=== PATIENT | female | born 1945 | race American Indian/Alaskan Native ===

== ENCOUNTER 2016-06-08 06:32 | Day surgery (SDC) | payer MEDICARE, BC ==
[2016-06-06 11:43] VITALS: BMI 28.8
[2016-06-08 07:21] LABS: ADD MANUAL DIFF? NO
[2016-06-08 07:26] LABS: BASO # 0.02 K/mm3 (0.0-2.0); BASO % 0.2 % (0.0-3.0); EOS # 0.1 (0.0-0.7); EOS % 1.2 % (1.5-5.0); GRAN # 3.33 (1.4-6.5); GRAN % 29.1 % (50.0-68.0); HEMATOCRIT 38.3 % (36.0-48.0); LYMPH # 7.4 (1.2-3.4); LYMPH % 64.5 % (22.0-35.0); MEAN CORPUSCULAR HEMOGLOBIN 27.2 pg (25.0-35.0); MEAN CORPUSCULAR HGB CONC 32.4 g/dl (31.0-37.0); MONO # 0.6 (0.1-0.6); PLATELET COUNT 200 10^3/uL (120.0-450.0); RED CELL DISTRIBUTION WIDTH 15.2 % (11.5-14.5); WHITE BLOOD COUNT 11.4 10^3/ul (4.5-11.0)
[2016-06-08 07:38] LABS: INR 0.94 (0.93-1.08); PARTIAL THROMBOPLASTIN TIME 26.6 Seconds (23.7-30.8)
[2016-06-08 07:43] LABS: BLOOD UREA NITROGEN 14 mg/dL (7-21); CALCIUM 9.4 mg/dL (8.4-10.5); CARBON DIOXIDE 26 mmol/L (21-33); CHLORIDE 102 mmol/L (98-107); GFR AFRICAN-AMERICAN > 60; GLUCOSE,RANDOM 237 mg/dL (70-110); POTASSIUM 3.9 mmol/L (3.6-5.0); SODIUM 139 mmol/L (132-148)
[2016-06-08] MEDS ORDERED: Lidocaine 2% Inj (20ml) ONE ×2 (08:12→09:14)
[2016-06-08] MEDS ORDERED: Nitroglycerin 50mg in D5W 250 ML IV ONE (08:13)
[2016-06-08] MEDS ORDERED: Iodixanol 320 mg/ml 150 ml Bottle IV ONE (08:13)
[2016-06-08] MEDS ORDERED: Iodixanol 320 MG/ML 200 ML BOTTLE IV ONE (08:13)
[2016-06-08] MEDS ORDERED: Midazolam 2 MG/2 ML VIAL ONE ×2 (08:56→09:34)
--- NOTE | 2016-06-08 09:04 | CP.SDSHP ---
Same Day Surgery H & P - History Proposed Procedure: Femoral angiogram Pre-Op Diagnosis: PVD - Previous Medical/Surgical History Cardiac: Hypertension, Arrhythmia (hx of Arrhythmia during colonoscopy, resulting in termination of the procedure), PVD Pulmonary: Asthma (CLL,Hyperlipidemia,Neuropathy,Vertigo), Smoking (Smoked 1PPd for 10 years,quit 40 years ago) Endocrine/Metabolic: Diabetes, Other Neuro: TIA/CVA (Had TIA), Other Misc: Anemia, Other (hyperlipidemia,CLL,Neuropathy,Osteomylitis) Pain: 0. No Pain (at rest) Comments: Has c/o pain in the L leg on walking Previous Surgical History: Bilateral cateract surgery. Hysterectomy. Amputation 2nd L toe. Resection of L 2nd metatarsal head. Picc lines. I & D L foot. Tonsillectomy - Allergies Allergies: Allergies No Known Allergies Allergy (Verified 03/30/16 16:56) - Physical Exam General Appearance: Well nourished female Mental Status: Alert & Oriented x3 Neuro: WNL Heart: WNL Lungs: WNL - {Optional Preform as Required} Abdomen: WNL Other Pertinent Findings: both pedal pulses felt by doppler bilaterally. there is a dressing on the dorsum of the L foot. S/P resection of 2nd L metatarsal head and amputation of the 2nd L toe - Impression Impression: RENY - Date & Time Date: 06/08/16 Time: 09:03 Short Stay Discharge - Short Stay Discharge Admitting Diagnosis/Reason for Visit: RENY I70.221 Disposition: HOME/ ROUTINE
[2016-06-08] MEDS ORDERED: Oxycodone/Acetaminophen 5/325 mg Tab PO PRN (10:21)
[2016-06-08] MEDS ORDERED: Sodium Chloride 0.45% 1,000 ML IV SCH (10:30)
[2016-06-08 11:11] VITALS: RESP 16
[2016-06-08 11:21] VITALS: TEMP 97.7
[2016-06-08 12:27] VITALS: PULSE 101
[2016-06-08 13:52] VITALS: BP 147/69; O2SAT 97
--- NOTE | 2016-06-08 19:36 | VASCULAR ---
PROCEDURE: 1. Abdominal aortogram and bilateral lower extremity runoff with left selective views. 2. Left SFA and popliteal silver Hawk atherectomy and drug-eluting balloon angioplasty 3. Distal left anterior tibial artery angioplasty HISTORY: Severe peripheral vascular disease. Recent her vision in 2016. Left foot ischemia with linear ulceration. Re- stenosis on noninvasive studies. PHYSICIAN(S): Froy Valles M.D. TECHNIQUE: The relative risks and indications of the procedure were explained to the patient and consent obtained. The patient was hydrated prior to the procedure and the appropriate labs drawn. The patient was placed supine on the arteriogram table and the right groin prepped and draped in the usual sterile fashion. Conscious sedation and monitoring were provided throughout the procedure by a nurse. Via a right common femoral artery approach, a 5 Estonian sheath was placed in the right groin. Through the sheath and over a guidewire, a 5 Estonian flush catheter was placed in the abdominal aorta at the level of the renal arteries and a PA DSA abdominal aortogram performed. The catheter was pulled down to the aortic bifurcation and bilateral oblique DSA pelvic arteriograms performed. Overlapping bilateral lower extremity DSA arteriograms were obtained from the inguinal ligaments to the feet. A 0.035 angled Glidewire was advanced over the bifurcation and placed in the distal left SFA. A 7 Estonian 45 cm destination sheath was placed in the proximal left SFA. Heparin 5000 units IV and nitroglycerin in 250 mcg aliquots were given. The recurrent stenoses in the proximal left SFA and left popliteal artery above the knee were easily crossed with a trail david catheter. Imaging of the tibial vessels demonstrated severe disease of the distal left anterior tibial artery and a distal occlusion. The previously treated left tibioperoneal trunk has mild restenosis. Exchange was made for a 0.014 support guidewire placed at the level of the ankle. The mid to distal left anterior tibial artery was dilated with a 2.5-3.0 by 210 mm tapered balloon. The distal left anterior tibial artery was then dilated with a 3.0 mm balloon. A good angiographic result was obtained. No stent was required. Silver Hawk atherectomy of the left popliteal artery above the knee was performed with an LS catheter. The origin of the left SFA was also treated with the LS atherectomy catheter. The terminal left SFA and left popliteal artery was treated with 5 mm drug-eluting balloon. The origin of the left SFA was treated with 6 mm drug-eluting balloon. Completion angiograms were obtained. The sheath was removed hemostasis obtained. The patient tolerated the procedure well. FINDINGS: There are single renal arteries bilaterally which are widely patent and normal in appearance. The nephrograms are symmetric in appearance. The infrarenal abdominal aorta is widely patent without a radiographically significant stenosis. The aortic bifurcation is widely patent. The common and external iliac arteries are normal in appearance without a significant stenosis. The internal iliac arteries are patent bilaterally. Right lower extremity: The right common femoral artery is patent. The right profunda femoral artery is patent. The right superficial femoral artery is patent with multiple mild to moderate stenoses in the mid to distal portion. The right popliteal artery is patent and continuous without radiographically significant stenosis. There is severe right tibial occlusive disease. Distal right posterior tibial artery is occluded. The right anterior tibial artery is a predominant supply to the foot. There are 2 moderate to severe stenoses in the proximal right anterior tibial artery. The right peroneal artery is small and patent with focal disease in the tibioperoneal trunk.. Left lower extremity: Left common femoral artery is patent. The left profunda femoral artery is patent with mild restenosis at its origin. Moderate disease and re- stenosis is noted in the proximal left SFA. A critical restenosis is seen in the left popliteal artery above the patella. The left popliteal artery is otherwise continuous. There is severe left trifurcation and tibial occlusive disease. The left posterior tibial artery is occluded. The previously treated left tibioperoneal trunk has mild restenosis. The left peroneal artery is continuous to the ankle. The left anterior tibial artery is a predominant supply to the foot. Severe disease and a 5 cm occlusion of the terminal left anterior tibial artery.. IMPRESSION: 1.Successful treatment of recurrent stenosis in the left popliteal artery above the knee and the origin of the left SFA with silver Hawk atherectomy and drug-eluting balloon angioplasty as described above. 2. Successful angioplasty of severe disease in short segment occlusion of the distal left anterior tibial artery. 3. Severe bilateral tibial occlusive disease.
== END 2016-06-08 16:14 | disposition home or self-care (01) ==
LOC: SDSVAS 06:32
PROVIDERS: ATTEND Radiology Vascular & Interventional Radiology
DX: I70.245 Atherosclerosis of native arteries of left leg with ulceration of other part of foot (principal); L97.529 Non-pressure chronic ulcer of other part of left foot with unspecified severity; E78.5 Hyperlipidemia, unspecified; J45.909 Unspecified asthma, uncomplicated; E11.42 Type 2 diabetes mellitus with diabetic polyneuropathy; Z79.4 Long term (current) use of insulin; C91.10 Chronic lymphocytic leukemia of B-cell type not having achieved remission; I10 Essential (primary) hypertension; Z86.73 Personal history of transient ischemic attack (TIA), and cerebral infarction without residual deficits; Z90.710 Acquired absence of both cervix and uterus; Z89.422 Acquired absence of other left toe(s); Z87.891 Personal history of nicotine dependence
CPT/HCPCS: 36415; 37225; 37228; 75625; 75716; 80048; 82948; 85025; 85610; 85730; 99152; 99153; C1725 ×5; C1764; C1769 ×3; C1887 ×2; C1894; J0360; J1644 ×2; J2175; J2250; J2405; J3010; J7030

== ENCOUNTER 2016-06-24 03:56 | Observation (INO) | payer MEDICARE, BC ==
[2016-06-24 04:22] VITALS: BMI 29.9
[2016-06-24] MEDS ORDERED: Morphine 2 mg/ml ISec IM STA (04:30)
--- NOTE | 2016-06-24 04:37 | ED PDOC ---
Arrival/HPI - General Chief Complaint: Lower Extremity Problem/Injury Time Seen by Provider: 06/24/16 04:15 Historian: Patient - History of Present Illness Narrative History of Present Illness (Text): 06/24/16 04:30 Ashwini Zafar is a 70 year old female, whose past medical history include diabetes, hypertension, asthma, TIA, chronic renal insufficiency, diabetic neuropathy, and PVD, who presents to the ED complaining of bilateral lower leg pain. Patient states she had vascular procedures performed on both legs recently and been experiencing bilateral lower leg pain described as a tight/ pulling sensation. Patient states she has been taking Neurotin and Aspirin for pain but denies any significant relief. Patient denies any fever, chills, chest pain, shortness of breath, nausea, vomiting, diarrhea, urinary symptoms, back pain, neck pain, headache, dizziness, or any other complaints. Time/Duration: Other (few days) Symptom Onset: Gradual Symptom Course: Unchanged Quality: Tightness, Other (Pulling) Activities at Onset: Rest, Light Modifying Factors (Text): none Context: Home Past Medical History - Provider Review Nursing Documentation Reviewed: Yes - Infectious Disease Hx of Infectious Diseases: None - Tetanus Immunization Tetanus Immunization: Unknown - Cardiac Hx Pacemaker: No - Pulmonary Hx Respiratory Disorders: Yes Hx Asthma: Yes - Neurological Hx Paralysis: No - HEENT Hx HEENT Disorder: Yes Hx Cataracts: Yes (SX) Other/Comment: TONSILLECTOMY - Renal Hx Renal Failure: Yes - Endocrine/Metabolic Hx Diabetes Mellitus Type 2: Yes - Hematological/Oncological Hx Blood Transfusions: Yes Hx Blood Transfusion Reaction: No - Integumentary Hx Dermatological Disorder: Yes Other/Comment: dry skin hard thick toes both feet, 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 16 LEFT BALL OF FOOT AND TOP OF FOOT WITH OPEN WOUND.MILD FOUL SMELL.DRAINAGE. - Musculoskeletal/Rheumatological Hx Musculoskeletal Disorders: Yes (HX OSTEO) - Gastrointestinal Hx Gastrointestinal Disorders: No - Genitourinary/Gynecological Hx Genitourinary Disorders: No (ARF) Hx Reproductive Disorders: No - Psychiatric Hx Emotional Abuse: No Hx Physical Abuse: No Hx Substance Use: No - Surgical History Hx Hysterectomy: Yes Hx Tonsillectomy: Yes Other/Comment: tonsils, bilateral cataracts removed, picc line x 2, i and d of non healing wound to ball of left foot dsg dry and intact done today - Anesthesia Hx Anesthesia Reactions: No Hx Malignant Hyperthermia: No - Suicidal Assessment Feels Threatened In Home Enviroment: No Family/Social History - Physician Review Nursing Documentation Reviewed: Yes Family/Social History: No Known Family HX Smoking Status: Former Smoker Hx Alcohol Use: No Hx Substance Use: No Hx Substance Use Treatment: No Allergies/Home Meds Allergies/Adverse Reactions: Allergies No Known Allergies Allergy (Verified 03/30/16 16:56) Home Medications: Home Meds Medication Instructions Recorded Confirmed Alprazolam [Xanax] 0.25 mg PO BID PRN 09/12/11 06/24/16 Losartan Potassium [Cozaar] 50 mg PO DAILY 12/31/15 06/24/16 Methimazole [Tapazole] 5 mg PO DAILY 12/31/15 06/24/16 Aspirin [Ecotrin] 81 mg PO DAILY 03/27/16 06/24/16 Insulin Lispro Mix 75/25 [HumaLOG 40 units SC ACBD 03/27/16 06/24/16 Mix 75/25] Multivit-Min/FA/Lycopen/Lutein 1 tab PO DAILY 03/27/16 06/24/16 [Adults 50+ Multivitamin Tablet] Review of Systems - Physician Review All systems were reviewed & negative as marked: Yes - Review of Systems Constitutional: Normal. absent: Fevers Eyes: Normal ENT: Normal Respiratory: Normal. absent: SOB, Cough Cardiovascular: Normal. absent: Chest Pain Gastrointestinal: Normal. absent: Abdominal Pain, Diarrhea, Nausea, Vomiting Genitourinary Female: Normal. absent: Dysuria, Frequency, Hematuria, Urine Output Changes Musculoskeletal: Other (+bilateral lower leg pain). absent: Back Pain, Neck Pain Skin: Normal. absent: Rash Neurological: Normal. absent: Headache, Dizziness Endocrine: Normal Hemo/Lymphatic: Normal Psychiatric: Normal Physical Exam Vital Signs Reviewed: Yes Vital Signs Temp Pulse Resp BP Pulse Ox 06/24/16 06:55 98 F 80 20 148/82 97 06/24/16 06:53 98.4 F 80 20 148/80 97 06/24/16 04:20 97.3 F L 78 18 152/84 H 96 Temperature: Afebrile Blood Pressure: Normal Pulse: Regular Respiratory Rate: Normal Appearance: Positive for: Well-Appearing, Non-Toxic, Comfortable Pain Distress: None Mental Status: Positive for: Alert and Oriented X 3 - Systems Exam Head: Present: Atraumatic, Normocephalic Pupils: Present: PERRL Extroacular Muscles: Present: EOMI Conjunctiva: Present: Normal Mouth: Present: Moist Mucous Membranes Neck: Present: Normal Range of Motion Respiratory/Chest: Present: Clear to Auscultation, Good Air Exchange. No: Respiratory Distress, Accessory Muscle Use Cardiovascular: Present: Regular Rate and Rhythm, Normal S1, S2. No: Murmurs Abdomen: Present: Normal Bowel Sounds. No: Tenderness, Distention, Peritoneal Signs Back: Present: Normal Inspection Upper Extremity: Present: Normal Inspection. No: Cyanosis, Edema Lower Extremity: Present: Normal Inspection, NORMAL PULSES, Normal ROM, Neurovascularly Intact, Capillary Refill < 2 s. No: Edema, Cyanosis, Tenderness , Swelling, Erythema, Deformity, Temperature Abnormalties Neurological: Present: GCS=15, CN II-XII Intact, Speech Normal Skin: Present: Warm, Dry, Normal Color. No: Rashes Psychiatric: Present: Alert, Oriented x 3, Normal Insight, Normal Concentration Medical Decision Making ED Course and Treatment: 06/24/16 04:30 Impression: 70 year old female complaining of bilateral lower leg pain for Differential Diagnosis include but are not limited to: Plan: -- Morphine -- Reassess and disposition Prior Visits: Notes and results from previous visits were reviewed. Progress Notes: - RAD Interpretation Radiology Orders: 06/24/16 06:20 DUPLEX LOWER EXTRM VEIN BILAT [US] Stat - Medication Orders Current Medication Orders: Discontinued Medications Alprazolam (Xanax) 0.25 mg PO BID PRN; Protocol PRN Reason: Anxiety Stop: 07/01/16 08:41 Last Admin: 06/26/16 00:52 Dose: 0.25 MG Re-Assess: Reassess Psych Meds Document 06/26/16 01:52 RICHI (Rec: 06/26/16 07:23 RICHI [id number]) Reassess Psych Med Effective Aspirin (Ecotrin) 81 mg PO DAILY [facility] Last Admin: 06/26/16 09:55 Dose: 81 MG Atorvastatin Calcium (Lipitor) 10 mg PO DIN [facility] Last Admin: 06/25/16 17:38 Dose: 10 MG Gabapentin (Neurontin) 200 mg PO TID [facility] PRN Reason: Protocol Last Admin: 06/24/16 10:31 Dose: 200 MG Behavioural Document 06/24/16 10:31 SAMIA (Rec: 06/24/16 10:31 SAMIA [id number]) Maintenance Maintenance Dose Yes Re-Assess: Reassess Psych Meds Document 06/24/16 11:31 SAMIA (Rec: 06/24/16 12:23 SAMIA [id number]) Reassess Psych Med Effective Gabapentin (Neurontin) 600 mg PO BID [place] PRN Reason: Protocol Last Admin: 06/26/16 09:55 Dose: 600 MG Behavioural Document 06/26/16 09:55 MV (Rec: 06/26/16 09:55 MV [id number]) Maintenance Maintenance Dose Yes Insulin Human Regular (Humulin R Low) 0 units SC ACHS [place] PRN Reason: Protocol Last Admin: 06/24/16 08:10 Dose: Not Given Non-Admin Reason: Patient in Radiology Insulin Human Regular (Humulin R High) 0 units SC ACHS [place] PRN Reason: Protocol Last Admin: 06/25/16 22:06 Dose: Not Given Insulin Lispro Protam/Lispro Human (Humalog Mix 75/25) 40 units SC ACBD [facility] Last Admin: 06/25/16 17:38 Dose: 40 unit MAR Blood Glucose Document 06/25/16 17:38 MLK (Rec: 06/25/16 17:38 MLK [id number]) Blood Glucose Finger Stick Blood Glucose (70-120) 286 Subcutaneous Administrations Document 06/25/16 17:38 MLK (Rec: 06/25/16 17:38 MLK [id number]) Injection Site MAR Injection Site Right Arm Charges for Administration # of Subcutaneous Administrations 1 Losartan Potassium (Cozaar) 50 mg PO DAILY [facility] Last Admin: 06/26/16 09:55 Dose: 50 MG MAR Pulse and Blood Pressure Document 06/26/16 09:55 MV (Rec: 06/26/16 09:55 MV [id number]) Pulse Pulse Rate (60-90) 88 Blood Pressure Blood Pressure (100/60-150/90) 178/85 Methimazole (Tapazole) 5 mg PO DAILY [facility] Last Admin: 06/26/16 09:57 Dose: 5 MG Morphine Sulfate (Morphine) 2 mg IM STAT STA Stop: 06/24/16 04:31 Last Admin: 06/24/16 04:44 Dose: 2 MG MAR Pain Assessment Document 06/24/16 04:44 RJR (Rec: 06/24/16 04:49 R [id number]) Pain Reassessment Is this a pain reassessment? Yes Sleep Is patient sleeping during reassessment? Yes Pain Scale Used Pain Scale Used Numeric Location Left, Right or Bilateral Bilateral Pain Location Body Site Foot Description Description Constant Intensity of Pain at present 9 Acceptable Level of Pain 2 IM Administration Charges Document 06/24/16 04:44 RJR (Rec: 06/24/16 04:49 R [id number]) Charges for Administration # of IM Administrations 1 Oxycodone/Acetaminophen (Percocet 5/325 Mg Tab) 1 tab PO Q6H PRN PRN Reason: Pain, moderate (4-7) Stop: 06/27/16 06:46 Last Admin: 06/26/16 09:55 Dose: 1 TAB MAR Pain Assessment Document 06/26/16 09:55 MV (Rec: 06/26/16 09:55 MV [id number]) Pain Reassessment Is this a pain reassessment? Yes Pneumococcal Polyvalent Vaccine (Pneumovax 23 Vaccine) 0.5 ml IM .ONCE ONE Stop: 06/24/16 13:25 - Scribe Statement The provider has reviewed the documentation as recorded by the Owen Barajas Provider Attestation: All medical record entries made by the Kishanibnatacha were at my direction and personally dictated by me. I have reviewed the chart and agree that the record accurately reflects my personal performance of the history, physical exam, medical decision making, and the department course for this patient. I have also personally directed, reviewed, and agree with the discharge instructions and disposition. Disposition/Present on Arrival - Present on Arrival Any Indicators Present on Arrival: No History of DVT/PE: No History of Uncontrolled Diabetes: No Urinary Catheter: No History of Decub. Ulcer: No History Surgical Site Infection Following: None - Disposition Have Diagnosis and Disposition been Completed?: Yes Diagnosis: Peripheral vascular disease, Diabetes mellitus, Leg pain Disposition: HOSPITALIZED Disposition Time: 07:00 Patient Problems: Current Active Problems Problem Status Diagnosed Dizziness Acute Hyperglycemia Acute Leg pain Acute Peripheral vascular disease Acute TIA (transient ischemic attack) Acute Condition: FAIR
[2016-06-24 06:55] LABS: ADD MANUAL DIFF? NO
[2016-06-24 07:16] LABS: BASO # 0.02 K/mm3 (0.0-2.0); BASO % 0.2 % (0.0-3.0); EOS # 0.2 (0.0-0.7); EOS % 1.5 % (1.5-5.0); GRAN # 3.79 (1.4-6.5); GRAN % 30.1 % (50.0-68.0); HEMATOCRIT 39.3 % (36.0-48.0); LYMPH # 8.1 (1.2-3.4); LYMPH % 64.1 % (22.0-35.0); MEAN CELL VOLUME 84.3 fL (80.0-105.0); MEAN CORPUSCULAR HEMOGLOBIN 27.7 pg (25.0-35.0); MEAN CORPUSCULAR HGB CONC 32.8 g/dl (31.0-37.0); MONO # 0.5 (0.1-0.6); MONO % 4.1 % (1.0-6.0); PLATELET COUNT 229 10^3/uL (120.0-450.0); RED CELL DISTRIBUTION WIDTH 15.5 % (11.5-14.5); WHITE BLOOD COUNT 12.6 10^3/ul (4.5-11.0)
[2016-06-24] MEDS: Oxycodone/Acetaminophen 5/325 mg Tab PO PRN ×2 (07:16→17:13)
[2016-06-24] MEDS ORDERED: Insulin Reg-LOW-Coverage SC SCH (07:30)
[2016-06-24 08:37] LABS: ALKALINE PHOSPHATASE 145 U/L (38-133); ALT/SGPT 33 U/L (7-56); AST/SGOT 24 U/L (15-39); BILIRUBIN,TOTAL 0.7 mg/dL (0.2-1.3); BLOOD UREA NITROGEN 17 mg/dL (7-21); CALCIUM 9.1 mg/dL (8.4-10.5); CARBON DIOXIDE 27 mmol/L (21-33); CHLORIDE 102 mmol/L (98-107); GFR AFRICAN-AMERICAN > 60; GLUCOSE,RANDOM 218 mg/dL (70-110); POTASSIUM 4.2 mmol/L (3.6-5.0); SODIUM 139 mmol/L (132-148); TOTAL PROTEIN 8.2 g/dL (5.8-8.3)
[2016-06-24] MEDS: methIMAzole 5 MG TAB PO SCH (10:31)
[2016-06-24] MEDS: Insulin Reg-HIGH-Coverage SC SCH ×3 (12:22→22:00)
[2016-06-24] MEDS ORDERED: Pneumococcal 23-Valent Vaccine IM ONE (13:24)
--- NOTE | 2016-06-24 14:52 | CARD ---
APPROVED REPORT EKG Measurement Heart [id number] CA [id number] <Conclusion> Sinus rhythm with 1st degree AV block Septal infarct, age undetermined T wave abnormality, consider anterior ischemia Prolonged QT Abnormal ECG
[2016-06-24] MEDS: Insulin Lispro (humaLOG) MIX 75/25(10 ml) SC SCH (17:58)
--- NOTE | 2016-06-25 02:27 | HP ---
ADMISSION DATE: 06/24/2016. HISTORY OF PRESENT ILLNESS: The patient is a 70-year-old female, who presented to the ED with bilate ral lower leg pain. She is complaining of cramping pain in lower extremity. She has peripheral vasc ular disease. She has diabetes mellitus, which is uncontrolled on current medication. She also has hypertension. She has peripheral vascular disease, has multiple prior admissions for foot ulcers. S he had vascular procedures performed on both legs before. She is currently on Percocet and Neurontin , still complaining of lower-extremity pain, chronic renal insufficiency. BUN and creatinine stable in recent past. She also has hypertension. Blood pressure controlled on current medications. White count is elevated during this hospitalization. Denies any fever. No chest pain, no shortness of br eath. PAST MEDICAL HISTORY: Diabetes mellitus type 2, chronic renal insufficiency, TIA, asthma, peripheral vascular disease, hypertension, chronic anemia, history of blood transfusion in the past, history of osteomyelitis. PAST SURGICAL HISTORY: Tonsillectomy, amputation of several toes. ALLERGIES: No known drug allergies. FAMILY HISTORY: No positive history in mother or father. PERSONAL HISTORY: Former smoker. No history of alcohol abuse. SOCIAL HISTORY: Lives at home. HOME MEDICATIONS: Xanax 0.25 mg b.i.d., Neurontin 200 mg p.o. t.i.d., Cozaar 50 mg daily, Tapazole 5 mg daily, aspirin 81 mg daily, insulin 40 units subQ twice a day, multivitamin. REVIEW OF SYSTEMS: As per HPI, rest of 12-point review of systems reviewed and negative. PHYSICAL EXAMINATION: GENERAL: Mild distress due to lower-extremity pain. VITAL SIGNS: Temperature 97.3, heart rate is 78 per minute, respiratory rate 18 per minute, blood pr essure 150/80, pulse ox is 96% room air. HEENT: Normal. NECK: No lymphadenopathy. CHEST: Air entry present, equal bilateral. CARDIOVASCULAR: S1, S2 normal. No murmur, no gallop. ABDOMEN: Soft, nontender, no hepatosplenomegaly. EXTREMITIES: No calf tenderness. SKIN: Intact. No discharge. SPINE: Normal. PSYCHIATRIC: Affect normal. LABORATORY DATA: White count 12.6, hemoglobin 12.9, hematocrit 39.3, platelet count 229. Sodium 139 , potassium 4.2, chloride 102, creatinine 0.8, glucose 241. AST 24, ALT 33, total protein 8.2. EKG : No ST-T changes. ASSESSMENT: She will be admitted to the hospital. Bilateral lower-extremity ultrasound ordered. We will continue Neurontin 600 mg p.o. b.i.d. She is also on Percocet 5/325 one tablet q. 6 hours p.r. n. for pain. We will continue Lipitor 10 mg daily. Continue insulin. Humalog mix 75/25, 40 units s ubQ t.i.d. before meals. We will continue Cozaar for hypertension 50 mg daily, methimazole 5 mg dayron y, aspirin 81 mg daily, Xanax p.r.n. 0.25 mg b.i.d. We will continue to monitor closely. She also h as leukocytosis. Urine culture, blood cultures sent. No fever, no obvious signs of infection. She also has chronic anemia, hemoglobin 12.9. We will continue to monitor blood counts. Sophie Bazan MD cc: [id number] TT: 06/25/2016 02:26:38 vn
[2016-06-25] MEDS: Oxycodone/Acetaminophen 5/325 mg Tab PO PRN ×2 (07:30→15:43)
[2016-06-25] MEDS: Insulin Reg-HIGH-Coverage SC SCH ×4 (08:03→22:06)
[2016-06-25] MEDS: Insulin Lispro (humaLOG) MIX 75/25(10 ml) SC SCH ×2 (08:03→17:38)
[2016-06-25] MEDS: methIMAzole 5 MG TAB PO SCH (09:28)
--- NOTE | 2016-06-25 13:35 | CON ---
DATE: 06/25/2016 CHIEF COMPLAINT: Neuropathy. HISTORY OF PRESENT ILLNESS: A 70-year-old woman with history of type 2 diabetes mellitus, chronic re nal insufficiency, peripheral vascular disease, status post left SFA, hypertension, chronic anemia, h istory of blood transfusions in the past, history of osteomyelitis in the past, who had been having c ramping pain in the lower extremity. She has peripheral vascular disease. She says she can barely wa lk about half a block. She has had vascular procedures performed on both legs before. She is on Per cocet and Neurontin and still complaining of lower extremity pain, and chronic renal insufficiency. She is only on aspirin. She was only gabapentin 200 mg p.o. t.i.d. initially. Peripheral pulses 2+ felt bilaterally. Otherwise, no weakness in the extremities. PAST MEDICAL HISTORY: History of diabetes type 2, , TIA, asthma, peripheral vascular disease, h ypertension, chronic anemia, blood transfusions in the past. PAST SURGICAL HISTORY: Tonsillectomy, amputation of toes. ALLERGIES: No known drug allergies. FAMILY HISTORY: Noncontributory. SOCIAL HISTORY: Former smoker. No history of ETOH abuse. HOME MEDICATIONS: Xanax, Neurontin, Cozaar, Tapazole, aspirin, insulin. REVIEW OF SYSTEMS: A 14-point review of systems is negative except in the HPI. PHYSICAL EXAMINATION: VITAL SIGNS: Temperature 97.8, pulse rate of 78, respiratory rate of 18, blood pressure 150/80. HEENT: Atraumatic, normocephalic. PERRLA. Extraocular muscles intact. NECK: Supple, no JVD, no adenopathy noted. LUNGS: Clear to auscultation. No adventitious sounds. HEART: S1, S2, normal rate and rhythm. No murmurs, rubs, or gallops. ABDOMEN: Soft, nontender, nondistended. Bowel sounds are present. EXTREMITIES: No clubbing, no cyanosis. Peripheral pulses 2+ felt bilaterally. NEUROLOGIC: The patient is alert, oriented to person, place, month and year. Speech is fluent, with out errors. Cranial nerves II-XII are intact. MOTOR: Moves all extremities equally. Toes are downgoing bilaterally. SENSORY: Decreased light touch and pinprick up to calves bilaterally. Diffuse vibration of the toes . Proprioception is intact. DTRs are 2+ throughout and 1 at the ankles. COORDINATION: [id number] intact. GAIT: Deferred for now. LABORATORIES: Sodium 139, potassium 4.2, chloride 102, carbon dioxide 27, BUN of 17, creatinine 0.8. Random glucose 218. ASSESSMENT AND PLAN: This is a 70-year-old woman with history of type 2 diabetes mellitus, chronic r enal insufficiency, peripheral vascular disease, status post SFA, hypertension, chronic anemia, who p resented with bilateral lower extremity pain. Ultrasound of lower extremities has been ordered. She was initially on Neurontin 200 mg p.o. t.i.d., on Percocet at this time. I feel like she has a comb ination of sensory or motor peripheral neuropathy superimposed underlying peripheral vascular disease . At this point, I recommend: 1. An outpatient EMG nerve conduction study of lower extremities to assess the degree of neuropathy. 2. Aspirin 81 mg and Plavix 75 mg p.o. daily for more antiplatelet effect in addition to her Lipitor 10 mg daily for her underlying peripheral vascular disease. 3. We will increase the gabapentin to 600 mg p.o. b.i.d. She can follow up as an outpatient. Thank you for this consult. We will sign off. Brian Vogel MD cc: [phone] TT: 06/25/2016 13:34:02 Confirmation # [id number] Dictation # [id number] mn
--- NOTE | 2016-06-25 14:23 | US ---
HISTORY: Leg pain and swelling. Evaluate for DVT PHYSICIAN(S): Froy Valles MD. TECHNIQUE: Duplex sonography and color-flow Doppler with graded compression were used to evaluate the deep venous systems of both lower extremities. FINDINGS: The visualized deep venous systems of both lower extremities are sonographically normal and compressible. Normal wave forms and augmentation are seen. There is no sonographic evidence for deep venous thrombosis in the visualized segments of both lower extremities. IMPRESSION: No sonographic evidence for deep venous thrombosis in the visualized segments of both lower extremities.
[2016-06-26] MEDS: Oxycodone/Acetaminophen 5/325 mg Tab PO PRN ×2 (00:53→09:55)
--- NOTE | 2016-06-26 08:20 | CON ---
DATE: 06/24/2016 CHIEF COMPLAINT: Lower extremity pain. HISTORY OF PRESENT ILLNESS: This is a 70-year-old woman with a history of chronic renal insufficienc y, TIA, diabetes, diabetic peripheral neuropathy, PVD with status post left SFA , history of hyp ertension who complains of bilateral lower extremity leg pain, especially at the lower part of the le g as when she walks it is more of a tight and pulling sensation and feels like she is walking on rock s. She is on Neurontin low dose of 200 mg p.o. t.i.d. and takes aspirin, but denies any significant relief. Peripheral pulses are felt in her lower extremities. She is moving all extremities without any problems. PAST MEDICAL HISTORY: Diabetes, diabetic peripheral neuropathy, CRF, PVD, status post left SFA, hist ory of vertigo. REVIEW OF SYSTEMS: A 14-point review of systems is negative except for the HPI. SOCIAL HISTORY: No illicit drug use, smoking, or ETOH abuse. MEDICATIONS: Reviewed via nurses' reconciliation sheet. ALLERGIES: No known drug allergies. FAMILY HISTORY: Noncontributory. PHYSICAL EXAMINATION: VITAL SIGNS: Temperature 98, pulse rate of 80, blood pressure 140/82, respiratory rate of 20, oxygen saturation 97% on room air. GENERAL: The patient is sitting up in bed in no acute distress. HEENT: Atraumatic, normocephalic. PERRLA. Extraocular muscles intact. NECK: Supple, no JVD, no adenopathy noted. LUNGS: Clear to auscultation. No adventitious sounds. HEART: S1, S2, normal rate and rhythm. No murmurs, rubs, or gallops. ABDOMEN: Soft, nontender, nondistended. Bowel sounds are present. EXTREMITIES: No clubbing, no cyanosis. Peripheral pulses 2+ felt bilaterally. NEUROLOGIC: The patient is alert, oriented to person, place, month and year. Speech is fluent, with out any errors. Cranial nerves II through XII are intact. MOTOR: Moves all extremities. Toes are downgoing bilaterally. SENSORY: Decreased light touch and pinprick up to the calves bilaterally. Decreased vibration of th e toes. DTRs 2+ and 1 at the ankles. COORDINATION: Lilfal-zu-qihc intact. GAIT: Deferred for now. LABORATORIES: Sodium is 139, potassium 4.2, chloride of 102, carbon dioxide 27, BUN of 17, creatinin e 0.8. Random glucose of 218. ASSESSMENT AND PLAN: This is a 70-year-old woman with a history of peripheral vascular disease, stat us post left superficial femoral artery , diabetes, diabetic peripheral neuropathy, chronic joellen al insufficiency, vertigo, who presented with bilateral leg pain. Her bilateral leg pain is likely s econdary to peripheral vascular disease with superimposed underlying diabetic sensory motor periphera l neuropathy. At this time, would recommend: 1. In addition to aspirin 81 mg, could consider Plavix 75 as well, which will give her better flow a nd better antiplatelet effect. 2. Increase her gabapentin from 200 t.i.d. to at least 600 b.i.d., which would give her more neuropa thic pain relief and alpha lipoic acid 600 mg p.o. t.i.d. 3. Get Froy Valles to evaluate her peripheral vascular vessels in the upper and lower extremities an d extremity ultrasound. At this time, continue with current present medical management. Will follow up as an outpatient for an EMG to assess the extent of her diabetic peripheral neuropathy. Thank you for this consult. Brian Vogel MD cc: [id number] TT: 06/24/2016 16:27:04 Confirmation # [id number] Dictation # [id number] bg
[2016-06-26] MEDS: Insulin Reg-HIGH-Coverage SC SCH (08:26)
[2016-06-26 08:30] VITALS: BP 178/85; PULSE 88; RESP 20; TEMP 97; O2SAT 97
--- NOTE | 2016-06-26 09:26 | DS ---
This is a 70-year-old female who has come in to the hospital because of lower extremity pain. The pa tashi has a history of diabetic neuropathy. She has Neurontin that she was taking, and this was incr eased by Dr. Vogel from neurology. She also had a lower extremity Doppler done that showed no evide nce of DVT. The patient has peripheral arterial disease, is on aspirin. She has no complaint of any headaches or dizziness. She is going to be discharged home, although she is not happy about going b ecause she continues to have discomfort, and I tried to advise her that this is outpatient management , and that she will need continued titration of her medications by neurology. PHYSICAL EXAMINATION: VITAL SIGNS: Temperature is 98, pulse of 87. Blood pressure is 145/81. Respirations are 19, O2 sat uration 98%. GENERAL: The patient is comfortable, in no acute distress. HEENT: Anicteric sclerae. Moist mucosa. NECK: No JVD or adenopathy. CARDIAC: S1/S2. No murmurs. No rubs. Regular. RESPIRATORY: Clear to auscultation bilaterally. No wheezes, rales, or rhonchi. Good air entry. ABDOMEN: Bowel sounds are positive, soft, nontender, and nondistended. EXTREMITIES: No edema. Has 1+ pulses. ASSESSMENT: 1. Diabetic neuropathy. 2. Diabetes type 2. 3. Peripheral arterial disease. 4. Hypertension. 5. Dyslipidemia. 6. Hypothyroidism. PLAN: The patient is currently on Lipitor for dyslipidemia. She is on aspirin for her peripheral ar terial disease. She is on losartan for her hypertension. She is going to continue with Xanax as nee ded. She is on Neurontin that has been increased to 660 mg daily. She received pneumococcal vaccin ation. She is on a diabetic diet. She is on insulin. CONDITION: Stable. ACTIVITIES: Increase as tolerated. FOLLOWUP: With primary care doctor in 1-2 weeks. Rosendo Marrufo MD cc: [id number] TT: 06/26/2016 09:25:47 madan
[2016-06-26] MEDS: methIMAzole 5 MG TAB PO SCH (09:57)
== END 2016-06-26 12:03 | disposition home or self-care (01) ==
LOC: ED 03:56 → ERH 06:36 → 3RSO 10:13
PROVIDERS: ADMIT Internal Medicine Nephrology; ATTEND Internal Medicine Nephrology
DX: E11.42 Type 2 diabetes mellitus with diabetic polyneuropathy (principal); E11.51 Type 2 diabetes mellitus with diabetic peripheral angiopathy without gangrene; E11.65 Type 2 diabetes mellitus with hyperglycemia; I12.9 Hypertensive chronic kidney disease with stage 1 through stage 4 chronic kidney disease, or unspecified chronic kidney disease; E11.22 Type 2 diabetes mellitus with diabetic chronic kidney disease; N18.9 Chronic kidney disease, unspecified; E78.5 Hyperlipidemia, unspecified; E03.9 Hypothyroidism, unspecified; J45.909 Unspecified asthma, uncomplicated; D64.9 Anemia, unspecified; R42 Dizziness and giddiness; Z87.891 Personal history of nicotine dependence; Z79.4 Long term (current) use of insulin; Z79.82 Long term (current) use of aspirin; Z86.73 Personal history of transient ischemic attack (TIA), and cerebral infarction without residual deficits
CPT/HCPCS: 80053; 82948; 85025; 93005; 93970; 96372; 99285; G0378; J2270

== ENCOUNTER 2016-08-12 19:39 | Inpatient (IN) | payer MEDICARE, BC ==
--- NOTE | 2016-08-12 19:49 | ED PDOC ---
Arrival/HPI - General Time Seen by Provider: 08/12/16 19:46 Historian: Patient - History of Present Illness Narrative History of Present Illness (Text): 08/12/16 19:46 70yo female with PMHx of Diabetes, hyper cholesterol, hypothyroid present with complaint of left pelvic and back pain, dysuria and urinary frequency since last night. She notes previous history of UTI. States she only took a dose of her insulin this morning and not her other medications. She denies fever, chills , nausea, vomiting, hematuria, any other complaint. Past Medical History - Provider Review Nursing Documentation Reviewed: Yes - Infectious Disease Hx of Infectious Diseases: None - Tetanus Immunization Tetanus Immunization: Unknown - Cardiac Hx Pacemaker: No - Pulmonary Hx Respiratory Disorders: Yes Hx Asthma: Yes - Neurological Hx Paralysis: No - HEENT Hx HEENT Disorder: Yes Hx Cataracts: Yes (SX) Other/Comment: TONSILLECTOMY - Renal Hx Renal Failure: Yes - Endocrine/Metabolic Hx Diabetes Mellitus Type 2: Yes - Hematological/Oncological Hx Blood Transfusions: Yes Hx Blood Transfusion Reaction: No - Integumentary Hx Dermatological Disorder: Yes Other/Comment: dry skin hard thick toes both feet, 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 16 LEFT BALL OF FOOT AND TOP OF FOOT WITH OPEN WOUND.MILD FOUL SMELL.DRAINAGE. - Musculoskeletal/Rheumatological Hx Musculoskeletal Disorders: Yes (HX OSTEO) - Gastrointestinal Hx Gastrointestinal Disorders: No - Genitourinary/Gynecological Hx Genitourinary Disorders: No (ARF) Hx Reproductive Disorders: No - Psychiatric Hx Emotional Abuse: No Hx Physical Abuse: No Hx Substance Use: No - Surgical History Hx Hysterectomy: Yes Hx Tonsillectomy: Yes Other/Comment: tonsils, bilateral cataracts removed, picc line x 2, i and d of non healing wound to ball of left foot dsg dry and intact done today - Anesthesia Hx Anesthesia Reactions: No Hx Malignant Hyperthermia: No - Suicidal Assessment Feels Threatened In Home Enviroment: No Family/Social History - Physician Review Nursing Documentation Reviewed: Yes Family/Social History: Unknown Family HX Smoking Status: Former Smoker Hx Alcohol Use: No Hx Substance Use: No Hx Substance Use Treatment: No Allergies/Home Meds Allergies/Adverse Reactions: Allergies No Known Allergies Allergy (Verified 08/12/16 19:43) Home Medications: Home Meds Medication Instructions Recorded Confirmed Alprazolam [Xanax] 0.25 mg PO BID PRN 09/12/11 08/12/16 Losartan Potassium [Cozaar] 50 mg PO DAILY 12/31/15 08/12/16 Methimazole [Tapazole] 5 mg PO DAILY 12/31/15 08/12/16 Aspirin [Ecotrin] 81 mg PO DAILY 03/27/16 08/12/16 Insulin Lispro Mix 75/25 [HumaLOG 40 units SC ACBD 03/27/16 08/12/16 Mix 75/25] Multivit-Min/FA/Lycopen/Lutein 1 tab PO DAILY 03/27/16 08/12/16 [Adults 50+ Multivitamin Tablet] Pill For Yeat Infection 1 PO Q3D 08/12/16 Review of Systems - Physician Review All systems were reviewed & negative as marked: Yes - Review of Systems Constitutional: Normal Eyes: Normal ENT: Normal Respiratory: Normal Cardiovascular: Normal Gastrointestinal: Abdominal Pain. absent: Constipation, Diarrhea, Nausea, Vomiting, Hematochezia, Hematemesis Genitourinary Female: Dysuria, Frequency Musculoskeletal: Back Pain Skin: Normal Neurological: Normal Endocrine: Normal Hemo/Lymphatic: Normal Psychiatric: Normal Physical Exam Vital Signs Reviewed: Yes Vital Signs Temp Pulse Resp BP Pulse Ox 08/12/16 21:38 97.9 F 97 H 16 151/87 H 100 08/12/16 19:45 98.5 F 90 17 146/77 95 Temperature: Afebrile Blood Pressure: Normal Pulse: Regular Respiratory Rate: Normal Appearance: Positive for: Well-Appearing, Non-Toxic, Comfortable Pain Distress: None Mental Status: Positive for: Alert and Oriented X 3 - Systems Exam Head: Present: Atraumatic, Normocephalic Pupils: Present: PERRL Extroacular Muscles: Present: EOMI Conjunctiva: Present: Normal Mouth: Present: Moist Mucous Membranes Neck: Present: Normal Range of Motion Respiratory/Chest: Present: Clear to Auscultation, Good Air Exchange. No: Respiratory Distress, Accessory Muscle Use Cardiovascular: Present: Regular Rate and Rhythm, Normal S1, S2. No: Murmurs Abdomen: Present: Tenderness (Left pevic tenderness), Normal Bowel Sounds. No: Distention, Peritoneal Signs, Rebound, Guarding, McBurney's Point Tender, Rovsing's Sign Present Back: Present: CVA Tenderness (LEft sided). No: Midline Tenderness, Paraspinal Tenderness, Pain with Leg Raise Upper Extremity: Present: Normal Inspection. No: Cyanosis, Edema Lower Extremity: Present: Normal Inspection. No: Edema Neurological: Present: GCS=15, CN II-XII Intact, Speech Normal Skin: Present: Warm, Dry, Normal Color. No: Rashes Psychiatric: Present: Alert, Oriented x 3, Normal Insight, Normal Concentration Medical Decision Making ED Course and Treatment: 08/12/16 23:53 Pt with multiple co morbidities, have leukocytosis and UTI. On PE she had CVAT. she will be admitted for IV abx Levaquin was ordered. Result was RIAC Bazan who was covering for Dr. Marrufo and she accepted pt into her service. She requested Dr. Raya consult. Result and plan was DW the pt and she agreed - Lab Interpretations Lab Results: 08/12/16 20:05 08/12/16 20:05 Lab Results 08/12/16 20:05: Sodium 136, Potassium 4.3, Chloride 98, Carbon Dioxide 28, Anion Gap 14, BUN 22 H, Creatinine 0.8, Est GFR ( Amer) > 60, Est GFR ( Non-Af Amer) > 60, Random Glucose 222 H, Calcium 9.5, Total Bilirubin 1.0, AST 37, ALT 26, Alkaline Phosphatase 121, Total Protein 8.3, Albumin 4.5, Globulin 3.8, Albumin/Globulin Ratio 1.2 08/12/16 20:05: PT 10.6, INR 0.98, APTT 27.0 08/12/16 20:05: WBC 13.0 H, RBC 4.63, Hgb 12.6, Hct 38.4, MCV 82.9, MCH 27.2, MCHC 32.8, RDW 14.7 H, Plt Count 243, MPV 10.1, Gran % 37.5 L, Lymph % (Auto) 55.0 H, Alexander % (Auto) 5.6, Eos % (Auto) 1.7, Baso % (Auto) 0.2, Gran # 4.89, Lymph # 7.2 H, Alexander # 0.7 H, Eos # 0.2, Baso # 0.03 08/12/16 20:00: Urine Color Yellow, Urine Appearance Slight-cloudy, Urine pH 6.0 , Ur Specific Nimitz 1.020, Urine Protein Negative, Urine Glucose (UA) 100 H, Urine Ketones Negative, Urine Blood Small H, Urine Nitrate Negative, Urine Bilirubin Negative, Urine Urobilinogen 0.2, Ur Leukocyte Esterase Large H, Urine RBC 10 - 15, Urine WBC 25 - 30, Ur Epithelial Cells 6 - 8, Urine Bacteria Many, Urine Other Uyeast - RAD Interpretation Radiology Orders: 08/12/16 21:04 ABD & PELVIS W/O PO OR IV CONT [CT] Stat - Medication Orders Current Medication Orders: Alprazolam (Xanax) 0.25 mg PO BID PRN; Protocol PRN Reason: Anxiety Stop: 08/19/16 23:37 Aspirin (Ecotrin) 81 mg PO DAILY [place] Atorvastatin Calcium (Lipitor) 10 mg PO DIN [place] Gabapentin (Neurontin) 600 mg PO BID [place] PRN Reason: Protocol Sodium Chloride (Sodium Chloride 0.45%) 1,000 mls @ 80 mls/hr IV .[id number] [place] Ceftriaxone Sodium (Rocephin 1 Gram Ivpb) 1 gm in 100 mls @ 100 mls/hr IVPB DAILY [place] PRN Reason: Protocol Losartan Potassium (Cozaar) 50 mg PO DAILY [place] Methimazole (Tapazole) 5 mg PO DAILY [place] Oxycodone/Acetaminophen (Percocet 5/325 Mg Tab) 1 tab PO Q4H PRN PRN Reason: Pain, moderate (4-7) Stop: 08/15/16 23:41 Discontinued Medications Sodium Chloride (Sodium Chloride 0.9%) 1,000 mls @ 250 mls/hr IV .Q4H ONE Stop: 08/13/16 00:34 Last Admin: 08/12/16 20:42 Dose: 250 mls/hr Levofloxacin/Dextrose (Levaquin 750mg) 750 mg IVPB ONCE STA Stop: 08/12/16 21:01 Last Admin: 08/12/16 21:20 Dose: 750 mg Oxycodone/Acetaminophen (Percocet 5/325 Mg Tab) 1 tab PO STAT STA Stop: 08/12/16 21:01 Last Admin: 08/12/16 21:20 Dose: 1 tab Disposition/Present on Arrival - Present on Arrival Any Indicators Present on Arrival: No History of DVT/PE: No History of Uncontrolled Diabetes: No Urinary Catheter: No History Surgical Site Infection Following: None - Disposition Have Diagnosis and Disposition been Completed?: Yes Diagnosis: Pyelonephritis Disposition: HOSPITALIZED Disposition Time: 20:50 Patient Problems: Current Active Problems Problem Status Onset Pyelonephritis Acute Condition: FAIR
[2016-08-12 20:18] LABS: ADD MANUAL DIFF? NO
[2016-08-12 20:32] LABS: ALB/GLOB RATIO 1.2 (1.1-1.8); ALKALINE PHOSPHATASE 121 U/L (38-133); ALT/SGPT 26 U/L (7-56); AST/SGOT 37 U/L (15-39); BLOOD UREA NITROGEN 22 mg/dL (7-21); CALCIUM 9.5 mg/dL (8.4-10.5); CARBON DIOXIDE 28 mmol/L (21-33); CHLORIDE 98 mmol/L (98-107); GFR AFRICAN-AMERICAN > 60; GLUCOSE,RANDOM 222 mg/dL (70-110); POTASSIUM 4.3 mmol/L (3.6-5.0); SODIUM 136 mmol/L (132-148); TOTAL PROTEIN 8.3 g/dL (5.8-8.3)
[2016-08-12] MEDS ORDERED: Sodium Chloride 0.9% 1,000 ML IV ONE (20:35)
[2016-08-12 20:48] LABS: URINE BILIRUBIN NEGATIVE (NEGATIVE); URINE BLOOD SMALL (NEGATIVE); URINE GLUCOSE (UA) 100 mg/dL (NEGATIVE); URINE KETONE NEGATIVE (NEGATIVE); URINE LEUKOCYTE ESTERASE LARGE Leu/uL (NEGATIVE); URINE PROTEIN NEGATIVE mg/dL (<30 mg/dL); URINE UROBILINOGEN 0.2 E.U./dL (<1 E.U./dL)
[2016-08-12 20:49] LABS: INR 0.98 (0.93-1.08)
[2016-08-12 20:51] LABS: URINE APPEARANCE SLIGHT-CLOUDY (CLEAR); URINE COLOR YELLOW (YELLOW)
[2016-08-12] MEDS ORDERED: cefTRIAXone 1 gm 1 GM/100 ML BAG IVPB STA (20:51)
[2016-08-12 20:52] LABS: BASO # 0.03 K/mm3 (0.0-2.0); BASO % 0.2 % (0.0-3.0); EOS # 0.2 (0.0-0.7); EOS % 1.7 % (1.5-5.0); GRAN # 4.89 (1.4-6.5); GRAN % 37.5 % (50.0-68.0); HEMATOCRIT 38.4 % (36.0-48.0); LYMPH # 7.2 (1.2-3.4); MEAN CELL VOLUME 82.9 fL (80.0-105.0); MEAN CORPUSCULAR HEMOGLOBIN 27.2 pg (25.0-35.0); MEAN CORPUSCULAR HGB CONC 32.8 g/dl (31.0-37.0); MEAN PLATELET VOLUME 10.1 fl (7.0-11.0); MONO # 0.7 (0.1-0.6); MONO % 5.6 % (1.0-6.0); PLATELET COUNT 243 10^3/uL (120.0-450.0); RED CELL DISTRIBUTION WIDTH 14.7 % (11.5-14.5)
[2016-08-12 20:56] LABS: URINE WBC 25 - 30 /hpf (0-6)
[2016-08-12 20:57] LABS: URINE BACTERIA MANY (NEG)
[2016-08-12] MEDS ORDERED: levoFLOXacin 750 mg in D5W 150 ML BAG IVPB STA (21:00)
[2016-08-12] MEDS ORDERED: Oxycodone/Acetaminophen 5/325 mg Tab PO STA (21:00)
[2016-08-13 00:04] VITALS: BMI 29.9
[2016-08-13] MEDS: Sodium Chloride 0.45% 1,000 ML IV SCH ×4 (00:49→21:23)
[2016-08-13] MEDS: methIMAzole 5 MG TAB PO SCH (09:15)
[2016-08-13 09:46] VITALS: RESP 17
[2016-08-13] MEDS ORDERED: cefTRIAXone 1 gm 1 GM/100 ML BAG IVPB SCH (10:00)
--- NOTE | 2016-08-13 10:44 | CT ---
PROCEDURE: CT Abdomen and Pelvis without intravenous contrast HISTORY: abdominal pain COMPARISON: None. TECHNIQUE: Without contrast. Contrast Dose: Radiation dose: Total exam DLP = 632 mGy-cm. This CT exam was performed using one or more of the following dose reduction techniques: Automated exposure control, adjustment of the mA and/or kV according to patient size, and/or use of iterative reconstruction technique. FINDINGS: LOWER THORAX: Unremarkable. LIVER: Unremarkable. No gross lesion or ductal dilatation. GALLBLADDER AND BILE DUCTS: Unremarkable. PANCREAS: Unremarkable. No gross lesion or ductal dilatation. SPLEEN: Unremarkable. ADRENALS: Unremarkable. No mass. KIDNEYS AND URETERS: Unremarkable. No hydronephrosis. No solid mass. VASCULATURE: Unremarkable. No aortic aneurysm. BOWEL: Unremarkable. No obstruction. No gross mural thickening. APPENDIX: Unremarkable. Normal appendix. PERITONEUM: Unremarkable. No free fluid. No free air. LYMPH NODES: Unremarkable. No enlarged lymph nodes. BLADDER: Unremarkable. REPRODUCTIVE: Unremarkable. BONES: No acute fracture. OTHER FINDINGS: The report concurs with the preliminary [facility] report IMPRESSION: No acute findings
[2016-08-13] MEDS: Insulin Reg-LOW-Coverage SC SCH ×3 (12:06→21:53)
[2016-08-13] MEDS: Meropenem 1g/NS 100mL IVPB 1 GM/100 ML PIGGYBACK IVPB SCH ×2 (13:18→21:31)
[2016-08-13] MEDS: Oxycodone/Acetaminophen 5/325 mg Tab PO PRN ×2 (13:31→21:29)
[2016-08-13] MEDS: Insulin Lispro (humaLOG) MIX 75/25(10 ml) SC SCH (17:13)
--- NOTE | 2016-08-13 17:51 | CON ---
DATE: 08/13/2016 The patient was seen earlier today in 368, bed 1. CHIEF COMPLAINT: Left-sided abdominal pain times several days. HISTORY OF PRESENT ILLNESS: This is a 70-year-old female with past medical history of diabetes melli tus and diabetic neuropathy, CLL, osteomyelitis, TIA, kidney disease. The patient has a history of h ysterectomy. The patient also with a right second toe amputation. She was is in the hospital approx imately 2 months ago, now admitted with abdominal pain, left-sided, times several days and she states she is weak. REVIEW OF SYSTEMS: Did not have any fevers, no chills, no shortness of breath or chest pain. No cou gh. She denies any diarrhea or constipation. She did have dysuria and she also had left flank pain. She states that she had frequency. PAST MEDICAL HISTORY: Is significant for diabetes mellitus, diabetic neuropathy, CLL, hypertension, peripheral vascular disease, TIA, kidney disease, osteomyelitis. PAST SURGICAL HISTORY: Is significant for cataract surgery, hysterectomy, tonsillectomy, and right s econd toe amputation. ALLERGIES: The patient has no known allergies. She is not a smoker, not a drinker and no travel his tory. MEDICATIONS: At home are noted to be aspirin, Xanax, Tapazole, Cozaar, insulin, Neurontin, Lipitor. PHYSICAL EXAMINATION: GENERAL: The patient is in bed. VITAL SIGNS: Temperature of 98, pulse of 97, respiratory rate of 20, blood pressure is 160/80. HEENT: Unremarkable. NECK: Supple. LUNGS: Have decreased breath sounds. HEART: Normal S1, S2. No S3, S4. ABDOMEN: Has left-sided tenderness. There is left CVA tenderness. No rebound or guarding, no chad s. NEUROLOGIC: The patient is awake, alert and oriented x 3. LABORATORY EXAMINATION: The patient has a white count of 13,000, hemoglobin of 12, platelets of 243 with 55% lymphocytosis. Coagulation is noted. INR 0.9. Chemistries reveal the BUN of 22, creatinin e of 0.8. Urinalysis is noted; 25-30 WBCs. Microbiology is pending. The patient had a CAT scan of the abdomen and pelvis, results are pending. Review of the orders reveals the patient's urine cultures have been sent . The patient is on ce ftriaxone. Review of the microbiology in the past reveals the patient has had strep and Staph and co rynebacterium from the foot. Urine in the past, the patient has had Klebsiella in 04/2015, which was pansensitive Klebsiella. ASSESSMENT AND PLAN: This is a 70-year-old female with diabetes mellitus, diabetic neuropathy, hyper tension, chronic lymphocytic leukemia, history of osteomyelitis, history of transient ischemic attack , kidney disease, peripheral vascular disease, now presenting with leukocytosis and tachycardia and p ositive left flank pain and abdominal pain. 1. Sepsis with left pyelonephritis versus diverticulitis. Will treat the patient with meropenem pen ding blood cultures, urine cultures and CAT scan of the abdomen and pelvis and will make further tulio mmendations upon availability of initial results. Sampson Raya MD cc: [id number] TT: 08/13/2016 17:50:32 Confirmation # [id number] Dictation # [id number] dn
--- NOTE | 2016-08-14 00:27 | HP ---
HISTORY OF PRESENT ILLNESS: The patient is an 80-year-old female with past medical history of diabet es mellitus, peripheral vascular disease, hypothyroidism, complaining of left flank pain and back wendy n. CAT scan of the abdomen was unremarkable. UA was positive. She has increased urinary frequency and lower abdominal pain. She has diabetes mellitus, uncontrolled. She has history of peripheral va scular disease, stable; a history of osteomyelitis in the recent past treated with IV antibiotics. N o issues right now. PAST MEDICAL HISTORY: Asthma, history of osteomyelitis, history of chronic anemia, diabetes mellitus type 2, history of chronic renal failure. PAST SURGICAL HISTORY: Tonsillectomy and hysterectomy. FAMILY HISTORY: Noncontributory. No positive history in mother and father. PERSONAL HISTORY: Former smoker. No history of alcohol abuse. ALLERGIES: No known drug allergies. HOME MEDICATIONS: Xanax 0.25 mg p.o. b.i.d., methimazole 5 mg daily, aspirin 81 mg daily, insulin, l ispro as per blood sugar results, multivitamin p.r.n. REVIEW OF SYSTEMS: As per HPI. Rest of 12-point review of systems reviewed and negative. PHYSICAL EXAMINATION: VITAL SIGNS: Temperature 98.5, heart rate 90 per minute, respiratory rate 17 per minute, blood press ure 140/70. Pulse ox is 95 per minute. HEENT: Normal. Oral mucosa moist. Pallor positive. NECK: No lymphadenopathy. CHEST: Air entry present, equal bilateral. No added sound. CARDIOVASCULAR: S1, S2 normal. No murmur, no gallop. ABDOMEN: Soft, nontender. No hepatosplenomegaly, no guarding, no rigidity. EXTREMITIES: No edema. SKIN: Intact. CENTRAL NERVOUS SYSTEM: Alert, oriented x 3, no focal sensorimotor deficit. SPINE: Normal. LABORATORY DATA: White count 13,000, hemoglobin 12.6, hematocrit 38.4, platelet count 243. Sodium 1 36, potassium 4.3, BUN 22, creatinine 0.8, glucose 222. UA positive. Urine culture and blood cultur e pending, CAT scan of the abdomen and pelvis, no lesions. ASSESSMENT: 1. Urinary tract infection, pyelonephritis. 2. Anemia. 3. Leukocytosis. 4. Diabetes mellitus type 2. 5. Peripheral vascular disease. 6. History of osteomyelitis. PLAN: She will be admitted to the hospital. IV antibiotic, meropenem started. She received a dose of ceftriaxone in the ER. ID consultation with Dr. Raya requested. We will continue Lipitor 2 0 mg daily. Continue Neurontin 600 mg p.o. t.i.d. for peripheral neuropathy, insulin 15 units subQ b .i.d., sliding scale regular dose coverage, losartan 50 mg daily, meropenem q. 6 hours, methimazole 5 mg daily, Percocet p.r.n. for pain, IV fluid at 80 mL an hour. Urine culture and blood culture are pending. We will continue to follow. Sophie Bazan MD cc: [id number] TT: 08/14/2016 00:27:40 ct
[2016-08-14] MEDS: Sodium Chloride 0.45% 1,000 ML IV SCH (05:20)
[2016-08-14] MEDS: Meropenem 1g/NS 100mL IVPB 1 GM/100 ML PIGGYBACK IVPB SCH ×2 (05:21→13:22)
[2016-08-14] MEDS: Insulin Reg-LOW-Coverage SC SCH ×2 (07:44→12:41)
[2016-08-14] MEDS: Insulin Lispro (humaLOG) MIX 75/25(10 ml) SC SCH (07:45)
[2016-08-14] MEDS: Oxycodone/Acetaminophen 5/325 mg Tab PO PRN (09:22)
[2016-08-14] MEDS: methIMAzole 5 MG TAB PO SCH (09:25)
[2016-08-14 09:27] VITALS: BP 154/69; PULSE 80
[2016-08-14 11:10] VITALS: TEMP 97.6; O2SAT 97
--- NOTE | 2016-08-14 13:06 | PN ---
DATE: 08/14/2016 SUBJECTIVE: The patient seen earlier today in room 368. She feels that her pain is much improved. She is doing well. She wants to be discharged. PHYSICAL EXAMINATION: VITAL SIGNS: Temperature is 97, blood pressure is 150/60, respiratory rate of 16. HEENT: Unremarkable. NECK: Supple. LUNGS: Have decreased breath sounds. HEART: Normal S1, S2. ABDOMEN: Soft, nontender. LABORATORY DATA: Reveals a white count of 13,000, hemoglobin of 12, platelets of 243. Chemistries r eveal the BUN of 22, creatinine of 0.8. Urinalysis is noted. Microbiology reveals the urine culture is no growth. Dr. Bazan's note from yesterday is noted. CAT scan of the abdomen and pelvis is revi ewed. Culture results are noted and urine culture is negative. ASSESSMENT AND PLAN: This is a 70-year-old female with diabetes mellitus, diabetic neuropathy, hyper tension, chronic lymphocytic leukemia, history of osteomyelitis, history of transient ischemic attack , kidney disease, peripheral vascular disease, presenting with leukocytosis, tachycardia, left flank pain, left-sided abdominal pain with sepsis with a left pyelonephritis and negative CAT scan. May us e p.o. Augmentin. Unfortunately, the urine culture is collected after the antibiotics were given an d, therefore, urine culture is negative. Will follow with you. Sampson Raya MD cc: [id number] TT: 08/14/2016 13:06:20 Confirmation # [id number] Dictation # [id number] mn
--- NOTE | 2016-08-22 02:30 | DS ---
DISCHARGE DIAGNOSES: 1. Urinary tract infection. 2. Anemia. 3. Leukocytosis. 4. Diabetes mellitus type 2. 5. Peripheral vascular disease. 6. History of osteomyelitis. HOSPITAL COURSE: The patient was admitted with left lower quadrant pain. She had a UTI with positiv e urine culture. She was thought to be having pyelonephritis. CAT scan of the abdomen did not show any evidence of pyelonephritis. She did not have fever during hospitalization. UA was positive. Ur ine culture was negative. She is being discharged in stable condition. She was evaluated by Dr. Fatimah bates, ID technology sales consultant, and received IV antibiotic during hospitalization. PHYSICAL EXAMINATION: GENERAL: On discharge, comfortable in bed, in no acute distress. VITAL SIGNS: Temperature is 98.7, heart rate 80 per minute, blood pressure 120/90. HEENT: Normal. NECK: Supple. CHEST: Air entry present, equal bilateral. No added sound. CARDIOVASCULAR: Within normal limits. ABDOMEN: Soft, nontender. No hepatosplenomegaly. EXTREMITIES: No edema. CENTRAL NERVOUS SYSTEM: Alert, oriented x 3. No sensory or motor deficit. CONDITION ON DISCHARGE: Stable. DISPOSITION: Discharged home. DISCHARGE MEDICATIONS: Augmentin 875 p.o. b.i.d., aspirin 81 mg daily, Tapazole 5 mg daily, Percocet p.r.n. for pain. DISCHARGE INSTRUCTIONS: Follow up with Dr. Marrufo in 1 week. Time spent in preparing discharge and coordinating care, 50 minutes. Sophie Bazan MD cc: [id number] TT: 08/22/2016 02:29:40 bg
== END 2016-08-14 14:51 | disposition home or self-care (01) | DRG 872 ==
LOC: ED 19:39 → ERH 21:05 → 3RNO 21:48
PROVIDERS: ADMIT Internal Medicine Medical Oncology; ATTEND Internal Medicine Medical Oncology
DX: A41.9 Sepsis, unspecified organism (principal); N12 Tubulo-interstitial nephritis, not specified as acute or chronic; C91.10 Chronic lymphocytic leukemia of B-cell type not having achieved remission; E11.40 Type 2 diabetes mellitus with diabetic neuropathy, unspecified; E11.51 Type 2 diabetes mellitus with diabetic peripheral angiopathy without gangrene; E11.65 Type 2 diabetes mellitus with hyperglycemia; E03.9 Hypothyroidism, unspecified; M54.9 Dorsalgia, unspecified; J45.909 Unspecified asthma, uncomplicated; I10 Essential (primary) hypertension; D64.9 Anemia, unspecified; Z87.891 Personal history of nicotine dependence; Z90.710 Acquired absence of both cervix and uterus; Z86.73 Personal history of transient ischemic attack (TIA), and cerebral infarction without residual deficits

== ENCOUNTER 2016-10-05 07:32 | Inpatient (IN) | payer MEDICARE, BC ==
[2016-10-05] MEDS ORDERED: Oxycodone/Acetaminophen 5/325 mg Tab PO STA (07:56)
--- NOTE | 2016-10-05 08:00 | ED PDOC ---
Arrival/HPI - General Time Seen by Provider: 10/05/16 07:33 Historian: Patient - History of Present Illness Narrative History of Present Illness (Text): 10/05/16 07:55 Ashwini Zafar is a 70 year old female, with a history of diabetic neuropathy, PAD, hypertension, dyslipidemia, presents to the emergency department complaining of worsening right leg pain for past few days. States that symptoms feels like previous neuropathy pain. Denies any history of trauma. Denies any fever, chills, chest pain, shortness of breath, weakness/numbness to lower extremity, or any other complaints at this time. Time/Duration: Other (few days ) Symptom Onset: Gradual Severity Level: Mild Activities at Onset: Light Past Medical History - Provider Review Nursing Documentation Reviewed: Yes - Infectious Disease Hx of Infectious Diseases: None - Tetanus Immunization Tetanus Immunization: Unknown - Cardiac Hx Pacemaker: No - Pulmonary Hx Respiratory Disorders: Yes Hx Asthma: Yes - Neurological Hx Paralysis: No - HEENT Hx HEENT Disorder: Yes Hx Cataracts: Yes (SX) Other/Comment: TONSILLECTOMY - Renal Hx Renal Failure: Yes - Endocrine/Metabolic Hx Diabetes Mellitus Type 2: Yes - Hematological/Oncological Hx Blood Transfusions: Yes Hx Blood Transfusion Reaction: No - Integumentary Hx Dermatological Disorder: Yes Other/Comment: dry skin hard thick toes both feet, 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 1-9-16 LEFT BALL OF FOOT AND TOP OF FOOT WITH OPEN WOUND.MILD FOUL SMELL.DRAINAGE. - Musculoskeletal/Rheumatological Hx Musculoskeletal Disorders: Yes (HX OSTEO) - Gastrointestinal Hx Gastrointestinal Disorders: No - Genitourinary/Gynecological Hx Genitourinary Disorders: No (ARF) Hx Reproductive Disorders: No - Psychiatric Hx Emotional Abuse: No Hx Physical Abuse: No Hx Substance Use: No - Surgical History Hx Hysterectomy: Yes Hx Tonsillectomy: Yes Other/Comment: tonsils, bilateral cataracts removed, picc line x 2, i and d of non healing wound to ball of left foot dsg dry and intact done today - Anesthesia Hx Anesthesia Reactions: No Hx Malignant Hyperthermia: No - Suicidal Assessment Feels Threatened In Home Enviroment: No Family/Social History - Physician Review Nursing Documentation Reviewed: Yes Family/Social History: No Known Family HX Smoking Status: Former Smoker Hx Alcohol Use: No Hx Substance Use: No Hx Substance Use Treatment: No Allergies/Home Meds Allergies/Adverse Reactions: Allergies No Known Allergies Allergy (Verified 10/05/16 07:56) Home Medications: Home Meds Medication Instructions Recorded Confirmed Alprazolam [Xanax] 0.25 mg PO BID PRN 09/12/11 10/05/16 Losartan Potassium [Cozaar] 50 mg PO DAILY 12/31/15 10/05/16 Methimazole [Tapazole] 5 mg PO DAILY 12/31/15 10/05/16 Aspirin [Ecotrin] 81 mg PO DAILY 03/27/16 08/12/16 Insulin Lispro Mix 75/25 [HumaLOG 40 units SC ACBD 03/27/16 08/12/16 Mix 75/25] Multivit-Min/FA/Lycopen/Lutein 1 tab PO DAILY 03/27/16 08/12/16 [Adults 50+ Multivitamin Tablet] Pill For Yeat Infection 1 PO Q3D 08/12/16 Atorvastatin [Lipitor] 10 mg PO DAILY 10/05/16 10/05/16 Gabapentin [Neurontin] 600 mg PO TID 10/05/16 10/05/16 Insulin Glargine, Recombina 20 units PO HS 10/05/16 10/05/16 [Lantus] Nitrofurantoin Monohyd/M-Cryst 100 mg PO 10/05/16 [Nitrofurantoin Monohydrate/Macrocrystals] Phenazopyridine [Pyridium] 200 mg PO 10/05/16 Physical Exam - Physical Exam Narrative Physical Exam (Text): - Review of Systems Constitutional: Normal. absent: Fatigue, Weight Change, Fevers Eyes: Normal ENT: Normal Respiratory: Normal absent: SOB, Cough, Sputum Cardiovascular: Normal absent: Chest pain, Palpitations, Syncope Gastrointestinal: Normal absent: Abdominal pain, Diarrhea, Nausea, Vomiting Genitourinary: Normal. absent: Dysuria, Frequency, Hematuria Musculoskeletal: Right leg pain absent: Arthralgias, Back Pain, Neck Pain Skin: Normal Neurological: Normal absent: Focal Weakness Endocrine: Normal Hemo/Lymphatic: Normal Psychiatric: Normal - Physical exam Patient appears age appropriate, speaking full sentences without difficulty - Systems Exam Head: Present: Atraumatic, Normocephalic Pupils: Present: PERRL Extraocular Muscles: Present: EOMI Conjunctiva: Present: Normal Mouth: Present: Moist Mucous Membranes Neck: Present: Normal Range of Motion. No: MIDLINE TENDERNESS, Paraspinal Tenderness Respiratory/Chest: Present: Clear to Auscultation, Good Air Exchange. No: Respiratory Distress, Accessory Muscle Use, Tachypnic Cardiovascular: Present: Regular Rate and Rhythm, Normal S1, S2, Peripheral Pulses Present. No: Murmurs Abdomen: Present: Normal Bowel Sounds, No: Tenderness, Peritoneal Signs, Rebound, Guarding, Distention Back: Present: Normal Inspection. No: Midline Tenderness, Paraspinal Tenderness Upper Extremity: Present: Normal Inspection. No: Cyanosis, Edema Lower Extremity: Present: + right Pedal Pulse, warm, no discoloration No: Edema Neurological: Present: GCS=15, Speech Normal, cranial nerves II through XII fully intact with no cerebellar abnormality, neuro-sensory fully intact. No focal neurological deficits. Skin: Present: Warm, Dry, Normal Color. No: Rashes Lymphatic: Present: OX3, NI, NC Psychiatric: Present: Alert, Oriented x 3, Normal Insight, Normal Concentration Vital Signs Reviewed: Yes Vital Signs Temp Pulse Resp BP Pulse Ox 10/05/16 09:12 95 H 190/89 H 10/05/16 07:35 98.1 F 89 18 181/88 H 100 Temperature: Afebrile Blood Pressure: Hypertensive Pulse: Regular Respiratory Rate: Normal Appearance: Positive for: Well-Appearing, Non-Toxic, Comfortable Pain Distress: None Mental Status: Positive for: Alert and Oriented X 3 Medical Decision Making ED Course and Treatment: 10/05/16 08:02 Impression: A 70 year old female who presents to the emergency department complaining of right leg pain for past few days. On PE, there are +ve right pedal pulse, no discoloration, no temperature abnormality, neurovascular intact. Differential Diagnosis included but are not limited to: DVT vs. neuropathy vs. Musculoskeletal Plan: -- Percocet -- US right lower extremity -- Reassess and disposition Prior Visits: Notes and results from previous visits were reviewed. Patient had a lower extremity arterial study on 09/22/2016 which showed mildly abnormal ABIs, right distal SFA, popliteal, and tibial disease Progress Notes: 10/05/16 08:31 US tech informs of negative DVT study. On reevaluation, patient continues to have pain post treatment in the emergency department and states that she is not comfortably to be discharged home. Case discussed with who is aware and agrees with the plan to observe patient at Med/Surg for leg pain. - RAD Interpretation Radiology Orders: 10/05/16 07:56 DUPLEX LOWER EXTRM VEIN RIGHT [US] Stat - Medication Orders Current Medication Orders: Discontinued Medications Gabapentin (Neurontin) 600 mg PO STAT STA PRN Reason: Protocol Stop: 10/05/16 08:31 Last Admin: 10/05/16 09:11 Dose: 600 mg Losartan Potassium (Cozaar) 25 mg PO STAT STA Stop: 10/05/16 08:30 Last Admin: 10/05/16 09:12 Dose: 25 mg Oxycodone/Acetaminophen (Percocet 5/325 Mg Tab) 1 tab PO STAT STA Stop: 10/05/16 07:57 Last Admin: 10/05/16 08:03 Dose: 1 tab - Scribe Statement The provider has reviewed the documentation as recorded by the Owen Marcelo Provider Attestation: Provider Scribe Attestation: All medical record entries made by the Scribe were at my direction and personally dictated by me. I have reviewed the chart and agree that the record accurately reflects my personal performance of the history, physical exam, medical decision making, and the department course for this patient. I have also personally directed, reviewed, and agree with the discharge instructions and disposition. Disposition/Present on Arrival - Present on Arrival Any Indicators Present on Arrival: No History of DVT/PE: No History of Uncontrolled Diabetes: No Urinary Catheter: No History Surgical Site Infection Following: None - Disposition Have Diagnosis and Disposition been Completed?: Yes Diagnosis: Leg pain Disposition: HOSPITALIZED Disposition Time: 08:31 Patient Plan: Observation Condition: FAIR
[2016-10-05 09:41] LABS: HEMOGLOBIN 13.2 gm/dL (12.0-16.0); MEAN CELL VOLUME 82.7 fL (80.0-105.0); MEAN CORPUSCULAR HEMOGLOBIN 26.9 pg (25.0-35.0); MEAN CORPUSCULAR HGB CONC 32.5 g/dl (31.0-37.0); MEAN PLATELET VOLUME 10.5 fl (7.0-11.0); PLATELET COUNT 202 10^3/uL (120.0-450.0); RBC 4.91 10^6/uL (3.5-6.1); RED CELL DISTRIBUTION WIDTH 14.9 % (11.5-14.5); WHITE BLOOD COUNT 12.4 10^3/ul (4.5-11.0)
[2016-10-05 09:51] LABS: INR 0.99 (0.93-1.08); PARTIAL THROMBOPLASTIN TIME 27.5 Seconds (23.7-30.8); PROTHROMBIN TIME 10.7 Seconds (9.9-11.8)
[2016-10-05 10:12] LABS: ALB/GLOB RATIO 1.2 (1.1-1.8); ALBUMIN 4.3 g/dL (3.0-4.8); ALT/SGPT 25 U/L (7-56); AST/SGOT 25 U/L (15-39); BLOOD UREA NITROGEN 19 mg/dL (7-21); CALCIUM 9.7 mg/dL (8.4-10.5); GFR AFRICAN-AMERICAN > 60; GFR NON-AFRICAN AMERICAN > 60
[2016-10-05] MEDS ORDERED: Morphine 4 mg/ml ISec IVP STA (10:20)
[2016-10-05 10:24] LABS: ATYPICAL LYMPHOCYTE 1 % (0.0-0.0); BASOPHIL 1 % (0.0-1.0); EOSINOPHIL 1 % (0.0-3.0); LYMPHOCYTE 56 % (22.0-35.0); MONOCYTE 1 % (1.0-6.0); NEUTROPHIL 39 % (50.0-70.0); PLATELET ESTIMATE NORMAL (NORMAL)
--- NOTE | 2016-10-05 12:20 | CP.PCM.CON ---
Addendum entered and electronically signed by Kathy Hightower DO 10/06/16 07:35 : Patient's leg pain is on the right leg, however patient is numb on both legs. Original Note: <Kathy Hightower - Last Filed: 10/05/16 16:50> History of Present Illness - History of Present Illness History of Present Illness: PGY-2 Neurology consult note for Dr Vogel. Reason for consult: LE pain Patient is a 70 y/o with pmh of DM, HTN. 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 Patient states she has the b/l lower extremities numbness and pain for sometimes now. Patient states the left leg pain got worst 3 days ago. The pain is localized on the anterior aspect of the leg, below the knee. Patient states the pain started when she tries to stand up. Patient states she also felt the pain while seating down. Decided to come in today because she felt a shooting sharp pain across the leg earlier today. Patient states she recently saw Dr Vogel in office, had EMG but she's not sure of the result. Patient takes gabapentin 600 tid, however gabapentin didn't help with the pain today. Patient denies cp, sob, n.v.d, denies headache or dizziness, denies falling. PMH: As stated above psh: as stated above social: former tobacco, walks with a cane, denies alcohol or drugs. Review of Systems - Review of Systems All systems: reviewed and no additional remarkable complaints except Review of Systems: 12 point ROS reviewed, all negative except as stated in the HPI. Past Patient History - Infectious Disease Hx of Infectious Diseases: None - Tetanus Immunizations Tetanus Immunization: Unknown - Past Medical History & Family History Past Medical History?: Yes - Past Social History Smoking Status: Former Smoker Alcohol: None Drugs: Denies Home Situation {Lives}: With Family - CARDIAC Hx Pacemaker: No - PULMONARY Hx Respiratory Disorders: Yes Hx Asthma: Yes - NEUROLOGICAL Hx Paralysis: No - HEENT Hx HEENT Problems: Yes Hx Cataracts: Yes (SX) Other/Comment: TONSILLECTOMY - RENAL Hx Renal Failure: Yes - ENDOCRINE/METABOLIC Hx Diabetes Mellitus Type 2: Yes - HEMATOLOGICAL/ONCOLOGICAL Hx Blood Transfusions: Yes Hx Blood Transfusion Reaction: No - INTEGUMENTARY Hx Dermatological Problems: Yes Other/Comment: dry skin hard thick toes both feet, 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 03-27-15 LEFT BALL OF FOOT AND TOP OF FOOT WITH OPEN WOUND.MILD FOUL SMELL.DRAINAGE. - MUSCULOSKELETAL/RHEUMATOLOGICAL Hx Musculoskeletal Disorders: Yes (HX OSTEO) - GASTROINTESTINAL Hx Gastrointestinal Disorders: No - GENITOURINARY/GYNECOLOGICAL Hx Genitourinary Disorders: No (ARF) Hx Reproductive Disorders: No - PSYCHIATRIC Hx Emotional Abuse: No Hx Physical Abuse: No Hx Substance Use: No - SURGICAL HISTORY Hx Hysterectomy: Yes Hx Tonsillectomy: Yes Other/Comment: tonsils, bilateral cataracts removed, picc line x 2, i and d of non healing wound to ball of left foot dsg dry and intact done today - ANESTHESIA Hx Anesthesia Reactions: No Hx Malignant Hyperthermia: No Meds Allergies/Adverse Reactions: Allergies Allergy/AdvReac Type Severity Reaction Status Date / Time No Known Allergies Allergy Verified 10/05/16 07:56 - Medications Medications: Current Medications Alprazolam (Xanax) 0.25 mg PO BID PRN; Protocol PRN Reason: Anxiety Stop: 10/12/16 11:14 Aspirin (Ecotrin) 81 mg PO DAILY [facility] Atorvastatin Calcium (Lipitor) 10 mg PO DAILY [facility] Gabapentin (Neurontin) 600 mg PO TID [facility] PRN Reason: Protocol Insulin Detemir (Levemir) 10 unit SC ACBHS [facility] Insulin Lispro Protam/Lispro Human (Humalog Mix 75/25) 40 units SC ACBD [facility] Losartan Potassium (Cozaar) 50 mg PO DAILY [facility] Methimazole (Tapazole) 5 mg PO DAILY [facility] Physical Exam - Constitutional Appears: No Acute Distress - Head Exam Head Exam: ATRAUMATIC, NORMAL INSPECTION, NORMOCEPHALIC - Eye Exam Eye Exam: EOMI, Normal appearance, PERRL. absent: Scleral icterus Pupil Exam: NORMAL ACCOMODATION, PERRL - ENT Exam ENT Exam: Mucous Membranes Moist - Neck Exam Neck exam: Positive for: Normal Inspection - Respiratory Exam Respiratory Exam: Clear to Auscultation Bilateral, NORMAL BREATHING PATTERN. absent: Rales, Rhonchi, Wheezes, Respiratory Distress, Stridor - Cardiovascular Exam Cardiovascular Exam: REGULAR RHYTHM, +S1, +S2 - GI/Abdominal Exam GI & Abdominal Exam: Normal Bowel Sounds, Soft. absent: Distended, Guarding, Tenderness - Extremities Exam Extremities exam: Negative for: pedal edema - Back Exam Back exam: NORMAL INSPECTION - Neurological Exam Neurological exam: Alert, CN II-XII Intact, Oriented x3, Reflexes Normal Additional comments: Patient speaking in full sentences, no in distress. pupils reactive to light, equal right, no facial asymmetry, tongue midline, no muscle atrophy. 5/5 motor strength with flexion and extension of the b/l upper and lower extremities. no muscle rigidity, no tremors. impaired sensation to dull and sharp objects in the b/l lower extremities right worst than left. upper extremities normal Unable to palpate dorsalis pedis and posterior tibial pulses b/l, the lower extremities are warm. Gait deferred at this time. negative babinski. - Psychiatric Exam Psychiatric exam: Normal Affect, Normal Mood - Skin Skin Exam: Dry, Warm Results - Vital Signs Recent Vital Signs: Last Vital Signs Temp 98.1 F 10/05/16 07:35 Pulse 94 H 10/05/16 10:49 Resp 18 10/05/16 10:49 BP 168/93 H 10/05/16 10:49 Pulse Ox 99 10/05/16 10:49 - Labs Result Diagrams: 10/05/16 09:25 10/05/16 09:25 Labs: Laboratory Results - last 24 hr 10/05/16 10/05/16 10/05/16 09:25 09:25 09:25 WBC 12.4 H RBC 4.91 Hgb 13.2 Hct 40.6 MCV 82.7 MCH 26.9 MCHC 32.5 RDW 14.9 H Plt Count 202 MPV 10.5 Neutrophils % (Manual) 39 L Lymphocytes % (Manual) 56 H Atypical Lymphs % 1 H Monocytes % (Manual) 1 Eosinophils % (Manual) 1 Basophils % (Manual) 1 Platelet Evaluation Normal PT 10.7 INR 0.99 APTT 27.5 Sodium 140 Potassium 4.2 Chloride 102 Carbon Dioxide 29 Anion Gap 13 BUN 19 Creatinine 0.7 Est GFR ( Amer) > 60 Est GFR (Non-Af Amer) > 60 Random Glucose 207 H Calcium 9.7 Total Bilirubin 0.9 AST 25 ALT 25 Alkaline Phosphatase 129 Total Protein 8.0 Albumin 4.3 Globulin 3.7 Albumin/Globulin Ratio 1.2 Assessment & Plan - Assessment and Plan (Free Text) Assessment: jose is a 70 y/o with pmh of DM, HTN. 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 Recent vascular studies 09/22/16 with mildly abnormal ABIs at rest. Right distal SFA, popliteal, and/ or tibial disease. Impression: Worsening left lower extremities pain 2nd to worsening PAD and neuropathy. Plan: - Increase gabapentin to 800 mg tid - Will start baclofen 10 qhs. - vascular evaluation - control BP, keep SP between 130-140s. - PT/ OT - Thank you for consulting Dr Vogel. Patient seen, examined and case discussed with Dr Vogel. - Date & Time Date: 10/05/16 Time: 11:50 <Brian Vogel - Last Filed: 10/06/16 10:42> Meds - Medications Medications: Current Medications Alprazolam (Xanax) 0.25 mg PO BID PRN; Protocol PRN Reason: Anxiety Stop: 10/12/16 11:14 Last Admin: 10/06/16 09:38 Dose: 0.25 mg Aspirin (Ecotrin) 81 mg PO DAILY [facility] Last Admin: 10/06/16 09:37 Dose: 81 mg Atorvastatin Calcium (Lipitor) 10 mg PO DAILY [facility] Last Admin: 10/06/16 09:37 Dose: 10 mg Baclofen (Lioresal) 10 mg PO HS [facility] Last Admin: 10/05/16 21:03 Dose: 10 mg Gabapentin (Neurontin) 800 mg PO TID [facility] PRN Reason: Protocol Last Admin: 10/06/16 09:39 Dose: Not Given Insulin Detemir (Levemir) 10 unit SC ACBHS [facility] Last Admin: 10/06/16 08:27 Dose: 10 unit Insulin Lispro Protam/Lispro Human (Humalog Mix 75/25) 40 units SC ACBD [facility] Last Admin: 10/06/16 08:26 Dose: 40 units Losartan Potassium (Cozaar) 50 mg PO DAILY [facility] Last Admin: 10/06/16 09:37 Dose: Not Given Methimazole (Tapazole) 5 mg PO DAILY [facility] Last Admin: 10/06/16 09:38 Dose: 5 mg Morphine Sulfate (Morphine) 4 mg IVP Q6H PRN PRN Reason: Pain, moderate (4-7) Last Admin: 10/06/16 06:45 Dose: 4 mg Results - Vital Signs Recent Vital Signs: Last Vital Signs Temp 98 F 10/06/16 08:04 Pulse 86 10/06/16 08:04 Resp 20 10/06/16 08:04 BP 176/86 H 10/06/16 06:07 Pulse Ox 97 10/06/16 08:04 - Labs Result Diagrams: 10/05/16 09:25 10/05/16 09:25 Attending/Attestation - Attestation I have personally seen and examined this patient.: Yes I have fully participated in the care of the patient.: Yes I have reviewed all pertinent clinical information: Yes
[2016-10-05] MEDS ORDERED: Pneumococcal 23-Valent Vaccine IM ONE (13:30)
[2016-10-05 13:37] VITALS: BMI 29.2
--- NOTE | 2016-10-05 13:57 | US ---
PROCEDURE: Right lower extremity venous US HISTORY: Leg pain and swelling. Evaluate for DVT. PHYSICIAN(S): Froy Valles M.D. TECHNIQUE: Duplex sonography and color-flow Doppler with graded compression were used to evaluate the deep venous system of the right lower extremity. FINDINGS: The visualized deep venous system of the right lower extremity is sonographically normal and compressible. Normal waveforms and augmentation are seen. There is no sonographic evidence for deep venous thrombosis in the visualized segments of the right lower extremity. IMPRESSION: 1. No sonographic evidence for deep venous thrombosis in the visualized segments of the right lower extremity.
[2016-10-05] MEDS: methIMAzole 5 MG TAB PO SCH (15:12)
[2016-10-05] MEDS: Insulin Lispro (humaLOG) MIX 75/25(10 ml) SC SCH (19:26)
[2016-10-05] MEDS: Insulin Detemir 100 units/ml Vial (Levemir) SC SCH (21:44)
[2016-10-06] MEDS: Morphine 4 mg/ml ISec IVP PRN ×2 (06:45→14:10)
[2016-10-06] MEDS: Insulin Lispro (humaLOG) MIX 75/25(10 ml) SC SCH ×2 (08:26→17:23)
[2016-10-06] MEDS: Insulin Detemir 100 units/ml Vial (Levemir) SC SCH ×2 (08:27→21:44)
--- NOTE | 2016-10-06 09:14 | CP.PCM.PN ---
<Kathy Hightower - Last Filed: 10/06/16 12:52> Subjective - Date & Time of Evaluation Date of Evaluation: 10/06/16 Time of Evaluation: 08:10 - Subjective Subjective: PGY-2 Neurology progress note for Dr Vogel. Patient still c/o of right leg pain. Patient received morphine over the night, and states that the morphine helped with the pain. Patient is otherwise able to ambulate with a cane. Objective - Vital Signs/Intake and Output Vital Signs (last 24 hours): Temp Pulse Resp BP Pulse Ox 98 F 86 20 176/86 H 97 10/06/16 08:04 10/06/16 08:04 10/06/16 08:04 10/06/16 06:07 10/06/16 08:04 Intake and Output: 10/06/16 10/06/16 06:59 18:59 Intake Total 780 Balance 780 - Medications Medications: Current Medications Alprazolam (Xanax) 0.25 mg PO BID PRN; Protocol PRN Reason: Anxiety Stop: 10/12/16 11:14 Aspirin (Ecotrin) 81 mg PO DAILY [facility] Last Admin: 10/05/16 15:12 Dose: Not Given Atorvastatin Calcium (Lipitor) 10 mg PO DAILY [facility] Last Admin: 10/05/16 15:12 Dose: 10 mg Baclofen (Lioresal) 10 mg PO HS [facility] Last Admin: 10/05/16 21:03 Dose: 10 mg Gabapentin (Neurontin) 800 mg PO TID [facility] PRN Reason: Protocol Last Admin: 10/06/16 06:07 Dose: 800 mg Insulin Detemir (Levemir) 10 unit SC ACBHS [facility] Last Admin: 10/06/16 08:27 Dose: 10 unit Insulin Lispro Protam/Lispro Human (Humalog Mix 75/25) 40 units SC ACBD [facility] Last Admin: 10/06/16 08:26 Dose: 40 units Losartan Potassium (Cozaar) 50 mg PO DAILY [facility] Last Admin: 10/06/16 06:07 Dose: 50 mg Methimazole (Tapazole) 5 mg PO DAILY [facility] Last Admin: 10/05/16 15:12 Dose: 5 mg Morphine Sulfate (Morphine) 4 mg IVP Q6H PRN PRN Reason: Pain, moderate (4-7) Last Admin: 10/06/16 06:45 Dose: 4 mg - Labs Labs: 10/05/16 09:25 10/05/16 09:25 PT 10.7 Seconds (9.9-11.8) 10/05/16 09:25 INR 0.99 (0.93-1.08) 10/05/16 09:25 APTT 27.5 Seconds (23.7-30.8) 10/05/16 09:25 - Constitutional Appears: No Acute Distress - Head Exam Head Exam: ATRAUMATIC, NORMAL INSPECTION, NORMOCEPHALIC - Eye Exam Eye Exam: EOMI, Normal appearance, PERRL. absent: Scleral icterus Pupil Exam: NORMAL ACCOMODATION, PERRL - ENT Exam ENT Exam: Mucous Membranes Moist - Neck Exam Neck Exam: Normal Inspection - Respiratory Exam Respiratory Exam: Clear to Ausculation Bilateral, NORMAL BREATHING PATTERN. absent: Rales, Rhonchi, Wheezes, Respiratory Distress, Stridor - Cardiovascular Exam Cardiovascular Exam: REGULAR RHYTHM, +S1, +S2 - GI/Abdominal Exam GI & Abdominal Exam: Soft, Normal Bowel Sounds. absent: Distended, Tenderness - Extremities Exam Extremities Exam: Normal Inspection. absent: Pedal Edema - Back Exam Back Exam: NORMAL INSPECTION - Neurological Exam Neurological Exam: Alert, Awake, CN II-XII Intact, Oriented x3 Neuro motor strength exam: Left Upper Extremity: 5, Right Upper Extremity: 5, Left Lower Extremity: 5, Right Lower Extremity: 5 Additional comments: Patient speaking in full sentences, no in distress. pupils reactive to light, equal right, no facial asymmetry, tongue midline, no muscle atrophy. 5/5 motor strength with flexion and extension of the b/l upper and lower extremities. no muscle rigidity, no tremors. impaired sensation to dull and sharp objects in the b/l lower extremities right worst than left. upper extremities normal Unable to palpate dorsalis pedis and posterior tibial pulses b/l, the lower extremities are warm. Gait deferred at this time. negative babinski. - Psychiatric Exam Psychiatric exam: Normal Affect, Normal Mood - Skin Skin Exam: Dry, Warm Assessment and Plan - Assessment and Plan (Free Text) Assessment: Patient is a 70 y/o with pmh of DM, HTN. 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 Right distal SFA, popliteal, and/ or tibial disease. Impression: Worsening right lower extremities pain 2nd to worsening PAD with underlying neuropathy. Plan: - C/W gabapentin to 800 mg tid and baclofen 10 qhs. - Pending vascular eval. - control BP, keep SP between 130-140s. - PT/ OT - Thank you for consulting Dr Vogel. Patient seen, examined and case discussed with Dr Vogel. <Brian Vogel - Last Filed: 10/06/16 13:07> Objective - Vital Signs/Intake and Output Vital Signs (last 24 hours): Temp Pulse Resp BP Pulse Ox 98 F 86 20 176/86 H 97 10/06/16 08:04 10/06/16 08:04 10/06/16 08:04 10/06/16 06:07 10/06/16 08:04 Intake and Output: 10/06/16 10/06/16 06:59 18:59 Intake Total 780 Balance 780 - Medications Medications: Current Medications Alprazolam (Xanax) 0.25 mg PO BID PRN; Protocol PRN Reason: Anxiety Stop: 10/12/16 11:14 Last Admin: 10/06/16 09:38 Dose: 0.25 mg Aspirin (Ecotrin) 81 mg PO DAILY [facility] Last Admin: 10/06/16 09:37 Dose: 81 mg Atorvastatin Calcium (Lipitor) 10 mg PO DAILY [facility] Last Admin: 10/06/16 09:37 Dose: 10 mg Baclofen (Lioresal) 10 mg PO HS [facility] Last Admin: 10/05/16 21:03 Dose: 10 mg Gabapentin (Neurontin) 800 mg PO TID [facility] PRN Reason: Protocol Last Admin: 10/06/16 09:39 Dose: Not Given Insulin Detemir (Levemir) 10 unit SC ACBHS [facility] Last Admin: 10/06/16 08:27 Dose: 10 unit Insulin Lispro Protam/Lispro Human (Humalog Mix 75/25) 40 units SC ACBD [facility] Last Admin: 10/06/16 08:26 Dose: 40 units Losartan Potassium (Cozaar) 50 mg PO DAILY [facility] Last Admin: 10/06/16 09:37 Dose: Not Given Methimazole (Tapazole) 5 mg PO DAILY [facility] Last Admin: 10/06/16 09:38 Dose: 5 mg Morphine Sulfate (Morphine) 4 mg IVP Q6H PRN PRN Reason: Pain, moderate (4-7) Last Admin: 10/06/16 06:45 Dose: 4 mg - Labs Labs: 10/05/16 09:25 10/05/16 09:25 PT 10.7 Seconds (9.9-11.8) 10/05/16 09:25 INR 0.99 (0.93-1.08) 10/05/16 09:25 APTT 27.5 Seconds (23.7-30.8) 10/05/16 09:25 Attending/Attestation - Attestation I have personally seen and examined this patient.: Yes I have fully participated in the care of the patient.: Yes I have reviewed all pertinent clinical information, including history, physical exam and plan: Yes
[2016-10-06] MEDS: methIMAzole 5 MG TAB PO SCH (09:38)
--- NOTE | 2016-10-06 13:01 | CP.PCM.CON ---
<Denise Porter - Last Filed: 10/06/16 12:55> History of Present Illness - History of Present Illness History of Present Illness: This is a 70 yo female pt w/ pmh DM, diabetic neuropathy, PAD, HTN, dyslipidemia who was seen at bedside this morning following request for podiatry consult. Pt is well known to podiatry service and is being treated by Dr. Kevin for a left chronic foot ulceration. Pt seen resting in bed at time of visit. She states that she decided to come into the ED yesterday due to increased pain to her right leg that has progressively been getting worse over the past few days. Pt reports that she does have a history of neuropathy to b/l lower extremities. Denies any recent trauma/injuries, denies f/n/v/c/sob/cp at this time. Review of Systems - Review of Systems Review of Systems: as per HPI Past Patient History - Infectious Disease Hx of Infectious Diseases: None - Tetanus Immunizations Tetanus Immunization: Unknown - Past Medical History & Family History Past Medical History?: Yes - Past Social History Smoking Status: Former Smoker Alcohol: None Drugs: Denies Home Situation {Lives}: With Family - CARDIAC Hx Pacemaker: No - PULMONARY Hx Respiratory Disorders: Yes Hx Asthma: Yes - NEUROLOGICAL Hx Paralysis: No - HEENT Hx HEENT Problems: Yes Hx Cataracts: Yes (SX) Other/Comment: TONSILLECTOMY - RENAL Hx Renal Failure: Yes - ENDOCRINE/METABOLIC Hx Diabetes Mellitus Type 2: Yes - HEMATOLOGICAL/ONCOLOGICAL Hx Blood Transfusions: Yes Hx Blood Transfusion Reaction: No - INTEGUMENTARY Hx Dermatological Problems: Yes Other/Comment: dry skin hard thick toes both feet, 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 1-16 LEFT BALL OF FOOT AND TOP OF FOOT WITH OPEN WOUND.MILD FOUL SMELL.DRAINAGE. - MUSCULOSKELETAL/RHEUMATOLOGICAL Hx Musculoskeletal Disorders: Yes (HX OSTEO) - GASTROINTESTINAL Hx Gastrointestinal Disorders: No - GENITOURINARY/GYNECOLOGICAL Hx Genitourinary Disorders: No (ARF) Hx Reproductive Disorders: No - PSYCHIATRIC Hx Emotional Abuse: No Hx Physical Abuse: No Hx Substance Use: No - SURGICAL HISTORY Hx Hysterectomy: Yes Hx Tonsillectomy: Yes Other/Comment: tonsils, bilateral cataracts removed, picc line x 2, i and d of non healing wound to ball of left foot dsg dry and intact done today - ANESTHESIA Hx Anesthesia Reactions: No Hx Malignant Hyperthermia: No Meds Allergies/Adverse Reactions: Allergies Allergy/AdvReac Type Severity Reaction Status Date / Time No Known Allergies Allergy Verified 10/05/16 07:56 - Medications Medications: Current Medications Alprazolam (Xanax) 0.25 mg PO BID PRN; Protocol PRN Reason: Anxiety Stop: 10/12/16 11:14 Last Admin: 10/06/16 09:38 Dose: 0.25 mg Aspirin (Ecotrin) 81 mg PO DAILY [facility] Last Admin: 10/06/16 09:37 Dose: 81 mg Atorvastatin Calcium (Lipitor) 10 mg PO DAILY [facility] Last Admin: 10/06/16 09:37 Dose: 10 mg Baclofen (Lioresal) 10 mg PO HS [facility] Last Admin: 10/05/16 21:03 Dose: 10 mg Gabapentin (Neurontin) 800 mg PO TID [facility] PRN Reason: Protocol Last Admin: 10/06/16 09:39 Dose: Not Given Insulin Detemir (Levemir) 10 unit SC ACBHS [facility] Last Admin: 10/06/16 08:27 Dose: 10 unit Insulin Lispro Protam/Lispro Human (Humalog Mix 75/25) 40 units SC ACBD [facility] Last Admin: 10/06/16 08:26 Dose: 40 units Losartan Potassium (Cozaar) 50 mg PO DAILY [facility] Last Admin: 10/06/16 09:37 Dose: Not Given Methimazole (Tapazole) 5 mg PO DAILY [facility] Last Admin: 10/06/16 09:38 Dose: 5 mg Morphine Sulfate (Morphine) 4 mg IVP Q6H PRN PRN Reason: Pain, moderate (4-7) Last Admin: 10/06/16 06:45 Dose: 4 mg Physical Exam - Constitutional Appears: Non-toxic, No Acute Distress - Extremities Exam Additional comments: Bilateral lower extremity exam: VASC- pedal pulses are palpable left (faintly palpable left), skin temp runs warm to cool B/L, cft<4 sec to digits x 9, no pedal edema NEURO- protective pedal sensation is diminished BL DERM- there is a bianchi grade I ulceration noted sub-met 3 left foot with 100% granular base, slight serous drainage, neg probe to bone, neg purulence, neg malodor, neg fluctuance, neg angel-wound erythema, no fluctuance, on right foot there is hyperkeratotic lesion present submet 1 (recently debrided with no signs infections) ORTHO- s/p left foot 2nd digit and 2nd metatarsal head resection (hx OM), neg tenderness on palpation of left plantar foot wound, + tenderness to palpation diffusely of anterior right leg, posterior right calf, and dorsum of right foot , (-) Chris's sign bl - Neurological Exam Neurological exam: Alert, CN II-XII Intact, Oriented x3 - Psychiatric Exam Psychiatric exam: Normal Affect, Normal Mood Results - Vital Signs Recent Vital Signs: Last Vital Signs Temp 98 F 10/06/16 08:04 Pulse 86 10/06/16 08:04 Resp 20 10/06/16 08:04 BP 176/86 H 10/06/16 06:07 Pulse Ox 97 10/06/16 08:04 - Labs Result Diagrams: 10/05/16 09:25 10/05/16 09:25 Assessment & Plan - Assessment and Plan (Free Text) Assessment: 70 yo female pt w/ pmh DM, diabetic neuropathy, PAD, HTN, dyslipidemia w/ superficial ulceration left foot admitted for worsening right leg pain. Plan: Pt S&E at bedside Plan discussed with attending Dr. Tamayo in detail Chart labs and vitals reviewed: afebrile, WBC 12.4 Left foot wound cleansed with sterile water, xeroform, DSD, kerlix applied Advised pt to wear diabetic shoes for ambulation and not to put pressure to left forefoot barefoot Low ext venous duplex (10/05/16): negative for DVT Low ext arterial duplex (10/06/16): taken, pending results Dr. Kilo Valles on consult for vascular, will f/u recommendations Left foot x-ray ordered: will f/u results Podiatry will follow <Royal Tamayo - Last Filed: 10/07/16 08:17> Meds - Medications Medications: Current Medications Alprazolam (Xanax) 0.25 mg PO BID PRN; Protocol PRN Reason: Anxiety Stop: 10/12/16 11:14 Last Admin: 10/06/16 09:38 Dose: 0.25 mg Aspirin (Ecotrin) 81 mg PO DAILY [facility] Last Admin: 10/06/16 09:37 Dose: 81 mg Atorvastatin Calcium (Lipitor) 10 mg PO DAILY [facility] Last Admin: 10/06/16 09:37 Dose: 10 mg Baclofen (Lioresal) 10 mg PO HS [facility] Last Admin: 10/06/16 21:42 Dose: 10 mg Gabapentin (Neurontin) 800 mg PO TID [facility] PRN Reason: Protocol Last Admin: 10/06/16 17:21 Dose: 800 mg Sodium Chloride (Sodium Chloride 0.45%) 1,000 mls @ 80 mls/hr IV .[id number] [facility] Stop: 10/08/16 12:00 Last Admin: 10/06/16 17:28 Dose: 80 mls/hr Insulin Detemir (Levemir) 10 unit SC ACBHS [facility] Last Admin: 10/06/16 21:44 Dose: 10 unit Insulin Lispro Protam/Lispro Human (Humalog Mix 75/25) 40 units SC ACBD [facility] Last Admin: 10/06/16 17:23 Dose: 40 units Losartan Potassium (Cozaar) 50 mg PO DAILY [facility] Last Admin: 10/06/16 09:37 Dose: Not Given Methimazole (Tapazole) 5 mg PO DAILY [facility] Last Admin: 10/06/16 09:38 Dose: 5 mg Morphine Sulfate (Morphine) 4 mg IVP Q6H PRN PRN Reason: Pain, moderate (4-7) Last Admin: 10/07/16 06:55 Dose: 4 mg Results - Vital Signs Recent Vital Signs: Last Vital Signs Temp 98.3 F 10/06/16 15:46 Pulse 75 10/06/16 15:46 Resp 18 10/06/16 15:46 BP 130/68 10/06/16 15:46 Pulse Ox 97 10/06/16 15:46 - Labs Result Diagrams: 10/05/16 09:25 10/05/16 09:25 Labs: Laboratory Results - last 24 hr 10/05/16 10/05/16 10/06/16 16:26 21:13 07:52 POC Glucose (mg/dL) 287 H 268 H 149 H 10/06/16 10/06/16 10/06/16 09:30 12:33 16:09 POC Glucose (mg/dL) 268 H 147 H 204 H 10/06/16 10/07/16 21:11 07:54 POC Glucose (mg/dL) 161 H 194 H Attending/Attestation - Attestation I have personally seen and examined this patient.: Yes I have fully participated in the care of the patient.: Yes I have reviewed all pertinent clinical information: Yes
--- NOTE | 2016-10-06 17:21 | HP ---
HISTORY OF PRESENT ILLNESS: The patient was seen early this morning as a late entry. This is a 70-year-old female who is coming to the hospital with complaints of leg pain. She had a history of diabetic neuropathy, diabetic type 2, peripheral arterial disease, hypertension, and dyslipidemia. She states that her pain is getting worse. She has been taking Neurontin. She has been seen by her neurologist Dr. Vogel. She also was seeing Dr. Froy Valles. The patient said that nothing make the pain better. She continues to progressively get worse. She said the pain is 7 to 8/10. She has difficulty walking at times because of pain. She has no fevers or chills. She has no headaches or dizziness. No nausea. No vomiting. No abdominal pain. No back pain, dysuria, frequency, or nocturia. ALLERGIES: NO KNOWN DRUG ALLERGIES. HOME MEDICATIONS: She is on Xanax, Cozaar, Tapazole, aspirin, insulin 75/25, Lipitor, Neurontin, and Lantus. PAST MEDICAL HISTORY: As above. Dyslipidemia, hypertension, hypothyroidism, CLL, and diabetes type 2. PAST SURGICAL HISTORY: 1. Hysterectomy. 2. Tonsillectomy. 3. Bilateral cataract surgery. FAMILY HISTORY: Mother at age 71. SOCIAL HISTORY: She did smoke for about 20 years. She quit about 4-1/2 years ago. She worked as a bicycle messenger. She has 4 children. REVIEW OF SYSTEMS: All other review of systems are within normal limits except I mentioned. PHYSICAL EXAMINATION GENERAL: The patient is lying bed comfortably. She is in no acute distress. VITAL SIGNS: Temperature 98.3, pulse is 81, blood pressure is 131/67, respirations 20, O2 saturation 96%, height 5 feet 7 inches, weight 187 pounds, and BMI 29.3. HEENT: Atraumatic. Normocephalic. Anicteric sclerae. Throat is clear and moist. Mouth with moist mucosa. Oropharynx is benign. Eyes: EOMI and PERRLA. NECK: Supple. No JVD, adenopathy, or thyromegaly. No bruits. HEART: S1 and S2 and regular. No murmurs, rubs, or gallops. LUNGS: Clear to auscultation bilaterally. No wheezes, rales, or rhonchi. ABDOMEN: Bowel sounds are positive. Soft, nontender, nondistended. No hepatosplenomegaly. EXTREMITIES: No cyanosis, clubbing, or edema. There is 1+ pulses bilaterally. NEUROLOGIC: No facial asymmetry. Tongue is midline. No uvula deviation. PSYCHIATRIC: He is alert, awake, and oriented x3. No anxiety. No depression. She has good insight. Normal affect. VASCULAR: 1+ peripheral pulses, 2+ in the carotids. SKIN: No erythema or abnormal nodules. SPINE: Normal curvature. ADENOPATHY: No anterior or posterior cervical adenopathy. LABORATORY DATA: White count 12.4, hemoglobin 13.2, platelet count is 202. The patient's INR is 0.99. Chemistry showed a sodium 140, potassium 4.2, creatinine 0.7. Duplex Doppler is done that shows no evidence of DVT. ASSESSMENT: 1. Right leg pain secondary to peripheral arterial disease versus diabetic neuropathy. 2. Diabetes type 2. 3. Dyslipidemia. 4. Hypertension. 5. History of angioplasty and stent of left superior venous artery and left anterior tibial artery angioplasty. 6. Chronic lymphocytic leukemia. 7. Anxiety. PLAN: The patient is going to be admitted to the hospital for an observation. She complains of leg pain, it could be either from peripheral arterial disease or peripheral arterial combination. She is going to be on losartan for hypertension. She is on aspirin for peripheral arterial disease. She is on diabetic medication include insulin detemir. She is also going to continue her insulin Lispro mix 75/25. She was started on baclofen by Dr. Vogel. The patient is going to be on Neurontin on maximum doses. She is on Tapazole. She is on Xanax as needed. Her white count is mildly elevated most likely due to the CLL that the patient has. She does have 50% lymphocytes. Rosendo Marrufo MD
[2016-10-06] MEDS: Sodium Chloride 0.45% 1,000 ML IV SCH (17:28)
--- NOTE | 2016-10-06 20:49 | US ---
PROCEDURE: Lower extremity CHARLIE exam HISTORY: Severe peripheral vascular disease. Recent left lower extremity endovascular intervention. Severe right rest pain. PHYSICIAN(S): Froy Valles MD. FINDINGS: The resting ABIs are inaccurate due to calcified vessels. Right, 0.92 and left, 0.96 The high thigh PVR waveforms are noncompressible. High thigh PVR waveforms are relatively normal and symmetric. The left calf PVR waveform augments normally and is normal in appearance. The right calf PVR waveform is decreased in amplitude compared to the left. This likely represents right SFA occlusive disease. The left ankle PVR waveform is normal. The right ankle PVR waveform is moderately blunted. This could represent right tibial occlusive disease. IMPRESSION: 1. Inaccurate ABIs due to calcification. 2. Right SFA occlusive disease. 3. Right tibial occlusive disease.
[2016-10-07] MEDS: Morphine 4 mg/ml ISec IVP PRN ×2 (00:19→06:55)
--- NOTE | 2016-10-07 09:26 | CP.PCM.PN ---
<Chito Pineda - Last Filed: 10/07/16 09:22> Subjective - Date & Time of Evaluation Date of Evaluation: 10/07/16 Time of Evaluation: 09:22 - Subjective Subjective: 70 y.o female seen at bedside with attending Dr. Tamayo for left chronic foot ulceration at [facility] 3. She is seen resting comfortably in bed, AAO x3. She reports no pain to the left foot but reports pain to the right leg. She states that morphine has helped her with the right leg pain. She denies f/cp/chills/n/ v or sob at this time. Objective - Vital Signs/Intake and Output Vital Signs (last 24 hours): Temp Pulse Resp BP Pulse Ox 98.3 F 80 20 157/69 H 97 10/07/16 07:30 10/07/16 07:30 10/07/16 07:30 10/07/16 07:30 10/07/16 07:30 Intake and Output: 10/07/16 10/07/16 06:59 18:59 Intake Total 1810 Balance 1810 - Medications Medications: Current Medications Alprazolam (Xanax) 0.25 mg PO BID PRN; Protocol PRN Reason: Anxiety Stop: 10/12/16 11:14 Last Admin: 10/06/16 09:38 Dose: 0.25 mg Aspirin (Ecotrin) 81 mg PO DAILY [facility] Last Admin: 10/06/16 09:37 Dose: 81 mg Atorvastatin Calcium (Lipitor) 10 mg PO DAILY [facility] Last Admin: 10/06/16 09:37 Dose: 10 mg Baclofen (Lioresal) 10 mg PO HS [facility] Last Admin: 10/06/16 21:42 Dose: 10 mg Gabapentin (Neurontin) 800 mg PO TID [facility] PRN Reason: Protocol Last Admin: 10/06/16 17:21 Dose: 800 mg Sodium Chloride (Sodium Chloride 0.45%) 1,000 mls @ 80 mls/hr IV .[id number] [facility] Stop: 10/08/16 12:00 Last Admin: 10/06/16 17:28 Dose: 80 mls/hr Insulin Detemir (Levemir) 10 unit SC ACBHS [facility] Last Admin: 10/06/16 21:44 Dose: 10 unit Insulin Lispro Protam/Lispro Human (Humalog Mix 75/25) 40 units SC ACBD [facility] Last Admin: 10/06/16 17:23 Dose: 40 units Losartan Potassium (Cozaar) 50 mg PO DAILY [facility] Last Admin: 10/06/16 09:37 Dose: Not Given Methimazole (Tapazole) 5 mg PO DAILY [facility] Last Admin: 10/06/16 09:38 Dose: 5 mg Morphine Sulfate (Morphine) 4 mg IVP Q6H PRN PRN Reason: Pain, moderate (4-7) Last Admin: 10/07/16 06:55 Dose: 4 mg - Labs Labs: 10/05/16 09:25 10/05/16 09:25 PT 10.7 Seconds (9.9-11.8) 10/05/16 09:25 INR 0.99 (0.93-1.08) 10/05/16 09:25 APTT 27.5 Seconds (23.7-30.8) 10/05/16 09:25 - Constitutional Appears: Well, Non-toxic, No Acute Distress - Extremities Exam Additional comments: VASC- pedal pulses are faintly palpable left, skin temp runs warm to cool B/l cft<4 sec to digits x 9, no pedal edema NEURO- protective pedal sensation is diminished DERM- there is a bianchi grade I ulceration noted sub-met 3 left foot with 100% granular base, mild serous drainage, no probe to bone, no purulence, no malodor , no fluctuance, no angel-wound erythema, no fluctuance noted ORTHO- s/p left foot 2nd digit and 2nd metatarsal head resection (hx OM), no pain on palpation of left plantar foot wound, positive tenderness to palpation diffusely of anterior right leg, posterior right calf, and dorsum of right foot , (-) Chris's sign bl - Neurological Exam Neurological Exam: Alert, Awake, Oriented x3 - Psychiatric Exam Psychiatric exam: Normal Affect, Normal Mood Assessment and Plan - Assessment and Plan (Free Text) Assessment: 70 yo female pt w/ pmh DM, diabetic neuropathy, PAD, HTN, dyslipidemia w/ superficial ulceration left foot admitted for worsening right leg pain Plan: Patient seen and evaluated at bedside with attending Dr. Tamayo Chart labs and vitals reviewed: afebrile, WBC 12.4 on 10/05/16 Left foot wound cleansed with sterile water, xeroform, DSD, kerlix applied Low ext venous duplex (10/05/16): negative for DVT Low ext arterial duplex (10/06/16): right SFA occlusive disease and calcified vessels Dr. Kilo Valles on consult for vascular, will f/u recommendations Left foot x-ray reviewed: no osteomyelitis noted to the 3rd metatarsal head Podiatry will continue to follow while inhouse <Royal Tamayo - Last Filed: 10/10/16 11:47> Objective - Vital Signs/Intake and Output Vital Signs (last 24 hours): Temp Pulse Resp BP Pulse Ox 98.7 F 92 H 18 146/68 97 10/09/16 16:00 10/09/16 16:00 10/09/16 16:00 10/09/16 16:00 10/09/16 16:00 - Labs Labs: 10/08/16 08:07 10/08/16 08:07 PT 10.7 Seconds (9.9-11.8) 10/05/16 09:25 INR 0.99 (0.93-1.08) 10/05/16 09:25 APTT 27.5 Seconds (23.7-30.8) 10/05/16 09:25 Attending/Attestation - Attestation I have personally seen and examined this patient.: Yes I have fully participated in the care of the patient.: Yes I have reviewed all pertinent clinical information, including history, physical exam and plan: Yes
--- NOTE | 2016-10-07 10:05 | RAD ---
PROCEDURE: Left Foot Radiographs. HISTORY: diabetic ulcer, r/o OM COMPARISON: 03/29/2016 FINDINGS: BONES: No acute fracture. Status post amputation mid 2nd metatarsal. There is calcification seen both about the distal end of the amputation and within the distal soft tissues, progressive since 03/29/2016. JOINTS: Flexion deformity 3rd through 5th digits. Hallux valgus deformity. Bunion. SOFT TISSUES: Normal. OTHER FINDINGS: None. IMPRESSION: No plain radiographic evidence of acute osteomyelitis. Status post amputation mid 2nd metatarsal.
[2016-10-07] MEDS: Insulin Lispro (humaLOG) MIX 75/25(10 ml) SC SCH ×2 (10:25→17:39)
[2016-10-07] MEDS: Insulin Detemir 100 units/ml Vial (Levemir) SC SCH ×2 (10:26→21:53)
[2016-10-07] MEDS: methIMAzole 5 MG TAB PO SCH (10:29)
[2016-10-07] MEDS ORDERED: Lidocaine 2% Inj (20ml) ONE (12:38)
[2016-10-07] MEDS ORDERED: Nitroglycerin 50mg in D5W 50 MG/250 ML BOTTLE IV ONE (12:39)
[2016-10-07] MEDS ORDERED: Iodixanol 320 MG/ML 200 ML BOTTLE IV ONE (12:39)
[2016-10-07] MEDS ORDERED: Iodixanol 320 MG/ML 100 ML BOTTLE IV ONE ×2 (12:39→13:59)
[2016-10-07] MEDS ORDERED: Midazolam 2 MG/2 ML VIAL ONE ×3 (12:57→13:56)
[2016-10-07] MEDS: Sodium Chloride 0.45% 1,000 ML IV SCH ×2 (15:36→17:40)
[2016-10-07] MEDS: Morphine 2 mg/ml ISec IM PRN (17:40)
--- NOTE | 2016-10-07 22:49 | CP.PCM.PN ---
Subjective - Date & Time of Evaluation Date of Evaluation: 10/07/16 Time of Evaluation: 11:00 - Subjective Subjective: Ms. Rankin admitted with right leg pain. She has PVD, DM II. CHARLIE showed right SFA, right tibial occlusion. She will undergo angiopalsty today. Currently on morphine for pain. Unable to ambulate. Objective - Vital Signs/Intake and Output Vital Signs (last 24 hours): Temp Pulse Resp BP Pulse Ox 98.7 F 85 20 160/66 H 97 10/07/16 17:09 10/07/16 22:00 10/07/16 17:09 10/07/16 17:09 10/07/16 07:30 Intake and Output: 10/07/16 10/08/16 18:59 06:59 Intake Total 600 Output Total 250 Balance 350 - Medications Medications: Current Medications Alprazolam (Xanax) 0.25 mg PO BID PRN; Protocol PRN Reason: Anxiety Stop: 10/12/16 11:14 Last Admin: 10/07/16 21:53 Dose: 0.25 mg Aspirin (Ecotrin) 81 mg PO DAILY [facility] Last Admin: 10/07/16 10:31 Dose: 81 mg Atorvastatin Calcium (Lipitor) 10 mg PO DAILY [facility] Last Admin: 10/07/16 10:31 Dose: 10 mg Baclofen (Lioresal) 10 mg PO HS [facility] Last Admin: 10/07/16 21:53 Dose: 10 mg Gabapentin (Neurontin) 800 mg PO TID [facility] PRN Reason: Protocol Last Admin: 10/07/16 17:40 Dose: 800 mg Sodium Chloride (Sodium Chloride 0.45%) 1,000 mls @ 80 mls/hr IV .[id number] [facility] Stop: 10/08/16 12:00 Last Admin: 10/07/16 17:40 Dose: 80 mls/hr Insulin Detemir (Levemir) 10 unit SC [facility]HS [facility] Last Admin: 10/07/16 21:53 Dose: 10 unit Insulin Lispro Protam/Lispro Human (Humalog Mix 75/25) 40 units SC ACBD [facility] Last Admin: 10/07/16 17:39 Dose: 40 units Losartan Potassium (Cozaar) 50 mg PO DAILY [facility] Last Admin: 10/07/16 10:31 Dose: 50 mg Methimazole (Tapazole) 5 mg PO DAILY [facility] Last Admin: 10/07/16 10:29 Dose: 5 mg Morphine Sulfate (Morphine) 2 mg IM Q3H PRN PRN Reason: Pain, moderate (4-7) Last Admin: 10/07/16 17:40 Dose: 2 mg - Labs Labs: 10/05/16 09:25 10/05/16 09:25 PT 10.7 Seconds (9.9-11.8) 10/05/16 09:25 INR 0.99 (0.93-1.08) 10/05/16 09:25 APTT 27.5 Seconds (23.7-30.8) 10/05/16 09:25 - Constitutional Appears: Well, Non-toxic - Head Exam Head Exam: ATRAUMATIC, NORMAL INSPECTION, NORMOCEPHALIC - Eye Exam Eye Exam: Normal appearance Pupil Exam: NORMAL ACCOMODATION - ENT Exam ENT Exam: Mucous Membranes Moist, Normal Exam - Neck Exam Neck Exam: Normal Inspection - Respiratory Exam Respiratory Exam: Clear to Ausculation Bilateral, NORMAL BREATHING PATTERN - Cardiovascular Exam Cardiovascular Exam: REGULAR RHYTHM, +S1, +S2 - GI/Abdominal Exam GI & Abdominal Exam: Soft, Normal Bowel Sounds - Extremities Exam Extremities Exam: Normal Inspection - Neurological Exam Neurological Exam: Alert, Awake, CN II-XII Intact, Normal Gait, Oriented x3 - Psychiatric Exam Psychiatric exam: Normal Affect - Skin Skin Exam: Normal Color, Warm Assessment and Plan - Assessment and Plan (Free Text) Assessment: 1. PVD : Rt. leg pain, right SFA rt. tibial occlusion: She will undergo angioplasty today by DR. Valles. 2. CLL : leukocytosis. 3. DM II : will continue current meds. 4. Right leg pain : continue morphine prn.
--- NOTE | 2016-10-07 22:57 | CP.PCM.PN ---
Subjective - Date & Time of Evaluation Date of Evaluation: 10/06/16 Time of Evaluation: 10:00 - Subjective Subjective: Complaining of right leg pain. Unable to ambulate because of pain. She has PVD. recurrent cellulitis of lower extremity. She has history of CLL. She also has DM related peripheral neuropathy. CHARLIE to be done today. Objective - Vital Signs/Intake and Output Vital Signs (last 24 hours): Temp Pulse Resp BP Pulse Ox 98.7 F 85 20 160/66 H 97 10/07/16 17:09 10/07/16 22:00 10/07/16 17:09 10/07/16 17:09 10/07/16 07:30 Intake and Output: 10/07/16 10/08/16 18:59 06:59 Intake Total 600 Output Total 250 Balance 350 - Medications Medications: Current Medications Alprazolam (Xanax) 0.25 mg PO BID PRN; Protocol PRN Reason: Anxiety Stop: 10/12/16 11:14 Last Admin: 10/07/16 21:53 Dose: 0.25 mg Aspirin (Ecotrin) 81 mg PO DAILY [facility] Last Admin: 10/07/16 10:31 Dose: 81 mg Atorvastatin Calcium (Lipitor) 10 mg PO DAILY [facility] Last Admin: 10/07/16 10:31 Dose: 10 mg Baclofen (Lioresal) 10 mg PO HS [facility] Last Admin: 10/07/16 21:53 Dose: 10 mg Gabapentin (Neurontin) 800 mg PO TID [facility] PRN Reason: Protocol Last Admin: 10/07/16 17:40 Dose: 800 mg Sodium Chloride (Sodium Chloride 0.45%) 1,000 mls @ 80 mls/hr IV .[id number] [facility] Stop: 10/08/16 12:00 Last Admin: 10/07/16 17:40 Dose: 80 mls/hr Insulin Detemir (Levemir) 10 unit SC ACBHS [facility] Last Admin: 10/07/16 21:53 Dose: 10 unit Insulin Lispro Protam/Lispro Human (Humalog Mix 75/25) 40 units SC ACBD [facility] Last Admin: 10/07/16 17:39 Dose: 40 units Losartan Potassium (Cozaar) 50 mg PO DAILY [facility] Last Admin: 10/07/16 10:31 Dose: 50 mg Methimazole (Tapazole) 5 mg PO DAILY [facility] Last Admin: 10/07/16 10:29 Dose: 5 mg Morphine Sulfate (Morphine) 2 mg IM Q3H PRN PRN Reason: Pain, moderate (4-7) Last Admin: 10/07/16 17:40 Dose: 2 mg - Labs Labs: 10/05/16 09:25 10/05/16 09:25 PT 10.7 Seconds (9.9-11.8) 10/05/16 09:25 INR 0.99 (0.93-1.08) 10/05/16 09:25 APTT 27.5 Seconds (23.7-30.8) 10/05/16 09:25 - Head Exam Head Exam: ATRAUMATIC, NORMAL INSPECTION, NORMOCEPHALIC - Eye Exam Eye Exam: Normal appearance Pupil Exam: NORMAL ACCOMODATION - Respiratory Exam Respiratory Exam: Clear to Ausculation Bilateral, NORMAL BREATHING PATTERN - Cardiovascular Exam Cardiovascular Exam: REGULAR RHYTHM, +S1, +S2 - GI/Abdominal Exam GI & Abdominal Exam: Soft, Normal Bowel Sounds - Extremities Exam Extremities Exam: Normal Inspection - Back Exam Back Exam: NORMAL INSPECTION - Neurological Exam Neurological Exam: Alert, Awake, Normal Gait, Oriented x3 - Psychiatric Exam Psychiatric exam: Normal Affect, Normal Mood - Skin Skin Exam: Normal Color, Warm Assessment and Plan - Assessment and Plan (Free Text) Assessment: PVD : right leg pain. Doppler negative for DVT . CHARLIE to be done today. DR. Valles consulted. 2. DM II : continue current meds. 3. Leukocytosis : CLL. 4. Pain : morphine 2 mg Q 3 hr prn for pain. 5. Continue gabapentin for peripheral neuropathy.
[2016-10-08] MEDS: Morphine 2 mg/ml ISec IM PRN ×3 (05:50→23:47)
[2016-10-08] MEDS: Sodium Chloride 0.45% 1,000 ML IV SCH (06:45)
[2016-10-08] MEDS: Insulin Detemir 100 units/ml Vial (Levemir) SC SCH ×2 (08:15→22:06)
[2016-10-08] MEDS: Insulin Lispro (humaLOG) MIX 75/25(10 ml) SC SCH ×2 (08:15→16:50)
[2016-10-08 08:17] LABS: HEMOGLOBIN 11.8 gm/dL (12.0-16.0); MEAN CELL VOLUME 82.8 fL (80.0-105.0); MEAN CORPUSCULAR HEMOGLOBIN 26.4 pg (25.0-35.0); MEAN CORPUSCULAR HGB CONC 31.9 g/dl (31.0-37.0); MEAN PLATELET VOLUME 9.8 fl (7.0-11.0); RBC 4.47 10^6/uL (3.5-6.1); RED CELL DISTRIBUTION WIDTH 14.9 % (11.5-14.5); WHITE BLOOD COUNT 11.1 10^3/ul (4.5-11.0)
[2016-10-08 08:30] LABS: BLOOD UREA NITROGEN 14 mg/dL (7-21); CALCIUM 9.2 mg/dL (8.4-10.5); GFR AFRICAN-AMERICAN > 60; GFR NON-AFRICAN AMERICAN > 60
[2016-10-08] MEDS: methIMAzole 5 MG TAB PO SCH (09:32)
--- NOTE | 2016-10-08 11:02 | CP.PCM.PN ---
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 She is seen resting comfortably in bed and AA0x3. Dressing was changed by nurse this morning and dressing is c/d/i. Patient states right leg pain is bothering her while there is no pain of the left foot. She denies n/v/sob/cp/chills or f. Objective - Vital Signs/Intake and Output Vital Signs (last 24 hours): Temp Pulse Resp BP Pulse Ox 98.5 F 87 22 161/74 H 97 10/08/16 06:00 10/08/16 06:00 10/08/16 06:00 10/08/16 06:00 10/08/16 06:00 Intake and Output: 10/08/16 10/08/16 06:59 18:59 Intake Total 1040 Balance 1040 - Medications Medications: Current Medications Alprazolam (Xanax) 0.25 mg PO BID PRN; Protocol PRN Reason: Anxiety Stop: 10/12/16 11:14 Last Admin: 10/07/16 21:53 Dose: 0.25 mg Aspirin (Ecotrin) 81 mg PO DAILY [facility] Last Admin: 10/08/16 09:31 Dose: 81 mg Atorvastatin Calcium (Lipitor) 10 mg PO DAILY [facility] Last Admin: 10/08/16 09:31 Dose: 10 mg Baclofen (Lioresal) 10 mg PO HS [facility] Last Admin: 10/07/16 21:53 Dose: 10 mg Gabapentin (Neurontin) 800 mg PO TID [facility] PRN Reason: Protocol Last Admin: 10/08/16 09:31 Dose: 800 mg Sodium Chloride (Sodium Chloride 0.45%) 1,000 mls @ 80 mls/hr IV .[id number] [facility] Stop: 10/08/16 12:00 Last Admin: 10/08/16 06:45 Dose: 80 mls/hr Insulin Detemir (Levemir) 10 unit SC ACBHS [facility] Last Admin: 10/08/16 08:15 Dose: 10 unit Insulin Lispro Protam/Lispro Human (Humalog Mix 75/25) 40 units SC ACBD [facility] Last Admin: 10/08/16 08:15 Dose: 40 units Losartan Potassium (Cozaar) 50 mg PO DAILY [facility] Last Admin: 10/08/16 09:31 Dose: 50 mg Methimazole (Tapazole) 5 mg PO DAILY [facility] Last Admin: 10/08/16 09:32 Dose: 5 mg Morphine Sulfate (Morphine) 2 mg IM Q3H PRN PRN Reason: Pain, moderate (4-7) Last Admin: 10/08/16 08:44 Dose: 2 mg - Labs Labs: 10/08/16 08:07 10/08/16 08:07 PT 10.7 Seconds (9.9-11.8) 10/05/16 09:25 INR 0.99 (0.93-1.08) 10/05/16 09:25 APTT 27.5 Seconds (23.7-30.8) 10/05/16 09:25 - Constitutional Appears: Well, Non-toxic, No Acute Distress - Extremities Exam Additional comments: VASC- DP and PT pulses are faintly palpable, temperature gradient wnl, FILM INSPECTOR <3 sec to digits x 9, no edema noted bilaterally NEURO- protective pedal sensation is diminished DERM- there is a bianchi grade I ulceration noted sub-met 3 left foot with 100% granular base, mild serous drainage, no probe to bone, no purulence, no malodor , no fluctuance, no angel-wound erythema, no fluctuance noted. sub met 3 measures approximately .5 x .4 x .1 ORTHO- s/p left foot 2nd digit and 2nd metatarsal head resection (hx OM), no pain on palpation of left plantar foot wound, positive tenderness to palpation diffusely of anterior right leg, posterior right calf, and dorsum of right foot , (-) Chris's sign bl - Neurological Exam Neurological Exam: Alert, Awake, Oriented x3 - Psychiatric Exam Psychiatric exam: Normal Affect, Normal Mood Assessment and Plan - Assessment and Plan (Free Text) Assessment: 70 yo female with superficial ulceration left foot and right leg pain Plan: Patient seen and evaluated at bedside Discussed plan in detail with attending Dr. Tamayo Chart labs and vitals reviewed: afebrile, WBC is 11.1 (WBC 12.4 on 10/05/16) Left foot wound cleansed with sterile water and xeroform, DSD, kerlix applied Low ext venous duplex (10/05/16): negative for DVT Low ext arterial duplex (10/06/16): right SFA occlusive disease, right tibial occlusion and calcified vessels Dr. Kilo Valles on consult for vascular, will f/u recommendations Left foot x-ray: no evidence of acute osteomyelitis Podiatry will continue to follow while inhouse <Royal Tamayo - Last Filed: 10/10/16 11:50> Objective - Vital Signs/Intake and Output Vital Signs (last 24 hours): Temp Pulse Resp BP Pulse Ox 98.7 F 92 H 18 146/68 97 10/09/16 16:00 10/09/16 16:00 10/09/16 16:00 10/09/16 16:00 10/09/16 16:00 - Labs Labs: 10/08/16 08:07 10/08/16 08:07 PT 10.7 Seconds (9.9-11.8) 10/05/16 09:25 INR 0.99 (0.93-1.08) 10/05/16 09:25 APTT 27.5 Seconds (23.7-30.8) 10/05/16 09:25 Attending/Attestation - Attestation I have personally seen and examined this patient.: Yes I have fully participated in the care of the patient.: Yes I have reviewed all pertinent clinical information, including history, physical exam and plan: Yes
--- NOTE | 2016-10-09 00:36 | CP.PCM.PN ---
Subjective - Date & Time of Evaluation Date of Evaluation: 10/08/16 Time of Evaluation: 15:00 - Subjective Subjective: Ms. Rankin admitted with right leg pain. She has PVD, DM II. CHARLIE showed right SFA, right tibial occlusion. S/P angiopalsty yesterday. Complaining of right leg pain, pain improved after procedure. Unable to ambulate due to pain. Objective - Vital Signs/Intake and Output Vital Signs (last 24 hours): Temp Pulse Resp BP Pulse Ox 98.5 F 64 18 155/60 H 97 10/08/16 12:00 10/08/16 12:00 10/08/16 18:00 10/08/16 12:00 10/08/16 06:00 Intake and Output: 10/08/16 10/09/16 18:59 06:59 Intake Total 540 420 Output Total 400 Balance 140 420 - Medications Medications: Current Medications Alprazolam (Xanax) 0.25 mg PO BID PRN; Protocol PRN Reason: Anxiety Stop: 10/12/16 11:14 Last Admin: 10/07/16 21:53 Dose: 0.25 mg Aspirin (Ecotrin) 81 mg PO DAILY [facility] Last Admin: 10/08/16 09:31 Dose: 81 mg Atorvastatin Calcium (Lipitor) 10 mg PO DAILY [facility] Last Admin: 10/08/16 09:31 Dose: 10 mg Baclofen (Lioresal) 10 mg PO HS [facility] Last Admin: 10/08/16 22:05 Dose: 10 mg Gabapentin (Neurontin) 800 mg PO TID [facility] PRN Reason: Protocol Last Admin: 10/08/16 17:17 Dose: 800 mg Insulin Detemir (Levemir) 10 unit SC ACBHS [facility] Last Admin: 10/08/16 22:06 Dose: 10 unit Insulin Lispro Protam/Lispro Human (Humalog Mix 75/25) 40 units SC ACBD [facility] Last Admin: 10/08/16 16:50 Dose: 40 units Losartan Potassium (Cozaar) 50 mg PO DAILY [facility] Last Admin: 10/08/16 09:31 Dose: 50 mg Methimazole (Tapazole) 5 mg PO DAILY [facility] Last Admin: 10/08/16 09:32 Dose: 5 mg Morphine Sulfate (Morphine) 2 mg IM Q3H PRN PRN Reason: Pain, moderate (4-7) Last Admin: 10/08/16 23:47 Dose: 2 mg - Labs Labs: 10/08/16 08:07 10/08/16 08:07 PT 10.7 Seconds (9.9-11.8) 10/05/16 09:25 INR 0.99 (0.93-1.08) 10/05/16 09:25 APTT 27.5 Seconds (23.7-30.8) 10/05/16 09:25 - Constitutional Appears: Well - Head Exam Head Exam: ATRAUMATIC, NORMAL INSPECTION, NORMOCEPHALIC - Eye Exam Eye Exam: Normal appearance Pupil Exam: NORMAL ACCOMODATION - Neck Exam Neck Exam: Normal Inspection - Respiratory Exam Respiratory Exam: Clear to Ausculation Bilateral, NORMAL BREATHING PATTERN - Cardiovascular Exam Cardiovascular Exam: REGULAR RHYTHM, +S1, +S2 - GI/Abdominal Exam GI & Abdominal Exam: Soft, Normal Bowel Sounds - Extremities Exam Extremities Exam: Normal Inspection - Back Exam Back Exam: NORMAL INSPECTION - Neurological Exam Neurological Exam: Alert, Awake, Oriented x3 - Psychiatric Exam Psychiatric exam: Normal Affect, Normal Mood - Skin Skin Exam: Normal Color, Warm Assessment and Plan - Assessment and Plan (Free Text) Assessment: 1. PVD : Rt. leg pain, right SFA rt. tibial occlusion: S/P angioplasty yesterday. 2. CLL : leukocytosis. 3. DM II : will continue current meds. 4. Right leg pain : improved, continue morphine prn. She is still unable to ambulate due to pain. Discharge planning. Consider TCU eval for gait improvement.
[2016-10-09] MEDS ORDERED: Morphine 2 mg/ml ISec IVP PRN (00:38)
[2016-10-09] MEDS: Insulin Detemir 100 units/ml Vial (Levemir) SC SCH (08:34)
[2016-10-09] MEDS: Insulin Lispro (humaLOG) MIX 75/25(10 ml) SC SCH ×2 (08:35→16:54)
[2016-10-09] MEDS: methIMAzole 5 MG TAB PO SCH (10:14)
--- NOTE | 2016-10-09 11:47 | CP.PCM.PN ---
Subjective - Date & Time of Evaluation Date of Evaluation: 10/09/16 Time of Evaluation: 10:15 - Subjective Subjective: Diabetic female known to me seen at bedside for left foot wound; pt was admitted with RLE pain -had angioplasty; pt has had previous angioplasty on left LE - had amputation of the second ray and the plantar wound resolved; however she just opened a new left plantar foot wound approxiimately 3 weeks ago ; she has been coming to wound care center for care; Objective - Vital Signs/Intake and Output Vital Signs (last 24 hours): Temp Pulse Resp BP Pulse Ox 98.3 F 87 20 169/68 H 96 10/09/16 07:34 10/09/16 10:13 10/09/16 07:34 10/09/16 10:13 10/09/16 07:34 Intake and Output: 10/09/16 10/09/16 06:59 18:59 Intake Total 420 Balance 420 - Medications Medications: Current Medications Alprazolam (Xanax) 0.25 mg PO BID PRN; Protocol PRN Reason: Anxiety Stop: 10/12/16 11:14 Last Admin: 10/09/16 10:14 Dose: 0.25 mg Aspirin (Ecotrin) 81 mg PO DAILY [facility] Last Admin: 10/09/16 10:14 Dose: 81 mg Atorvastatin Calcium (Lipitor) 10 mg PO DAILY [facility] Last Admin: 10/09/16 10:14 Dose: 10 mg Baclofen (Lioresal) 10 mg PO HS [facility] Last Admin: 10/08/16 22:05 Dose: 10 mg Gabapentin (Neurontin) 800 mg PO TID [facility] PRN Reason: Protocol Last Admin: 10/09/16 10:14 Dose: 800 mg Insulin Detemir (Levemir) 10 unit SC ACBHS [facility] Last Admin: 10/09/16 08:34 Dose: 10 unit Insulin Lispro Protam/Lispro Human (Humalog Mix 75/25) 40 units SC ACBD [facility] Last Admin: 10/09/16 08:35 Dose: 40 units Losartan Potassium (Cozaar) 50 mg PO DAILY [facility] Last Admin: 10/09/16 10:13 Dose: 50 mg Methimazole (Tapazole) 5 mg PO DAILY [facility] Last Admin: 10/09/16 10:14 Dose: 5 mg Morphine Sulfate (Morphine) 2 mg IVP Q4H PRN PRN Reason: Pain, moderate (4-7) Last Admin: 10/09/16 10:15 Dose: 2 mg - Labs Labs: 10/08/16 08:07 10/08/16 08:07 PT 10.7 Seconds (9.9-11.8) 10/05/16 09:25 INR 0.99 (0.93-1.08) 10/05/16 09:25 APTT 27.5 Seconds (23.7-30.8) 10/05/16 09:25 - Constitutional Appears: Well, No Acute Distress - Extremities Exam Additional comments: RLE with bounding DP pulse - TG Warm CFT 2 sec x 10 - LLE with non-palpable pulse CHARLIE .9 with waveforms mildly blunted; wound plantar aspect of submet 3 left foot is Fenton Grade 1 - no sinus no fluctuance no undermining minimal callous tissue granular - no signs of infection noted; pt with fungal nails x 9 right foot with callous submet 1 but the skin is intact to the foot and leg; pt has LOPS with semmes-shara monofilament bilateral LE Assessment and Plan - Assessment and Plan (Free Text) Assessment: DM/Neuropathy b/l LE; PVD bilateral LE Fenton 1 ulcer left foot Plan: wound care to foot with maxsorb/allevyn foam dressing done; pt can ambulate to tolerance full weightbearing with her diabetic shoes on Podiatry will follow
[2016-10-09 16:13] VITALS: BP 146/68; PULSE 92; RESP 18; TEMP 98.7; O2SAT 97
--- NOTE | 2016-10-10 14:07 | VASCULAR ---
PROCEDURE: 1. Abdominal aortogram and bilateral lower extremity runoff with right selective views 2. Distal right SFA silver Hawk atherectomy and drug-eluting balloon angioplasty 3. Proximal left anterior tibial artery angioplasty 4. Left tibioperoneal trunk angioplasty HISTORY: Severe peripheral vascular disease. Severe right ischemic pain. ? PVD versus neuropathy. Previous left lower extremity endovascular intervention PHYSICIAN(S): Froy Valles M.D. TECHNIQUE: The relative risks and indications of the procedure were explained to the patient and consent obtained. The patient was hydrated prior to the procedure and the appropriate labs drawn. The patient was placed supine on the arteriogram table and the left groin prepped and draped in the usual sterile fashion. Conscious sedation and monitoring were provided throughout the procedure by a nurse. Via a left common femoral artery approach, a 5 [place] sheath was placed in the left groin. Through the sheath and over a guidewire, a 5 [place] flush catheter was placed in the abdominal aorta at the level of the renal arteries and a PA DSA abdominal aortogram performed. The catheter was pulled down to the aortic bifurcation and bilateral oblique DSA pelvic arteriograms performed. Overlapping bilateral lower extremity DSA arteriograms were obtained from the inguinal ligaments to the ankles. A 0.035 angled Glidewire was advanced over the bifurcation and placed in the proximal right SFA. A 7 [place] 65 cm destination sheath was placed in the mid right SFA. Heparin 5000 units IV and nitroglycerin in 250 mcg aliquots were given. The segmental disease in the distal right SFA proximal right anterior tibial artery were crossed with a 5 [place] catheter and angled Glidewire. Exchange was made for a 0.014 support guidewire. The proximal right anterior tibial artery was dilated with 3.0 x 8 cm balloon. The right tibioperoneal trunk was dilated with a 3.5 by 8 cm balloon. An excellent angiographic result was obtained and no stent was required. [place] Hawk atherectomy of the distal right SFA was performed with and LS catheter. Approximately 6 passes were performed. An improved but suboptimal result was obtained. The distal right SFA was dilated with 6 mm by 12 cm drug-eluting balloon. An excellent angiographic result was obtained. No stent was required. Completion angiograms were performed. The sheath was removed and hemostasis obtained with a Perclose device. The patient tolerated the procedure well. FINDINGS: There are single renal arteries bilaterally which are widely patent and normal in appearance. The nephrograms are symmetric in appearance. The infrarenal abdominal aorta is widely patent without a radiographically significant stenosis. The aortic bifurcation is widely patent. The common and external iliac arteries are normal in appearance without a significant stenosis. The internal iliac arteries are patent bilaterally. Right lower extremity: The right common femoral artery is patent. The right profunda femoral artery is patent. The right superficial femoral artery is patent with multi focal moderate stenoses in the adductor canal.. The right popliteal artery is patent and continuous. There are severe stenoses in the proximal right anterior tibial artery. There are severe stenoses in the right tibioperoneal trunk. The right anterior tibial and peroneal arteries of the predominant supply to the foot. The right posterior tibial artery is occluded proximally. Left lower extremity: Left common femoral artery is patent. The left profunda femoral artery is patent. The left superficial femoral artery is patent and continuous with 3-4 mild stenoses. The left popliteal artery is patent and continuous. There is 2 vessel runoff via the left anterior tibial and peroneal arteries which is continuous. The left posterior tibial artery is occluded. IMPRESSION: 1.Successful distal right SFA silver Hawk atherectomy and drug- eluting balloon angioplasty 2. Successful proximal right anterior tibial artery angioplasty 3. Successful right tibioperoneal trunk angioplasty.
--- NOTE | 2016-10-10 14:45 | DS ---
HISTORY OF PRESENT ILLNESS: This is a 70-year-old female who had come into the hospital complaining of right leg pain. The patient had a few ultrasound done. She was taken to interventional radiology by Dr. Froy Valles and had angioplasty done. She had right SFA and right tubal occlusion. The patient states that she had some improvement in her symptoms. She also has a history of significant diabetic neuropathy and has been on gabapentin. She was able to ambulate with physical therapist and she is going to be discharged home to follow up as an outpatient. No chest paint. No shortness of breath. No Headaches or dizziness. PHYSICAL EXAMINATION: VITAL SIGNS: Temperature is 98.7, pulse is 92, blood pressure is 146/68, respirations are 18, and O2 saturation is 97%. HEENT: Anicteric sclerae. Moist mucosa. NECK: No JVD, adenopathy, or thyromegaly. CARDIOVASCULAR: S1 and S2, regular. No murmurs, rubs, or gallops . LUNGS: Clear to auscultation bilaterally. No wheezes, rales, or rhonchi. ABDOMEN: Bowel sounds are positive. Soft, nontender, and nondistended. No hepatosplenomegaly. EXTREMITIES: Lower extremities; 1+ pulses, have no edema, and full range of motion. ASSESSMENT: 1. Peripheral arterial disease, status post right superficial femoral artery and right tibial artery angioplasty. 3. Diabetic neuropathy. 4. Diabetes type 2. 5. Chronic lymphocytic leukemia. 6. Hypothyroidism. 7. Dyslipidemia. PLAN: The patient is currently comfortable. She is going to continue with her gabapentin. I gave her morphine sulphate 50 mg for her pain. She is going to follow up with a primary care doctor, Dr. Macias. She is also going to see Dr. Vogel, her neurologist. Condition is stable. Activities tolerated. Rosendo Marrufo MD
== END 2016-10-09 17:40 | disposition home or self-care (01) | DRG 271 ==
LOC: ED 07:32 → ERH 08:33 → 5RSO 11:44 → OBSVTOIN 10-06 10:00 → 2RSO 10-07 14:26 → 5RSO 10-08 18:44
PROVIDERS: ADMIT Internal Medicine Nephrology; ATTEND Internal Medicine Nephrology
PROC: 047K3ZZ Dilation of Right Femoral Artery, Percutaneous Approach (ICD-10-PCS; principal; 2016-10-07)
PROC: 04CK3ZZ Extirpation of Matter from Right Femoral Artery, Percutaneous Approach (ICD-10-PCS; 2016-10-07)
PROC: 047K3Z1 Dilation of Right Femoral Artery using Drug-Coated Balloon, Percutaneous Approach (ICD-10-PCS; 2016-10-07)
PROC: 047P3ZZ Dilation of Right Anterior Tibial Artery, Percutaneous Approach (ICD-10-PCS; 2016-10-07)
PROC: 047T3ZZ Dilation of Right Peroneal Artery, Percutaneous Approach (ICD-10-PCS; 2016-10-07)
DX: E11.51 Type 2 diabetes mellitus with diabetic peripheral angiopathy without gangrene (principal); C91.10 Chronic lymphocytic leukemia of B-cell type not having achieved remission; E11.42 Type 2 diabetes mellitus with diabetic polyneuropathy; E11.621 Type 2 diabetes mellitus with foot ulcer; L03.119 Cellulitis of unspecified part of limb; E03.9 Hypothyroidism, unspecified; E78.5 Hyperlipidemia, unspecified; F41.9 Anxiety disorder, unspecified; I10 Essential (primary) hypertension; J45.909 Unspecified asthma, uncomplicated; L97.519 Non-pressure chronic ulcer of other part of right foot with unspecified severity; L97.529 Non-pressure chronic ulcer of other part of left foot with unspecified severity; Z79.82 Long term (current) use of aspirin; Z79.899 Other long term (current) drug therapy; Z87.891 Personal history of nicotine dependence; Z89.421 Acquired absence of other right toe(s); Z90.710 Acquired absence of both cervix and uterus; Z98.42 Cataract extraction status, left eye; Z98.41 Cataract extraction status, right eye; R40.2412 Glasgow coma scale score 13-15, at arrival to emergency department; R26.2 Difficulty in walking, not elsewhere classified; Z95.820 Peripheral vascular angioplasty status with implants and grafts; L57.0 Actinic keratosis

== ENCOUNTER 2016-11-04 08:47 | Emergency (ER) | payer MEDICARE, BC ==
[2016-11-04 08:48] VITALS: BMI 29.2
--- NOTE | 2016-11-04 09:11 | ED PDOC ---
Arrival/HPI - General Chief Complaint: Weakness/Neurological Deficit Time Seen by Provider: 11/04/16 08:52 Historian: Patient - History of Present Illness Narrative History of Present Illness (Text): 11/04/16 09:05 A 70 year old female, whose past medical history includes diabetes, hypertension , asthma, hypothyroidism, neuropathy and chronic lymphocytic leukemia, presents to the emergency department complaining of generalized weakness for the past few days. Patient reports a loss of appetite and fluid intake. Patient notes non -bloody diarrhea 2 days ago and dysuria but denies any fever, chills, nausea, vomiting, abdominal pain, frequency, hematuria, chest pain, shortness of breath , cough, runny nose, congestion, headache, dizziness or any other complaints. Patient was placed on Augmentin for 5 days, she has 1 day left to finish her course of antibiotics. PMD: Dr. Marrufo Time/Duration: Other (few days) Symptom Course: Unchanged Quality: Other Context: Home Past Medical History - Provider Review Nursing Documentation Reviewed: Yes - Infectious Disease Hx of Infectious Diseases: None - Tetanus Immunization Tetanus Immunization: Unknown - Reproductive Menopause: No - Cardiac Hx Pacemaker: No - Pulmonary Hx Respiratory Disorders: Yes Hx Asthma: Yes - Neurological Hx Paralysis: No - HEENT Hx HEENT Disorder: Yes Hx Cataracts: Yes (SX) Other/Comment: TONSILLECTOMY - Renal Hx Renal Failure: Yes - Endocrine/Metabolic Hx Diabetes Mellitus Type 2: Yes - Hematological/Oncological Hx Blood Transfusions: Yes Hx Blood Transfusion Reaction: No - Integumentary Hx Dermatological Disorder: Yes Other/Comment: dry skin hard thick toes both feet, 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 16 LEFT BALL OF FOOT AND TOP OF FOOT WITH OPEN WOUND.MILD FOUL SMELL.DRAINAGE. - Musculoskeletal/Rheumatological Hx Musculoskeletal Disorders: Yes (HX OSTEO) - Gastrointestinal Hx Gastrointestinal Disorders: No - Genitourinary/Gynecological Hx Genitourinary Disorders: No (ARF) Hx Reproductive Disorders: No - Psychiatric Hx Emotional Abuse: No Hx Physical Abuse: No Hx Substance Use: No - Surgical History Hx Hysterectomy: Yes Hx Tonsillectomy: Yes Other/Comment: tonsils, bilateral cataracts removed, picc line x 2, i and d of non healing wound to ball of left foot dsg dry and intact done today - Anesthesia Hx Anesthesia Reactions: No Hx Malignant Hyperthermia: No - Suicidal Assessment Feels Threatened In Home Enviroment: No Family/Social History - Physician Review Nursing Documentation Reviewed: Yes Family/Social History: No Known Family HX Smoking Status: Former Smoker Hx Alcohol Use: No Hx Substance Use: No Hx Substance Use Treatment: No Allergies/Home Meds Allergies/Adverse Reactions: Allergies No Known Allergies Allergy (Verified 10/05/16 07:56) Home Medications: Home Meds Medication Instructions Recorded Confirmed Alprazolam [Xanax] 0.25 mg PO BID PRN 09/12/11 11/04/16 Losartan Potassium [Cozaar] 50 mg PO DAILY 12/31/15 11/04/16 Methimazole [Tapazole] 5 mg PO DAILY 12/31/15 11/04/16 Aspirin [Ecotrin] 81 mg PO DAILY 03/27/16 11/04/16 Insulin Lispro Mix 75/25 [HumaLOG 40 units SC ACBD 03/27/16 11/04/16 Mix 75/25] Multivit-Min/FA/Lycopen/Lutein 1 tab PO DAILY 03/27/16 11/04/16 [Adults 50 Plus Multivitamin Tb] Atorvastatin [Lipitor] 10 mg PO DAILY 10/05/16 11/04/16 Insulin Glargine, Recombina 20 units PO HS 10/05/16 11/04/16 [Lantus] Gabapentin [Neurontin] 600 mg PO TID 11/04/16 11/04/16 Review of Systems - Physician Review All systems were reviewed & negative as marked: Yes - Review of Systems Constitutional: Other (Generalized weakness). absent: Fevers, Night Sweats ENT: absent: Rhinorrhea, Sinus Congestion Respiratory: absent: SOB, Cough Cardiovascular: absent: Chest Pain Gastrointestinal: Diarrhea, Appetite Changes (Decrease food/fluid intake). absent: Abdominal Pain, Nausea, Vomiting Genitourinary Female: Dysuria. absent: Frequency, Hematuria Neurological: absent: Headache, Dizziness Physical Exam Vital Signs Temp Pulse Resp BP Pulse Ox 11/04/16 13:00 97.6 F 88 16 168/78 H 100 11/04/16 11:00 97.8 F 90 13 178/76 H 100 11/04/16 09:04 98.6 F 89 15 161/72 H 100 Blood Pressure: Hypertensive Respiratory Rate: Normal Appearance: Positive for: Well-Appearing, Non-Toxic, Comfortable Pain Distress: None Mental Status: Positive for: Alert and Oriented X 3 - Systems Exam Head: Present: Atraumatic, Normocephalic Pupils: Present: PERRL Extroacular Muscles: Present: EOMI Conjunctiva: Present: Normal Mouth: Present: Moist Mucous Membranes Pharnyx: No: ERYTHEMA, EXUDATE, TONSILS ENLARGED Neck: Present: Normal Range of Motion Respiratory/Chest: Present: Clear to Auscultation, Good Air Exchange. No: Respiratory Distress, Accessory Muscle Use Cardiovascular: Present: Regular Rate and Rhythm, Normal S1, S2. No: Murmurs Abdomen: Present: Normal Bowel Sounds. No: Tenderness, Distention, Peritoneal Signs Back: Present: Normal Inspection Upper Extremity: Present: Normal Inspection. No: Cyanosis, Edema Lower Extremity: Present: Normal Inspection. No: Edema Neurological: Present: GCS=15, CN II-XII Intact, Speech Normal Skin: Present: Warm, Dry, Normal Color, Other (1 cm ulcer on right foot and >1 cm ulcer on left foot, no surrounding erythema or warmth). No: Rashes Psychiatric: Present: Alert, Oriented x 3, Normal Insight, Normal Concentration Medical Decision Making ED Course and Treatment: 11/04/16 09:05 Impression: A 70 year old female with generalized weakness. Patient notes a loss of appetite and fluid intake. Differential Diagnosis included but are not limited to: DKA vs. Infection ideology Plan: -- Chest xray -- EKG -- Labs -- Blood and Urine culture -- Urinalysis -- Reassess and disposition Progress Notes: EKG shows NSR at 89 BPM with 1st degree AV block, no change from prior on . Interpreted by me. Report Date : 11/04/2016 11:18:17 Procedure: Chest xray Dictator : Froy Fuller MD IMPRESSION: No active disease. 11/04/16 13:08 Patient not in DKA. She appears well hydrated. HTN elevated but patient hasn't taken her meds today yet. She took them in the ED today. She is able to tolerated PO fluids in the ED. UA showed UTI and treated with macrobid. Last UCx that was positive showed sensitivity to macrobid. Patient will f/u with Dr. Ivan and Dr. Bernard as an outpatient. - Lab Interpretations Lab Results: 11/04/16 09:28 11/04/16 09:28 Lab Results 11/04/16 11:50: Urine Color Yellow, Urine Appearance Sl cloudy, Urine pH 6.5, Ur Specific [place] 1.015, Urine Protein Trace H, Urine Glucose (UA) >=1000, Urine Ketones 40 H, Urine Blood Trace-lysed H, Urine Nitrate Negative, Urine Bilirubin Negative, Urine Urobilinogen 1.0 H, Ur Leukocyte Esterase Negative, Urine RBC 0 - 2, Urine WBC Tntc, Ur Epithelial Cells 10 - 12, Urine Bacteria Few , Urine Other Uyeast 11/04/16 09:28: Sodium 137, Chloride 98, Potassium 4.0, Carbon Dioxide 25, Anion Gap 18, BUN 16, Creatinine 0.7, Est GFR ( Amer) > 60, Est GFR (Non- Af Amer) > 60, Random Glucose 294 H, Calcium 9.4, Phosphorus 3.2, Magnesium 1.7 , Total Bilirubin 1.2, AST 27, ALT 36, Alkaline Phosphatase 112, Troponin I < 0.01, Total Protein 8.0, Albumin 4.3, Globulin 3.7, Albumin/Globulin Ratio 1.2 11/04/16 09:28: PT 11.4, INR 1.06, APTT 28.2 11/04/16 09:28: WBC 9.5, RBC 4.54, Hgb 12.3, Hct 37.5, MCV 82.6, MCH 27.1, MCHC 32.8, RDW 14.4, Plt Count 213, MPV 9.6, Gran % 31.5 L, Lymph % (Auto) 62.2 H, [place] % (Auto) 5.3, Eos % (Auto) 0.9 L, Baso % (Auto) 0.1, Gran # 3.00, Lymph # 5.9 H, [place] # 0.5, Eos # 0.1, Baso # 0.01 11/04/16 09:26: pO2 47, VBG pH 7.33, VBG pCO2 56.0, VBG HCO3 29.5 H, VBG Total CO2 31.2 H, VBG O2 Sat (Calc) 84.5 H, VBG Base Excess 2.4 H, VBG Potassium 4.5, Sodium 136.0, Chloride 99.0, Glucose 310 H, Lactate 2.0, FiO2 21.0, Venous Blood Potassium 4.5 11/04/16 08:59: POC Glucose (mg/dL) 300 H I have reviewed the lab results: Yes - RAD Interpretation Radiology Orders: 11/04/16 09:06 CHEST PORTABLE [RAD] Stat - Medication Orders Current Medication Orders: Discontinued Medications Nitrofurantoin Macrocrystals (Macrobid) 100 mg PO STAT STA Stop: 11/04/16 12:18 Last Admin: 11/04/16 12:24 Dose: 100 mg - Scribe Statement The provider has reviewed the documentation as recorded by the Kishanibnatacha Quesada Provider Scribe Attestation: All medical record entries made by the Scribe were at my direction and personally dictated by me. I have reviewed the chart and agree that the record accurately reflects my personal performance of the history, physical exam, medical decision making, and the department course for this patient. I have also personally directed, reviewed, and agree with the discharge instructions and disposition. Disposition/Present on Arrival - Present on Arrival Any Indicators Present on Arrival: Yes History of DVT/PE: No History of Uncontrolled Diabetes: Yes Urinary Catheter: No History of Decub. Ulcer: No History Surgical Site Infection Following: None - Disposition Have Diagnosis and Disposition been Completed?: Yes Diagnosis: UTI (urinary tract infection), Weakness Disposition: HOME/ ROUTINE Disposition Time: 13:00 Patient Plan: Discharge Condition: IMPROVED Discharge Instructions (ExitCare): Weakness (ED) Additional Instructions: Ms Zafar, thank you for letting us take care of you today. Your provider was Dr. Castellanos. You were treated for UTI, Weakness. The emergency medical care you received today was directed at your acute symptoms. If you were prescribed any medication, please fill it and take as directed. It may take several days for your symptoms to resolve. Return to the Emergency Department if your symptoms worsen, do not improve, or if you have any other problems. Please contact your doctor or call one of the physicians/clinics you have been referred to that are listed on the Patient Visit Information form that is included in your discharge packet. Bring any paperwork you were given at discharge with you along with any medications you are taking to your follow up visit. Our treatment cannot replace ongoing medical care by a primary care provider (PCP) outside of the emergency department. Thank you for allowing the [facility] team to be part of your care today. If you had an X-Ray or CT scan: A Radiologist will review the ED reading if any change in treatment is needed we will contact you. If you had a blood, urine, or wound culture: It will take several days for the results, if any change in treatment is needed we will contact you. If you had an STI test: It will take 48 hours for the results. Please call after 1 week if you have not heard back. Prescriptions: Nitrofurantoin Macrocrystals [Macrobid] 100 mg PO BID #10 cap Referrals: Rosendo Marrufo MD [Staff Provider] - Follow up with primary Danielle Bernard MD [Staff Provider] - Follow up with primary Forms: [employer] (Malay)
[2016-11-04 09:15] VITALS: O2SAT 100
[2016-11-04 09:33] LABS: VENOUS BLOOD GAS BASE EXCESS 2.4 mmol/L (0.0-2.0); VENOUS BLOOD PH 7.33 (7.32-7.43)
[2016-11-04 09:38] LABS: BASO # 0.01 K/mm3 (0.0-2.0); BASO % 0.1 % (0.0-3.0); EOS # 0.1 (0.0-0.7); EOS % 0.9 % (1.5-5.0); GRAN % 31.5 % (50.0-68.0); HEMATOCRIT 37.5 % (36.0-48.0); LYMPH # 5.9 (1.2-3.4); LYMPH % 62.2 % (22.0-35.0); MEAN CELL VOLUME 82.6 fl (80.0-105.0); MEAN CORPUSCULAR HEMOGLOBIN 27.1 pg (25.0-35.0); MEAN CORPUSCULAR HGB CONC 32.8 g/dl (31.0-37.0); MEAN PLATELET VOLUME 9.6 fl (7.0-11.0); MONO # 0.5 (0.1-0.6); MONO % 5.3 % (1.0-6.0); RED CELL DISTRIBUTION WIDTH 14.4 % (11.5-14.5); WHITE BLOOD COUNT 9.5 10^3/ul (4.5-11.0)
[2016-11-04 09:42] LABS: BLOOD UREA NITROGEN 16 mg/dL (7-21); CARBON DIOXIDE 25 mmol/L (21-33); CHLORIDE 98 mmol/L (98-107); GFR AFRICAN-AMERICAN > 60; GLUCOSE,RANDOM 294 mg/dL (70-110); SODIUM 137 mmol/L (132-148)
[2016-11-04 09:43] LABS: ALB/GLOB RATIO 1.2 (1.1-1.8); ALKALINE PHOSPHATASE 112 U/L (38-133); ALT/SGPT 36 U/L (7-56); AST/SGOT 27 U/L (15-39); BILIRUBIN,TOTAL 1.2 mg/dL (0.2-1.3); CALCIUM 9.4 mg/dL (8.4-10.5); MAGNESIUM 1.7 mg/dL (1.7-2.2); PHOSPHOROUS 3.2 mg/dL (2.5-4.5)
[2016-11-04 09:46] LABS: INR 1.06 (0.93-1.08); PARTIAL THROMBOPLASTIN TIME 28.2 Seconds (23.7-30.8)
[2016-11-04 09:53] LABS: TROPONIN I < 0.01 ng/mL
--- NOTE | 2016-11-04 11:20 | RAD ---
HISTORY: Sepsis Patient COMPARISON: 12/31/2015 FINDINGS: LUNGS: No active pulmonary disease. PLEURA: No significant pleural effusion identified, no pneumothorax apparent. CARDIOVASCULAR: Normal. OSSEOUS STRUCTURES: No significant abnormalities. VISUALIZED UPPER ABDOMEN: Normal. OTHER FINDINGS: None. IMPRESSION: No active disease.
[2016-11-04 11:56] LABS: PH,URINE 6.5 (4.7-8.0); URINE BILIRUBIN NEGATIVE (NEGATIVE); URINE BLOOD TRACE-LYSED (NEGATIVE); URINE GLUCOSE (UA) >=1000 mg/dL (NEGATIVE); URINE KETONE 40 mg/dL (NEGATIVE); URINE LEUKOCYTE ESTERASE NEGATIVE Leu/uL (NEGATIVE); URINE PROTEIN TRACE mg/dL (<30 mg/dL)
[2016-11-04 12:04] LABS: URINE COLOR YELLOW (YELLOW)
[2016-11-04 12:06] LABS: URINE APPEARANCE SL CLOUDY (CLEAR)
[2016-11-04 12:07] LABS: URINE BACTERIA FEW (NEG); URINE RBC 0 - 2 /hpf (0-2); URINE WBC TNTC /hpf (0-6)
[2016-11-04 13:07] VITALS: BP 168/78; PULSE 88; RESP 16; TEMP 97.6
--- NOTE | 2016-11-04 13:21 | CARD ---
APPROVED REPORT EKG Measurement Heart [id number] <Conclusion> Poor data quality, interpretation may be adversely affected Sinus rhythm with 1st degree AV block Minimal voltage criteria for LVH, may be normal variant Septal infarct, age undetermined Abnormal ECG
== END 2016-11-04 13:09 | disposition home or self-care (01) ==
LOC: ED 08:47
DX: N39.0 Urinary tract infection, site not specified (principal); R53.1 Weakness; E03.9 Hypothyroidism, unspecified; I10 Essential (primary) hypertension; E11.9 Type 2 diabetes mellitus without complications

== ENCOUNTER 2016-11-07 08:25 | Inpatient (IN) | payer MEDICARE, BC ==
--- NOTE | 2016-11-07 08:40 | ED PDOC ---
Arrival/HPI - General Chief Complaint: Weakness/Neurological Deficit Time Seen by Provider: 11/07/16 08:37 - History of Present Illness Narrative History of Present Illness (Text): 11/07/16 08:38 70-year-old female with a past medical history of diabetes, hypertension, asthma , hypothyroidism, neuropathy, and CLL presents to the emergency department who presents to the emergency department complaining of worsening generalized weakness for the past week. Patient has no other complaints at this time. Time/Duration: 1 week Symptom Onset: Gradual Symptom Course: Unchanged Severity Level: Mild Activities at Onset: Rest Context: Home Past Medical History - Provider Review Nursing Documentation Reviewed: Yes - Infectious Disease Hx of Infectious Diseases: None - Tetanus Immunization Tetanus Immunization: Unknown - Cardiac Hx Cardiac Disorders: Yes Hx Hypertension: Yes Hx Pacemaker: No - Pulmonary Hx Respiratory Disorders: Yes Hx Asthma: Yes - Neurological Hx Neurological Disorder: No Hx Paralysis: No - HEENT Hx HEENT Disorder: Yes Hx Cataracts: Yes (SX) Other/Comment: TONSILLECTOMY - Renal Hx Renal Disorder: Yes Hx Renal Failure: Yes - Endocrine/Metabolic Hx Endocrine Disorders: Yes Hx Diabetes Mellitus Type 2: Yes - Hematological/Oncological Hx Blood Disorders: Yes Hx Blood Transfusions: Yes Hx Blood Transfusion Reaction: No - Integumentary Hx Dermatological Disorder: No - Musculoskeletal/Rheumatological Hx Musculoskeletal Disorders: Yes (HX OSTEO) - Gastrointestinal Hx Gastrointestinal Disorders: No - Genitourinary/Gynecological Hx Genitourinary Disorders: No (ARF) Hx Reproductive Disorders: No - Psychiatric Hx Psychophysiologic Disorder: No Hx Emotional Abuse: No Hx Physical Abuse: No Hx Substance Use: No - Surgical History Hx Hysterectomy: Yes Hx Tonsillectomy: Yes Other/Comment: tonsils, bilateral cataracts removed, picc line x 2, i and d of non healing wound to ball of left foot dsg dry and intact done today, peripheral vascular surgery - Anesthesia Hx Anesthesia Reactions: No Hx Malignant Hyperthermia: No - Suicidal Assessment Feels Threatened In Home Enviroment: No Family/Social History - Physician Review Nursing Documentation Reviewed: Yes Family/Social History: No Known Family HX Smoking Status: Former Smoker Hx Alcohol Use: No Hx Substance Use: No Hx Substance Use Treatment: No Allergies/Home Meds Allergies/Adverse Reactions: Allergies No Known Allergies Allergy (Verified 11/07/16 08:32) Home Medications: Home Meds Medication Instructions Recorded Confirmed Alprazolam [Xanax] 0.25 mg PO BID PRN 09/12/11 11/07/16 Losartan Potassium [Cozaar] 50 mg PO DAILY 12/31/15 11/07/16 Methimazole [Tapazole] 5 mg PO DAILY 12/31/15 11/07/16 Aspirin [Ecotrin] 81 mg PO DAILY 03/27/16 11/07/16 Insulin Lispro Mix 75/25 [HumaLOG 30 units SC BID 03/27/16 11/07/16 Mix 75/25] Atorvastatin [Lipitor] 10 mg PO DAILY 10/05/16 11/07/16 Insulin Glargine, Recombina 20 units PO HS 10/05/16 11/07/16 [Lantus] Gabapentin [Neurontin] 600 mg PO TID 11/04/16 11/07/16 Alpha Lipoic Acid [Alpha Lipoic 1 tab PO DAILY 11/07/16 11/07/16 Acid] Cyanocobalamin (Vitamin B-12) 0 mcg PO DAILY 11/07/16 11/07/16 [Vitamin B12] Duloxetine HCl [Duloxetine HCl] 30 mg PO DAILY 11/07/16 11/07/16 Physical Exam - Physical Exam Narrative Physical Exam (Text): - Review of Systems Constitutional: Normal. absent: Fatigue, Weight Change, Fevers Eyes: Normal ENT: Normal Respiratory: Normal absent: SOB, Cough, Sputum Cardiovascular: Normal absent: Chest pain, Palpitations, Syncope Gastrointestinal: Normal absent: Abdominal pain, Diarrhea, Nausea, Vomiting Genitourinary: Normal. absent: Dysuria, Frequency, Hematuria Musculoskeletal: Normal. absent: Arthralgias, Back Pain, Neck Pain Skin: Normal Neurological: Normal absent: Focal Weakness Endocrine: Normal Hemo/Lymphatic: Normal Psychiatric: Normal - Physical exam Patient appears age appropriate, speaking full sentences without difficulty. - Systems Exam Head: Present: Atraumatic, Normocephalic Pupils: Present: PERRL Extraocular Muscles: Present: EOMI Conjunctiva: Present: Normal Mouth: Present: Moist Mucous Membranes Neck: Present: Normal Range of Motion. No: MIDLINE TENDERNESS, Paraspinal Tenderness Respiratory/Chest: Present: Clear to Auscultation, Good Air Exchange. No: Respiratory Distress, Accessory Muscle Use, Tachypnic Cardiovascular: Present: Regular Rate and Rhythm, Normal S1, S2, Peripheral Pulses Present. No: Murmurs Abdomen: Present: Normal Bowel Sounds, No: Tenderness, Peritoneal Signs, Rebound, Guarding, Distention Back: Present: Normal Inspection. No: Midline Tenderness, Paraspinal Tenderness Upper Extremity: Present: Normal Inspection. No: Cyanosis, Edema Lower Extremity: Present: Normal Inspection. No: Edema Neurological: Present: GCS=15, Speech Normal, cranial nerves II through XII fully intact with no cerebellar abnormality, neuro-sensory fully intact. No focal neurological deficits. Skin: Present: Warm, Dry, Normal Color. No: Rashes Lymphatic: Present: OX3, NI, NC Psychiatric: Present: Alert, Oriented x 3, Normal Insight, Normal Concentration Vital Signs Reviewed: Yes Vital Signs Temp Pulse Resp BP Pulse Ox 11/07/16 13:44 97.9 F 92 H 18 148/63 11/07/16 13:17 86 150/86 11/07/16 13:12 86 18 150/86 96 11/07/16 11:00 94 H 18 163/76 H 99 11/07/16 09:21 92 H 18 148/63 99 11/07/16 08:37 97.9 F 94 H 16 150/74 97 Temperature: Afebrile Blood Pressure: Normal Pulse: Tachycardic Respiratory Rate: Normal Appearance: Positive for: Well-Appearing, Non-Toxic, Comfortable Pain Distress: None Mental Status: Positive for: Alert and Oriented X 3 Medical Decision Making ED Course and Treatment: 11/07/16 08:38 Impression: 70 year old female complaining of worsening generalized weakness for the past week. No focal neurological deficits on examination. Pt denies cp/sob/f/c. Differential Diagnosis included but are not limited to: Hypothyroidism vs. dehydration Plan: -- EKG -- Chest X-ray -- Blood Culture -- Urine Culture and Urinalysis -- Labs -- IV Fluids -- Reassess and disposition Prior Visits: Previous records reviewed, patient was in the emergency department on 11/04/16 with diarrhea, decreased appetite, and generalized weakness. Patient was discharged home same day. Progress Notes: EKG shows NSR at [address]-segment depressions in V4, V5, and V6 which are new versus 11/04/16. Interpreted by me. 11/07/16 09:31 Chest X-ray: Dictator : DrAiram Castillo V. FINDINGS: LUNGS:No active pulmonary disease. PLEURA:No significant pleural effusion identified, no pneumothorax apparent. CARDIOVASCULAR:Normal. OSSEOUS STRUCTURES:Diffuse thoraco lumbar spondylosis VISUALIZED UPPER ABDOMEN:Normal. OTHER FINDINGS:None. IMPRESSION: No active disease. Specifically no infiltrate appreciated to explain patient's cough. 11/07/16 10:[address] Marrufo, who accepts patient admission to his service, no further workup, and asks to consult Dr. Horan in cardiology. Patient is aware of plan. - Lab Interpretations Lab Results: 11/07/16 09:00 11/07/16 09:00 Lab Results 11/07/16 10:10: Urine Color Yellow, Urine Appearance Clear, Urine pH 6.0, Ur Specific [place] 1.015, Urine Protein Trace H, Urine Glucose (UA) >=1000, Urine Ketones 15 H, Urine Blood Trace-intact H, Urine Nitrate Negative, Urine Bilirubin Negative, Urine Urobilinogen 0.2, Ur Leukocyte Esterase Small H, Urine RBC 0 - 2, Urine WBC 25 - 30, Ur Epithelial Cells Many, Urine Bacteria Few , Urine Other Uyeast 11/07/16 09:00: Free T4 1.76 11/07/16 09:00: TSH 3rd Generation 0.05 L 11/07/16 09:00: Sodium 138, Potassium 4.2, Chloride 100, Carbon Dioxide 25, Anion Gap 17, BUN 26 H, Creatinine 0.8, Est GFR ( Amer) > 60, Est GFR ( Non-Af Amer) > 60, Random Glucose 411 H* D, Calcium 10.1, Total Bilirubin 1.1, AST 38, ALT 32, Alkaline Phosphatase 120, Lactate Dehydrogenase 366, Total Creatine Kinase 44, Troponin I 0.01, Total Protein 8.2, Albumin 4.5, Globulin 3.7, Albumin/Globulin Ratio 1.2 11/07/16 09:00: PT 10.9, INR 1.01, APTT 26.4 11/07/16 09:00: WBC 11.5 H D, RBC 4.77, Hgb 12.8, Hct 39.1, MCV 82.0, MCH 26.8, MCHC 32.7, RDW 14.5, Plt Count 214, MPV 9.4, Gran % 37.5 L, Lymph % (Auto) 57.2 H, [place] % (Auto) 4.4, Eos % (Auto) 0.7 L, Baso % (Auto) 0.2, Gran # 4.30, Lymph # 6.6 H, [place] # 0.5, Eos # 0.1, Baso # 0.02 11/07/16 08:44: POC Glucose (mg/dL) 374 H I have reviewed the lab results: Yes - RAD Interpretation Radiology Orders: 11/07/16 08:54 CHEST PORTABLE [RAD] Stat - Medication Orders Current Medication Orders: Albuterol/Ipratropium (Duoneb 3 Mg/0.5 Mg (3 Ml) Ud) 3 ml IH [id number] PRN PRN Reason: Wheezing Alprazolam (Xanax) 0.25 mg PO BID PRN; Protocol PRN Reason: Anxiety Stop: 11/14/16 12:13 Aspirin (Ecotrin) 81 mg PO DAILY [facility] Atorvastatin Calcium (Lipitor) 10 mg PO DIN [facility] Last Admin: 11/07/16 17:20 Dose: 10 mg Duloxetine HCl (Cymbalta) 30 mg PO DAILY [facility] Enoxaparin Sodium (Lovenox) 40 mg SC DAILY [facility] PRN Reason: Protocol Gabapentin (Neurontin) 300 mg PO TID [facility] PRN Reason: Protocol Last Admin: 11/07/16 17:20 Dose: 300 mg Sodium Chloride (Sodium Chloride 0.9%) 1,000 mls @ 75 mls/hr IV .[id number] [facility] Stop: 11/08/16 04:49 Last Admin: 11/07/16 17:20 Dose: 75 mls/hr Insulin Detemir (Levemir) 20 unit SC HS [facility] Insulin Human Lispro (Humalog Low) 0 units SC ACHS [facility] PRN Reason: Protocol Last Admin: 11/07/16 17:19 Dose: 3 units Insulin Lispro Protam/Lispro Human (Humalog Mix 75/25) 30 units SC BID [facility] Last Admin: 11/07/16 17:44 Dose: 30 u Losartan Potassium (Cozaar) 50 mg PO DAILY [facility] Last Admin: 11/07/16 13:17 Dose: 50 mg Methimazole (Tapazole) 10 mg PO DAILY [facility] Discontinued Medications Aspirin (Aspirin Chewable) 324 mg PO STAT [facility] Stop: 11/07/16 10:32 Last Admin: 11/07/16 11:02 Dose: 324 mg Gabapentin (Neurontin) 600 mg PO TID [facility] PRN Reason: Protocol Last Admin: 11/07/16 13:16 Dose: 600 mg Sodium Chloride (Sodium Chloride 0.9%) 500 mls @ 1,000 mls/hr IV .Q30M [facility] Stop: 11/07/16 09:23 Last Admin: 11/07/16 09:17 Dose: 1,000 mls/hr Methimazole (Tapazole) 5 mg PO DAILY [facility] Last Admin: 11/07/16 13:16 Dose: 5 mg Pneumococcal Polyvalent Vaccine (Pneumovax 23 Vaccine) 0.5 ml IM .ONCE ONE Stop: 11/07/16 14:01 - Scribe Statement The provider has reviewed the documentation as recorded by the Owen Guallpa Provider Scribe Attestation: All medical record entries made by the Scribe were at my direction and personally dictated by me. I have reviewed the chart and agree that the record accurately reflects my personal performance of the history, physical exam, medical decision making, and the department course for this patient. I have also personally directed, reviewed, and agree with the discharge instructions and disposition. Disposition/Present on Arrival - Present on Arrival Any Indicators Present on Arrival: No History of DVT/PE: No History of Uncontrolled Diabetes: Yes Urinary Catheter: No History of Decub. Ulcer: No History Surgical Site Infection Following: None - Disposition Have Diagnosis and Disposition been Completed?: Yes Diagnosis: Dehydration Disposition: HOSPITALIZED Disposition Time: 10:53 Patient Plan: Observation Condition: FAIR
[2016-11-07] MEDS ORDERED: Sodium Chloride 0.9% 500 ML IV STA (08:54)
[2016-11-07 09:14] LABS: BASO # 0.02 K/mm3 (0.0-2.0); BASO % 0.2 % (0.0-3.0); EOS # 0.1 (0.0-0.7); EOS % 0.7 % (1.5-5.0); GRAN # 4.3 (1.4-6.5); GRAN % 37.5 % (50.0-68.0); HEMATOCRIT 39.1 % (36.0-48.0); LYMPH # 6.6 (1.2-3.4); LYMPH % 57.2 % (22.0-35.0); MEAN CORPUSCULAR HEMOGLOBIN 26.8 pg (25.0-35.0); MEAN CORPUSCULAR HGB CONC 32.7 g/dl (31.0-37.0); MEAN PLATELET VOLUME 9.4 fl (7.0-11.0); MONO # 0.5 (0.1-0.6); MONO % 4.4 % (1.0-6.0); RED CELL DISTRIBUTION WIDTH 14.5 % (11.5-14.5); WHITE BLOOD COUNT 11.5 10^3/ul (4.5-11.0)
--- NOTE | 2016-11-07 09:22 | RAD ---
HISTORY: cough COMPARISON: 11/04/2016 927 hours FINDINGS: LUNGS: No active pulmonary disease. PLEURA: No significant pleural effusion identified, no pneumothorax apparent. CARDIOVASCULAR: Normal. OSSEOUS STRUCTURES: Diffuse thoraco lumbar spondylosis VISUALIZED UPPER ABDOMEN: Normal. OTHER FINDINGS: None. IMPRESSION: No active disease. Specifically no infiltrate appreciated to explain patient's cough.
[2016-11-07 09:24] LABS: ALB/GLOB RATIO 1.2 (1.1-1.8); ALKALINE PHOSPHATASE 120 U/L (38-133); ALT/SGPT 32 U/L (7-56); AST/SGOT 38 U/L (15-39); BILIRUBIN,TOTAL 1.1 mg/dL (0.2-1.3); BLOOD UREA NITROGEN 26 mg/dL (7-21); CALCIUM 10.1 mg/dL (8.4-10.5); CARBON DIOXIDE 25 mmol/L (21-33); CHLORIDE 100 mmol/L (98-107); GFR AFRICAN-AMERICAN > 60; POTASSIUM 4.2 mmol/L (3.6-5.0); SODIUM 138 mmol/L (132-148); TOTAL PROTEIN 8.2 g/dL (5.8-8.3)
[2016-11-07 09:28] LABS: GLUCOSE,RANDOM 411 mg/dL (70-110)
[2016-11-07 09:30] LABS: INR 1.01 (0.93-1.08); PARTIAL THROMBOPLASTIN TIME 26.4 Seconds (23.7-30.8)
[2016-11-07 10:24] LABS: URINE BILIRUBIN NEGATIVE (NEGATIVE); URINE BLOOD TRACE-INTACT (NEGATIVE); URINE GLUCOSE (UA) >=1000 mg/dL (NEGATIVE); URINE KETONE 15 mg/dL (NEGATIVE); URINE LEUKOCYTE ESTERASE SMALL Leu/uL (NEGATIVE); URINE PROTEIN TRACE mg/dL (<30 mg/dL); URINE UROBILINOGEN 0.2 E.U./dL (<1 E.U./dL)
[2016-11-07 10:28] LABS: URINE APPEARANCE CLEAR (CLEAR); URINE COLOR YELLOW (YELLOW)
[2016-11-07 10:42] LABS: URINE BACTERIA FEW (NEG); URINE EPITHELIAL CELLS MANY /hpf (0-5); URINE RBC 0 - 2 /hpf (0-2); URINE WBC 25 - 30 /hpf (0-6)
[2016-11-07 10:49] LABS: TROPONIN I 0.01 ng/mL
[2016-11-07] MEDS ORDERED: methIMAzole 5 MG TAB PO SCH ×2 (12:15→14:55)
--- NOTE | 2016-11-07 12:27 | CP.PCM.HP ---
<Kathy Hightower - Last Filed: 11/07/16 14:56> History of Present Illness - History of Present Illness History of Present Illness: CC: generalized weakness. Patient is a 70 y/o with PMH of hyperthyroidism, IDDM2, diabetic neuropathy, PAD s/p angioplasty, Diabetic foot ulcer, with history bilateral 2nd toe amputations, htn, asthma and CLL presenting with generalized weakness for 2 weeks. Patient was discharged on October 09, and states since then she has been experiencing generalized weakness, and unable to get out of bed. Patient also states she's been having watery diarrhea intermittently for 2 weeks. Patient states last time she had the diarrhea was last night, denies blood in the stool. Patient denies fever or chills, denies nausea or vomiting. Patient admits to decreased appetite and weight loss, denies night sweats. Denies abdominal pain, denies dysurea. Patient also denied chest pain or sob. Patient was in the ED on 11/04 with similar complaints and was sent home. Recently discharged in September with PAD s/p angioplasty. EKG revealed chronic sinus rhythm with 1st degree AV block. Minimal voltage criteria for LVH. Septal infarct, age undetermined. New ST & T wave abnormality, consider anterolateral ischemia compared to old ekg. PMH: hyperthyroidism, IDDM2, diabetic neuropathy, PAD s/p angioplasty, Diabetic foot ulcer, with history bilateral 2nd toe amputations, htn, asthma and CLL. PSH: amputated 2nd toes b/l, right superficial femoral artery, and right tibial artery angioplasty. FMH: mom and dad . Social: Former tobacco, denies alcohol, and illicit drug use. Present on Admission - Present on Admission Any Indicators Present on Admission: No History of DVT/PE: No History of Uncontrolled Diabetes: Yes Urinary Catheter: No Decubitus Ulcer Present: No Review of Systems - Review of Systems All systems: reviewed and no additional remarkable complaints except Review of Systems: As per HPI. Past Patient History - Infectious Disease Hx of Infectious Diseases: None - Tetanus Immunizations Tetanus Immunization: Unknown - Past Medical History & Family History Past Medical History?: Yes - Past Social History Smoking Status: Former Smoker Alcohol: None Drugs: Denies Home Situation {Lives}: With Family - CARDIAC Hx Cardiac Disorders: Yes Hx Hypertension: Yes Hx Pacemaker: No - PULMONARY Hx Respiratory Disorders: Yes Hx Asthma: Yes - NEUROLOGICAL Hx Neurological Disorder: No Hx Paralysis: No - HEENT Hx HEENT Problems: Yes Hx Cataracts: Yes (SX) Other/Comment: TONSILLECTOMY - RENAL Hx Chronic Kidney Disease: Yes Hx Renal Failure: Yes - ENDOCRINE/METABOLIC Hx Endocrine Disorders: Yes Hx Diabetes Mellitus Type 2: Yes - HEMATOLOGICAL/ONCOLOGICAL Hx Blood Disorders: Yes Hx Blood Transfusions: Yes Hx Blood Transfusion Reaction: No - INTEGUMENTARY Hx Dermatological Problems: No - MUSCULOSKELETAL/RHEUMATOLOGICAL Hx Musculoskeletal Disorders: Yes (HX OSTEO) - GASTROINTESTINAL Hx Gastrointestinal Disorders: No - GENITOURINARY/GYNECOLOGICAL Hx Genitourinary Disorders: No (ARF) Hx Reproductive Disorders: No - PSYCHIATRIC Hx Psychophysiologic Disorder: No Hx Emotional Abuse: No Hx Physical Abuse: No Hx Substance Use: No - SURGICAL HISTORY Hx Hysterectomy: Yes Hx Tonsillectomy: Yes Other/Comment: tonsils, bilateral cataracts removed, picc line x 2, i and d of non healing wound to ball of left foot dsg dry and intact done today, peripheral vascular surgery - ANESTHESIA Hx Anesthesia Reactions: No Hx Malignant Hyperthermia: No Meds Allergies/Adverse Reactions: Allergies Allergy/AdvReac Type Severity Reaction Status Date / Time No Known Allergies Allergy Verified 11/07/16 08:32 Physical Exam - Constitutional Appears: No Acute Distress, Chronically Ill - Head Exam Head Exam: ATRAUMATIC, NORMAL INSPECTION, NORMOCEPHALIC - Eye Exam Eye Exam: EOMI, Normal appearance, PERRL. absent: Scleral icterus Pupil Exam: NORMAL ACCOMODATION, PERRL - ENT Exam ENT Exam: Mucous Membranes Moist - Neck Exam Neck exam: Positive for: Full Rom, Normal Inspection - Respiratory Exam Respiratory Exam: Clear to Auscultation Bilateral, NORMAL BREATHING PATTERN. absent: Rales, Rhonchi, Wheezes, Respiratory Distress, Stridor - Cardiovascular Exam Cardiovascular Exam: REGULAR RHYTHM, RRR, +S1, +S2. absent: Systolic Murmur - GI/Abdominal Exam GI & Abdominal Exam: Normal Bowel Sounds, Soft. absent: Distended, Firm, Guarding, Rigid, Tenderness - Extremities Exam Extremities exam: Positive for: normal capillary refill. Negative for: pedal edema, tenderness - Back Exam Back exam: NORMAL INSPECTION. absent: rash noted - Neurological Exam Neurological exam: Alert, CN II-XII Intact, Oriented x3, Reflexes Normal Additional comments: No focal neurologic deficit, speaking in full sentences. - Psychiatric Exam Psychiatric exam: Normal Affect, Normal Mood - Skin Skin Exam: Dry, Normal Color, Warm Additional comments: partially amputated left 2nd toe, compete amputation of right 2nd toe. bilateral wound on the plantar of bilateral foot, with dressing. Results - Vital Signs Recent Vital Signs: Last Vital Signs Temp 97.9 F 11/07/16 08:37 Pulse 92 H 11/07/16 09:21 Resp 18 11/07/16 09:21 BP 148/63 11/07/16 09:21 Pulse Ox 99 11/07/16 09:21 - Labs Result Diagrams: 11/07/16 09:00 11/07/16 09:00 Assessment & Plan - Assessment and Plan (Free Text) Assessment: 1) Generalized weakness 2nd to dehydration caused by diarrhea, versus ACS versus CLL versus uncontrolled DM versus hyperthyroidism. 2) Diarrhea r/o cdiff 3) Ischemic changes on ekg, r/o ACS 4) Uncontrolled DM 5) Hyperthyroidism 6) CLL 7) PAD s/p angioplasty 8) Diabetic neuropathy 9) htn 10) Asthma 11) Anxiety 12) HLD. Plan: Will obtain stool studies for diarrhea, including c diff and stool culture. NS@ 75 cc/hr. Will increase methimazole to 10 mg daily. Will decrease gabapentin to 300 mg tid. ISS, mixed lispro and levemir for DM, ISS and diabetic diet. Diabetic education. Will continue cozaar for htn/DM. Lipitor for hld. On ASA for cva prevention. Duoneb prn for asthma, xanax and cymbalta for anxiety. Troponin negative x1, will continue to trend. Cardiology on consult. Podiatry consulted for wound care. Lovenox and protonix for DVT/GI prophylaxis. Patient seen, examined and case discussed with Dr Marrufo. - Date & Time Date: 11/07/16 Time: 12:20 <Rosendo Marrufo S - Last Filed: 11/12/16 16:17> Results - Vital Signs Recent Vital Signs: Last Vital Signs Temp 97.9 F 11/08/16 11:39 Pulse 82 11/08/16 11:39 Resp 18 11/08/16 11:39 BP 163/73 H 11/08/16 11:39 Pulse Ox 99 11/08/16 05:52 - Labs Result Diagrams: 11/08/16 06:15 11/08/16 06:15 Assessment & Plan - Assessment and Plan (Free Text) Plan: Pt was seen and examined by me. I reviewed the note of the resident and I do agree with it. She is on IVF. Podiary evaluation. Gabapentin for neuropathy.
[2016-11-07 14:00] VITALS: BMI 28.1
[2016-11-07] MEDS ORDERED: Pneumococcal 23-Valent Vaccine IM ONE (14:00)
[2016-11-07] MEDS ORDERED: Albuterol-Ipratrop 3 mg / 0.5 (3 ml) UD IH PRN (15:00)
[2016-11-07] MEDS ORDERED: Sodium Chloride 0.9% 1,000 ML IV SCH (15:30)
[2016-11-07] MEDS: Insulin Lispro (humaLOG) LOW Coverage SC SCH ×2 (17:19→21:45)
[2016-11-07] MEDS: Insulin Lispro (humaLOG) MIX 75/25(10 ml) SC SCH (17:44)
--- NOTE | 2016-11-07 19:15 | CARD ---
APPROVED REPORT EKG Measurement Heart [id number] <Conclusion> Sinus rhythm with 1st degree AV block Minimal voltage criteria for LVH, may be normal variant Septal infarct, age undetermined ST & T wave abnormality, consider anterolateral ischemia Abnormal ECG
[2016-11-07] MEDS ORDERED: Insulin Detemir 100 units/ml Vial (Levemir) SC SCH (22:00)
--- NOTE | 2016-11-08 03:17 | CON ---
DATE: 11/07/2016 CARDIOLOGY CONSULTATION REASON FOR CONSULTATION: Cardiac evaluation, admitted with generalized weakness, history of hypertension, hyperlipidemia. BRIEF CLINICAL HISTORY: This is a 70-year-old female with a past medical history significant for hypertension, hyperlipidemia, CLL, type 2 diabetes, who stated that completely she is feeling generalized weakness for the past couple of months after having lower angioplasty and some venous procedure done. She is unable to stand up and she feels that she is going to fall, so came to the emergency room with the same complaint patient visited in the emergency room last week, but was discharged home and then came back. Denies any chest pain, denies shortness of breath, denies any palpitation. Patient stated she used to walk and loves to walk, but after 1 month of the procedure done, she feels very generalized weakness and unable to stand, so came to the emergency room. Denies any chest pain, shortness of breath, or any palpitation. PAST MEDICAL HISTORY: Significant for hypertension, hyperlipidemia, CLL, and hyperthyroidism. PAST SURGICAL HISTORY: Significant for hysterectomy many years ago, history of tonsillectomy, history of bilateral cataract surgery many years ago. FAMILY HISTORY: Mother at the age 71. No history of significant coronary artery disease. SOCIAL HISTORY: Quit smoking 20 years ago, used to smoke half a pack a day. ALLERGIES: NO KNOWN DRUG ALLERGIES. CURRENT MEDICATIONS: Patient is taking at home nitrofurantoin, Tapazole, losartan, gabapentin, cyanocobalamin, atorvastatin, aspirin, Xanax and folic acid. REVIEW OF SYSTEMS: As per HPI. Negative for chest pain, shortness of breath, or any palpitation. PHYSICAL EXAMINATION: As follows. GENERAL: Height of the patient 5 feet 7 inches, weight of the patient 180 pounds, body mass index 28.2 kg/m2. VITAL SIGNS: Temperature afebrile, heart rate 94, blood pressure 148/63. HEENT: PERRLA. Extraocular muscles intact. NECK: Supple. No carotid bruit. No thyromegaly. CHEST: Clear to auscultation. HEART: S1 and S2, regular. ABDOMEN: Soft. EXTREMITIES: Clubbing and cyanosis negative. DIAGNOSTIC DATA: EKG shows normal sinus, first-degree AV block, Q wave in lead II, low voltage, QRS complex, and poor R progression. LABORATORY DATA: Shows WBC 11.5, hemoglobin 12.8, hematocrit 39.1, platelet count 214. Chemistry showed sodium 130, potassium 4.2, chloride 100, carbon dioxide 25, anion gap 17, BUN 26, creatinine 0.8, blood sugar 411. ASSESSMENT: A 70-year-old female with no significant cardiac history, history of hypertension, hyperlipidemia, diabetes, and hyperthyroidism on Tapazole, admitted with generalized weakness for 1 month after, according to her, having the venous procedure done. Denies any chest pain, shortness of breath, or any palpitations. RECOMMENDATIONS: No evidence of acute DE. No evidence of acute coronary syndrome. Echo to assess LV function. Aggressively control of blood sugar, possibly symptoms are secondary to uncontrolled diabetes. Monitor electrolytes, monitor high blood pressure. We will follow with you. Thank you Dr. Marrufo for providing me the opportunity in taking care of Andrade Maradiaga. We will get lipid profile, TSH, hemoglobin A1c, and echo to assess LV function. Anthony Horan MD
[2016-11-08 05:53] VITALS: O2SAT 99
[2016-11-08 06:43] LABS: BASO # 0.01 K/mm3 (0.0-2.0); BASO % 0.1 % (0.0-3.0); EOS # 0.2 (0.0-0.7); EOS % 1.5 % (1.5-5.0); GRAN # 2.96 (1.4-6.5); GRAN % 28.8 % (50.0-68.0); HEMATOCRIT 35.5 % (36.0-48.0); LYMPH # 6.5 (1.2-3.4); LYMPH % 63.9 % (22.0-35.0); MEAN PLATELET VOLUME 9.8 fl (7.0-11.0); MONO # 0.6 (0.1-0.6); MONO % 5.7 % (1.0-6.0); RED CELL DISTRIBUTION WIDTH 14.8 % (11.5-14.5); WHITE BLOOD COUNT 10.2 10^3/ul (4.5-11.0)
[2016-11-08 07:08] LABS: ALB/GLOB RATIO 1.1 (1.1-1.8); ALKALINE PHOSPHATASE 90 U/L (38-133); ALT/SGPT 36 U/L (7-56); AST/SGOT 34 U/L (15-39); BILIRUBIN,TOTAL 1.2 mg/dL (0.2-1.3); BLOOD UREA NITROGEN 20 mg/dL (7-21); CALCIUM 8.9 mg/dL (8.4-10.5); CARBON DIOXIDE 28 mmol/L (21-33); CHLORIDE 106 mmol/L (98-107); CHOLESTEROL 130 mg/dL (130-200); GFR AFRICAN-AMERICAN > 60; GLUCOSE,RANDOM 134 mg/dL (70-110); MAGNESIUM 1.9 mg/dL (1.7-2.2); PHOSPHOROUS 3.8 mg/dL (2.5-4.5); POTASSIUM 3.9 mmol/L (3.6-5.0); SODIUM 142 mmol/L (132-148); TOTAL PROTEIN 7.3 g/dL (5.8-8.3)
--- NOTE | 2016-11-08 08:35 | CP.PCM.PN ---
Subjective - Date & Time of Evaluation Date of Evaluation: 11/08/16 Time of Evaluation: 07:20 - Subjective Subjective: Progress note for Dr Marrufo service. Patient reported feeling better. Reports the diarrhea has resolved. Patient with labile emotions, thinks there's something wrong with her body, something that happened since after undergoing the angioplasty in September. Explained to patient about her current condition, the fact that she has severe neuropathy and uncontrolled DM which might be contributing to her generalized weakness. Patient still worried gabapentin may be causing her to feel weak, offered to discontinue gabapentin. States the diarrhea has resolved, denies cp, sob, nausea or vomiting. Denies headache. Objective - Vital Signs/Intake and Output Vital Signs (last 24 hours): Temp Pulse Resp BP Pulse Ox 98 F 77 20 136/60 99 11/08/16 05:52 11/08/16 05:52 11/08/16 05:52 11/08/16 05:52 11/08/16 05:52 Intake and Output: 11/08/16 11/08/16 06:59 18:59 Intake Total 870 Balance 870 - Medications Medications: Current Medications Albuterol/Ipratropium (Duoneb 3 Mg/0.5 Mg (3 Ml) Ud) 3 ml IH [id number] PRN PRN Reason: Wheezing Alprazolam (Xanax) 0.25 mg PO BID PRN; Protocol PRN Reason: Anxiety Stop: 11/14/16 12:13 Last Admin: 11/08/16 08:24 Dose: 0.25 mg Aspirin (Ecotrin) 81 mg PO DAILY [facility] Atorvastatin Calcium (Lipitor) 10 mg PO DIN [facility] Last Admin: 11/07/16 17:20 Dose: 10 mg Duloxetine HCl (Cymbalta) 30 mg PO DAILY [facility] Enoxaparin Sodium (Lovenox) 40 mg SC DAILY [facility] PRN Reason: Protocol Gabapentin (Neurontin) 300 mg PO TID [facility] PRN Reason: Protocol Last Admin: 11/07/16 17:20 Dose: 300 mg Insulin Detemir (Levemir) 20 unit SC HS [facility] Last Admin: 11/07/16 21:49 Dose: 20 unit Insulin Human Lispro (Humalog Low) 0 units SC ACHS [facility] PRN Reason: Protocol Last Admin: 11/07/16 21:45 Dose: Not Given Insulin Lispro Protam/Lispro Human (Humalog Mix 75/25) 30 units SC BID [facility] Last Admin: 11/07/16 17:44 Dose: 30 u Losartan Potassium (Cozaar) 50 mg PO DAILY [facility] Last Admin: 11/07/16 13:17 Dose: 50 mg Methimazole (Tapazole) 10 mg PO DAILY [facility] - Labs Labs: 11/08/16 06:15 11/08/16 06:15 PT 10.9 Seconds (9.9-11.8) 11/07/16 09:00 INR 1.01 (0.93-1.08) 11/07/16 09:00 APTT 26.4 Seconds (23.7-30.8) 11/07/16 09:00 - Constitutional Appears: No Acute Distress, Chronically Ill - Head Exam Head Exam: ATRAUMATIC, NORMAL INSPECTION, NORMOCEPHALIC - Eye Exam Eye Exam: EOMI, Normal appearance, PERRL. absent: Scleral icterus Pupil Exam: NORMAL ACCOMODATION, PERRL - ENT Exam ENT Exam: Mucous Membranes Moist, Normal Exam - Neck Exam Neck Exam: Full ROM, Normal Inspection - Respiratory Exam Respiratory Exam: Clear to Ausculation Bilateral, NORMAL BREATHING PATTERN. absent: Rales, Rhonchi, Wheezes, Respiratory Distress, Stridor - Cardiovascular Exam Cardiovascular Exam: REGULAR RHYTHM, RRR, +S1, +S2. absent: Murmur - GI/Abdominal Exam GI & Abdominal Exam: Soft, Normal Bowel Sounds. absent: Distended, Firm, Guarding, Tenderness, Rebound - Extremities Exam Extremities Exam: absent: Pedal Edema - Back Exam Back Exam: NORMAL INSPECTION - Neurological Exam Neurological Exam: Alert, Awake, Motor Sensory Deficit (in bilateral lower extremities), Oriented x3 Neuro motor strength exam: Left Upper Extremity: 5, Right Upper Extremity: 5, Left Lower Extremity: 4, Right Lower Extremity: 4 - Psychiatric Exam Psychiatric exam: Depressed - Skin Skin Exam: Dry, Warm Additional comments: Ulcers on b/l plantar aspect of the foot, with dressing. Assessment and Plan - Assessment and Plan (Free Text) Assessment: 1) Generalized weakness 2) Uncontrolled DM 3) Diarrhea- resolved 4) Hyperthyroidism 5) PAD s/p angioplasty 6) Diabetic neuropathy 7) DIbaetic foot ulcers. 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 Will continue glucose control. Will dc gabapentin at patient's request.
[2016-11-08] MEDS ORDERED: Enoxaparin 40 mg Syringe SC SCH (10:00)
[2016-11-08] MEDS: Insulin Lispro (humaLOG) MIX 75/25(10 ml) SC SCH (10:03)
[2016-11-08] MEDS: Insulin Lispro (humaLOG) LOW Coverage SC SCH ×2 (10:05→12:16)
--- NOTE | 2016-11-08 10:17 | CP.PCM.DIS ---
<KhadijahemiKathy vasquez - Last Filed: 11/08/16 13:42> Provider - Provider Date of Admission: 11/07/16 11:05 Attending physician: Rosendo Marrufo MD Primary care physician: NO PRIMARY CARE PROVIDER Consults: Cardiology- Dr Horan Podiatry- Dr Kevin. Time Spent in preparation of Discharge (in minutes): 45 Diagnosis - Discharge Diagnosis (1) Uncontrolled diabetes mellitus Status: Acute (2) Chronic diarrhea Status: Resolved (3) Dehydration Status: Acute (4) Foot ulcer Status: Chronic (5) Hyperglycemia Status: Chronic (6) Peripheral vascular disease Status: Acute (7) Hypertension Status: Chronic (8) Hyperthyroidism Status: Chronic Hospital Course - Lab Results Lab Results: Most Recent Lab Values WBC 10.2 10^3/ul (4.5-11.0) 11/08/16 06:15 RBC 4.33 10^6/uL (3.5-6.1) 11/08/16 06:15 Hgb 11.7 g/dL (12.0-16.0) L 11/08/16 06:15 Hct 35.5 % (36.0-48.0) L 11/08/16 06:15 MCV 82.0 fl (80.0-105.0) 11/08/16 06:15 MCH 27.0 pg (25.0-35.0) 11/08/16 06:15 MCHC 33.0 g/dl (31.0-37.0) 11/08/16 06:15 RDW 14.8 % (11.5-14.5) H 11/08/16 06:15 Plt Count 196 10^3/uL (120.0-450.0) 11/08/16 06:15 MPV 9.8 fl (7.0-11.0) 11/08/16 06:15 Gran % 28.8 % (50.0-68.0) L 11/08/16 06:15 Lymph % (Auto) 63.9 % (22.0-35.0) H 11/08/16 06:15 [place] % (Auto) 5.7 % (1.0-6.0) 11/08/16 06:15 Eos % (Auto) 1.5 % (1.5-5.0) 11/08/16 06:15 Baso % (Auto) 0.1 % (0.0-3.0) 11/08/16 06:15 Gran # 2.96 (1.4-6.5) 11/08/16 06:15 Lymph # 6.5 (1.2-3.4) H 11/08/16 06:15 [place] # 0.6 (0.1-0.6) 11/08/16 06:15 Eos # 0.2 (0.0-0.7) 11/08/16 06:15 Baso # 0.01 K/mm3 (0.0-2.0) 11/08/16 06:15 PT 10.9 Seconds (9.9-11.8) 11/07/16 09:00 INR 1.01 (0.93-1.08) 11/07/16 09:00 APTT 26.4 Seconds (23.7-30.8) 11/07/16 09:00 Sodium 142 mmol/L (132-148) 11/08/16 06:15 Potassium 3.9 mmol/L (3.6-5.0) 11/08/16 06:15 Chloride 106 mmol/L (98-107) 11/08/16 06:15 Carbon Dioxide 28 mmol/L (21-33) 11/08/16 06:15 Anion Gap 12 (10-20) 11/08/16 06:15 BUN 20 mg/dL (7-21) 11/08/16 06:15 Creatinine 0.7 mg/dL (0.5-1.4) 11/08/16 06:15 Est GFR ( Amer) > 60 11/08/16 06:15 Est GFR (Non-Af Amer) > 60 11/08/16 06:15 POC Glucose (mg/dL) 161 mg/dL (65-110) H 11/08/16 07:35 Random Glucose 134 mg/dL (70-110) H 11/08/16 06:15 Calcium 8.9 mg/dL (8.4-10.5) 11/08/16 06:15 Phosphorus 3.8 mg/dL (2.5-4.5) 11/08/16 06:15 Magnesium 1.9 mg/dL (1.7-2.2) 11/08/16 06:15 Total Bilirubin 1.2 mg/dL (0.2-1.3) 11/08/16 06:15 AST 34 U/L (15-39) 11/08/16 06:15 ALT 36 U/L (7-56) 11/08/16 06:15 Alkaline Phosphatase 90 U/L (38-133) 11/08/16 06:15 Lactate Dehydrogenase 366 U/L (333-699) 11/07/16 09:00 Total Creatine Kinase 44 U/L (35-230) 11/07/16 09:00 Troponin I < 0.01 ng/mL 11/07/16 17:45 Total Protein 7.3 g/dL (5.8-8.3) 11/08/16 06:15 Albumin 3.9 g/dL (3.0-4.8) 11/08/16 06:15 Globulin 3.4 gm/dL 11/08/16 06:15 Albumin/Globulin Ratio 1.1 (1.1-1.8) 11/08/16 06:15 Triglycerides 135 mg/dL (35-160) 11/08/16 06:15 Cholesterol 130 mg/dL (130-200) 11/08/16 06:15 LDL Cholesterol Direct 70 mg/dL (0-129) 11/08/16 06:15 HDL Cholesterol 26 mg/dL (29-60) L 11/08/16 06:15 Free T4 1.76 ng/dL (0.78-2.19) 11/07/16 09:00 TSH 3rd Generation 0.05 mIU/mL (0.46-4.68) L 11/07/16 09:00 Urine Color Yellow (YELLOW) 11/07/16 10:10 Urine Appearance Clear (CLEAR) 11/07/16 10:10 Urine pH 6.0 (4.7-8.0) 11/07/16 10:10 Ur Specific [place] 1.015 (1.005-1.035) 11/07/16 10:10 Urine Protein Trace mg/dL (<30 mg/dL) H 11/07/16 10:10 Urine Glucose (UA) >=1000 mg/dL (NEGATIVE) 11/07/16 10:10 Urine Ketones 15 mg/dL (NEGATIVE) H 11/07/16 10:10 Urine Blood Trace-intact (NEGATIVE) H 11/07/16 10:10 Urine Nitrate Negative (NEGATIVE) 11/07/16 10:10 Urine Bilirubin Negative (NEGATIVE) 11/07/16 10:10 Urine Urobilinogen 0.2 E.U./dL (<1 E.U./dL) 11/07/16 10:10 Ur Leukocyte Esterase Small Melanie/uL (NEGATIVE) H 11/07/16 10:10 Urine RBC 0 - 2 /hpf (0-2) 11/07/16 10:10 Urine WBC 25 - 30 /hpf (0-6) 11/07/16 10:10 Ur Epithelial Cells Many /hpf (0-5) 11/07/16 10:10 Urine Bacteria Few (NEG) 11/07/16 10:10 Urine Other Uyeast 11/07/16 10:10 - Hospital Course Hospital Course: Patient is a 70 y/o with PMH of hyperthyroidism, IDDM2, diabetic neuropathy, PAD s/p angioplasty, Diabetic foot ulcer, with history bilateral 2nd toe amputations, htn, asthma and CLL presenting with generalized weakness for 2 weeks. Patient was discharged on October 09, and states since then she has been experiencing generalized weakness, and unable to get out of bed. Patient was admitted for possible ischemic changes on EKG. [employer] saw patient, however doesn't think patient had ACS, troponin was negative x2, and no chest pain. Patient reported intermittent diarrhea, however it has resolved. Patient's TSH was low, methimazole was increased to 10 mg. Patient's gabpentin was also reduced to 300 mg TID, however patient strongly believed the gabapentin is making her weak, thus recommended patient take it as needed only. Patient's diabetes was poorly controlled, and up on further interviewing patient states she has been skipping her insulin due to generalized weakness. Pt advised on the importance of taking her insulin as prescribed and diet control of her DM. Patient to be discharged, and to follow up with PMD in 1 week. Patient will also get home PT. Diet: heart healthy, 2 gm sodium and carb controlled diet. - Date & Time of H&P Date of H&P: 11/07/16 Time of H&P: 12:27 Discharge Exam - Head Exam Head Exam: ATRAUMATIC, NORMAL INSPECTION, NORMOCEPHALIC - Eye Exam Eye Exam: EOMI, Normal appearance, PERRL. absent: Scleral icterus Pupil Exam: NORMAL ACCOMODATION, PERRL - ENT Exam ENT Exam: Normal Exam - Neck Exam Neck exam: Normal Inspection - Respiratory Exam Respiratory Exam: Clear to PA & Lateral, NORMAL BREATHING PATTERN, UNREMARKABLE. absent: Rales, Rhonchi, Wheezes, Respiratory Distress, Stridor - Cardiovascular Exam Cardiovascular Exam: REGULAR RHYTHM, RRR, +S1, +S2. absent: Gallop, JVD, Rubs, Systolic Murmur - GI/Abdominal Exam GI & Abdominal Exam: Normal Bowel Sounds, Unremarkable. absent: Distended, Firm , Guarding, Rebound, Rigid, Soft, Tenderness - Extremities Exam Additional comments: amputated 2nd toes b/l. ulcers on the plantar aspect of the foot. No sensation to touch in b/l LE. - Back Exam Back exam: NORMAL INSPECTION - Neurological Exam Neurological exam: Alert, CN II-XII Intact, Oriented x3 - Psychiatric Exam Psychiatric exam: Normal Affect, Normal Mood - Skin Skin Exam: Dry, Normal Color, Warm Discharge Plan - Discharge Medications Prescriptions: methIMAzole [Tapazole] 10 mg PO DAILY #30 tab - Follow Up Plan Condition: FAIR Disposition: HOME/ ROUTINE Patient education suggested?: Yes Additional Instructions: Home with home PT Continue with all medications, except your methimazole dose is increased to 10 mg daily, For your gabapentin you can take half the dose ( 300 mg instead of 600 mg ) 3 times day, Follow up with Dr Macias in 1 week Referrals: PCP,NO [Primary Care Provider] - <Rosendo Marrufo - Last Filed: 11/08/16 21:52> Provider - Provider Date of Admission: 11/07/16 11:05 Attending physician: Rosendo Marrufo MD Primary care physician: NO PRIMARY CARE PROVIDER Hospital Course - Lab Results Lab Results: Most Recent Lab Values WBC 10.2 10^3/ul (4.5-11.0) 11/08/16 06:15 RBC 4.33 10^6/uL (3.5-6.1) 11/08/16 06:15 Hgb 11.7 g/dL (12.0-16.0) L 11/08/16 06:15 Hct 35.5 % (36.0-48.0) L 11/08/16 06:15 MCV 82.0 fl (80.0-105.0) 11/08/16 06:15 MCH 27.0 pg (25.0-35.0) 11/08/16 06:15 MCHC 33.0 g/dl (31.0-37.0) 11/08/16 06:15 RDW 14.8 % (11.5-14.5) H 11/08/16 06:15 Plt Count 196 10^3/uL (120.0-450.0) 11/08/16 06:15 MPV 9.8 fl (7.0-11.0) 11/08/16 06:15 Gran % 28.8 % (50.0-68.0) L 11/08/16 06:15 Lymph % (Auto) 63.9 % (22.0-35.0) H 11/08/16 06:15 [place] % (Auto) 5.7 % (1.0-6.0) 11/08/16 06:15 Eos % (Auto) 1.5 % (1.5-5.0) 11/08/16 06:15 Baso % (Auto) 0.1 % (0.0-3.0) 11/08/16 06:15 Gran # 2.96 (1.4-6.5) 11/08/16 06:15 Lymph # 6.5 (1.2-3.4) H 11/08/16 06:15 [place] # 0.6 (0.1-0.6) 11/08/16 06:15 Eos # 0.2 (0.0-0.7) 11/08/16 06:15 Baso # 0.01 K/mm3 (0.0-2.0) 11/08/16 06:15 PT 10.9 Seconds (9.9-11.8) 11/07/16 09:00 INR 1.01 (0.93-1.08) 11/07/16 09:00 APTT 26.4 Seconds (23.7-30.8) 11/07/16 09:00 Sodium 142 mmol/L (132-148) 11/08/16 06:15 Potassium 3.9 mmol/L (3.6-5.0) 11/08/16 06:15 Chloride 106 mmol/L (98-107) 11/08/16 06:15 Carbon Dioxide 28 mmol/L (21-33) 11/08/16 06:15 Anion Gap 12 (10-20) 11/08/16 06:15 BUN 20 mg/dL (7-21) 11/08/16 06:15 Creatinine 0.7 mg/dL (0.5-1.4) 11/08/16 06:15 Est GFR ( Amer) > 60 11/08/16 06:15 Est GFR (Non-Af Amer) > 60 11/08/16 06:15 POC Glucose (mg/dL) 237 mg/dL (65-110) H 11/08/16 11:28 Random Glucose 134 mg/dL (70-110) H 11/08/16 06:15 Hemoglobin A1c 9.6 % (4.2-6.5) H 11/08/16 06:15 Calcium 8.9 mg/dL (8.4-10.5) 11/08/16 06:15 Phosphorus 3.8 mg/dL (2.5-4.5) 11/08/16 06:15 Magnesium 1.9 mg/dL (1.7-2.2) 11/08/16 06:15 Total Bilirubin 1.2 mg/dL (0.2-1.3) 11/08/16 06:15 AST 34 U/L (15-39) 11/08/16 06:15 ALT 36 U/L (7-56) 11/08/16 06:15 Alkaline Phosphatase 90 U/L (38-133) 11/08/16 06:15 Lactate Dehydrogenase 366 U/L (333-699) 11/07/16 09:00 Total Creatine Kinase 44 U/L (35-230) 11/07/16 09:00 Troponin I < 0.01 ng/mL 11/07/16 17:45 Total Protein 7.3 g/dL (5.8-8.3) 11/08/16 06:15 Albumin 3.9 g/dL (3.0-4.8) 11/08/16 06:15 Globulin 3.4 gm/dL 11/08/16 06:15 Albumin/Globulin Ratio 1.1 (1.1-1.8) 11/08/16 06:15 Triglycerides 135 mg/dL (35-160) 11/08/16 06:15 Cholesterol 130 mg/dL (130-200) 11/08/16 06:15 LDL Cholesterol Direct 70 mg/dL (0-129) 11/08/16 06:15 HDL Cholesterol 26 mg/dL (29-60) L 11/08/16 06:15 Free T4 1.76 ng/dL (0.78-2.19) 11/07/16 09:00 TSH 3rd Generation 0.05 mIU/mL (0.46-4.68) L 11/07/16 09:00 Urine Color Yellow (YELLOW) 11/07/16 10:10 Urine Appearance Clear (CLEAR) 11/07/16 10:10 Urine pH 6.0 (4.7-8.0) 11/07/16 10:10 Ur Specific [place] 1.015 (1.005-1.035) 11/07/16 10:10 Urine Protein Trace mg/dL (<30 mg/dL) H 11/07/16 10:10 Urine Glucose (UA) >=1000 mg/dL (NEGATIVE) 11/07/16 10:10 Urine Ketones 15 mg/dL (NEGATIVE) H 11/07/16 10:10 Urine Blood Trace-intact (NEGATIVE) H 11/07/16 10:10 Urine Nitrate Negative (NEGATIVE) 11/07/16 10:10 Urine Bilirubin Negative (NEGATIVE) 11/07/16 10:10 Urine Urobilinogen 0.2 E.U./dL (<1 E.U./dL) 11/07/16 10:10 Ur Leukocyte Esterase Small Melanie/uL (NEGATIVE) H 11/07/16 10:10 Urine RBC 0 - 2 /hpf (0-2) 11/07/16 10:10 Urine WBC 25 - 30 /hpf (0-6) 11/07/16 10:10 Ur Epithelial Cells Many /hpf (0-5) 11/07/16 10:10 Urine Bacteria Few (NEG) 11/07/16 10:10 Urine Other Uyeast 11/07/16 10:10 - Hospital Course Hospital Course: Pt seen and examined. Resident note reviewed and I agree with it. Pt does not qualify for home PT as she walks a significant amount. Eats ok. Will follow with Dr Vogel.
--- NOTE | 2016-11-08 11:15 | CP.PCM.CON ---
<Juan Carlos Crespo - Last Filed: 11/08/16 11:09> History of Present Illness - History of Present Illness History of Present Illness: A 70 yo female patient with PMHx DM, diabetic neuropathy, PAD, HTN, dyslipidemia who was seen at bedside this morning following request for podiatry consult. Patient is well known to podiatry service and is being treated by Dr. Kevin for bilateral chronic foot ulceration. Patient reports that she does have a history of neuropathy to b/l lower extremities. Denies any recent trauma/injuries, denies f/n/v/c/sob/cp at this time. Review of Systems - Constitutional Constitutional: As Per HPI Past Patient History - Infectious Disease Hx of Infectious Diseases: None - Tetanus Immunizations Tetanus Immunization: Unknown - Past Medical History & Family History Past Medical History?: Yes - Past Social History Smoking Status: Former Smoker - CARDIAC Hx Cardiac Disorders: Yes Hx Hypertension: Yes Hx Pacemaker: No - PULMONARY Hx Respiratory Disorders: Yes Hx Asthma: Yes - NEUROLOGICAL Hx Neurological Disorder: No Hx Paralysis: No - HEENT Hx HEENT Problems: Yes Hx Cataracts: Yes (SX) Other/Comment: TONSILLECTOMY - RENAL Hx Chronic Kidney Disease: Yes Hx Renal Failure: Yes - ENDOCRINE/METABOLIC Hx Endocrine Disorders: Yes Hx Diabetes Mellitus Type 2: Yes - HEMATOLOGICAL/ONCOLOGICAL Hx Blood Disorders: Yes Hx Blood Transfusions: Yes Hx Blood Transfusion Reaction: No - INTEGUMENTARY Hx Dermatological Problems: No - MUSCULOSKELETAL/RHEUMATOLOGICAL Hx Musculoskeletal Disorders: Yes (HX OSTEO) - GASTROINTESTINAL Hx Gastrointestinal Disorders: No - GENITOURINARY/GYNECOLOGICAL Hx Genitourinary Disorders: No (ARF) Hx Reproductive Disorders: No - PSYCHIATRIC Hx Psychophysiologic Disorder: No Hx Emotional Abuse: No Hx Physical Abuse: No Hx Substance Use: No - SURGICAL HISTORY Hx Hysterectomy: Yes Hx Tonsillectomy: Yes Other/Comment: tonsils, bilateral cataracts removed, picc line x 2, i and d of non healing wound to ball of left foot dsg dry and intact done today, peripheral vascular surgery - ANESTHESIA Hx Anesthesia Reactions: No Hx Malignant Hyperthermia: No Meds Home Medications: Home Medication List Medication Instructions Recorded Confirmed Type methIMAzole [Tapazole] 10 mg PO DAILY #30 tab 11/08/16 Rx Allergies/Adverse Reactions: Allergies Allergy/AdvReac Type Severity Reaction Status Date / Time No Known Allergies Allergy Verified 11/07/16 08:32 - Medications Medications: Current Medications Albuterol/Ipratropium (Duoneb 3 Mg/0.5 Mg (3 Ml) Ud) 3 ml IH [id number] PRN PRN Reason: Wheezing Alprazolam (Xanax) 0.25 mg PO BID PRN; Protocol PRN Reason: Anxiety Stop: 11/14/16 12:13 Last Admin: 11/08/16 08:24 Dose: 0.25 mg Aspirin (Ecotrin) 81 mg PO DAILY [facility] Last Admin: 11/08/16 10:02 Dose: 81 mg Atorvastatin Calcium (Lipitor) 10 mg PO DIN [facility] Last Admin: 11/07/16 17:20 Dose: 10 mg Duloxetine HCl (Cymbalta) 30 mg PO DAILY [facility] Last Admin: 11/08/16 10:02 Dose: 30 mg Enoxaparin Sodium (Lovenox) 40 mg SC DAILY [facility] PRN Reason: Protocol Last Admin: 11/08/16 10:02 Dose: 40 mg Insulin Detemir (Levemir) 20 unit SC HS [facility] Last Admin: 11/07/16 21:49 Dose: 20 unit Insulin Human Lispro (Humalog Low) 0 units SC ACHS [facility] PRN Reason: Protocol Last Admin: 11/08/16 10:05 Dose: Not Given Insulin Lispro Protam/Lispro Human (Humalog Mix 75/25) 30 units SC BID [facility] Last Admin: 11/08/16 10:03 Dose: 30 u Losartan Potassium (Cozaar) 50 mg PO DAILY [facility] Last Admin: 11/08/16 09:56 Dose: 50 mg Methimazole (Tapazole) 10 mg PO DAILY [facility] Physical Exam - Constitutional Appears: Well, Non-toxic, No Acute Distress - Head Exam Head Exam: ATRAUMATIC, NORMAL INSPECTION - Extremities Exam Additional comments: Bilateral lower extremity exam: DERM- LEFT: Open ulceration to sub-met 3 measuring approximately 1cmx 1cm x 0.3cm with 100% granular base, slight serous drainage, neg probe to bone, neg purulence, neg malodor, neg fluctuance, neg angel-wound erythema, no fluctuance, RIGHT: Open ulceration to sub-met 1 measuring approximately 1cmx 0.3m x 0.2cm with 100% granular base, slight serous drainage, neg probe to bone, neg purulence, neg malodor, neg fluctuance, neg angel-wound erythema, no fluctuance, VASC- pedal pulses are palpable left (faintly palpable left), skin temp runs warm to cool B/L, cft<4 sec to digits x 9, no pedal edema NEURO- protective pedal sensation is diminished BL ORTHO- s/p left foot 2nd digit and 2nd metatarsal head resection (hx OM), neg tenderness on palpation of left plantar foot wound, + tenderness to palpation diffusely of anterior right leg, posterior right calf, and dorsum of right foot , (-) Chris's sign bl - Neurological Exam Neurological exam: Oriented x3 - Psychiatric Exam Psychiatric exam: Normal Affect, Normal Mood - Skin Skin Exam: Normal Color, Warm Results - Vital Signs Recent Vital Signs: Last Vital Signs Temp 98 F 11/08/16 05:52 Pulse 83 11/08/16 09:56 Resp 20 11/08/16 05:52 BP 142/71 11/08/16 09:56 Pulse Ox 99 11/08/16 05:52 - Labs Result Diagrams: 11/08/16 06:15 11/08/16 06:15 Labs: Laboratory Results - last 24 hr 11/07/16 11/07/16 11/07/16 17:06 17:45 21:44 WBC RBC Hgb Hct MCV MCH MCHC RDW Plt Count MPV Gran % Lymph % (Auto) [place] % (Auto) Eos % (Auto) Baso % (Auto) Gran # Lymph # [place] # Eos # Baso # Sodium Potassium Chloride Carbon Dioxide Anion Gap BUN Creatinine Est GFR ( Amer) Est GFR (Non-Af Amer) POC Glucose (mg/dL) 262 H 241 H Random Glucose Calcium Phosphorus Magnesium Total Bilirubin AST ALT Alkaline Phosphatase Troponin I < 0.01 Total Protein Albumin Globulin Albumin/Globulin Ratio Triglycerides Cholesterol LDL Cholesterol Direct HDL Cholesterol 11/08/16 11/08/16 11/08/16 03:10 06:15 06:15 WBC 10.2 RBC 4.33 Hgb 11.7 L Hct 35.5 L MCV 82.0 MCH 27.0 MCHC 33.0 RDW 14.8 H Plt Count 196 MPV 9.8 Gran % 28.8 L Lymph % (Auto) 63.9 H [place] % (Auto) 5.7 Eos % (Auto) 1.5 Baso % (Auto) 0.1 Gran # 2.96 Lymph # 6.5 H [place] # 0.6 Eos # 0.2 Baso # 0.01 Sodium 142 Potassium 3.9 Chloride 106 Carbon Dioxide 28 Anion Gap 12 BUN 20 Creatinine 0.7 Est GFR ( Amer) > 60 Est GFR (Non-Af Amer) > 60 POC Glucose (mg/dL) 132 H Random Glucose 134 H Calcium 8.9 Phosphorus 3.8 Magnesium 1.9 Total Bilirubin 1.2 AST 34 ALT 36 Alkaline Phosphatase 90 Troponin I Total Protein 7.3 Albumin 3.9 Globulin 3.4 Albumin/Globulin Ratio 1.1 Triglycerides 135 Cholesterol 130 LDL Cholesterol Direct 70 HDL Cholesterol 26 L 11/08/16 07:35 WBC RBC Hgb Hct MCV MCH MCHC RDW Plt Count MPV Gran % Lymph % (Auto) [place] % (Auto) Eos % (Auto) Baso % (Auto) Gran # Lymph # [place] # Eos # Baso # Sodium Potassium Chloride Carbon Dioxide Anion Gap BUN Creatinine Est GFR ( Amer) Est GFR (Non-Af Amer) POC Glucose (mg/dL) 161 H Random Glucose Calcium Phosphorus Magnesium Total Bilirubin AST ALT Alkaline Phosphatase Troponin I Total Protein Albumin Globulin Albumin/Globulin Ratio Triglycerides Cholesterol LDL Cholesterol Direct HDL Cholesterol Assessment & Plan - Assessment and Plan (Free Text) Assessment: 70 yo female patient with diabetic ulceration to plantar aspect of bilateral feet WagnerII Plan: Patient was seen, evaluated at bedside Discussed in detail with attending Dr. Kevin in detail Chart labs and vitals reviewed Bilateral feet dressed with Acticoat and DSD Podiatry will follow in-house <Beverly Kevin - Last Filed: 11/19/16 19:30> Results - Vital Signs Recent Vital Signs: Last Vital Signs Temp 97.9 F 11/08/16 11:39 Pulse 82 11/08/16 11:39 Resp 18 11/08/16 11:39 BP 163/73 H 11/08/16 11:39 Pulse Ox 99 11/08/16 05:52 - Labs Result Diagrams: 11/08/16 06:15 11/08/16 06:15 Attending/Attestation - Attestation I have personally seen and examined this patient.: Yes I have fully participated in the care of the patient.: Yes I have reviewed all pertinent clinical information: Yes
--- NOTE | 2016-11-08 11:27 | CARD ---
APPROVED REPORT EXAM: Two-dimensional and M-mode echocardiogram with Doppler and color Doppler. INDICATION Hypertension/HCVD WEAKNESS 2D DIMENSIONS Left Atrium (2D)4.2 (1.6-4.0cm)IVSd1.4 (0.7-1.1cm) LVDd4.3 (3.9-5.9cm)PWd1.4 (0.7-1.1cm) LVDs3.0 (2.5-4.0cm)FS (%) 30.6 % LVEF (%)58.4 (>50%) M-Mode DIMENSIONS Aortic Root3.30 (2.2-3.7cm)Aortic Cusp Exc.2.00 (1.5-2.0cm) Aortic Valve AoV Peak Skvwxwjc264.0cm/Marybel Peak GR.7mmHg Mitral Valve MV E Nkmqlrib75.0cm/sMV A Fgftkcyy292.0cm/sE/A ratio0.7 TDI Lateral E' Peak V8.38cm/sMedial E' Peak V3.90cm/sE/Lateral E'8.5 E/Medial E'18.2 Pulmonary Valve PV Peak Ezszoyti27.6cm/sPV Peak Grad.3mmHg Tricuspid Valve TR Peak [id number]/sRAP [id number] Peak Gr.18mmHg [id number] LEFT VENTRICLE The left ventricle is normal size. There is mild concentric left ventricular hypertrophy. The left ventricular function is normal.EF-55% There is normal LV segmental wall motion. Transmitral Doppler flow pattern is Grade III-reversible restrictive diastolic dysfunction. No left ventricle thrombus noted on this study. There is no ventricular septal defect visualized. There is no left ventricular aneurysm. There is no mass noted in the left ventricle. RIGHT VENTRICLE The right ventricle is normal size. There is normal right ventricular wall thickness. The right ventricular systolic function is normal. ATRIA The left atrium is mildly dilated. The right atrium size is normal. The interatrial septum is intact with no evidence for an atrial septal defect. AORTIC VALVE The aortic valve is thickened but opens well. No aortic regurgitation is present. There is no aortic valvular stenosis. There is no aortic valvular vegetation. MITRAL VALVE The mitral valve is thickened but opens well. Mitral regurgitation is trace. There is no mitral valve stenosis. There is no evidence of mitral valve prolapse. TRICUSPID VALVE The tricuspid valve leaflets are thickened , but open well. There is trace tricuspid regurgitation.RVSP-28 mmof Hg There is no tricuspid valve stenosis. There is no tricuspid valve prolapse or vegetation. PULMONIC VALVE The pulmonary valve is normal in structure. There is no pulmonic valvular regurgitation. There is no pulmonic valvular stenosis. GREAT VESSELS The aortic root is normal in size. The ascending aorta is normal in size. The pulmonary artery is normal. The IVC is normal in size and collapses >50% with inspiration. PERICARDIAL EFFUSION There is no pleural effusion. There is no pericardial effusion. <Conclusion> The left ventricle is normal size. There is mild concentric left ventricular hypertrophy. The left ventricular function is normal.EF-55% No aortic regurgitation is present. Mitral regurgitation is trace. There is trace tricuspid regurgitation.RVSP-28 mmof Hg There is no pericardial effusion. The IVC is normal in size and collapses >50% with inspiration. no vegetation or thrombus noted.
[2016-11-08 11:44] VITALS: BP 163/73; PULSE 82; RESP 18; TEMP 97.9
--- NOTE | 2016-11-08 20:32 | PN ---
DATE: 11/08/2016 SUBJECTIVE: The patient denies any chest pain, shortness of breath, or palpitations at present. PHYSICAL EXAMINATION: VITAL SIGNS: Blood pressure 136/60, respiration 20, pulse 77, temperature 98. HEENT: Head is normocephalic. Eyes, pupils normal. Conjunctivae normal. Nose and throat normal. NECK: JVP low. Carotids equal. Thorax, AP diameter normal. LUNGS: Clear. CARDIOVASCULAR: S1 and S2. ABDOMEN: Soft. nontender. No organomegaly. Bowel sounds are normal. EXTREMITIES: No clubbing. No cyanosis. LABORATORY DATA: WBC 10.2, hemoglobin 11.7, hematocrit 35,5, platelet 196. Sodium 142, potassium 3.9, BUN 20, creatinine 0.7, random glucose 237. Phosphorus, calcium, magnesium, bilirubin, AST, ALT, total protein were all normal. Lymphocytes 63.9, granulocyte 28.8. The patient had echocardiogram today, which showed ventricular size is normal, mild concentric left ventricular hypertrophy, ejection fraction 55%, trace mitral regurgitation, trace tricuspid regurgitation. DIAGNOSIS: Hypertension, hyperlipidemia, diabetes type 2, hyperthyroidism, chronic lymphocytic leukemia, generalized weakness. PLAN: The patient's TSH is 0.05, free T4 1.76. The patient already on Tapazole. We will continue Tapazole and other therapy and we will follow with you clinically. Cardiac status point, stable. We will follow with you. Anthony Dukes MD
== END 2016-11-08 15:35 | disposition home or self-care (01) | DRG 641 ==
LOC: ED 08:25 → ERH 11:05 → 2RNO 14:15
PROVIDERS: ADMIT Internal Medicine Nephrology; ATTEND Internal Medicine Nephrology
DX: E86.0 Dehydration (principal); K52.9 Noninfective gastroenteritis and colitis, unspecified; C91.10 Chronic lymphocytic leukemia of B-cell type not having achieved remission; E11.22 Type 2 diabetes mellitus with diabetic chronic kidney disease; E11.40 Type 2 diabetes mellitus with diabetic neuropathy, unspecified; E03.9 Hypothyroidism, unspecified; E11.621 Type 2 diabetes mellitus with foot ulcer; I12.9 Hypertensive chronic kidney disease with stage 1 through stage 4 chronic kidney disease, or unspecified chronic kidney disease; N18.9 Chronic kidney disease, unspecified; E05.90 Thyrotoxicosis, unspecified without thyrotoxic crisis or storm; E11.65 Type 2 diabetes mellitus with hyperglycemia; E78.5 Hyperlipidemia, unspecified; F41.9 Anxiety disorder, unspecified; J45.909 Unspecified asthma, uncomplicated; I44.0 Atrioventricular block, first degree; I73.9 Peripheral vascular disease, unspecified; Z89.422 Acquired absence of other left toe(s); Z89.421 Acquired absence of other right toe(s); L97.509 Non-pressure chronic ulcer of other part of unspecified foot with unspecified severity; Z79.4 Long term (current) use of insulin; Z79.82 Long term (current) use of aspirin; Z79.899 Other long term (current) drug therapy; Z87.891 Personal history of nicotine dependence; Z90.710 Acquired absence of both cervix and uterus; Z98.49 Cataract extraction status, unspecified eye

== ENCOUNTER 2016-11-21 13:11 | Inpatient (IN) | payer MEDICARE, BC ==
[2016-11-21 13:23] VITALS: BMI 27.2
[2016-11-21] MEDS ORDERED: Piperacillin/Tazobact 3.375 gm 100 ML IVPB STA (14:09)
[2016-11-21] MEDS ORDERED: Vancomycin 1gm in NS 250ml 1 GM/250 ML BAG IVPB STA (14:09)
--- NOTE | 2016-11-21 14:09 | ED PDOC ---
Arrival/HPI - General Chief Complaint: Abnormal Skin Integrity Time Seen by Provider: 11/21/16 14:07 Historian: Patient - History of Present Illness Narrative History of Present Illness (Text): 11/21/16 14:08 70 y/o female, pmh including htn/hyperlipidemia/dm/osteomylitis/pylonephritis/ peripheral vascular disease, nkda, bib c/o rt. foot cellulitis with pain x 2 days. As per patient, her rt. foot started to have pain for the past 2 days. Pt. has been following with Dr. 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 foot puncture wound by the glass which was removed by Dr. Kevin and received the tetanus in her office. Dr. Kevin stated that the patient still has a insulin needle tip under the sole of the foot which she is currently managing. Pt. went to see Dr. Kevin today which Dr. Diaz noted that the patient has new wound on the rt. foot 1st great toe region which referred her to the ER department. Pt. has no fever but has chills at home, no night sweat, no numbness or tingling, no other medical or psychological complaints. Past Medical History - Provider Review Nursing Documentation Reviewed: Yes - Infectious Disease Hx of Infectious Diseases: None - Tetanus Immunization Tetanus Immunization: Unknown - Cardiac Hx Cardiac Disorders: Yes Hx Hypertension: Yes - Pulmonary Hx Respiratory Disorders: Yes Hx Asthma: Yes - Neurological Hx Neurological Disorder: No Hx Paralysis: No - HEENT Hx HEENT Disorder: Yes Hx Cataracts: Yes (SX) Other/Comment: TONSILLECTOMY - Renal Hx Renal Failure: Yes - Endocrine/Metabolic Hx Endocrine Disorders: Yes Hx Diabetes Mellitus Type 2: Yes - Hematological/Oncological Hx Blood Disorders: Yes Hx Blood Transfusions: Yes Hx Blood Transfusion Reaction: No - Integumentary Hx Dermatological Disorder: No - Musculoskeletal/Rheumatological Hx Musculoskeletal Disorders: Yes (HX OSTEO) - Gastrointestinal Hx Gastrointestinal Disorders: No - Genitourinary/Gynecological Hx Genitourinary Disorders: No (ARF) Hx Reproductive Disorders: No - Psychiatric Hx Psychophysiologic Disorder: No Hx Emotional Abuse: No Hx Physical Abuse: No Hx Substance Use: No - Surgical History Hx Hysterectomy: Yes Hx Tonsillectomy: Yes Other/Comment: bilateral cataracts removed, picc line x 2,. i and d of non healing wound to ball of left foot - Anesthesia Hx Anesthesia: Yes Hx Anesthesia Reactions: No Hx Malignant Hyperthermia: No - Suicidal Assessment Feels Threatened In Home Enviroment: No Family/Social History - Physician Review Nursing Documentation Reviewed: Yes Family/Social History: Unknown Family HX Smoking Status: Former Smoker Hx Alcohol Use: No Hx Substance Use: No Hx Substance Use Treatment: No Allergies/Home Meds Allergies/Adverse Reactions: Allergies No Known Allergies Allergy (Verified 11/21/16 13:23) Home Medications: Home Meds Medication Instructions Recorded Confirmed Alprazolam [Xanax] 0.25 mg PO BID PRN 09/12/11 11/21/16 Losartan Potassium [Cozaar] 50 mg PO DAILY 12/31/15 11/21/16 Aspirin [Ecotrin] 81 mg PO DAILY 03/27/16 11/21/16 Insulin Lispro Mix 75/25 [HumaLOG 30 units SC BID 03/27/16 11/21/16 Mix 75/25] Atorvastatin [Lipitor] 10 mg PO DAILY 10/05/16 11/21/16 Insulin Glargine, Recombina 20 units PO HS 10/05/16 11/21/16 [Lantus] Alpha Lipoic Acid 1 tab PO DAILY 11/07/16 11/21/16 Cyanocobalamin (Vitamin B-12) 0 mcg PO DAILY 11/07/16 11/21/16 [Vitamin B12] Duloxetine HCl 30 mg PO DAILY 11/07/16 11/21/16 Review of Systems - Review of Systems Constitutional: Other (+chill). absent: Fatigue, Fevers Eyes: absent: Vision Changes ENT: absent: Hearing Changes Respiratory: absent: SOB, Cough Cardiovascular: absent: Chest Pain Gastrointestinal: absent: Abdominal Pain, Diarrhea, Nausea, Vomiting Skin: Rash, Ulcer, Cellulitis. absent: Pruritis, Skin Lesions, Laceration, Abscess Neurological: absent: Headache, Dizziness Psychiatric: absent: Anxiety, Depression, Suicidal Ideation Physical Exam Vital Signs Reviewed: Yes Vital Signs Temp Pulse Resp BP Pulse Ox 11/21/16 21:12 100 H 16 150/81 95 11/21/16 13:27 98.0 F 99 H 18 123/74 99 Temperature: Afebrile Blood Pressure: Normal Pulse: Regular Respiratory Rate: Normal Appearance: Positive for: Well-Appearing, Non-Toxic Pain Distress: Severe Mental Status: Positive for: Alert and Oriented X 3 - Systems Exam Head: Present: Atraumatic, Normocephalic Pupils: Present: PERRL Extroacular Muscles: Present: EOMI Conjunctiva: Present: Normal Mouth: Present: Moist Mucous Membranes Neck: Present: Normal Range of Motion Respiratory/Chest: Present: Clear to Auscultation, Good Air Exchange. No: Respiratory Distress, Accessory Muscle Use Cardiovascular: Present: Regular Rate and Rhythm, Normal S1, S2. No: Murmurs Abdomen: Present: Normal Bowel Sounds. No: Tenderness, Distention, Peritoneal Signs Back: Present: Normal Inspection Upper Extremity: Present: Normal Inspection. No: Cyanosis, Edema Lower Extremity: Present: Normal Inspection, Other (Rt. foot: visible superficial blister ruptred appear to superficial ulcer noted on the ball of the 1st metartarsal join region with mild streaking, FROM without limitation, motor 5/5, +DPPT Pulses, capillary refill< 2 seconds, neurovascular intact. ). No: Edema Neurological: Present: GCS=15, Speech Normal, Motor Func Grossly Intact Skin: Present: Warm, Dry, Normal Color. No: Rashes Psychiatric: Present: Alert, Oriented x 3, Normal Insight, Normal Concentration Medical Decision Making ED Course and Treatment: 11/21/16 14:08 -labs/ua/blood and wound culture -ekg/cxr/foot xray -IV vancomycin/zosyn -I spoke to Dr. Kevin already. -will admit for IV antibiotic. 11/21/16 20:08 -Foot xray: No plain radiographic evidence of osteomyelitis. Probable needle fragment in the lateral plantar soft tissues of right foot. Hallux valgus. Amputation 2nd digit. The foreign body is chronic and Dr. Kevin is awared as she is following it up. Chest x-ray: no active disease -Labs show: wbc 19.4 -Wound culture obtained/blood and the urine culture obtained 11/21/16 20:09 -Dr. Raya routine consult, agreed by Dr. Bazan (covering for dr. gamez ) -Dr. Kevin routine consult, agreed by Dr. Bazan (covering for dr. gamez) -Discussed with the patient that she will need admission, pt. agreed -I discussed with Dr. Carmona earlier, and agreed to admit the patient with the admission order placed. -I discussed with Hortensia, discussed about the labs/radiology studies and agreed to admit the patient but to her service as she is covering for Dr. Gamez. - Lab Interpretations Microbiology Results: Microbiology Results 11/21/16 14:50 Skin - Abscess Gram Stain - Final Lab Results: 11/21/16 14:20 11/21/16 17:25 Lab Results 11/21/16 17:25: pO2 36, VBG pH 7.38, VBG pCO2 51.0, VBG HCO3 30.2 H, VBG Total CO2 31.8 H, VBG O2 Sat (Calc) 71.2 H, VBG Base Excess 3.9 H, VBG Potassium 4.1, Sodium 137.0, Chloride 100.0, Glucose 189 H, Lactate 1.8, FiO2 21.0, Venous Blood Potassium 4.1 11/21/16 17:25: Sodium 137, Chloride 97 L, Potassium 4.3, Carbon Dioxide 29, Anion Gap 15, BUN 15, Creatinine 0.8, Est GFR ( Amer) > 60, Est GFR (Non- Af Amer) > 60, Random Glucose 184 H, Calcium 9.6, Total Bilirubin 1.6 H, AST 42 H, ALT 40, Alkaline Phosphatase 151 H, NT-Pro-B Natriuret Pep 17.5, Total Protein 8.7 H, Albumin 4.3, Globulin 4.5, Albumin/Globulin Ratio 1.0 L 11/21/16 14:20: ESR 98 H 11/21/16 14:20: WBC 19.5 H D, RBC 4.29, Hgb 11.5 L, Hct 35.2 L, MCV 82.1, MCH 26.8, MCHC 32.7, RDW 15.0 H, Plt Count 236, MPV 9.2, Gran % 56.7, Lymph % (Auto ) 36.1 H, Divide % (Auto) 6.1 H, Eos % (Auto) 0.9 L, Baso % (Auto) 0.2, Gran # 11.07 H, Lymph # 7.0 H, Divide # 1.2 H, Eos # 0.2, Baso # 0.03 - RAD Interpretation Radiology Orders: 11/21/16 14:09 CHEST PORTABLE [RAD] Stat 11/21/16 14:33 FOOT RIGHT 3 VIEWS ROUTINE [RAD] Stat Rt. Foot: No plain radiographic evidence of osteomyelitis. Probable needle fragment in the lateral plantar soft tissues of right foot. Hallux valgus. Amputation 2nd digit. 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 - Medication Orders Current Medication Orders: Sodium Chloride (Sodium Chloride 0.9%) 1,000 mls @ 100 mls/hr IV .Q10H [facility] Last Admin: 11/21/16 20:57 Dose: 100 mls/hr Vancomycin HCl (Vancomycin 1gm) 1 gm in 250 mls @ 167 mls/hr IVPB Q12H [facility] PRN Reason: Protocol Stop: 11/28/16 21:16 Last Admin: 11/21/16 22:23 Dose: 167 mls/hr Piperacillin Sod/Tazobactam Sod (Zosyn 3.375 In Ns 100ml) 100 mls @ 200 mls/hr IVPB Q6 [facility] PRN Reason: Protocol Stop: 11/29/16 00:01 Last Admin: 11/22/16 00:21 Dose: 200 mls/hr Discontinued Medications Vancomycin HCl (Vancomycin 1gm) 1 gm in 250 mls @ 167 mls/hr IVPB STAT STA PRN Reason: Protocol Stop: 11/21/16 15:38 Last Admin: 11/21/16 19:35 Dose: 167 mls/hr Piperacillin Sod/Tazobactam Sod (Zosyn 3.375 In Ns 100ml) 100 mls @ 200 mls/hr IVPB STAT STA PRN Reason: Protocol Stop: 11/21/16 14:38 Last Admin: 11/21/16 14:28 Dose: 200 mls/hr Morphine Sulfate (Morphine) 4 mg IVP STAT STA Stop: 11/21/16 19:27 Last Admin: 11/21/16 19:34 Dose: 4 mg Re-Assess: [facility] Pain Assessment Document 11/21/16 20:34 HI (Rec: 11/21/16 21:01 HI [facility] [id number]) Pain Reassessment Is this a pain reassessment? Yes Sleep Is patient sleeping during reassessment? No Presence of Pain Presence of Pain No - PA / HEAD DOFFER / Resident Statement MD/DO has reviewed & agrees with the documentation as recorded. Disposition/Present on Arrival - Present on Arrival Any Indicators Present on Arrival: No History of DVT/PE: No History of Uncontrolled Diabetes: Yes Urinary Catheter: No History of Decub. Ulcer: No History Surgical Site Infection Following: None - Disposition Have Diagnosis and Disposition been Completed?: Yes Diagnosis: Ulcer, Diabetes mellitus, Foot ulcer, Cellulitis, Foreign body in foot Disposition: HOSPITALIZED Disposition Time: 14:39 Patient Plan: Admission Patient Problems: Current Active Problems Problem Status Onset Ulcer Acute Cellulitis Acute Diabetes mellitus Acute Foot ulcer Chronic Foreign body in foot Acute Condition: STABLE
[2016-11-21] MEDS ORDERED: Morphine 4 mg/ml ISec IVP STA ×2 (14:27→19:26)
[2016-11-21 14:33] LABS: BASO # 0.03 K/mm3 (0.0-2.0); BASO % 0.2 % (0.0-3.0); EOS # 0.2 (0.0-0.7); EOS % 0.9 % (1.5-5.0); GRAN # 11.07 (1.4-6.5); GRAN % 56.7 % (50.0-68.0); HEMATOCRIT 35.2 % (36.0-48.0); LYMPH % 36.1 % (22.0-35.0); MEAN CELL VOLUME 82.1 fl (80.0-105.0); MEAN CORPUSCULAR HEMOGLOBIN 26.8 pg (25.0-35.0); MEAN CORPUSCULAR HGB CONC 32.7 g/dl (31.0-37.0); MEAN PLATELET VOLUME 9.2 fl (7.0-11.0); MONO # 1.2 (0.1-0.6); MONO % 6.1 % (1.0-6.0); WHITE BLOOD COUNT 19.5 10^3/ul (4.5-11.0)
--- NOTE | 2016-11-21 14:42 | RAD ---
HISTORY: medical clearance COMPARISON: 11/07/2016 FINDINGS: LUNGS: No active pulmonary disease. PLEURA: No significant pleural effusion identified, no pneumothorax apparent. CARDIOVASCULAR: Normal. OSSEOUS STRUCTURES: No significant abnormalities. VISUALIZED UPPER ABDOMEN: Normal. OTHER FINDINGS: None. IMPRESSION: No active disease.
--- NOTE | 2016-11-21 15:49 | RAD ---
PROCEDURE: Right Foot Radiographs. HISTORY: rt. foot 1st metataral cellulitis COMPARISON: 10/23/2016 FINDINGS: BONES: No acute fracture. Status post amputation 2nd digit at the proximal aspect 2nd proximal phalanx. Hammertoe deformity of 3rd through 5th digits. Hallux valgus deformity. Bandage material seen over medial aspect 1st metatarsal phalangeal articulation. No osseous erosion or periosteal reaction appreciated. JOINTS: As above SOFT TISSUES: Probable needle fragment in soft tissues of lateral plantar aspect right foot unchanged from prior examination. OTHER FINDINGS: None. IMPRESSION: No plain radiographic evidence of osteomyelitis. Probable needle fragment in the lateral plantar soft tissues of right foot. Hallux valgus. Amputation 2nd digit.
[2016-11-21 17:39] LABS: VENOUS BLOOD GAS BASE EXCESS 3.9 mmol/L (0.0-2.0); VENOUS BLOOD PH 7.38 (7.32-7.43)
[2016-11-21 17:54] LABS: ALKALINE PHOSPHATASE 151 U/L (38-126); ALT/SGPT 40 U/L (7-56); AST/SGOT 42 U/L (14-36); BILIRUBIN,TOTAL 1.6 mg/dL (0.2-1.3); BLOOD UREA NITROGEN 15 mg/dL (7-21); CALCIUM 9.6 mg/dL (8.4-10.5); CARBON DIOXIDE 29 mmol/L (21-33); CHLORIDE 97 mmol/L (98-107); GFR AFRICAN-AMERICAN > 60; GLUCOSE,RANDOM 184 mg/dL (70-110); POTASSIUM 4.3 mmol/L (3.6-5.0); SODIUM 137 mmol/L (132-148); TOTAL PROTEIN 8.7 g/dL (5.8-8.3)
[2016-11-21] MEDS: Sodium Chloride 0.9% 1,000 ML IV SCH (20:57)
[2016-11-21] MEDS: Vancomycin 1gm in NS 250ml 1 GM/250 ML BAG IVPB SCH (22:23)
[2016-11-22] MEDS: Piperacillin/Tazobact 3.375 gm 100 ML IVPB SCH ×4 (00:21→17:40)
--- NOTE | 2016-11-22 00:37 | CP.PCM.PN ---
Subjective - Date & Time of Evaluation Date of Evaluation: 11/22/16 Time of Evaluation: 00:36 - Subjective Subjective: draft cellulitis pain. Toradol 30 mg IV Objective - Vital Signs/Intake and Output Vital Signs (last 24 hours): Temp Pulse Resp BP Pulse Ox 99.6 F 98 H 20 195/72 H 97 11/21/16 23:44 11/21/16 23:44 11/21/16 23:44 11/21/16 23:44 11/21/16 23:44 - Medications Medications: Current Medications Sodium Chloride (Sodium Chloride 0.9%) 1,000 mls @ 100 mls/hr IV .Q10H [facility] Last Admin: 11/21/16 20:57 Dose: 100 mls/hr Vancomycin HCl (Vancomycin 1gm) 1 gm in 250 mls @ 167 mls/hr IVPB Q12H [facility] PRN Reason: Protocol Stop: 11/28/16 21:16 Last Admin: 11/21/16 22:23 Dose: 167 mls/hr Piperacillin Sod/Tazobactam Sod (Zosyn 3.375 In Ns 100ml) 100 mls @ 200 mls/hr IVPB Q6 [facility] PRN Reason: Protocol Stop: 11/29/16 00:01 Last Admin: 11/22/16 00:21 Dose: 200 mls/hr Ketorolac Tromethamine (Toradol) 30 mg IVP STAT STA Stop: 11/22/16 00:36
[2016-11-22] MEDS: Sodium Chloride 0.9% 1,000 ML IV SCH ×2 (04:59→20:30)
--- NOTE | 2016-11-22 09:46 | CP.PCM.CON ---
History of Present Illness - History of Present Illness History of Present Illness: 70 y/o female, pmh including htn/hyperlipidemia/dm/osteomylitis/pylonephritis/ peripheral vascular disease seen at bedside with attending Dr. Kevin for right foot abscess with cellulitis. Patient was sent from Dr. Kevin's office to the ED yesterday after she noticed redness, swelling and drainage coming from patient's right foot. Patient complains of mild pain to the area. Dressing remains c/d/i. Patient states that she has not been feeling well and has not been able to eat much of her breakfast because she feels nauseous. Patient denies any other complaints at this time. She denies f/d/c/sob. Review of Systems - Constitutional Constitutional: As Per HPI Past Patient History - Infectious Disease Hx of Infectious Diseases: None - Tetanus Immunizations Tetanus Immunization: Unknown - Past Medical History & Family History Past Medical History?: Yes - Past Social History Smoking Status: Former Smoker - CARDIAC Hx Cardiac Disorders: Yes Hx Hypertension: Yes - PULMONARY Hx Respiratory Disorders: Yes Hx Asthma: Yes - NEUROLOGICAL Hx Neurological Disorder: No Hx Paralysis: No - HEENT Hx HEENT Problems: Yes Hx Cataracts: Yes (SX) Other/Comment: TONSILLECTOMY - RENAL Hx Renal Failure: Yes - ENDOCRINE/METABOLIC Hx Endocrine Disorders: Yes Hx Diabetes Mellitus Type 2: Yes - HEMATOLOGICAL/ONCOLOGICAL Hx Blood Disorders: Yes Hx Blood Transfusions: Yes Hx Blood Transfusion Reaction: No - INTEGUMENTARY Hx Dermatological Problems: No - MUSCULOSKELETAL/RHEUMATOLOGICAL Hx Musculoskeletal Disorders: Yes (HX OSTEO) - GASTROINTESTINAL Hx Gastrointestinal Disorders: No - GENITOURINARY/GYNECOLOGICAL Hx Genitourinary Disorders: No (ARF) Hx Reproductive Disorders: No - PSYCHIATRIC Hx Psychophysiologic Disorder: No Hx Emotional Abuse: No Hx Physical Abuse: No Hx Substance Use: No - SURGICAL HISTORY Hx Hysterectomy: Yes Hx Tonsillectomy: Yes Other/Comment: bilateral cataracts removed, picc line x 2,. i and d of non healing wound to ball of left foot - ANESTHESIA Hx Anesthesia: Yes Hx Anesthesia Reactions: No Hx Malignant Hyperthermia: No Meds Allergies/Adverse Reactions: Allergies Allergy/AdvReac Type Severity Reaction Status Date / Time No Known Allergies Allergy Verified 11/21/16 13:23 - Medications Medications: Current Medications Alprazolam (Xanax) 0.25 mg PO BID PRN; Protocol PRN Reason: Anxiety Stop: 11/29/16 08:38 Aspirin (Ecotrin) 81 mg PO DAILY [facility] Atorvastatin Calcium (Lipitor) 10 mg PO DAILY [facility] Sodium Chloride (Sodium Chloride 0.9%) 1,000 mls @ 100 mls/hr IV .Q10H [facility] Last Admin: 11/22/16 04:59 Dose: 100 mls/hr Vancomycin HCl (Vancomycin 1gm) 1 gm in 250 mls @ 167 mls/hr IVPB Q12H [facility] PRN Reason: Protocol Stop: 11/28/16 21:16 Last Admin: 11/21/16 22:23 Dose: 167 mls/hr Piperacillin Sod/Tazobactam Sod (Zosyn 3.375 In Ns 100ml) 100 mls @ 200 mls/hr IVPB Q6 [facility] PRN Reason: Protocol Stop: 11/29/16 00:01 Last Admin: 11/22/16 05:09 Dose: 200 mls/hr Insulin Detemir (Levemir) 10 unit SC [facility] Insulin Lispro Protam/Lispro Human (Humalog Mix 75/25) 30 units SC BID [facility] Losartan Potassium (Cozaar) 50 mg PO DAILY [facility] Methimazole (Tapazole) 10 mg PO DAILY [facility] Oxycodone/Acetaminophen (Percocet 10/325 Mg Tab) 1 tab PO Q4H PRN PRN Reason: Pain, moderate (4-7) Physical Exam - Constitutional Appears: Well, Non-toxic, No Acute Distress - Extremities Exam Additional comments: Vasc: lightly palpable pulses, TG warm to warm, CFT < 4 sec to all digits, nonpitting edema to RLE neuro: grossly diminished derm: edema and erythema noted to right foot, sub met 1, open lesion measuring 0.5cm x 1cm x 0.7cm plantar sub met 1, tracking distal laterally, 3 cc of purulent drainage noted, no probe to bone, mild fluctuance, mild malodor, no ascending cellulitis, deroofed blister noted to dorsomedial foot ortho: mild pain on palpation plantar sub met 1 of right foot - Neurological Exam Neurological exam: Alert, Oriented x3 - Psychiatric Exam Psychiatric exam: Normal Affect, Normal Mood Results - Vital Signs Recent Vital Signs: Last Vital Signs Temp 98.7 F 11/22/16 07:50 Pulse 84 11/22/16 07:50 Resp 20 11/22/16 07:50 BP 147/59 L 11/22/16 07:50 Pulse Ox 96 11/22/16 07:50 - Labs Result Diagrams: 11/21/16 14:20 11/21/16 17:25 Assessment & Plan - Assessment and Plan (Free Text) Assessment: 70 y/o female seen at bedside for right foot abscess and cellulitis Plan: patient evaluated and chart reviewed seen at bedside with attending Dr. Kevin labs and vitals reviewed; WBC 11/21/16: 19.5 continue IV abx as per ID- Vanc, Ann performed bedside I and D using suture removal kit, expressed 3 CC of purulent drainage applied iodoform packing, DSD to right foot patient may need to go to OR for further debridement with incision and drainage Rx: wedge shoe podiatry will continue to follow while patient remains in house
[2016-11-22] MEDS: Insulin Detemir 100 units/ml Vial (Levemir) SC SCH ×2 (10:31→22:43)
[2016-11-22] MEDS: Vancomycin 1gm in NS 250ml 1 GM/250 ML BAG IVPB SCH ×2 (10:32→21:37)
[2016-11-22] MEDS: Oxycodone/Acetaminophen 10/325 mg Tab PO PRN ×2 (10:36→19:29)
[2016-11-22] MEDS: Insulin Lispro (humaLOG) MIX 75/25(10 ml) SC SCH ×2 (10:36→17:40)
--- NOTE | 2016-11-22 15:53 | CP.PCM.CON ---
History of Present Illness - History of Present Illness History of Present Illness: 70 year old female with PMH of DM with neuropathy, history of osteomyelitis, CLL , TIA, history of Klebsiella UTI, Left 2nd toe skin and skin structure infection with osteomyelitis S/P I and D and amputation of the 2nd digit has been seeing Dr. Kevin regularly at the wound care center weekly for her right foot this time. During her visit yesterday, there was note of drainage from the ulcers on the plantar and dorsal surface of the right foot and she was sent in for admission and further treatment and work up. Infectious Diseases consult is requested for further evaluation and management. Currently she denies fever or chills, no nausea or vomiting, no chest pain, no SOB, no headache or dizziness, no abdominal pain, no diarrhea, no dysuria. She denies animal contact, no contact with soil, no soaking of feet in water. Review of Systems - Review of Systems All systems: reviewed and no additional remarkable complaints except (as per HPI ) Past Patient History - Infectious Disease Hx of Infectious Diseases: None - Tetanus Immunizations Tetanus Immunization: Unknown - Past Medical History & Family History Past Medical History?: Yes - Past Social History Smoking Status: Former Smoker - CARDIAC Hx Cardiac Disorders: Yes Hx Hypertension: Yes - PULMONARY Hx Respiratory Disorders: Yes Hx Asthma: Yes - NEUROLOGICAL Hx Neurological Disorder: No Hx Paralysis: No - HEENT Hx HEENT Problems: Yes Hx Cataracts: Yes (SX) Other/Comment: TONSILLECTOMY - RENAL Hx Renal Failure: Yes - ENDOCRINE/METABOLIC Hx Endocrine Disorders: Yes Hx Diabetes Mellitus Type 2: Yes - HEMATOLOGICAL/ONCOLOGICAL Hx Blood Disorders: Yes Hx Blood Transfusions: Yes Hx Blood Transfusion Reaction: No - INTEGUMENTARY Hx Dermatological Problems: No - MUSCULOSKELETAL/RHEUMATOLOGICAL Hx Musculoskeletal Disorders: Yes (HX OSTEO) - GASTROINTESTINAL Hx Gastrointestinal Disorders: No - GENITOURINARY/GYNECOLOGICAL Hx Genitourinary Disorders: No (ARF) Hx Reproductive Disorders: No - PSYCHIATRIC Hx Psychophysiologic Disorder: No Hx Emotional Abuse: No Hx Physical Abuse: No Hx Substance Use: No - SURGICAL HISTORY Hx Hysterectomy: Yes Hx Tonsillectomy: Yes Other/Comment: bilateral cataracts removed, picc line x 2,. i and d of non healing wound to ball of left foot - ANESTHESIA Hx Anesthesia: Yes Hx Anesthesia Reactions: No Hx Malignant Hyperthermia: No Meds Allergies/Adverse Reactions: Allergies Allergy/AdvReac Type Severity Reaction Status Date / Time No Known Allergies Allergy Verified 11/21/16 13:23 - Medications Medications: Current Medications Sodium Chloride (Sodium Chloride 0.9%) 1,000 mls @ 100 mls/hr IV .Q10H [facility] Last Admin: 11/21/16 20:57 Dose: 100 mls/hr Physical Exam - Constitutional Appears: Non-toxic, No Acute Distress - Head Exam Head Exam: NORMAL INSPECTION - ENT Exam ENT Exam: Mucous Membranes Moist - Neck Exam Neck exam: Negative for: Lymphadenopathy, Meningismus - Respiratory Exam Respiratory Exam: Decreased Breath Sounds - Cardiovascular Exam Cardiovascular Exam: +S1, +S2 - GI/Abdominal Exam GI & Abdominal Exam: Soft. 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
--- NOTE | 2016-11-22 17:09 | MRI ---
PROCEDURE: MRI of the right foot without contrast HISTORY: r/o OM COMPARISON: Comparison is made to the previous study dated previous x-ray of the right foot dated 11/21/2016 TECHNIQUE: Axial coronal and sagittal MRI images of the right foot were obtained without IV contrast administration. FINDINGS: There is large artifact due to small metallic structure described in the previous x-ray at the lateral aspect of the midfoot adjacent to the 5th metatarsal bone. The assessment of the midfoot especially the lateral tarsal bone and proximal 3rd 4th and 5th metatarsal bones is markedly limited in this exam due to this artifact. Hallux valgus deformity is again noted. No evidence of bone marrow edema or cortical destruction at the 1st metatarsal bone and 1st toe. No evidence of bone marrow edema in the 2nd metatarsal bone. The patient is status post amputation of the 2nd toe. The assessment of 3rd 4th and 5th toe is suboptimal due to subluxation at the interphalangeal joints. No definite evidence of bone marrow edema or cortical destruction at the 3rd 4th and 5th toe to suggest acute osteomyelitis. IMPRESSION: Limited study due to large artifact from the metallic structure/ foreign body described in the previous x-ray adjacent to the 5th metatarsal bone. Otherwise no definite evidence of acute osteomyelitis. Moderate hallux valgus deformity and subluxation at the interphalangeal joints of the 3rd 4th and 5th toes. .
--- NOTE | 2016-11-22 17:56 | CARD ---
APPROVED REPORT EKG Measurement Heart [id number] <Conclusion> Sinus tachycardia Possible Left atrial enlargement Borderline ECG
[2016-11-22] MEDS ORDERED: INSULIN GLARGINE RECOMBINA 20 UNIT PO SCH (22:00)
[2016-11-23] MEDS: Piperacillin/Tazobact 3.375 gm 100 ML IVPB SCH ×4 (00:01→23:04)
--- NOTE | 2016-11-23 01:49 | PN ---
DATE: 11/22/2016 SUBJECTIVE: She is comfortable in bed, no acute distress complaining of right foot pain. Pain is controlled with Percocet. She is on IV antibiotic as per ID. Bedside debridement was done of the right foot by Dr. Kevin's team. REVIEW OF SYSTEMS: As per HPI. Rest of 12-point review of system reviewed negative. PHYSICAL EXAMINATION: GENERAL: Comfortable in bed, no acute distress. VITAL SIGNS: Afebrile, temperature 98.7, heart rate is 80 per minute, blood pressure 130/70, oxygen saturation 98% on room air and respiratory rate 16 per minute. HEENT: Normal. NECK: Supple. CHEST: Air entry present and equal bilaterally, no added sound. CARDIOVASCULAR: S1 and S2 normal. No murmur, no gallop. ABDOMEN: Soft and nontender. No hepatosplenomegaly. EXTREMITIES: No edema. Right leg in dressing. CENTRAL NERVOUS SYSTEM: Alert and oriented x3. No focal sensory or motor deficit. MEDICATIONS: Xanax 0.25 mg p.o. b.i.d., aspirin 81 mg daily, Lipitor 10 mg daily, insulin Levemir 10 a.m., IV antibiotics with Zosyn and vancomycin, IV fluids. Continue IV fluids, Percocet p.r.n. Tapazole 10 mg daily. ASSESSMENT: 1. Right foot cellulitis. 2. Leukocytosis. 3. Anemia. 4. Peripheral vascular disease. 5. History of osteomyelitis. PLAN: We will continue IV antibiotics as per ID, Zosyn and vancomycin, bedside debridement done. MRI of the right foot ordered today did not show osteomyelitis of the right foot. No collection noted on MRI. We will follow recommendations from ID and podiatry. She has recurrent osteomyelitis and recurrent lower extremity cellulitis related to peripheral vascular disease.DATE: 11/22/2016 SUBJECTIVE: She is comfortable in bed, no acute distress complaining of right foot pain. Pain is controlled with Percocet. She is on IV antibiotic as per ID. Bedside debridement was done of the right foot by Dr. Kevin's team. REVIEW OF SYSTEMS: As per HPI. Rest of 12-point review of system reviewed negative. PHYSICAL EXAMINATION: GENERAL: Comfortable in bed, no acute distress. VITAL SIGNS: Afebrile, temperature 98.7, heart rate is 80 per minute, blood pressure 130/70, oxygen saturation 98% on room air and respiratory rate 16 per minute. HEENT: Normal. NECK: Supple. CHEST: Air entry present and equal bilaterally, no added sound. CARDIOVASCULAR: S1 and S2 normal. No murmur, no gallop. ABDOMEN: Soft and nontender. No hepatosplenomegaly. EXTREMITIES: No edema. Right leg in dressing. CENTRAL NERVOUS SYSTEM: Alert and oriented x3. No focal sensory or motor deficit. MEDICATIONS: Xanax 0.25 mg p.o. b.i.d., aspirin 81 mg daily, Lipitor 10 mg daily, insulin Levemir 10 a.m., IV antibiotics with Zosyn and vancomycin, IV fluids. Continue IV fluids, Percocet p.r.n. Tapazole 10 mg daily. ASSESSMENT: 1. Right foot cellulitis. 2. Leukocytosis. 3. Anemia. 4. Peripheral vascular disease. 5. History of osteomyelitis. I will do the immunoglobulin level IgG, IgM, IgA. She might benefit from IgG infusions, She has multiple amputations of the toes because of osteomyelitis. Sophie Bazan MD ALL
--- NOTE | 2016-11-23 02:03 | HP ---
DATE: 11/21/2016 HISTORY OF PRESENT ILLNESS: Ms. Zafar is a 70-year-old female presented to ED with right foot cellulitis and painful foot for 2 days. She has a history of recurrent osteomyelitis, peripheral vascular disease, and multiple toe amputations. She has pus discharge from the right foot. She had foot puncture where the glass was seen by Dr. Kevin in the office. She was referred by Dr. Kevin through the ED for admission and further evaluation. She has multiple hospitalizations with recurrent infection of toes and feet. She has peripheral vascular disease, hypertension, and blood pressure control on current medications. She also has history of diabetes mellitus type 2 and peripheral neuropathy. History of chronic renal insufficiency. PAST SURGICAL HISTORY: Tonsillectomy and hysterectomy. PERSONAL HISTORY: Former smoker. No history of alcohol abuse. SOCIAL HISTORY: Lives at home. FAMILY HISTORY: Noncontributory. No positive family history in mother and father. ALLERGIES: NO KNOWN DRUG ALLERGIES. HOME MEDICATIONS: Xanax 0.25 mg p.o. b.i.d., aspirin 81 mg daily, losartan 50 mg daily, insulin Mixtard 75/25, 30 units b.i.d., Lantus 20 units p.o. at bedtime, and B12 1 mg daily. REVIEW OF SYSTEMS: As per HPI. Rest of 12-point review of systems reviewed and negative. PHYSICAL EXAMINATION: GENERAL: Comfortable in bed, in no acute distress. VITAL SIGNS: Temperature is 98, heart rate is 100 per minute, respiratory rate is 18 per minute, blood pressure is 123/70, and . HEENT: Normal. NECK: Supple. CHEST: Air entry present and equal bilaterally. No added sounds. CARDIOVASCULAR: Within normal limits. ABDOMEN: Soft and nontender. No hepatosplenomegaly. EXTREMITIES: Right extremity in dressing. Left, no erythema and no swelling. NEUROLOGIC: Alert and oriented x3. No focal sensory or motor deficits. LABORATORY DATA: White count 19.5, hemoglobin 11.5, hematocrit 35.2, and platelet count 236. Sodium 137, potassium 4.3, BUN 15, creatinine 0.8, and glucose 184. ASSESSMENT: 1. Right foot cellulitis. 2. Leukocytosis. 3. Anemia. 4. Peripheral vascular disease. 5. Hypertension. 6. Diabetes mellitus type 2. PLAN: We will admit to the hospital. ID consultation with Dr. Raya requested. IV antibiotics vancomycin and Zosyn started. Continue aspirin 81 mg daily, Xanax 0.25 mg p.o. b.i.d., Levemir 10 units subcutaneously in the morning, Mixtard 30 units subcutaneously b.i.d., Tapazole 10 mg daily, Percocet p.r.n. for pain, and IV fluids 100 mL an hour. Podiatry consultation Dr. Kevin has been requested. Sophie Bazan MD MTDPrakash
[2016-11-23] MEDS: Oxycodone/Acetaminophen 10/325 mg Tab PO PRN ×4 (04:54→22:19)
[2016-11-23 06:54] LABS: HEMATOCRIT 30.1 % (36.0-48.0); MEAN CELL VOLUME 82.5 fl (80.0-105.0); MEAN CORPUSCULAR HEMOGLOBIN 25.8 pg (25.0-35.0); MEAN CORPUSCULAR HGB CONC 31.2 g/dl (31.0-37.0); MEAN PLATELET VOLUME 9.2 fl (7.0-11.0); RED CELL DISTRIBUTION WIDTH 15.2 % (11.5-14.5)
[2016-11-23 07:03] LABS: ALB/GLOB RATIO 0.9 (1.1-1.8); BILIRUBIN,TOTAL 1.1 mg/dL (0.2-1.3); POTASSIUM 3.8 mmol/L (3.6-5.0); TOTAL PROTEIN 6.7 g/dL (5.8-8.3)
[2016-11-23] MEDS: Insulin Lispro (humaLOG) MIX 75/25(10 ml) SC SCH ×2 (09:16→17:16)
[2016-11-23] MEDS: Insulin Detemir 100 units/ml Vial (Levemir) SC SCH ×2 (09:16→22:15)
[2016-11-23] MEDS: Vancomycin 1gm in NS 250ml 1 GM/250 ML BAG IVPB SCH (09:21)
--- NOTE | 2016-11-23 10:15 | PQF SEPSIS ---
This form is a permanent part of the medical record Dr. Bazan, Patient was evaluated by ID who noted "sepsis due to infected right foot ulcers ". Based on admitting presentation and ID diagnosis, please document specifically if you concur with sepsis present on admission, was it ruled out, undetermined. Clarification of your documentation is requested to better reflect the severity of illness and intensity of treatment of your patient. Indicators present [] Temp < 96.8 or > 100.4 [] WBC count > 12,000/mm3 or <000/mm3 or 10% immature neutrophils [] Heart Rate > 90 [] Respiratory Rate > 20 [] Fever or hypothermia [] Chills [] Positive blood cultures [] Hypotension [] Metabolic acidosis (Elevated lactate level, anion gap or reduced blood pH) [] Acute confusion /Altered Mental Status [] Shock [] Other: [] Location in the medical record that reflects the above clinical findings: [] Treatment Provided: [] PHYSICIAN'S RESPONSE Based on your medical judgment of the clinical indicators outlined above, are you treating this patient for a known or suspected: [] Sepsis / Septicemia Please specify organism if known [] [] SIRS (Systemic Inflammatory Response Syndrome) [] Severe Sepsis (Sepsis with Associated Organ Dysfunction) [] Fever of Unknown Origin [] Other, please indicate: [] [] If Unable to Determine, please check the box, sign and date. Present On Admission (POA) Indicator: [] Present at the time of admission []XX Not present at the time of admission [] Clinically Undetermined In responding to this query, please exercise your independent professional judgment. The fact that a question is asked does not imply that any particular answer is desired or expected. Thank you for your clarification on this documentation. If you have any questions please call:[ ] * Thank you, [ ]Deejay Thomas [facility] #[id number] [employer] instructor ALL
[2016-11-23 12:44] LABS: IMMUNOGLOBULIN M 79.9 mg/dL (40.0-230.0)
[2016-11-23] MEDS ORDERED: Lidocaine 2% Inj (20ml) ONE (17:04)
[2016-11-23] MEDS ORDERED: Gentamicin 80 mg/2mL Inj. ONE (18:22)
[2016-11-23] MEDS ORDERED: Etomidate 20 mg/10ml Inj IV ONE (18:28)
--- NOTE | 2016-11-23 19:07 | PCM.SURG1 ---
Surgeon's Initial Post Op Note - Surgeon's Notes Surgeon: Dr. Kevin Gas Appliance Mechanic: Dr. Anup Mir PGY1 Type of Anesthesia: IV Sedation, Local Anesthesia Administered By: Dr. Granger Pre-Operative Diagnosis: Right foot abscess and cellulitis Operative Findings: See operative report. Materials: 03/22" iodoform packing Post-Operative Diagnosis: Same as above Operation Performed: Right foot incision and drainage Specimen/Specimens Removed: Right foot plantar wound Estimated Blood Loss: EBL {In ML}: 10 Blood Products Given: N/A Drains Used: No Drains Post-Op Condition: Good Date of Surgery/Procedure: 11/23/16 Time of Surgery/Procedure: 06:30
[2016-11-23] MEDS ORDERED: HYDROmorphone 0.5 mg/0.5 ml ISec IVP PRN (19:09)
[2016-11-23] MEDS: Sodium Chloride 0.9% 1,000 ML IV SCH (23:03)
--- NOTE | 2016-11-24 00:04 | CP.PCM.PN ---
Subjective - Date & Time of Evaluation Date of Evaluation: 11/23/16 Time of Evaluation: 18:00 - Subjective Subjective: DATE: 11/23/2016 SUBJECTIVE: She is comfortable in bed, no acute distress complaining of right foot pain. Pain is controlled with Percocet. She is on IV antibiotic as per ID. Wound debridement was done of the right foot by Dr. Kevin's team today in OR. REVIEW OF SYSTEMS: As per HPI. Rest of 12-point review of system reviewed negative. PHYSICAL EXAMINATION: GENERAL: Comfortable in bed, no acute distress. VITAL SIGNS: reviewed. HEENT: Normal. NECK: Supple. CHEST: Air entry present and equal bilaterally, no added sound. CARDIOVASCULAR: S1 and S2 normal. No murmur, no gallop. ABDOMEN: Soft and nontender. No hepatosplenomegaly. EXTREMITIES: No edema. Right leg in dressing. CENTRAL NERVOUS SYSTEM: Alert and oriented x3. No focal sensory or motor deficit. MEDICATIONS: Xanax 0.25 mg p.o. b.i.d., aspirin 81 mg daily, Lipitor 10 mg daily, insulin Levemir 10 a.m., IV antibiotics with Zosyn and vancomycin, IV fluids. Continue IV fluids, Percocet p.r.n. Tapazole 10 mg daily. ASSESSMENT: 1. Right foot cellulitis. 2. Leukocytosis. 3. Anemia. 4. Peripheral vascular disease. 5. History of osteomyelitis. PLAN: We will continue IV antibiotics as per ID, Zosyn and vancomycin, wound debridement in OR today. MRI of the right foot ordered today did not show osteomyelitis of the right foot. . PVD leukocytosis likely related to infection. Hb/Hct stable. Sophie Bazan Objective - Vital Signs/Intake and Output Vital Signs (last 24 hours): Temp Pulse Resp BP Pulse Ox 99.2 F 88 18 162/51 H 98 11/23/16 19:50 11/23/16 19:50 11/23/16 19:50 11/23/16 19:50 11/23/16 19:50 Intake and Output: 11/23/16 11/24/16 18:59 06:59 Intake Total 1480 300 Balance 1480 300 - Medications Medications: Current Medications Alprazolam (Xanax) 0.25 mg PO BID PRN; Protocol PRN Reason: Anxiety Stop: 11/29/16 08:38 Last Admin: 11/23/16 08:00 Dose: 0.25 mg Aspirin (Ecotrin) 81 mg PO DAILY [facility] Last Admin: 11/22/16 10:31 Dose: 81 mg Atorvastatin Calcium (Lipitor) 10 mg PO DAILY [facility] Last Admin: 11/23/16 09:17 Dose: 10 mg Hydromorphone HCl (Dilaudid) 0.5 mg IVP Q15M PRN PRN Reason: Pain, moderate (4-7) Sodium Chloride (Sodium Chloride 0.9%) 1,000 mls @ 100 mls/hr IV .Q10H [facility] Last Admin: 11/23/16 23:03 Dose: 100 mls/hr Piperacillin Sod/Tazobactam Sod (Zosyn 3.375 In Ns 100ml) 100 mls @ 200 mls/hr IVPB Q6 [facility] PRN Reason: Protocol Stop: 11/29/16 00:01 Last Admin: 11/23/16 23:04 Dose: 200 mls/hr Insulin Detemir (Levemir) 10 unit SC AMHS [facility] Last Admin: 11/23/16 22:15 Dose: Not Given Insulin Lispro Protam/Lispro Human (Humalog Mix 75/25) 30 units SC BID [facility] Last Admin: 11/23/16 17:16 Dose: Not Given Losartan Potassium (Cozaar) 50 mg PO DAILY [facility] Last Admin: 11/23/16 09:13 Dose: 50 mg Methimazole (Tapazole) 10 mg PO DAILY [facility] Last Admin: 11/23/16 09:17 Dose: 10 mg Oxycodone/Acetaminophen (Percocet 10/325 Mg Tab) 1 tab PO Q4H PRN PRN Reason: Pain, moderate (4-7) Last Admin: 11/23/16 22:19 Dose: 1 tab - Labs Labs: 11/23/16 06:30 11/23/16 06:30
--- NOTE | 2016-11-24 00:52 | PN ---
DATE: 11/23/2016 SUBJECTIVE: The patient is seen early this morning in room 316. No fevers. No chills. No nausea or vomiting. PHYSICAL EXAMINATION: VITAL SIGNS: Temperature is 99, blood pressure is 180/70 and respiratory rate of 18. HEENT: Unremarkable. NECK: Supple. LUNGS: Has decreased breath sounds. HEART: Normal S1 and S2. ABDOMEN: Soft. LABORATORY DATA: Reveals a white count of 14,000 and hemoglobin of 9. Sed rate is noted to be at 98. Microbiology reveals the patient has blood cultures are negative. Skin abscess cultures of Staph aureus, which is ramos sensitive, review of orders. MEDICATIONS: Reveals the patient to be on vancomycin and Zosyn. ASSESSMENT AND PLAN: A 70-year-old female with sepsis, sensitive Staphylococcus aureus foot ulcers, underlying osteomyelitis and the patient with a history of left second and tarsal osteomyelitis, amputations and history of Staphylococcus which grew Staphylococcus lugdunensis and currently on vancomycin and Zosyn. Workup in progress. This patient's creatinine is 2.1. We will discontinue the vancomycin. Acute kidney injury, last creatinine prior to that was 0.8. We will also order a urine for eosinophils. We will follow with you. Sampson Raya MD
--- NOTE | 2016-11-24 01:07 | PCM.OP ---
Operative Report - Operative Report Date of Surgery/Procedure: 11/23/16 Time of Surgery/Procedure: 18:30 Surgeon: Dr. Kevin Varitypist: Dr. Anup Mir, PGY1 Anesthesia/Sedation: IV sedation with local 10cc 2% lidocaine plain Pre-Operative Diagnosis: Right foot abscess and cellulitis Post-Operative Diagnosis: Same as above Indication for Surgery: The patient is a 70 year-old female with the above diagnoses. The patient has exhausted all conservative treatment at this time and now requires surgical intervention The patient signed the consent after careful explanation of risks, benefits, complication and alternatives for surgical procedure. No guarantees were given nor implied. Operative Findings: See operative report Procedure/Operation Description: Preparation: The patient was brought into the operating room and remained on inpatient bed lying in a supine position. Timeout was performed for identification of the correct patient and procedure. After induction of IV sedation, the patient received a total of 10 mL of 2% lidocaine plain in a Arreaga block type fashion to the right foot. Once local anesthesia was achieved, the right foot was then prepped and draped in normal sterile manner. No tourniquet was used during the procedure. Procedure: Attention was then directed to the plantar aspect of the right first interspace where an approximately 0.5cm x 1cm plantar ulceration was noted. Utilizing a # 15 blade, an approximately 5 cm linear incision was made plantarly distal to proximal from hyperkeratotic lesion sub 2nd metatarsal head through the ulceration site. The hyperkeratotic lesion was the site of previous foreign body. The incisions were deepened to subcutaneous tissue using a #15 blade and hemostat. The ulceration was noted to track distolaterally towards hyperkeratotic lesion, proximolaterally and proximocentrally. At this time, approximately 20 CC of purulence was expressed. A wound culture was obtained and sent for pathology. Necrotic and devitalized tissue was excisionally debrided until granular,bleeding tissue was noted. Next, utilizing a pulse lavage of 3 liters of normal saline and gentamicin, the area was irrigated. The surgical site was then packed with 1/4 inch iodosorb packing, adaptic, sterile gauze, DSD, and a light CYNDEE wrap. Estimated Blood Loss: 10 Blood Replaced: None Complications: None Discharge & Condition: Postoperative Condition: The patient tolerated the anesthesia and procedure well and was escorted to the recovery room with vital signs stable and neurovascular status intact to the left foot. This patient will be seen and followed by Dr. Kevin while the patient remains in the hospital.
[2016-11-24] MEDS ORDERED: Morphine 2 mg/ml ISec IVP STA (01:43)
[2016-11-24] MEDS: Piperacillin/Tazobact 3.375 gm 100 ML IVPB SCH ×2 (05:44→17:24)
[2016-11-24] MEDS: Insulin Lispro (humaLOG) MIX 75/25(10 ml) SC SCH ×2 (09:13→17:31)
[2016-11-24] MEDS: Sodium Chloride 0.9% 1,000 ML IV SCH (09:14)
[2016-11-24] MEDS: Oxychlorosene Topical 2 gm Packet TOP SCH (10:43)
[2016-11-24 12:05] LABS: MEAN CELL VOLUME 82.9 fl (80.0-105.0); MEAN CORPUSCULAR HGB CONC 31.3 g/dl (31.0-37.0); MEAN PLATELET VOLUME 8.8 fl (7.0-11.0); RED CELL DISTRIBUTION WIDTH 15.3 % (11.5-14.5); WHITE BLOOD COUNT 12.8 10^3/ul (4.5-11.0)
[2016-11-24 12:08] LABS: ALB/GLOB RATIO 0.9 (1.1-1.8); BILIRUBIN,TOTAL 0.8 mg/dL (0.2-1.3); CALCIUM 8.1 mg/dL (8.4-10.5); POTASSIUM 4.1 mmol/L (3.6-5.0); TOTAL PROTEIN 7.1 g/dL (5.8-8.3)
[2016-11-24] MEDS: Oxycodone/Acetaminophen 10/325 mg Tab PO PRN ×2 (15:09→20:18)
--- NOTE | 2016-11-24 15:49 | PN ---
DATE: SUBJECTIVE: A 70-year-old female seen at bedside with her son present for continued evaluation and management of an incision and drainage performed yesterday by Dr. Kevin on a severe right diabetic foot abscess. The patient's son had numerous questions, which were all answered. She will be trained to use the forefoot offloading shoe today or tomorrow at which time she will use the shoe to ambulate at all times going forward. The patient states that her pain has been decreased by approximately 95%. The patient's white blood cell count is 14 down from 19.5, hemoglobin is 9.4, hematocrit is 30.1, and platelet count is 239. ESR is 98. Most recent microbiology report reveals Staphylococcus aureus growth and we are awaiting pathology and microbiology report taken in the OR yesterday OBJECTIVE: EXTREMITIES: Weakly palpable pedal pulses noted bilaterally. The patient is unable to detect 5.07 g monofilament wire testing bilaterally. There is noted to be +1 nonpitting lower extremity edema bilaterally. Right foot was examined and there was an incision where the surgery was performed yesterday. There is noted to be serous drainage only. There is no purulence emanating from the wound. The deeper area of the incision site presents with granular tissue. There is no necrosis. There is no gangrenous or fibrotic tissue present. There is noted to be active bleeding. There is overall decreased edema and erythema of the entire forefoot. There are no signs of ascending cellulitis. ASSESSMENT: Status post day #1 severe diabetic right foot abscess, status post day #1 incision and drainage of a severe right diabetic foot abscess. PLAN: The patient's wound was examined and flushed with Clorpactin solution, 0.5 inch sterile iodoform packing was gently packed into the wound and the wound was dressed with the dry sterile dressing. Forefoot offloading wedge shoe was ordered and at bedside, the patient will be educated and trained how to use the forefoot offloading shoe either today or tomorrow. The patient's son was at bedside and all his questions were answered. I spoke with Ashwini at length and the need to wear a good supportive shoe while she is in her house at all times after her wound heals. In fact, I told her that she can only go barefoot when bathing and when sleeping and all other times she must wear a shoe even when watching television on the couch. We will continue with IV antibiotics and the patient will be seen in followup daily. Royal Tamayo DPM ALL
--- NOTE | 2016-11-24 20:22 | CP.PCM.PN ---
Subjective - Date & Time of Evaluation Date of Evaluation: 11/24/16 Time of Evaluation: 10:00 - Subjective Subjective: Comfortable, still with pain in the foot but better. Objective - Vital Signs/Intake and Output Vital Signs (last 24 hours): Temp Pulse Resp BP Pulse Ox 99.2 F 98 H 18 168/80 H 98 11/23/16 19:50 11/24/16 09:12 11/23/16 19:50 11/24/16 09:12 11/23/16 19:50 Intake and Output: 11/24/16 11/24/16 06:59 18:59 Intake Total 1500 Balance 1500 - Medications Medications: Current Medications Alprazolam (Xanax) 0.25 mg PO BID PRN; Protocol PRN Reason: Anxiety Stop: 11/29/16 08:38 Last Admin: 11/23/16 08:00 Dose: 0.25 mg Aspirin (Ecotrin) 81 mg PO DAILY [facility] Last Admin: 11/24/16 09:13 Dose: 81 mg Atorvastatin Calcium (Lipitor) 10 mg PO DAILY [facility] Last Admin: 11/24/16 09:14 Dose: 10 mg Hydromorphone HCl (Dilaudid) 0.5 mg IVP Q15M PRN PRN Reason: Pain, moderate (4-7) Sodium Chloride (Sodium Chloride 0.9%) 1,000 mls @ 100 mls/hr IV .Q10H [facility] Last Admin: 11/24/16 09:14 Dose: 100 mls/hr Piperacillin Sod/Tazobactam Sod (Zosyn 3.375 In Ns 100ml) 100 mls @ 200 mls/hr IVPB Q6 [facility] PRN Reason: Protocol Stop: 11/29/16 00:01 Last Admin: 11/24/16 05:44 Dose: 200 mls/hr Insulin Detemir (Levemir) 10 unit SC AMHS [facility] Last Admin: 11/23/16 22:15 Dose: Not Given Insulin Lispro Protam/Lispro Human (Humalog Mix 75/25) 30 units SC BID [facility] Last Admin: 11/24/16 09:13 Dose: Not Given Losartan Potassium (Cozaar) 50 mg PO DAILY [facility] Last Admin: 11/24/16 09:12 Dose: 50 mg Methimazole (Tapazole) 10 mg PO DAILY [facility] Last Admin: 11/24/16 09:14 Dose: 10 mg Mupirocin (Bactroban Ointment) 0 gm TOP DAILY [facility] Last Admin: 11/24/16 06:26 Dose: Not Given Oxychlorosene Sodium (Clorpactin Wcs-90) 2 gm TOP DAILY [facility] Oxycodone/Acetaminophen (Percocet 10/325 Mg Tab) 1 tab PO Q4H PRN PRN Reason: Pain, moderate (4-7) Last Admin: 11/23/16 22:19 Dose: 1 tab - Labs Labs: 11/23/16 06:30 11/23/16 06:30 - Constitutional Appears: Non-toxic, No Acute Distress - Head Exam Head Exam: NORMAL INSPECTION - ENT Exam ENT Exam: Mucous Membranes Moist - Neck Exam Neck Exam: absent: Lymphadenopathy, Meningismus - Respiratory Exam Respiratory Exam: Decreased Breath Sounds - Cardiovascular Exam Cardiovascular Exam: +S1, +S2 - GI/Abdominal Exam GI & Abdominal Exam: Soft. absent: Tenderness - Extremities Exam Additional comments: right foot with dressings in place Assessment and Plan - Assessment and Plan (Free Text) Plan: Assessment Sepsis due to infected right foot ulcers and abscess, with no evidence of osteomyelitis on MRI; S/P I and D and debridement in the OR; initial cx grew Staph aureus but we are awaiting cx from the OR history of Left 2nd metatarsal osteomyelitis in a patient with an infected adjacent ulcer S/P amputation - grew Staph lugdunensis S/P amputation of 2nd left toe previously severe peripheral arterial disease DM with neuropathy history of osteomyelitis Chronic lymphocytic leukemia TIA history of Klebsiella UTI Plan continue Vancomycin and Zosyn pending OR cultures will monitor clinically
[2016-11-24] MEDS: Insulin Detemir 100 units/ml Vial (Levemir) SC SCH (21:04)
[2016-11-25] MEDS: Oxycodone/Acetaminophen 10/325 mg Tab PO PRN ×6 (00:09→23:52)
[2016-11-25] MEDS: Piperacillin/Tazobact 3.375 gm 100 ML IVPB SCH ×6 (00:12→23:14)
[2016-11-25] MEDS: Oxychlorosene Topical 2 gm Packet TOP SCH (09:08)
[2016-11-25] MEDS: Insulin Lispro (humaLOG) MIX 75/25(10 ml) SC SCH ×2 (09:10→17:55)
[2016-11-25] MEDS: Insulin Detemir 100 units/ml Vial (Levemir) SC SCH ×2 (09:10→22:21)
--- NOTE | 2016-11-25 09:22 | CP.PCM.PN ---
<RomuloBriaarnaudsantana - Last Filed: 11/25/16 09:16> Subjective - Date & Time of Evaluation Date of Evaluation: 11/25/16 Time of Evaluation: 09:16 - Subjective Subjective: 70 y/o female seen at bedside 2 days s/p incision and drainage procedure to the right foot. Patient is AAOx3 and is in NAD. Patient denies of any acute overnight events. Patient states that she has little pain to the right foot but she is managing it well. Patient denies of any other pedal complains at this time. Patient denies of any F/N/V/C/SOB/CP today. Objective - Vital Signs/Intake and Output Vital Signs (last 24 hours): Temp Pulse Resp BP Pulse Ox 98.6 F 78 18 169/79 H 98 11/25/16 08:02 11/25/16 09:09 11/25/16 08:02 11/25/16 09:09 11/25/16 08:02 Intake and Output: 11/25/16 11/25/16 06:59 18:59 Intake Total 420 Balance 420 - Medications Medications: Current Medications Alprazolam (Xanax) 0.25 mg PO BID PRN; Protocol PRN Reason: Anxiety Stop: 11/29/16 08:38 Last Admin: 11/23/16 08:00 Dose: 0.25 mg Aspirin (Ecotrin) 81 mg PO DAILY [facility] Last Admin: 11/25/16 09:09 Dose: 81 mg Atorvastatin Calcium (Lipitor) 10 mg PO DAILY [facility] Last Admin: 11/25/16 09:11 Dose: 10 mg Hydromorphone HCl (Dilaudid) 0.5 mg IVP Q15M PRN PRN Reason: Pain, moderate (4-7) Last Admin: 11/24/16 10:42 Dose: 0.5 mg Piperacillin Sod/Tazobactam Sod (Zosyn 3.375 In Ns 100ml) 100 mls @ 200 mls/hr IVPB Q6 [facility] PRN Reason: Protocol Stop: 11/29/16 00:01 Last Admin: 11/25/16 05:41 Dose: 200 mls/hr Insulin Detemir (Levemir) 10 unit SC AMHS [facility] Last Admin: 11/25/16 09:10 Dose: Not Given Insulin Lispro Protam/Lispro Human (Humalog Mix 75/25) 30 units SC BID [facility] Last Admin: 11/25/16 09:10 Dose: Not Given Losartan Potassium (Cozaar) 50 mg PO DAILY [facility] Last Admin: 11/25/16 09:09 Dose: 50 mg Methimazole (Tapazole) 10 mg PO DAILY [facility] Last Admin: 11/25/16 09:13 Dose: 10 mg Mupirocin (Bactroban Ointment) 0 gm TOP DAILY [facility] Last Admin: 11/24/16 06:26 Dose: Not Given Oxychlorosene Sodium (Clorpactin Wcs-90) 2 gm TOP DAILY [facility] Last Admin: 11/25/16 09:08 Dose: 2 gm Oxycodone/Acetaminophen (Percocet 10/325 Mg Tab) 1 tab PO Q4H PRN PRN Reason: Pain, moderate (4-7) Last Admin: 11/25/16 05:40 Dose: 1 tab - Labs Labs: 11/24/16 11:53 11/24/16 11:53 - Constitutional Appears: Well, Non-toxic, No Acute Distress - Extremities Exam Additional comments: Vasc: lightly palpable pulses, TG warm to warm, CFT < 4 sec to all digits, minimal nonpitting edema to RLE Derm: open fissure plantar sub met 1, tracking distal laterally, no purulent drainage, mild active bleeding noted, no fluctuance, no malodor, no ascending cellulitis, deroofed blister noted to dorsomedial foot, no signs of active infection noted Neuro: grossly diminished Ortho: mild pain on palpation plantar sub met 1 of right foot - Neurological Exam Neurological Exam: Alert, Awake, Oriented x3 - Psychiatric Exam Psychiatric exam: Normal Affect, Normal Mood Assessment and Plan - Assessment and Plan (Free Text) Assessment: 70 y/o female seen at bedside 2 days s/p incision and drainage procedure to the right foot secondary to cellulitis and abscess. Plan: Patient evaluated and chart reviewed Patient seen at bedside with attending Dr. Tamayo labs and vitals reviewed; afebrile, WBC 11/24/16: 12.8. WBC trending down continue IV abx as per ID Flushed the wound with Chlorpactin and dressed with telfa, DSD and an CYNDEE to right foot Physical therapy is following up with the patient in order to teach how to walk in the wedge shoe podiatry will continue to follow while patient remains in house <Miguelito Tamayolaurie - Last Filed: 11/28/16 11:19> Objective - Vital Signs/Intake and Output Vital Signs (last 24 hours): Temp Pulse Resp BP Pulse Ox 99 F 79 20 165/70 H 98 11/27/16 08:11 11/27/16 09:09 11/27/16 08:11 11/27/16 09:09 11/27/16 08:11 - Labs Labs: 11/26/16 12:40 11/26/16 12:40 Attending/Attestation - Attestation I have personally seen and examined this patient.: Yes I have fully participated in the care of the patient.: Yes I have reviewed all pertinent clinical information, including history, physical exam and plan: Yes
--- NOTE | 2016-11-25 15:38 | PN ---
DATE: 11/25/2016 SUBJECTIVE: Comfortable in bed, in no acute distress. Complaining of shooting pain in the right leg once. She got IV morphine which relieved the pain. She underwent wound debridement on the right foot last week. No fever. No cough with expectoration. No chest pain. REVIEW OF SYSTEMS: As per HPI. Rest of the 12-point review of systems reviewed and negative. PHYSICAL EXAMINATION: GENERAL: Comfortable in bed, no acute distress. VITAL SIGNS: Temperature 98.8, heart rate is 87 per minute, blood pressure 137/60, pulse ox is 98% on room air. HEENT: Normal. CHEST: Air entry present and equal bilaterally, no added sound. CARDIOVASCULAR: S1 and S2 normal. No murmur, no gallop. ABDOMEN: Soft and nontender. No hepatosplenomegaly. EXTREMITIES: No edema. Right foot in dressing. CENTRAL NERVOUS SYSTEM: Alert and oriented x3. No sensory or motor deficit. SKIN: Normal. MEDICATIONS: Xanax 0.25 mg p.o. b.i.d. p.r.n., aspirin 81 mg daily, Lipitor 10 mg daily, Levemir 10 subcu q.a.m., Mixtard 30 b.i.d., Cozaar 50 mg daily, Tapazole 10 mg daily, daptomycin ointment, oxycodone q.4h. p.r.n., Percocet, Zosyn q. 6 hours. LABORATORY DATA: White count 12.8, hemoglobin 9.4, hematocrit 30, and platelet count 228. Sodium 143, potassium 4.1, glucose 112, calcium 8.1, bilirubin 0.8. ASSESSMENT AND PLAN: 1. Right foot cellulitis. 2. Leukocytosis. 3. Anemia. 4. Peripheral vascular disease. 5. History of osteomyelitis. 6. Diabetes mellitus type II. PLAN: Continue IV antibiotic with Zosyn. Encourage ambulation. Pain control with current medication Percocet p.r.n., continue Tapazole 10 mg daily; continue Cozaar. Continue insulin. We started Levemir. Sugar control on current medication. Continue aspirin and Xanax. Sophie Hortensia, MD [facility] # [id number]
--- NOTE | 2016-11-25 18:15 | CP.PCM.PN ---
Subjective - Date & Time of Evaluation Date of Evaluation: 11/25/16 Time of Evaluation: 10:35 - Subjective Subjective: Comfortable, not in distress, afebrile. Objective - Vital Signs/Intake and Output Vital Signs (last 24 hours): Temp Pulse Resp BP Pulse Ox 98.6 F 80 20 175/77 H 99 11/24/16 16:53 11/24/16 16:53 11/24/16 16:53 11/24/16 16:53 11/24/16 16:53 - Medications Medications: Current Medications Alprazolam (Xanax) 0.25 mg PO BID PRN; Protocol PRN Reason: Anxiety Stop: 11/29/16 08:38 Last Admin: 11/23/16 08:00 Dose: 0.25 mg Aspirin (Ecotrin) 81 mg PO DAILY [facility] Last Admin: 11/24/16 09:13 Dose: 81 mg Atorvastatin Calcium (Lipitor) 10 mg PO DAILY [facility] Last Admin: 11/24/16 09:14 Dose: 10 mg Hydromorphone HCl (Dilaudid) 0.5 mg IVP Q15M PRN PRN Reason: Pain, moderate (4-7) Last Admin: 11/24/16 10:42 Dose: 0.5 mg Sodium Chloride (Sodium Chloride 0.9%) 1,000 mls @ 100 mls/hr IV .Q10H [facility] Last Admin: 11/24/16 09:14 Dose: 100 mls/hr Piperacillin Sod/Tazobactam Sod (Zosyn 3.375 In Ns 100ml) 100 mls @ 200 mls/hr IVPB Q6 [facility] PRN Reason: Protocol Stop: 11/29/16 00:01 Last Admin: 11/24/16 17:24 Dose: 200 mls/hr Insulin Detemir (Levemir) 10 unit SC AMHS [facility] Last Admin: 11/23/16 22:15 Dose: Not Given Insulin Lispro Protam/Lispro Human (Humalog Mix 75/25) 30 units SC BID [facility] Last Admin: 11/24/16 17:31 Dose: 30 u Losartan Potassium (Cozaar) 50 mg PO DAILY [facility] Last Admin: 11/24/16 09:12 Dose: 50 mg Methimazole (Tapazole) 10 mg PO DAILY [facility] Last Admin: 11/24/16 09:14 Dose: 10 mg Mupirocin (Bactroban Ointment) 0 gm TOP DAILY [facility] Last Admin: 11/24/16 06:26 Dose: Not Given Oxychlorosene Sodium (Clorpactin Wcs-90) 2 gm TOP DAILY [facility] Last Admin: 11/24/16 10:43 Dose: 2 gm Oxycodone/Acetaminophen (Percocet 10/325 Mg Tab) 1 tab PO Q4H PRN PRN Reason: Pain, moderate (4-7) Last Admin: 11/24/16 20:18 Dose: 1 tab - Labs Labs: 11/24/16 11:53 11/24/16 11:53 - Constitutional Appears: Non-toxic, No Acute Distress - Head Exam Head Exam: NORMAL INSPECTION - ENT Exam ENT Exam: Mucous Membranes Moist - Neck Exam Neck Exam: absent: Lymphadenopathy, Meningismus - Respiratory Exam Respiratory Exam: Decreased Breath Sounds - Cardiovascular Exam Cardiovascular Exam: +S1, +S2 - GI/Abdominal Exam GI & Abdominal Exam: Soft. absent: Tenderness - Extremities Exam Additional comments: right foot with dry dressings in place Assessment and Plan - Assessment and Plan (Free Text) Plan: Assessment Sepsis due to infected right foot ulcers and abscess, with no evidence of osteomyelitis on MRI; S/P I and D and debridement in the OR; initial cx grew Staph aureus but we are awaiting cx from the OR history of Left 2nd metatarsal osteomyelitis in a patient with an infected adjacent ulcer S/P amputation - grew Staph lugdunensis S/P amputation of 2nd left toe previously severe peripheral arterial disease DM with neuropathy history of osteomyelitis Chronic lymphocytic leukemia TIA history of Klebsiella UTI Plan continue Vancomycin and Zosyn pending OR cultures will continue to monitor clinically
[2016-11-26] MEDS: Piperacillin/Tazobact 3.375 gm 100 ML IVPB SCH ×3 (05:15→17:25)
[2016-11-26] MEDS: Insulin Lispro (humaLOG) MIX 75/25(10 ml) SC SCH (09:23)
[2016-11-26] MEDS: Oxychlorosene Topical 2 gm Packet TOP SCH (09:30)
[2016-11-26] MEDS: Insulin Detemir 100 units/ml Vial (Levemir) SC SCH (09:33)
--- NOTE | 2016-11-26 11:39 | PN ---
DATE: 11/26/2016 SUBJECTIVE: She is comfortable in bed in no acute distress. Complaining of feeling fatigue and tired. Blood pressure elevated to 200. She underwent debridement of the right foot. Not ambulating. Confined to the bed. No fever. No cough with expectoration. No chest pain. REVIEW OF SYSTEMS: As per HPI. Rest of the 12-point review of systems reviewed and negative. PHYSICAL EXAMINATION: GENERAL: Comfortable in bed, in no acute distress. VITAL SIGNS: Temperature 98.7, heart rate is 85 per minute, blood pressure 216/94, pulse ox is 98% on room air. HEENT: Normal. CHEST: Air entry present and equal bilaterally, no added sound. CARDIOVASCULAR: S1 and S2 normal. No murmur. No gallop. ABDOMEN: Soft and nontender. No hepatosplenomegaly. EXTREMITIES: No edema. Right foot in dressing. CENTRAL NERVOUS SYSTEM: Alert and oriented x3. No focal, sensory or motor deficit. SKIN: Normal. No petechiae. No rash. MEDICATIONS: Xanax 0.25 mg p.o. b.i.d., aspirin 81 mg daily, Lipitor 10 mg daily, Dilaudid p.r.n., Levemir 10 mg at bedtime, Mixtard insulin 30 mg subcutaneous b.i.d., Cozaar 50 mg daily, Tapazole 10 mg daily, Bactroban for local application, and Zosyn q. 6 hours. LABORATORY DATA: Foot growing staph aureus. Blood cultures negative. Glucose 144. CBC done 11/24/2016, white count 12.8, hemoglobin 9.4, hematocrit 30, platelet count 228. ASSESSMENT AND PLAN: 1. Right foot cellulitis. 2. Leukocytosis. 3. Anemia. 4. Peripheral vascular disease. 5. History of osteomyelitis. 6. Diabetes mellitus type II. PLAN: We will continue IV antibiotic with Zosyn. Pain control with current medication she gets Dilaudid p.r.n. for severe pain. Elevated blood pressure is likely due to pain. She did not get her Cozaar which was given after the elevated blood pressure. We will repeat the blood pressure. If still elevated hydralazine p.r.n. Continue insulin coverage. Blood sugar control with the current regimen of insulin. Encourage ambulation. Continue Xanax for anxiety. Sophie Bazan MD [facility] # [id number]
[2016-11-26] MEDS: Morphine 2 mg/ml ISec IM PRN ×2 (12:25→16:02)
[2016-11-26] MEDS: Sodium Chloride 0.9% 1,000 ML IV SCH (12:26)
[2016-11-26 12:49] LABS: BASO # 0.03 K/mm3 (0.0-2.0); BASO % 0.2 % (0.0-3.0); EOS # 0.2 (0.0-0.7); EOS % 1.3 % (1.5-5.0); GRAN # 7.59 (1.4-6.5); GRAN % 53.4 % (50.0-68.0); HEMATOCRIT 30.6 % (36.0-48.0); LYMPH # 5.9 (1.2-3.4); LYMPH % 41.5 % (22.0-35.0); MEAN CELL VOLUME 81.8 fl (80.0-105.0); MEAN CORPUSCULAR HEMOGLOBIN 26.2 pg (25.0-35.0); MEAN PLATELET VOLUME 8.2 fl (7.0-11.0); MONO # 0.5 (0.1-0.6); MONO % 3.6 % (1.0-6.0); WHITE BLOOD COUNT 14.3 10^3/ul (4.5-11.0)
--- NOTE | 2016-11-26 12:56 | CP.PCM.PN ---
Subjective - Date & Time of Evaluation Date of Evaluation: 11/26/16 Time of Evaluation: 12:53 - Subjective Subjective: Podiatry progress note for Dr. Kevin 71 y/o female seen at bedside 3 days s/p incision and drainage procedure to the right foot. Patient is AAOx3 and is in NAD. Patient denies of any acute overnight events. Patient states that she has pain to the right foot but it is better than yesterday. Patient denies of any other pedal complains at this time. Patient denies of any F/N/V/C/SOB/CP today. Objective - Vital Signs/Intake and Output Vital Signs (last 24 hours): Temp Pulse Resp BP Pulse Ox 98.9 F 78 20 190/87 H 95 11/26/16 07:42 11/26/16 12:24 11/26/16 07:42 11/26/16 12:24 11/26/16 07:42 Intake and Output: 11/26/16 11/26/16 06:59 18:59 Intake Total 680 Balance 680 - Medications Medications: Current Medications Alprazolam (Xanax) 0.25 mg PO BID PRN; Protocol PRN Reason: Anxiety Stop: 11/29/16 08:38 Last Admin: 11/23/16 08:00 Dose: 0.25 mg Aspirin (Ecotrin) 81 mg PO DAILY [facility] Last Admin: 11/26/16 09:33 Dose: 81 mg Atorvastatin Calcium (Lipitor) 10 mg PO DAILY [facility] Last Admin: 11/26/16 09:24 Dose: 10 mg Hydralazine HCl (Apresoline) 10 mg PO Q6 PRN PRN Reason: SYSTOLIC BLOOD PRESSURE Hydromorphone HCl (Dilaudid) 0.5 mg IVP Q15M PRN PRN Reason: Pain, moderate (4-7) Last Admin: 11/24/16 10:42 Dose: 0.5 mg Piperacillin Sod/Tazobactam Sod (Zosyn 3.375 In Ns 100ml) 100 mls @ 200 mls/hr IVPB Q6 [facility] PRN Reason: Protocol Stop: 11/29/16 00:01 Last Admin: 11/26/16 12:26 Dose: 200 mls/hr Sodium Chloride (Sodium Chloride 0.9%) 1,000 mls @ 70 mls/hr IV .[id number] [facility] Last Admin: 11/26/16 12:26 Dose: 70 mls/hr Insulin Detemir (Levemir) 10 unit SC AMHS [facility] Last Admin: 11/26/16 09:33 Dose: 10 unit Insulin Lispro Protam/Lispro Human (Humalog Mix 75/25) 30 units SC BID [facility] Last Admin: 11/26/16 09:23 Dose: 30 u Losartan Potassium (Cozaar) 50 mg PO DAILY [facility] Last Admin: 11/26/16 09:24 Dose: 50 mg Methimazole (Tapazole) 10 mg PO DAILY [facility] Last Admin: 11/26/16 09:24 Dose: 10 mg Morphine Sulfate (Morphine) 2 mg IM Q4H PRN PRN Reason: Pain, moderate (4-7) Last Admin: 11/26/16 12:25 Dose: 2 mg Mupirocin (Bactroban Ointment) 0 gm TOP DAILY [facility] Last Admin: 11/24/16 06:26 Dose: Not Given Ondansetron HCl (Zofran Inj) 4 mg IVP Q6H PRN PRN Reason: Nausea/Vomiting Oxychlorosene Sodium (Clorpactin Wcs-90) 2 gm TOP DAILY [facility] Last Admin: 11/26/16 09:30 Dose: 2 gm - Labs Labs: 11/24/16 11:53 11/24/16 11:53 - Constitutional Appears: Well, Non-toxic, No Acute Distress - Extremities Exam Additional comments: Vasc: lightly palpable pulses, TG warm to warm, CFT < 4 sec to all digits, minimal nonpitting edema to RLE Derm: open fissure plantar sub met 1, tracking distal laterally, surrounding skin appears mildly macerated, no purulent drainage, no active bleeding noted, no fluctuance, no malodor, no ascending cellulitis, deroofed blister noted to dorsomedial foot, wound bed appears granular with no active drainage, no signs of active infection noted Neuro: grossly diminished Ortho: mild pain on palpation plantar sub met 1 of right foot - Neurological Exam Neurological Exam: Alert, Awake, Oriented x3 - Psychiatric Exam Psychiatric exam: Normal Affect, Normal Mood Assessment and Plan - Assessment and Plan (Free Text) Assessment: 71 y/o female seen at bedside 3 days s/p incision and drainage procedure to the right foot secondary to cellulitis and abscess. Plan: Patient evaluated and chart reviewed labs and vitals reviewed; afebrile, WBC 11/26/16: 14.3 High from yesterday continue IV abx as per ID Flushed the wound with Chlorpactin and dressed with telfa, DSD and an CYNDEE to right foot Physical therapy is following up with the patient in order to teach how to walk in the wedge shoe podiatry will continue to follow while patient remains in house
[2016-11-26 13:11] LABS: BLOOD UREA NITROGEN 9 mg/dL (7-21); CARBON DIOXIDE 28 mmol/L (21-33); CHLORIDE 108 mmol/L (98-107); GFR AFRICAN-AMERICAN 49; GLUCOSE,RANDOM 83 mg/dL (70-110); POTASSIUM 3.6 mmol/L (3.6-5.0); SODIUM 145 mmol/L (132-148)
[2016-11-26 13:23] LABS: TROPONIN I < 0.01 ng/mL
[2016-11-26] MEDS: Insulin Reg-MEDIUM-Coverage SC SCH ×2 (16:47→22:27)
--- NOTE | 2016-11-26 17:59 | CARD ---
APPROVED REPORT EKG Measurement Heart [id number] HI [id number] <Conclusion> Sinus rhythm with 1st degree AV block Minimal voltage criteria for LVH, may be normal variant Septal infarct, age undetermined Abnormal ECG
--- NOTE | 2016-11-26 18:31 | CP.PCM.PN ---
Subjective - Date & Time of Evaluation Date of Evaluation: 11/26/16 Time of Evaluation: 10:10 - Subjective Subjective: Less pain in the foot but feels weak. No fevers overnight. Objective - Vital Signs/Intake and Output Vital Signs (last 24 hours): Temp Pulse Resp BP Pulse Ox 99.0 F 78 19 147/79 100 11/25/16 17:28 11/25/16 18:09 11/25/16 17:28 11/25/16 18:09 11/25/16 17:28 Intake and Output: 11/25/16 11/25/16 06:59 18:59 Intake Total 420 600 Balance 420 600 - Medications Medications: Current Medications Alprazolam (Xanax) 0.25 mg PO BID PRN; Protocol PRN Reason: Anxiety Stop: 11/29/16 08:38 Last Admin: 11/23/16 08:00 Dose: 0.25 mg Aspirin (Ecotrin) 81 mg PO DAILY [facility] Last Admin: 11/25/16 09:09 Dose: 81 mg Atorvastatin Calcium (Lipitor) 10 mg PO DAILY [facility] Last Admin: 11/25/16 09:11 Dose: 10 mg Hydromorphone HCl (Dilaudid) 0.5 mg IVP Q15M PRN PRN Reason: Pain, moderate (4-7) Last Admin: 11/24/16 10:42 Dose: 0.5 mg Piperacillin Sod/Tazobactam Sod (Zosyn 3.375 In Ns 100ml) 100 mls @ 200 mls/hr IVPB Q6 [facility] PRN Reason: Protocol Stop: 11/29/16 00:01 Last Admin: 11/25/16 12:21 Dose: 200 mls/hr Insulin Detemir (Levemir) 10 unit SC AMHS [facility] Last Admin: 11/25/16 09:10 Dose: Not Given Insulin Lispro Protam/Lispro Human (Humalog Mix 75/25) 30 units SC BID [facility] Last Admin: 11/25/16 17:55 Dose: Not Given Losartan Potassium (Cozaar) 50 mg PO DAILY [facility] Last Admin: 11/25/16 09:09 Dose: 50 mg Methimazole (Tapazole) 10 mg PO DAILY [facility] Last Admin: 11/25/16 09:13 Dose: 10 mg Mupirocin (Bactroban Ointment) 0 gm TOP DAILY [facility] Last Admin: 11/24/16 06:26 Dose: Not Given Oxychlorosene Sodium (Clorpactin Wcs-90) 2 gm TOP DAILY [facility] Last Admin: 11/25/16 09:08 Dose: 2 gm Oxycodone/Acetaminophen (Percocet 10/325 Mg Tab) 1 tab PO Q4H PRN PRN Reason: Pain, moderate (4-7) Last Admin: 11/25/16 16:17 Dose: 1 tab - Labs Labs: 11/24/16 11:53 11/24/16 11:53 - Constitutional Appears: Non-toxic, No Acute Distress - Head Exam Head Exam: NORMAL INSPECTION - ENT Exam ENT Exam: Mucous Membranes Moist - Neck Exam Neck Exam: absent: Meningismus - Respiratory Exam Respiratory Exam: Decreased Breath Sounds - Cardiovascular Exam Cardiovascular Exam: +S1, +S2 - GI/Abdominal Exam GI & Abdominal Exam: Soft. absent: Tenderness - Extremities Exam Additional comments: right foot with dressings in place Assessment and Plan - Assessment and Plan (Free Text) Plan: Assessment Sepsis due to infected right foot ulcers and abscess, with no evidence of osteomyelitis on MRI; S/P I and D and debridement in the OR; initial cx grew Staph aureus but we are awaiting cx from the OR history of Left 2nd metatarsal osteomyelitis in a patient with an infected adjacent ulcer S/P amputation - grew Staph lugdunensis S/P amputation of 2nd left toe previously severe peripheral arterial disease DM with neuropathy history of osteomyelitis Chronic lymphocytic leukemia TIA history of Klebsiella UTI Plan continue Zosyn pending final OR culture results will continue to monitor clinically
[2016-11-26] MEDS: Morphine 2 mg/ml ISec IVP PRN (20:06)
[2016-11-27] MEDS: Piperacillin/Tazobact 3.375 gm 100 ML IVPB SCH ×3 (01:08→12:12)
[2016-11-27] MEDS: Morphine 2 mg/ml ISec IVP PRN ×2 (04:54→14:18)
[2016-11-27] MEDS: Sodium Chloride 0.9% 1,000 ML IV SCH (04:55)
[2016-11-27 08:12] VITALS: BP 165/70; PULSE 79; RESP 20; TEMP 99; O2SAT 98
[2016-11-27] MEDS: Insulin Reg-MEDIUM-Coverage SC SCH ×2 (09:06→12:12)
--- NOTE | 2016-11-27 13:20 | CP.PCM.PN ---
Subjective - Date & Time of Evaluation Date of Evaluation: 11/27/16 Time of Evaluation: 10:30 - Subjective Subjective: Comfortable, less pain in the right foot, still has some weakness but a little better, no fevers overnight. Objective - Vital Signs/Intake and Output Vital Signs (last 24 hours): Temp Pulse Resp BP Pulse Ox 98.8 F 76 19 175/76 H 95 11/26/16 16:42 11/26/16 16:42 11/26/16 16:42 11/26/16 16:42 11/26/16 16:42 Intake and Output: 11/26/16 11/26/16 06:59 18:59 Intake Total 680 360 Output Total 800 Balance 680 -440 - Medications Medications: Current Medications Alprazolam (Xanax) 0.25 mg PO BID PRN; Protocol PRN Reason: Anxiety Stop: 11/29/16 08:38 Last Admin: 11/23/16 08:00 Dose: 0.25 mg Aspirin (Ecotrin) 81 mg PO DAILY [facility] Last Admin: 11/26/16 09:33 Dose: 81 mg Atorvastatin Calcium (Lipitor) 10 mg PO DAILY [facility] Last Admin: 11/26/16 09:24 Dose: 10 mg Hydralazine HCl (Apresoline) 10 mg PO Q6 PRN PRN Reason: SYSTOLIC BLOOD PRESSURE Last Admin: 11/26/16 16:11 Dose: 10 mg Hydromorphone HCl (Dilaudid) 0.5 mg IVP Q15M PRN PRN Reason: Pain, moderate (4-7) Last Admin: 11/24/16 10:42 Dose: 0.5 mg Piperacillin Sod/Tazobactam Sod (Zosyn 3.375 In Ns 100ml) 100 mls @ 200 mls/hr IVPB Q6 [facility] PRN Reason: Protocol Stop: 11/29/16 00:01 Last Admin: 11/26/16 17:25 Dose: 200 mls/hr Sodium Chloride (Sodium Chloride 0.9%) 1,000 mls @ 70 mls/hr IV .[id number] [facility] Last Admin: 11/26/16 12:26 Dose: 70 mls/hr Insulin Human Regular (Humulin R Med) 0 units SC ACHS [facility] PRN Reason: Protocol Last Admin: 11/26/16 16:47 Dose: Not Given Losartan Potassium (Cozaar) 50 mg PO DAILY [facility] Last Admin: 11/26/16 09:24 Dose: 50 mg Methimazole (Tapazole) 10 mg PO DAILY [facility] Last Admin: 11/26/16 09:24 Dose: 10 mg Morphine Sulfate (Morphine) 2 mg IVP Q4H PRN PRN Reason: Pain, moderate (4-7) Mupirocin (Bactroban Ointment) 0 gm TOP DAILY [facility] Last Admin: 11/26/16 14:00 Dose: 1 applic Ondansetron HCl (Zofran Inj) 4 mg IVP Q6H PRN PRN Reason: Nausea/Vomiting Last Admin: 11/26/16 18:07 Dose: 4 mg Oxychlorosene Sodium (Clorpactin Wcs-90) 2 gm TOP DAILY [facility] Last Admin: 11/26/16 09:30 Dose: 2 gm - Labs Labs: 11/26/16 12:40 11/26/16 12:40 - Constitutional Appears: Non-toxic, No Acute Distress - Head Exam Head Exam: NORMAL INSPECTION - Neck Exam Neck Exam: absent: Meningismus - Respiratory Exam Respiratory Exam: Decreased Breath Sounds - Cardiovascular Exam Cardiovascular Exam: +S1, +S2 - GI/Abdominal Exam GI & Abdominal Exam: Soft. absent: Tenderness - Extremities Exam Additional comments: right foot with dressings in place Assessment and Plan - Assessment and Plan (Free Text) Plan: Assessment Sepsis due to infected right foot ulcers and abscess, with no evidence of osteomyelitis on MRI; S/P I and D and debridement in the OR; cx are growing MSSA history of Left 2nd metatarsal osteomyelitis in a patient with an infected adjacent ulcer S/P amputation - grew Staph lugdunensis S/P amputation of 2nd left toe previously severe peripheral arterial disease DM with neuropathy history of osteomyelitis Chronic lymphocytic leukemia TIA history of Klebsiella UTI Plan change antibiotics to Cefazolin and should complete 7-10 days of therapy ( unless OR pathology shows osteomyelitis but no evidence on MRI) will continue to monitor clinically
[2016-11-27] MEDS: Oxychlorosene Topical 2 gm Packet TOP SCH (13:24)
--- NOTE | 2016-11-27 13:59 | CP.PCM.PN ---
Subjective - Date & Time of Evaluation Date of Evaluation: 11/27/16 Time of Evaluation: 13:58 - Subjective Subjective: Podiatry Progress Note - Dr. Kevin 71 year old female patient with PMHx hypertension, hyperlipidemia, DM, osteomyelitis, pyelonephritis, PVD seen at bedside POD#4 right foot incision and drainage (DOS 11/23/16) with attending, Dr. Kevin. Patient is seen resting comfortably, AAOx3 and NAD. Patient denies any acute events overnight. Patient states she is feeling better than yesterday, with minimal pain to the bottom of her right foot. Patient denies N/V/F/D/C/SOB/calf pain. No other pedal complaints at this time. Objective - Vital Signs/Intake and Output Vital Signs (last 24 hours): Temp Pulse Resp BP Pulse Ox 99 F 79 20 165/70 H 98 11/27/16 08:11 11/27/16 09:09 11/27/16 08:11 11/27/16 09:09 11/27/16 08:11 Intake and Output: 11/27/16 11/27/16 06:59 18:59 Intake Total 500 Balance 500 - Medications Medications: Current Medications Alprazolam (Xanax) 0.25 mg PO BID PRN; Protocol PRN Reason: Anxiety Stop: 11/29/16 08:38 Last Admin: 11/23/16 08:00 Dose: 0.25 mg Aspirin (Ecotrin) 81 mg PO DAILY [facility] Last Admin: 11/27/16 09:10 Dose: 81 mg Atorvastatin Calcium (Lipitor) 10 mg PO DAILY [facility] Last Admin: 11/27/16 09:10 Dose: 10 mg Hydralazine HCl (Apresoline) 10 mg PO Q6 PRN PRN Reason: SYSTOLIC BLOOD PRESSURE Last Admin: 11/26/16 16:11 Dose: 10 mg Hydromorphone HCl (Dilaudid) 0.5 mg IVP Q15M PRN PRN Reason: Pain, moderate (4-7) Last Admin: 11/24/16 10:42 Dose: 0.5 mg Cefazolin Sodium 2 gm/ Sodium (Chloride) 100 mls @ 200 mls/hr IVPB Q8 [facility] PRN Reason: Protocol Insulin Human Regular (Humulin R Med) 0 units SC ACHS [facility] PRN Reason: Protocol Last Admin: 11/27/16 12:12 Dose: 3 units Losartan Potassium (Cozaar) 100 mg PO DAILY [facility] Last Admin: 11/27/16 12:12 Dose: Not Given Methimazole (Tapazole) 10 mg PO DAILY [facility] Last Admin: 11/27/16 09:10 Dose: 10 mg Morphine Sulfate (Morphine) 2 mg IVP Q4H PRN PRN Reason: Pain, moderate (4-7) Last Admin: 11/27/16 04:54 Dose: 2 mg Mupirocin (Bactroban Ointment) 0 gm TOP DAILY [facility] Last Admin: 11/27/16 13:24 Dose: 1 applic Ondansetron HCl (Zofran Inj) 4 mg IVP Q6H PRN PRN Reason: Nausea/Vomiting Last Admin: 11/26/16 18:07 Dose: 4 mg Oxychlorosene Sodium (Clorpactin Wcs-90) 2 gm TOP DAILY [facility] Last Admin: 11/27/16 13:24 Dose: 2 gm - Labs Labs: 11/26/16 12:40 11/26/16 12:40 - Constitutional Appears: Well, Non-toxic, No Acute Distress - Extremities Exam Additional comments: RLE focused physical exam Vasc: lightly palpable pulses. TG warm to warm. CFT < 4 sec to all digits. Minimal nonpitting edema to RLE, decreased since previous visit. Neuro: Gross sensation diminished bilaterally Derm: Open fissure plantar sub met 1, tracking distal laterally with no tracking noted proximocentrally. Proximal aspect of fissure appears macerated. Active bleeding noted when fissure was expressed however no purulence, fluctuance, malodor noted. Deroofed blister noted to dorsomedial foot and dorsum of hallux with granular base - no purulence, drainage, fluctuance, malodor, or clinical signs of infection noted. skin from blister extending proximally into plantar medial arch. Ortho: Mild tenderness to palpation sub met 1 of right foot. - Neurological Exam Neurological Exam: Alert, Awake, Oriented x3 - Psychiatric Exam Psychiatric exam: Normal Affect, Normal Mood Assessment and Plan - Assessment and Plan (Free Text) Assessment: 71 year old female patient POD#4 right foot incision and drainage for right foot abscess + cellulitis Plan: Patient seen and evaluated at bedside with attending, Dr. Kevin Chart, vitals, labs reviewed = afebrile, WBC increased @ 14.3 (trending upwards since 11/24/16 @ 12.8) Due to increase in WBC, will consider possible bedside I&D if count continues to trend upwards Right foot wound culture reviewed: S. aureus Wound cleansed with Chlorpactin solution. Bactroban applied to plantar fissure and right foot dressed with 4x4s, ABD, and kerlix Continue abx per medicine = Cefazolin, Zosyn Per nursing, patient to get tx to TCU Podiatry will continue to monitor while in house
[2016-11-27] MEDS ORDERED: ceFAZolin 2 GM in Sodium Chloride 0.9% 100 ML IVPB SCH (14:00)
--- NOTE | 2016-11-27 15:26 | PN ---
DATE: 11/27/2016 HISTORY OF PRESENT ILLNESS: The patient has no complaints of any chest pain or shortness of breath. She initially was admitted to the hospital because of right foot ulcer. She is being treated with antibiotics. The patient says that she is feeling weak and tired. She has been on Zosyn for antibiotic. She had blood pressure that was elevated, but started improving. She has no nausea. No vomiting. She is possibly going to TCU for rehab. PHYSICAL EXAMINATION: VITAL SIGNS: Temperature 99, pulse 79, blood pressure 165/70, respirations 20, and O2 saturation 98%. GENERAL: The patient is lying in bed, flat, comfortable. HEENT: No oral lesion. Anicteric sclerae. Moist mucosa. NECK: No JVD, adenopathy, or thyromegaly. CARDIOVASCULAR: S1 and S2, regular. No murmurs, rubs, or gallops. LUNGS: Clear to auscultation bilaterally. No wheeze, rales, or rhonchi. ABDOMEN: Bowel sounds are positive, soft, nontender and nondistended. EXTREMITIES: No cyanosis, clubbing or edema. ASSESSMENT: 1. Right foot cellulitis. 2. Anemia. 3. Peripheral arterial disease. 4. Diabetic neuropathy. 5. Status post incision and drainage of right foot secondary to abscess. 6. Chronic lymphocytic leukemia. PLAN: The patient has no evidence of osteomyelitis on MRI. She had an I&D done in the OR by Podiatry. She is receiving losartan for her hypertension. She is on Lipitor for dyslipidemia. She is on Tapazole for her hyperthyroidism. The patient is on Zosyn for antibiotics, this will be continued. I will increase her losartan to 100 mg to help control her blood pressure. We will see if she can go to TCU for her antibiotics. Condition is stable. Activities increase as tolerated. Rosendo Marrufo MD
== END 2016-11-27 14:42 | DRG 854 ==
LOC: ED 13:11 → ERH 20:10 → 3RNO 22:46
PROVIDERS: ADMIT Internal Medicine Medical Oncology; ATTEND Internal Medicine Medical Oncology
PROC: 0H9MXZZ Drainage of Right Foot Skin, External Approach (ICD-10-PCS; 2016-11-22)
PROC: 0J9Q0ZX Drainage of Right Foot Subcutaneous Tissue and Fascia, Open Approach, Diagnostic (ICD-10-PCS; 2016-11-23)
PROC: 0JBQ0ZZ Excision of Right Foot Subcutaneous Tissue and Fascia, Open Approach (ICD-10-PCS; principal; 2016-11-23 16:30)
DX: A41.01 Sepsis due to Methicillin susceptible Staphylococcus aureus (principal); L03.115 Cellulitis of right lower limb; L02.611 Cutaneous abscess of right foot; E11.621 Type 2 diabetes mellitus with foot ulcer; L97.519 Non-pressure chronic ulcer of other part of right foot with unspecified severity; N17.9 Acute kidney failure, unspecified; C91.10 Chronic lymphocytic leukemia of B-cell type not having achieved remission; E11.22 Type 2 diabetes mellitus with diabetic chronic kidney disease; E11.42 Type 2 diabetes mellitus with diabetic polyneuropathy; E11.51 Type 2 diabetes mellitus with diabetic peripheral angiopathy without gangrene; E78.5 Hyperlipidemia, unspecified; D64.9 Anemia, unspecified; I12.9 Hypertensive chronic kidney disease with stage 1 through stage 4 chronic kidney disease, or unspecified chronic kidney disease; N18.9 Chronic kidney disease, unspecified; E05.90 Thyrotoxicosis, unspecified without thyrotoxic crisis or storm; J45.909 Unspecified asthma, uncomplicated; S90.851A Superficial foreign body, right foot, initial encounter; W45.8XXA Other foreign body or object entering through skin, initial encounter; Z79.4 Long term (current) use of insulin; Z86.73 Personal history of transient ischemic attack (TIA), and cerebral infarction without residual deficits; Z79.82 Long term (current) use of aspirin; Z87.891 Personal history of nicotine dependence; Z90.710 Acquired absence of both cervix and uterus; Z89.422 Acquired absence of other left toe(s)

== ENCOUNTER 2016-11-27 14:51 | Inpatient (IN) | payer OTHER, BC ==
[2016-11-27 14:58] VITALS: BMI 27.1
[2016-11-27] MEDS: Insulin Reg-MEDIUM-Coverage SC SCH ×2 (17:34→21:31)
[2016-11-27] MEDS ORDERED: Pneumococcal 23-Valent Vaccine IM ONE (20:03)
[2016-11-27] MEDS: Morphine 2 mg/ml ISec IVP PRN (21:34)
[2016-11-27] MEDS ORDERED: ceFAZolin 1 gm in NS 1 GM/100 ML BAG IVPB SCH (22:00)
[2016-11-27] MEDS: ceFAZolin 2 GM in Sodium Chloride 0.9% 100 ML IVPB SCH (22:38)
[2016-11-28] MEDS: ceFAZolin 2 GM in Sodium Chloride 0.9% 100 ML IVPB SCH ×3 (05:17→22:33)
[2016-11-28] MEDS: Insulin Reg-MEDIUM-Coverage SC SCH ×4 (07:02→22:34)
[2016-11-28] MEDS ORDERED: Oxychlorosene Topical 2 gm Packet TOP SCH (10:00)
[2016-11-28] MEDS: Morphine 2 mg/ml ISec IVP PRN ×2 (11:40→23:57)
[2016-11-28 13:58] LABS: HEMATOCRIT 32.6 % (36.0-48.0); MEAN CELL VOLUME 81.3 fl (80.0-105.0); MEAN CORPUSCULAR HEMOGLOBIN 26.4 pg (25.0-35.0); MEAN CORPUSCULAR HGB CONC 32.5 g/dl (31.0-37.0); RED CELL DISTRIBUTION WIDTH 14.8 % (11.5-14.5); WHITE BLOOD COUNT 14.5 10^3/ul (4.5-11.0)
[2016-11-28 14:10] LABS: BLOOD UREA NITROGEN 9 mg/dL (7-21); CALCIUM 8.9 mg/dL (8.4-10.5); CARBON DIOXIDE 28 mmol/L (21-33); CHLORIDE 102 mmol/L (98-107); GFR AFRICAN-AMERICAN > 60; GLUCOSE,RANDOM 252 mg/dL (70-110); POTASSIUM 3.5 mmol/L (3.6-5.0); SODIUM 140 mmol/L (132-148)
--- NOTE | 2016-11-28 14:18 | CP.PCM.PN ---
<Nazia Sen - Last Filed: 11/28/16 14:14> Subjective - Date & Time of Evaluation Date of Evaluation: 11/28/16 Time of Evaluation: 14:14 - Subjective Subjective: Podiatry Progress Note - Dr. Tamayo 71 year old female seen at bedside POD#5 right foot incision and drainage (DOS ) with attending, Dr. Tamayo. Patient is seen resting comfortably, AAOx3 and NAD. Patient denies any acute events overnight. Patient states she is feeling better than yesterday, with minimal pain to the bottom of her right foot. Patient denies N/V/F/D/C/SOB/calf pain. No other pedal complaints at this time. Objective - Vital Signs/Intake and Output Vital Signs (last 24 hours): Temp Pulse Resp BP Pulse Ox 97.8 F 75 14 164/77 H 99 11/28/16 10:00 11/28/16 10:00 11/28/16 10:00 11/28/16 10:00 11/28/16 10:00 Intake and Output: 11/28/16 11/28/16 06:59 18:59 Intake Total 600 Balance 600 - Medications Medications: Current Medications Alprazolam (Xanax) 0.25 mg PO BID PRN; Protocol PRN Reason: Anxiety Last Admin: 11/27/16 18:30 Dose: 0.25 mg Aspirin (Ecotrin) 81 mg PO 0800 [facility] PRN Reason: Protocol Atorvastatin Calcium (Lipitor) 10 mg PO DIN [facility] PRN Reason: Protocol Last Admin: 11/27/16 17:35 Dose: 10 mg Hydralazine HCl (Apresoline) 10 mg PO Q6H PRN; Protocol PRN Reason: Systolic Blood Pressure Last Admin: 11/28/16 06:34 Dose: 10 mg Cefazolin Sodium 2 gm/ Sodium (Chloride) 100 mls @ 200 mls/hr IVPB Q8 [facility] PRN Reason: Protocol Last Admin: 11/28/16 13:40 Dose: 200 mls/hr Insulin Human Regular (Humulin R Med) 0 units SC ACHS [facility] PRN Reason: Protocol Last Admin: 11/28/16 11:36 Dose: 1 units Losartan Potassium (Cozaar) 100 mg PO DAILY [facility] PRN Reason: Protocol Last Admin: 11/28/16 10:04 Dose: 100 mg Methimazole (Tapazole) 10 mg PO DAILY [facility] PRN Reason: Protocol Last Admin: 11/28/16 10:04 Dose: 10 mg Morphine Sulfate (Morphine) 2 mg IVP Q4H PRN; Protocol PRN Reason: Pain, moderate (4-7) Last Admin: 11/28/16 11:40 Dose: 2 mg Mupirocin (Bactroban Ointment) 1 gm TOP DAILY [facility] PRN Reason: Protocol Last Admin: 11/28/16 10:02 Dose: 1 applic Ondansetron HCl (Zofran Inj) 4 mg IVP Q6H PRN; Protocol PRN Reason: Nausea/Vomiting Oxychlorosene Sodium (Clorpactin Wcs-90) 2 gm TOP DAILY [facility] PRN Reason: Protocol Last Admin: 11/28/16 10:03 Dose: 2 gm - Labs Labs: 11/28/16 13:40 11/28/16 13:40 - Constitutional Appears: Well, Non-toxic, No Acute Distress - Extremities Exam Additional comments: RLE focused physical exam Vasc: lightly palpable pulses. TG warm to warm. CFT < 4 sec to all digits. Minimal nonpitting edema to RLE, decreased since previous visit. Neuro: Gross sensation diminished bilaterally Derm: Open fissure plantar sub met 1, tracking distal laterally with no tracking noted proximocentrally. Proximal aspect of fissure appears macerated. Active bleeding noted when fissure was expressed however no purulence, fluctuance, malodor noted. Deroofed blister noted to dorsomedial foot and dorsum of hallux with granular base - no purulence, drainage, fluctuance, malodor, or clinical signs of infection noted. skin from blister extending proximally into plantar medial arch. Ortho: Mild tenderness to palpation sub met 1 of right foot. - Neurological Exam Neurological Exam: Alert, Awake, Oriented x3 - Psychiatric Exam Psychiatric exam: Normal Affect, Normal Mood Assessment and Plan - Assessment and Plan (Free Text) Assessment: 71 year old female patient POD#5 right foot incision and drainage for right foot abscess + cellulitis Plan: Patient seen and evaluated at bedside with attending, Dr. Tamayo Chart, vitals, labs reviewed = afebrile, WBC increased @ 14.5 Due to increase in WBC, will consider possible bedside I&D if count continues to trend upwards Right foot wound culture reviewed: S. aureus Wound cleansed with saline, Bactroban applied to plantar fissure and right foot dressed with 4x4s, ABD, and kerlix Continue abx per medicine = Cefazolin continue wearing surgical offloading shoe at all times when ambulating Podiatry will continue to monitor while in house <Royal Tamayo - Last Filed: 11/28/16 14:25> Objective - Vital Signs/Intake and Output Vital Signs (last 24 hours): Temp Pulse Resp BP Pulse Ox 97.8 F 75 14 164/77 H 99 11/28/16 10:00 11/28/16 10:00 11/28/16 10:00 11/28/16 10:00 11/28/16 10:00 Intake and Output: 11/28/16 11/28/16 06:59 18:59 Intake Total 600 Balance 600 - Medications Medications: Current Medications Alprazolam (Xanax) 0.25 mg PO BID PRN; Protocol PRN Reason: Anxiety Last Admin: 11/27/16 18:30 Dose: 0.25 mg Aspirin (Ecotrin) 81 mg PO 0800 [facility] PRN Reason: Protocol Atorvastatin Calcium (Lipitor) 10 mg PO DIN [facility] PRN Reason: Protocol Last Admin: 11/27/16 17:35 Dose: 10 mg Hydralazine HCl (Apresoline) 10 mg PO Q6H PRN; Protocol PRN Reason: Systolic Blood Pressure Last Admin: 11/28/16 06:34 Dose: 10 mg Cefazolin Sodium 2 gm/ Sodium (Chloride) 100 mls @ 200 mls/hr IVPB Q8 [facility] PRN Reason: Protocol Last Admin: 11/28/16 13:40 Dose: 200 mls/hr Insulin Human Regular (Humulin R Med) 0 units SC ACHS [facility] PRN Reason: Protocol Last Admin: 11/28/16 11:36 Dose: 1 units Losartan Potassium (Cozaar) 100 mg PO DAILY [facility] PRN Reason: Protocol Last Admin: 11/28/16 10:04 Dose: 100 mg Methimazole (Tapazole) 10 mg PO DAILY [facility] PRN Reason: Protocol Last Admin: 11/28/16 10:04 Dose: 10 mg Morphine Sulfate (Morphine) 2 mg IVP Q4H PRN; Protocol PRN Reason: Pain, moderate (4-7) Last Admin: 11/28/16 11:40 Dose: 2 mg Mupirocin (Bactroban Ointment) 1 gm TOP DAILY [facility] PRN Reason: Protocol Last Admin: 11/28/16 10:02 Dose: 1 applic Ondansetron HCl (Zofran Inj) 4 mg IVP Q6H PRN; Protocol PRN Reason: Nausea/Vomiting Oxychlorosene Sodium (Clorpactin Wcs-90) 2 gm TOP DAILY [facility] PRN Reason: Protocol Last Admin: 11/28/16 10:03 Dose: 2 gm - Labs Labs: 11/28/16 13:40 11/28/16 13:40 Attending/Attestation - Attestation I have personally seen and examined this patient.: Yes I have fully participated in the care of the patient.: Yes I have reviewed all pertinent clinical information, including history, physical exam and plan: Yes
--- NOTE | 2016-11-28 22:06 | CON ---
DATE: 11/28/2016 LOCATION: The patient was seen in room 320 and early this morning. CHIEF COMPLAINT: Right foot infection x several days. HISTORY OF PRESENT ILLNESS: This is a 71-year-old female with past medical history significant for diabetes mellitus with neuropathy, history of osteomyelitis, history of CLL, TIA, history of Klebsiella urinary tract infection, history of left second toe skin infection and history of I&D and amputation of the second digit, was admitted here at acute care with right foot with sepsis and right foot ulcer now transferred to transitional care for further care and antibiotics. The patient has acute kidney injury and acute care with creatinine had increased to 2.1. At this time, she has no fevers, no chills, no nausea, no vomiting and she is weak. She has pain in the foot, but it has improved. PAST MEDICAL HISTORY: Significant for diabetes and neuropathy, osteomyelitis, CLL, TIA, Klebsiella urinary tract infection with left second toe skin infection and recent acute kidney injury. PAST SURGICAL HISTORY: As noted for second digit amputation. ALLERGIES: THE PATIENT HAS NO KNOWN ALLERGIES. MEDICATIONS: Noted. PHYSICAL EXAMINATION: VITAL SIGNS: The patient's temperature is 98, blood pressure is 170/60, respiratory rate 18, and heart rate of 72. HEENT: Unremarkable. NECK: Supple. LUNGS: Decrease breath sounds. HEART: Normal S1 and S2. ABDOMEN: Soft and nontender. EXTREMITIES: Examination of the foot, description of podiatry is noted. LABORATORY DATA: Revels a white count of 14,300, hemoglobin of 9, platelet of 234. BUN of 9 and creatinine of 1.3. ASSESSMENT AND PLAN: This is a 71-year-old female with sepsis due to right foot ulcer and abscess with no evidence of osteomyelitis on MRI status post incision and drainage and debridement growing methicillin-sensitive staphylococcus aureus with a history of left second metatarsal osteomyelitis in a patient with affected adjacent ulcer, status post amputation at the time grew Staphylococcus lugdunensis and amputation of the left second toe previously. The patient with severe peripheral arterial disease, history of chronic lymphocytic leukemia, diabetes, transient ischemic attack, the patient is currently on cefazolin with complete 7-10 days of therapy. I will check and asked to pathology and which is pending and we will follow closely with you. Currently, the patient is on cefazolin 2 g q. 8 hours. Case discussed with the patient at length care nursing staff. Sampson Raya MD [facility] # [id number]
--- NOTE | 2016-11-28 22:53 | PN ---
DATE: 11/28/2016 SUBJECTIVE: The patient's initial H and P is reviewed and I agree with the patient. She is coming from the of the hospital for the transitional care unit to get rehab and wound care for her foot. She has no complaints of any chest pain or shortness of breath. No headaches or dizziness. PHYSICAL EXAMINATION: VITAL SIGNS: Temperature is 97.6, pulse is 78, blood pressure is 130/65 and respirations 16. GENERAL: The patient is lying in bed, flat, comfortable. HEENT: No oral lesion. Anicteric sclerae. Moist mucosa. NECK: No JVD, adenopathy, or thyromegaly. CARDIOVASCULAR: S1 and S2, regular. No murmurs, rubs, or gallops. LUNGS: Clear to auscultation bilaterally. No wheeze, rales, or rhonchi. ABDOMEN: Bowel sounds are positive, soft, nontender and nondistended. EXTREMITIES: No cyanosis, clubbing or edema. Right foot is covered with dressing. LABORATORY DATA: White count of 14.5 and hemoglobin is 10.6. Creatinine is 1.0. ASSESSMENT: 1. Right foot cellulitis/ulcer. 2. Anemia, chronic. 3. Peripheral arterial disease. 4. Diabetic neuropathy. 5. Status post incision and drainage of right foot secondary to abscess. 6. Chronic lymphocytic leukemia. PLAN: The patient is currently comfortable, is being followed by Dr. . The patient is on IV antibiotics. She is also being followed by Dr. Raya. The patient is on aspirin. She is on losartan for hypertension. She is going to continue with the Xanax as needed. The patient is on Zofran. I will discontinue the patient's Zofran. She is on Tapazole for her hypothyroidism. Rosendo Marrufo MD
[2016-11-29] MEDS: Morphine 2 mg/ml ISec IVP PRN (04:07)
[2016-11-29] MEDS: ceFAZolin 2 GM in Sodium Chloride 0.9% 100 ML IVPB SCH ×3 (05:51→22:06)
[2016-11-29] MEDS: Insulin Reg-MEDIUM-Coverage SC SCH ×4 (06:45→21:36)
--- NOTE | 2016-11-29 09:49 | PN ---
DATE: 11/29/2016 SUBJECTIVE: The patient has no complaints of any chest pain, no shortness of breath or headaches or dizziness. PHYSICAL EXAMINATION: VITAL SIGNS: Temperature is 97.6, pulse of 83, blood pressure is 187/72, and respirations 16. GENERAL: The patient is lying in bed, flat, comfortable. HEENT: No oral lesion. Anicteric sclerae. Moist mucosa. NECK: No JVD, adenopathy, or thyromegaly. CARDIOVASCULAR: S1 and S2, regular. No murmurs, rubs, or gallops. LUNGS: Clear to auscultation bilaterally. No wheeze, rales, or rhonchi. ABDOMEN: Bowel sounds are positive, soft, nontender and nondistended. EXTREMITIES: no cyanosis, clubbing or edema. Right foot is covered with dressing. LABORATORY DATA: White count of 14.5. Hemoglobin is 10.6. Creatinine is 1.0. ASSESSMENT: 1. Hypertension, uncontrolled. 2. Right foot cellulitis/ulcer. 3. Peripheral arterial disease. 4. Diabetic neuropathy. 5. Status post incision and drainage of right foot secondary to abscess. 6. Chronic lymphocytic leukemia. PLAN: The patient is currently on her cefazolin. She is on losartan for hypertension. She is on aspirin daily. She is on Lipitor for dyslipidemia. She continues to have an elevated blood pressure. I will start her on low dose of CYNDEE inhibitor, Lisinopril. The patient is on Percocet for pain. Morphine discontinued. She is on Xanax as needed. She is on Tapazole for her hypothyroidism. Rosendo Marrufo MD
--- NOTE | 2016-11-29 18:41 | CP.PCM.PN ---
Subjective - Date & Time of Evaluation Date of Evaluation: 11/29/16 Time of Evaluation: 17:45 - Subjective Subjective: Comfortable in bed, not in distress, less pain in the right foot, has more energy today. Objective - Vital Signs/Intake and Output Vital Signs (last 24 hours): Temp Pulse Resp BP Pulse Ox 97.6 F 83 16 187/72 H 92 L 11/28/16 16:00 11/29/16 07:10 11/28/16 16:00 11/29/16 07:10 11/28/16 16:00 - Medications Medications: Current Medications Alprazolam (Xanax) 0.25 mg PO BID PRN; Protocol PRN Reason: Anxiety Last Admin: 11/27/16 18:30 Dose: 0.25 mg Aspirin (Ecotrin) 81 mg PO 0800 [facility] PRN Reason: Protocol Atorvastatin Calcium (Lipitor) 10 mg PO DIN [facility] PRN Reason: Protocol Last Admin: 11/28/16 17:51 Dose: 10 mg Hydralazine HCl (Apresoline) 10 mg PO Q6H PRN; Protocol PRN Reason: Systolic Blood Pressure Last Admin: 11/29/16 07:10 Dose: 10 mg Cefazolin Sodium 2 gm/ Sodium (Chloride) 100 mls @ 200 mls/hr IVPB Q8 [facility] PRN Reason: Protocol Last Admin: 11/29/16 05:51 Dose: 200 mls/hr Insulin Human Regular (Humulin R Med) 0 units SC ACHS [facility] PRN Reason: Protocol Last Admin: 11/29/16 06:45 Dose: 1 units Losartan Potassium (Cozaar) 100 mg PO DAILY [facility] PRN Reason: Protocol Last Admin: 11/28/16 10:04 Dose: 100 mg Methimazole (Tapazole) 10 mg PO 0800 [facility] PRN Reason: Protocol Morphine Sulfate (Morphine) 2 mg IVP Q4H PRN; Protocol PRN Reason: Pain, moderate (4-7) Last Admin: 11/29/16 04:07 Dose: 2 mg Mupirocin (Bactroban Ointment) 1 gm TOP DAILY [facility] PRN Reason: Protocol Last Admin: 11/28/16 10:02 Dose: 1 applic Oxycodone/Acetaminophen (Percocet 5/325 Mg Tab) 1 tab PO Q4H PRN PRN Reason: Pain, moderate (4-7) Stop: 12/01/16 19:11 - Labs Labs: 11/28/16 13:40 11/28/16 13:40 - Constitutional Appears: Non-toxic, No Acute Distress - Head Exam Head Exam: NORMAL INSPECTION - ENT Exam ENT Exam: Mucous Membranes Moist - Neck Exam Neck Exam: absent: Meningismus - Respiratory Exam Respiratory Exam: Decreased Breath Sounds - Cardiovascular Exam Cardiovascular Exam: +S1, +S2 - GI/Abdominal Exam GI & Abdominal Exam: Soft. absent: Tenderness - Extremities Exam Additional comments: right foot with dressings and bandages in place Assessment and Plan - Assessment and Plan (Free Text) Plan: Assessment Sepsis due to infected right foot ulcers and abscess, with no evidence of osteomyelitis on MRI; S/P I and D and debridement in the OR; cx are growing MSSA history of Left 2nd metatarsal osteomyelitis in a patient with an infected adjacent ulcer S/P amputation - grew Staph lugdunensis S/P amputation of 2nd left toe previously severe peripheral arterial disease DM with neuropathy history of osteomyelitis Chronic lymphocytic leukemia TIA history of Klebsiella UTI Plan change antibiotics to Cefazolin and should complete 7-10 days of therapy ( unless OR pathology shows osteomyelitis but no evidence on MRI) will continue to monitor clinically
[2016-11-29] MEDS: Oxycodone/Acetaminophen 5/325 mg Tab PO PRN (19:52)
[2016-11-30] MEDS: ceFAZolin 2 GM in Sodium Chloride 0.9% 100 ML IVPB SCH ×3 (05:28→22:00)
[2016-11-30] MEDS: Insulin Reg-MEDIUM-Coverage SC SCH ×4 (07:01→22:04)
--- NOTE | 2016-11-30 10:02 | CP.PCM.PN ---
<Nazia Sen - Last Filed: 11/30/16 10:12> Subjective - Date & Time of Evaluation Date of Evaluation: 11/30/16 Time of Evaluation: 09:58 - Subjective Subjective: Podiatry Progress Note - Dr. Kevin 71 year old female seen at bedside POD#7 right foot incision and drainage (DOS ) with attending, Dr. Kevin. Patient is seen resting comfortably, AAOx3 and NAD. Patient denies any acute events overnight. Patient states she is feeling better than yesterday, with minimal pain to the bottom of her right foot. Patient denies N/V/F/D/C/SOB/calf pain. No other pedal complaints at this time. Objective - Vital Signs/Intake and Output Vital Signs (last 24 hours): Temp Pulse Resp BP Pulse Ox 98.5 F 74 18 147/63 96 11/29/16 16:00 11/29/16 16:00 11/29/16 16:00 11/29/16 16:00 11/29/16 16:00 Intake and Output: 11/30/16 11/30/16 06:59 18:59 Intake Total 600 Balance 600 - Medications Medications: Current Medications Alprazolam (Xanax) 0.25 mg PO BID PRN; Protocol PRN Reason: Anxiety Last Admin: 11/30/16 05:28 Dose: 0.25 mg Aspirin (Ecotrin) 81 mg PO 0800 [facility] PRN Reason: Protocol Last Admin: 11/30/16 08:13 Dose: 81 mg Atorvastatin Calcium (Lipitor) 10 mg PO DIN [facility] PRN Reason: Protocol Last Admin: 11/29/16 17:31 Dose: 10 mg Cefazolin Sodium 2 gm/ Sodium (Chloride) 100 mls @ 200 mls/hr IVPB Q8 [facility] PRN Reason: Protocol Last Admin: 11/30/16 05:28 Dose: 200 mls/hr Insulin Human Regular (Humulin R Med) 0 units SC ACHS [facility] PRN Reason: Protocol Last Admin: 11/30/16 07:01 Dose: 3 units Lisinopril (Zestril) 10 mg PO DAILY [facility] Last Admin: 11/29/16 11:00 Dose: 10 mg Losartan Potassium (Cozaar) 100 mg PO DAILY [facility] PRN Reason: Protocol Last Admin: 11/29/16 11:00 Dose: 100 mg Methimazole (Tapazole) 10 mg PO 0800 [facility] PRN Reason: Protocol Last Admin: 11/30/16 08:13 Dose: 10 mg Mupirocin (Bactroban Ointment) 1 gm TOP DAILY [facility] PRN Reason: Protocol Last Admin: 11/29/16 11:00 Dose: 1 applic Oxycodone/Acetaminophen (Percocet 5/325 Mg Tab) 1 tab PO Q4H PRN PRN Reason: Pain, moderate (4-7) Stop: 12/01/16 19:11 Last Admin: 11/29/16 19:52 Dose: 1 tab - Labs Labs: 11/28/16 13:40 11/28/16 13:40 - Constitutional Appears: Well, Non-toxic, No Acute Distress - Extremities Exam Additional comments: RLE focused physical exam Vasc: lightly palpable pulses. TG warm to warm. CFT < 4 sec to all digits. Minimal nonpitting edema to RLE, decreased since previous visit. Neuro: Gross sensation diminished bilaterally Derm: Open fissure plantar sub met 1, tracking distal laterally with no tracking noted proximocentrally. Proximal aspect of fissure appears macerated. Active bleeding noted when fissure was expressed however no purulence, fluctuance, malodor noted. Deroofed blister noted to dorsomedial foot and dorsum of hallux with granular base - no purulence, drainage, fluctuance, malodor, or clinical signs of infection noted. skin from blister extending proximally into plantar medial arch. Ortho: Mild tenderness to palpation sub met 1 of right foot. - Neurological Exam Neurological Exam: Alert, Awake, Oriented x3 - Psychiatric Exam Psychiatric exam: Normal Affect, Normal Mood Assessment and Plan - Assessment and Plan (Free Text) Assessment: 71 year old female patient POD#7 right foot incision and drainage for right foot abscess + cellulitis Plan: Patient seen and evaluated at bedside with attending, Dr. Kevin Chart, vitals, labs reviewed = afebrile Right foot wound culture reviewed: S. aureus Wound cleansed with saline, packed with 1/4 inch plain packing, DSD, CYNDEE to right foot Continue abx per medicine = Cefazolin continue wearing surgical offloading shoe at all times when ambulating Podiatry will continue to monitor while in house <Beverly Kevin - Last Filed: 12/01/16 16:29> Objective - Vital Signs/Intake and Output Vital Signs (last 24 hours): Temp Pulse Resp BP Pulse Ox 98 F 72 14 136/74 100 12/01/16 10:00 12/01/16 10:00 12/01/16 10:00 12/01/16 10:00 12/01/16 10:00 Intake and Output: 12/01/16 12/01/16 06:59 18:59 Intake Total 420 Balance 420 - Medications Medications: Current Medications Alprazolam (Xanax) 0.25 mg PO BID PRN; Protocol PRN Reason: Anxiety Last Admin: 12/01/16 06:48 Dose: 0.25 mg Aspirin (Ecotrin) 81 mg PO 0800 [facility] PRN Reason: Protocol Last Admin: 12/01/16 08:59 Dose: 81 mg Atorvastatin Calcium (Lipitor) 10 mg PO DIN [facility] PRN Reason: Protocol Last Admin: 11/30/16 17:13 Dose: 10 mg Cefazolin Sodium 2 gm/ Sodium (Chloride) 100 mls @ 200 mls/hr IVPB Q8 [facility] PRN Reason: Protocol Last Admin: 12/01/16 05:38 Dose: 200 mls/hr Insulin Human Regular (Humulin R Med) 0 units SC ACHS [facility] PRN Reason: Protocol Last Admin: 12/01/16 06:41 Dose: 5 units Lisinopril (Zestril) 10 mg PO DAILY [facility] Last Admin: 12/01/16 05:39 Dose: 10 mg Losartan Potassium (Cozaar) 100 mg PO DAILY [facility] PRN Reason: Protocol Last Admin: 12/01/16 05:39 Dose: 100 mg Methimazole (Tapazole) 10 mg PO 0800 [facility] PRN Reason: Protocol Last Admin: 12/01/16 08:59 Dose: 10 mg Mupirocin (Bactroban Ointment) 1 gm TOP DAILY [facility] PRN Reason: Protocol Last Admin: 12/01/16 10:15 Dose: 1 applic Oxycodone/Acetaminophen (Percocet 5/325 Mg Tab) 1 tab PO Q4H PRN PRN Reason: Pain, moderate (4-7) Stop: 12/01/16 19:11 Last Admin: 11/30/16 17:21 Dose: 1 tab - Labs Labs: 11/28/16 13:40 11/28/16 13:40 Attending/Attestation - Attestation I have personally seen and examined this patient.: Yes I have fully participated in the care of the patient.: Yes I have reviewed all pertinent clinical information, including history, physical exam and plan: Yes
[2016-11-30] MEDS: Oxycodone/Acetaminophen 5/325 mg Tab PO PRN (17:21)
--- NOTE | 2016-11-30 21:01 | PN ---
DATE: 11/30/2016 SUBJECTIVE: The patient was seen earlier this morning. She is awake and alert. She states that she is doing much better. She is tolerating antibiotics well. She has not had any fevers, no diarrhea. PHYSICAL EXAMINATION: VITAL SIGNS: Temperature is 98.5, blood pressure is 147/60, respiratory rate of 18 and heart rate of 74. HEENT: Unremarkable. NECK: Supple. LUNGS: Decreased breath sounds. HEART: Normal S1 and S2. ABDOMEN: Soft, nontender. LABORATORY EXAMINATION: Reveals a white count of 14,500; hemoglobin of 10; platelets of 283. Chemistries reveal the patient to have a BUN of 9, creatinine of 1.0. Microbiology reveals the right foot culture, no growth from and no on a Gram stain. The cultures of the right foot on 11/23 are positive for Staph aureus and is ramos-sensitive Staph aureus, sensitive to oxacillin with an LONG of 0.5. 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 Currently on cefazolin and the pathology is pending. The MRI is negative. Prior to surgery, we will check on the pathology. Would complete 7 to 10 days of cefazolin assuming the pathology is negative for osteomyelitis. Review of ordered reveals the cefazolin to be active and review of the pathology is not available at this time. The patient did have her surgery on the , this makes it 1 week post-surgical treatment. We will discuss with Dr. Kevin regarding the pathology finding, awaiting for pathology. Sampson Raya MD
[2016-12-01] MEDS ORDERED: Oxycodone/Acetaminophen 5/325 mg Tab PO ONE (00:01)
[2016-12-01] MEDS: ceFAZolin 2 GM in Sodium Chloride 0.9% 100 ML IVPB SCH ×3 (05:38→21:14)
[2016-12-01] MEDS: Insulin Reg-MEDIUM-Coverage SC SCH ×4 (06:41→21:13)
--- NOTE | 2016-12-01 10:56 | CP.PCM.PN ---
<Nazia Sen - Last Filed: 12/01/16 10:53> Subjective - Date & Time of Evaluation Date of Evaluation: 12/01/16 Time of Evaluation: 10:53 - Subjective Subjective: Podiatry Progress Note - Dr. Tamayo 71 year old female seen at bedside POD#8 right foot incision and drainage (DOS ). Patient is seen resting comfortably, AAOx3 and NAD. Patient denies any acute events overnight. Patient states she is feeling better than yesterday, with minimal pain to the bottom of her right foot. Patient denies N/V/F/D/C/SOB/ calf pain. No other pedal complaints at this time. Objective - Vital Signs/Intake and Output Vital Signs (last 24 hours): Temp Pulse Resp BP Pulse Ox 97.4 F L 76 14 195/91 H 100 11/30/16 10:00 11/30/16 10:00 11/30/16 10:00 12/01/16 05:39 11/30/16 10:00 Intake and Output: 12/01/16 12/01/16 06:59 18:59 Intake Total 420 Balance 420 - Medications Medications: Current Medications Alprazolam (Xanax) 0.25 mg PO BID PRN; Protocol PRN Reason: Anxiety Last Admin: 12/01/16 06:48 Dose: 0.25 mg Aspirin (Ecotrin) 81 mg PO 0800 [facility] PRN Reason: Protocol Last Admin: 12/01/16 08:59 Dose: 81 mg Atorvastatin Calcium (Lipitor) 10 mg PO DIN [facility] PRN Reason: Protocol Last Admin: 11/30/16 17:13 Dose: 10 mg Cefazolin Sodium 2 gm/ Sodium (Chloride) 100 mls @ 200 mls/hr IVPB Q8 [facility] PRN Reason: Protocol Last Admin: 12/01/16 05:38 Dose: 200 mls/hr Insulin Human Regular (Humulin R Med) 0 units SC ACHS [facility] PRN Reason: Protocol Last Admin: 12/01/16 06:41 Dose: 5 units Lisinopril (Zestril) 10 mg PO DAILY [facility] Last Admin: 12/01/16 05:39 Dose: 10 mg Losartan Potassium (Cozaar) 100 mg PO DAILY [facility] PRN Reason: Protocol Last Admin: 12/01/16 05:39 Dose: 100 mg Methimazole (Tapazole) 10 mg PO 0800 [facility] PRN Reason: Protocol Last Admin: 12/01/16 08:59 Dose: 10 mg Mupirocin (Bactroban Ointment) 1 gm TOP DAILY [facility] PRN Reason: Protocol Last Admin: 12/01/16 10:15 Dose: 1 applic Oxycodone/Acetaminophen (Percocet 5/325 Mg Tab) 1 tab PO Q4H PRN PRN Reason: Pain, moderate (4-7) Stop: 12/01/16 19:11 Last Admin: 11/30/16 17:21 Dose: 1 tab - Labs Labs: 11/28/16 13:40 11/28/16 13:40 - Constitutional Appears: Well, Non-toxic, No Acute Distress - Extremities Exam Additional comments: RLE focused physical exam Vasc: lightly palpable pulses. TG warm to warm. CFT < 4 sec to all digits. Minimal nonpitting edema to RLE, decreased since previous visit. Neuro: Gross sensation diminished bilaterally Derm: Open fissure plantar sub met 1, tracking distal laterally with no tracking noted proximocentrally. Proximal aspect of fissure appears macerated. Active bleeding noted when fissure was expressed however no purulence, fluctuance, malodor noted. Deroofed blister noted to dorsomedial foot and dorsum of hallux with granular base - no purulence, drainage, fluctuance, malodor, or clinical signs of infection noted. skin from blister extending proximally into plantar medial arch. Ortho: Mild tenderness to palpation sub met 1 of right foot. - Neurological Exam Neurological Exam: Alert, Awake, Oriented x3 - Psychiatric Exam Psychiatric exam: Normal Affect, Normal Mood Assessment and Plan - Assessment and Plan (Free Text) Assessment: 71 year old female patient POD#8 right foot incision and drainage for right foot abscess + cellulitis Plan: Patient seen and evaluated at bedside with attending, Chart, vitals, labs reviewed = afebrile Right foot wound culture reviewed: S. aureus Wound cleansed with chlorpactin solution, packed with 1/4 inch plain packing, DSD, CYNDEE to right foot Continue abx per medicine = Cefazolin continue wearing surgical offloading shoe at all times when ambulating Podiatry will continue to monitor while in house <Royal Tamayo - Last Filed: 12/02/16 13:39> Objective - Vital Signs/Intake and Output Vital Signs (last 24 hours): Temp Pulse Resp BP Pulse Ox 97.7 F 77 20 154/69 H 100 12/02/16 10:19 12/02/16 10:50 12/02/16 10:19 12/02/16 10:50 12/01/16 10:00 - Medications Medications: Current Medications Alprazolam (Xanax) 0.25 mg PO BID PRN; Protocol PRN Reason: Anxiety Last Admin: 12/01/16 06:48 Dose: 0.25 mg Aspirin (Ecotrin) 81 mg PO 0800 [facility] PRN Reason: Protocol Last Admin: 12/02/16 08:49 Dose: 81 mg Atorvastatin Calcium (Lipitor) 10 mg PO DIN [facility] PRN Reason: Protocol Last Admin: 12/01/16 17:37 Dose: 10 mg Cefazolin Sodium 2 gm/ Sodium (Chloride) 100 mls @ 200 mls/hr IVPB Q8 [facility] PRN Reason: Protocol Last Admin: 12/02/16 05:43 Dose: 200 mls/hr Insulin Human Regular (Humulin R Med) 0 units SC ACHS [facility] PRN Reason: Protocol Last Admin: 12/02/16 12:08 Dose: 3 units Lisinopril (Zestril) 10 mg PO DAILY [facility] Last Admin: 12/02/16 10:50 Dose: 10 mg Losartan Potassium (Cozaar) 100 mg PO DAILY [facility] PRN Reason: Protocol Last Admin: 12/02/16 05:44 Dose: 100 mg Methimazole (Tapazole) 10 mg PO 0800 [facility] PRN Reason: Protocol Last Admin: 12/02/16 08:49 Dose: 10 mg Mupirocin (Bactroban Ointment) 1 gm TOP DAILY [facility] PRN Reason: Protocol Last Admin: 12/02/16 10:49 Dose: 1 applic Oxycodone/Acetaminophen (Percocet 5/325 Mg Tab) 1 tab PO Q4H PRN; Protocol PRN Reason: Pain, moderate (4-7) Stop: 12/05/16 10:07 Promethazine HCl (Phenergan Syrup) 6.25 mg PO Q4H PRN; Protocol PRN Reason: Cough Last Admin: 12/02/16 00:29 Dose: 6.25 mg - Labs Labs: 12/02/16 09:55 11/28/16 13:40 Attending/Attestation - Attestation I have personally seen and examined this patient.: Yes I have fully participated in the care of the patient.: Yes I have reviewed all pertinent clinical information, including history, physical exam and plan: Yes
--- NOTE | 2016-12-01 12:03 | PN ---
DATE: 12/01/2016 SUBJECTIVE: The patient is in bed, in no acute distress, and nontoxic. PHYSICAL EXAMINATION: VITAL SIGNS: Temperature is 98, blood pressure is 150/60, respiratory rate of 18, and heart rate of 76. HEENT: Unremarkable. NECK: Supple. LUNGS: Decreased breath sounds. HEART: Normal S1 and S2. ABDOMEN: Soft and nontender. Review of orders reveals the patient to be on Ancef and cefazolin 2 g q.8 hours. Repeat blood cultures, no growth. ASSESSMENT AND PLAN: This is a 71-year-old female with sepsis with infected right foot ulcer and abscess. No evidence of osteomyelitis on MRI. At this time, she is sensitive to Staphylococcus aureus and the patient . The patient had adequate therapy with complete 7 to 10 days on Ancef. We will check on to pathology report. A piece of glass was removed of foreign body from the patient's right foot. Sampson Raya MD
[2016-12-01] MEDS: Promethazine 6.25 MG/5 ML CUP PO PRN (20:17)
[2016-12-02] MEDS ORDERED: Oxycodone/Acetaminophen 5/325 mg Tab PO STA (00:11)
[2016-12-02] MEDS: Promethazine 6.25 MG/5 ML CUP PO PRN ×3 (00:29→22:05)
[2016-12-02] MEDS: ceFAZolin 2 GM in Sodium Chloride 0.9% 100 ML IVPB SCH ×3 (05:43→21:56)
[2016-12-02] MEDS: Insulin Reg-MEDIUM-Coverage SC SCH ×4 (07:01→21:59)
--- NOTE | 2016-12-02 09:38 | PN ---
DATE: SUBJECTIVE: A 71-year-old diabetic female seen at bedside status post right foot incision and drainage of severe abscess. The patient states everyday she is feeling much better. She denies any nausea, fever, chills, or vomiting, and has not experienced shortness of breath. She is having no pain at this time. PHYSICAL EXAMINATION: VITAL SIGNS: Temperature of 98, pulse rate of 72, blood pressure 136/74, and respiratory rate of 14. LABORATORY FINDINGS: Most recent microbiology report shows no growth taken in the OR during procedure. OBJECTIVE: Weakly Dopplerable pedal pulses noted bilaterally. Capillary refilling time is delayed on all digits. There is noted to be +2 nonpitting lower extremity edema bilaterally. The patient is unable to detect 5.07 g monofilament wire testing bilaterally. There is noted to be a full thickness ulceration secondary to incision and drainage on the plantar aspect of the right foot. There is noted to be serous drainage emanating from the wound. There is no purulence. There is no malodor. Left foot presents with a deroofed blister that shows with an unstageable superficial wound. There is no purulence. No drainage and no signs of acute bacterial infection. ASSESSMENT: A 71-year-old diabetic female status post right foot incision and drainage for severe right foot abscess, superficial unstageable ulceration on the left plantar foot secondary to blister formation. PLAN: The patient was evaluated, packing was left in place and gently pulled from the deep recesses within the plantar incision to allow wound contracture to occur. We will order CBC with diff today as her white count has not been ordered today. We will continue with IV antibiotics as per infectious disease. She can continue physical therapy using the forefoot offloading shoe at all times when ambulating. The patient will be seen in followup daily. Royal Tamayo DPM ALL
[2016-12-02 10:06] LABS: BASO # 0.02 K/mm3 (0.0-2.0); BASO % 0.2 % (0.0-3.0); EOS # 0.1 (0.0-0.7); GRAN # 4.93 (1.4-6.5); GRAN % 38.3 % (50.0-68.0); HEMATOCRIT 31.8 % (36.0-48.0); LYMPH # 7.3 (1.2-3.4); LYMPH % 56.5 % (22.0-35.0); MEAN CELL VOLUME 81.3 fl (80.0-105.0); MEAN CORPUSCULAR HEMOGLOBIN 25.8 pg (25.0-35.0); MEAN CORPUSCULAR HGB CONC 31.8 g/dl (31.0-37.0); MEAN PLATELET VOLUME 8.7 fl (7.0-11.0); MONO # 0.5 (0.1-0.6); WHITE BLOOD COUNT 12.9 10^3/ul (4.5-11.0)
--- NOTE | 2016-12-02 11:48 | PN ---
SUBJECTIVE: The patient is in bed, in no acute distress, nontoxic. PHYSICAL EXAMINATION VITAL SIGNS: Temperature is 97, blood pressure is 190/90, respiratory rate 18. HEENT: Unremarkable. NECK: Supple. HEART: Normal S1, S2. LUNGS: Decreased breath sounds. ABDOMEN: Soft. LABORATORY EXAMINATION: Reveals a white count of 12,900; hemoglobin of 10; platelets of 303. BUN of 9, creatinine of 1.0. Wound culture has no growth. ASSESSMENT AND PLAN: A 71-year-old female with sepsis and infected right foot ulcer and abscess. No evidence of osteomyelitis with a sensitive Staphylococcus aureus, currently on Ancef. Cultures from the 7th are checked, are sensitive Staphylococcus aureus and cultures from the 5th on the skin abscess also sensitive to Staphylococcus aureus with LONG of 0.5. Review of orders reveal the patient to be on cefazolin which requires renewal, which we will do so. Sampson Raya MD
[2016-12-02] MEDS: Oxycodone/Acetaminophen 5/325 mg Tab PO PRN (22:03)
--- NOTE | 2016-12-02 22:49 | PN ---
DATE: SUBJECTIVE: The patient is 71 years old seen and examined, states she has episode of multiple bowel movements yesterday that seems to be better, but also complain of increase frequency or urination, otherwise she is doing well. Just had dressing done to her foot wound. PHYSICAL EXAMINATION: VITAL SIGNS: She is afebrile, pulse 74, respirations 20 and blood pressure 150/98. HEART: S1 and S2 audible. LUNGS: Bilateral fair airflow. No rhonchi or crackle. ABDOMEN: Soft and nontender. No rebound. No guarding. EXTREMITIES: Moves all extremities, ambulatory. NEUROLOGIC: She is awake and alert, communicative. LABORATORY DATA: WBC is 12.9, hemoglobin 10, hematocrit 31.8 and platelet 303. Chemistry; blood sugar is 238. Foot wound cultures are negative. ASSESSMENT: 1. Right foot diabetic ulcer, no evidence of osteomyelitis. Currently, the patient is on Ancef. 2. Hypertension. 3. Peripheral vascular disease. 4. Diabetic neuropathy. 5. Status post right foot abscess incision and drainage. 6. Chronic lymphocytic leukemia. PLAN: Currently, the patient is on Ancef 2 g q. 8 hours. She is getting local treatment. She is on antihypertensive. Blood sugar is being monitored. She is on analgesic as needed. Continue physical therapy and wound care. We will followup. Araceli Gibson MD
[2016-12-03] MEDS: ceFAZolin 2 GM in Sodium Chloride 0.9% 100 ML IVPB SCH ×3 (05:54→21:45)
[2016-12-03] MEDS: Insulin Reg-MEDIUM-Coverage SC SCH ×4 (07:00→21:52)
--- NOTE | 2016-12-03 11:29 | CP.PCM.PN ---
Subjective - Date & Time of Evaluation Date of Evaluation: 12/03/16 Time of Evaluation: 11:28 - Subjective Subjective: Podiatry Progress Note - Dr. Kevin 71 year old female seen at bedside POD#10 right foot incision and drainage of severe abscess (DOS 11/23/16). Patient is seen out of bed and in chair, AAOx3 and NAD. Patient denies any acute events overnight. Patient states she is feeling great today, with no pain to the bottom of her right foot. Patient states she has been working with physical therapy and feels comfortable ambulating with her forefoot wedge shoe. Patient denies N/V/F/D/C/SOB/calf pain. No other pedal complaints at this time. Objective - Vital Signs/Intake and Output Vital Signs (last 24 hours): Temp Pulse Resp BP Pulse Ox 98.1 F 75 183 H 147/71 96 12/03/16 10:58 12/03/16 10:58 12/03/16 10:58 12/03/16 11:05 12/02/16 16:00 Intake and Output: 12/03/16 12/03/16 06:59 18:59 Intake Total 680 Balance 680 - Medications Medications: Current Medications Alprazolam (Xanax) 0.25 mg PO BID PRN; Protocol PRN Reason: Anxiety Last Admin: 12/03/16 11:07 Dose: 0.25 mg Aspirin (Ecotrin) 81 mg PO 0800 [facility] PRN Reason: Protocol Last Admin: 12/03/16 08:31 Dose: 81 mg Atorvastatin Calcium (Lipitor) 10 mg PO DIN [facility] PRN Reason: Protocol Last Admin: 12/02/16 17:42 Dose: 10 mg Cefazolin Sodium 2 gm/ Sodium (Chloride) 100 mls @ 200 mls/hr IVPB Q8 [facility] PRN Reason: Protocol Last Admin: 12/03/16 05:54 Dose: 200 mls/hr Insulin Human Regular (Humulin R Med) 0 units SC ACHS [facility] PRN Reason: Protocol Last Admin: 12/03/16 07:00 Dose: 3 units Lisinopril (Zestril) 10 mg PO DAILY [facility] Last Admin: 12/03/16 11:05 Dose: 10 mg Losartan Potassium (Cozaar) 100 mg PO DAILY [facility] PRN Reason: Protocol Last Admin: 12/03/16 11:06 Dose: 100 mg Methimazole (Tapazole) 10 mg PO 0800 [facility] PRN Reason: Protocol Last Admin: 12/03/16 08:50 Dose: 10 mg Mupirocin (Bactroban Ointment) 1 gm TOP DAILY [facility] PRN Reason: Protocol Last Admin: 12/03/16 10:43 Dose: 1 applic Oxycodone/Acetaminophen (Percocet 5/325 Mg Tab) 1 tab PO Q4H PRN; Protocol PRN Reason: Pain, moderate (4-7) Stop: 12/05/16 10:07 Last Admin: 12/02/16 22:03 Dose: 1 tab Promethazine HCl (Phenergan Syrup) 6.25 mg PO Q4H PRN; Protocol PRN Reason: Cough Last Admin: 12/02/16 22:05 Dose: 6.25 mg - Labs Labs: 12/02/16 09:55 11/28/16 13:40 - Constitutional Appears: Well, Non-toxic, No Acute Distress - Extremities Exam Additional comments: RLE focused physical exam Vasc: lightly palpable pulses. TG warm to warm. CFT delayed. Minimal nonpitting edema to RLE, decreased since previous visit. Neuro: Gross sensation diminished bilaterally Derm: Open fissure plantar sub met 1 noted to have serous drainage, tracking distal laterally with no tracking noted proximocentrally; no periwound maceration noted at this visit. No purulence, fluctuance, malodor noted. Deroofed blister noted to dorsomedial foot and dorsum of hallux has epithelialized. Ortho: No tenderness to palpation sub met 1 of right foot. - Neurological Exam Neurological Exam: Alert, Awake, Oriented x3 - Psychiatric Exam Psychiatric exam: Normal Affect, Normal Mood Assessment and Plan - Assessment and Plan (Free Text) Assessment: 71 year old DM female POD#10 right foot incision and drainage of severe right foot abscess + superficial ulceration on the right hallux and plantar medial arch secondary to blister formation Plan: Patient seen and evaluated at bedside Discussed with attending, Dr. Kevin Chart, vitals, labs reviewed = afebrile, WBC @ 12.9 Packing was left in place and gently pulled from deep recesses within plantar incision to allow wound contracture to occur. Right foot dressed with DSD, loose CYNDEE, and forefoot offloading shoe applied. Patient to continue physical therapy. Continue wearing forefoot offloading shoe to right foot Podiatry will continue to follow patient while in house
[2016-12-03] MEDS: Promethazine 6.25 MG/5 ML CUP PO PRN (12:24)
--- NOTE | 2016-12-03 13:46 | PN ---
DATE: 12/03/2016 SUBJECTIVE: The patient is in bed, in no acute distress, and nontoxic. PHYSICAL EXAMINATION: VITAL SIGNS: Temperature is 99, blood pressure is 150/90, respiratory rate of 20, and heart rate of 77. HEENT: Unremarkable. NECK: Supple. LUNGS: Decrease breath sounds. HEART: Normal S1 and S2. ABDOMEN: Soft and nontender. LABORATORY DATA: Reveals a white count of 12,900, hemoglobin 10, and platelets of 303. Chemistry reveals creatinine is 1.0. Review of orders reveals the patient to be on cefazolin. ASSESSMENT AND PLAN: This is a 71-year-old female with sepsis and infected right foot ulcer and abscess. No evidence of osteomyelitis with a sensitive Staphylococcus aureus, currently on Ancef and no evidence of osteomyelitis on the MRI. We will check on the pathology. The patient had foot surgery on the . Sampson Raya MD
[2016-12-03] MEDS: Oxycodone/Acetaminophen 5/325 mg Tab PO PRN (14:33)
[2016-12-03 16:31] VITALS: O2SAT 97
[2016-12-03] MEDS: Vancomycin 25 MG/ML PO SCH ×2 (17:38→21:49)
[2016-12-03] MEDS ORDERED: Vancomycin 500 mg (Oral/Rectal USE) PO SCH (18:00)
--- NOTE | 2016-12-03 19:49 | PN ---
DATE: SUBJECTIVE: The patient is a 71 years old, complained of having loose bowel movements, had 3 since morning. Did have increased frequency or urination, but that has improved. PHYSICAL EXAMINATION: VITAL SIGNS: She is afebrile, pulse 75, respirations 20, and blood pressure 147/71. LUNGS: Bilateral fair airflow. No rhonchi or crackles. HEART: S1 and S2 audible. ABDOMEN: Soft, nontender. No rebound. No guarding. NEUROLOGICAL: She is awake and alert. Able to communicate. LABORATORY DATA: Blood sugar is 217. ASSESSMENT: 1. Diarrhea, rule out Clostridium difficile. 2. Rule out urinary tract infection. 3. Hypertension. 4. Peripheral vascular disease. 5. Diabetic neuropathy. 6. Status post right foot abscess incision and drainage. 7. Chronic lymphocytic leukemia. PLAN: stool for C. diff. Start her on p.o. vancomycin. Continue her Ancef. Monitor blood sugars. Continue local wound care. Encouraged physical therapy. Araceli Gibson MD
[2016-12-04 01:16] LABS: PH,URINE 6.5 (4.7-8.0); URINE BILIRUBIN NEGATIVE (NEGATIVE); URINE BLOOD MODERATE (NEGATIVE); URINE GLUCOSE (UA) 100 mg/dL (NEGATIVE); URINE KETONE NEGATIVE (NEGATIVE); URINE LEUKOCYTE ESTERASE SMALL Leu/uL (NEGATIVE); URINE PROTEIN TRACE mg/dL (<30 mg/dL); URINE UROBILINOGEN 0.2 E.U./dL (<1 E.U./dL)
[2016-12-04 01:31] LABS: URINE APPEARANCE SL CLOUDY (CLEAR); URINE COLOR STRAW (YELLOW)
[2016-12-04 01:37] LABS: URINE BACTERIA RARE (NEG); URINE EPITHELIAL CELLS 0 - 2 /hpf (0-5)
[2016-12-04] MEDS: Promethazine 6.25 MG/5 ML CUP PO PRN ×2 (03:30→09:14)
[2016-12-04] MEDS: ceFAZolin 2 GM in Sodium Chloride 0.9% 100 ML IVPB SCH ×3 (05:04→22:30)
[2016-12-04] MEDS: Insulin Reg-MEDIUM-Coverage SC SCH ×4 (06:46→22:31)
[2016-12-04] MEDS: Vancomycin 25 MG/ML PO SCH ×4 (10:45→22:38)
--- NOTE | 2016-12-04 16:04 | CP.PCM.PN ---
Subjective - Date & Time of Evaluation Date of Evaluation: 12/04/16 Time of Evaluation: 12:00 - Subjective Subjective: No diarrhea today, no fevers. Objective - Vital Signs/Intake and Output Vital Signs (last 24 hours): Temp Pulse Resp BP Pulse Ox 98.4 F 77 18 149/79 97 12/04/16 10:00 12/04/16 10:00 12/04/16 10:00 12/04/16 10:00 12/04/16 06:00 - Medications Medications: Current Medications Alprazolam (Xanax) 0.25 mg PO BID PRN; Protocol PRN Reason: Anxiety Last Admin: 12/04/16 09:15 Dose: 0.25 mg Aspirin (Ecotrin) 81 mg PO 0800 [facility] PRN Reason: Protocol Last Admin: 12/04/16 09:00 Dose: 81 mg Atorvastatin Calcium (Lipitor) 10 mg PO DIN [place] PRN Reason: Protocol Last Admin: 12/03/16 17:38 Dose: 10 mg Cefazolin Sodium 2 gm/ Sodium (Chloride) 100 mls @ 200 mls/hr IVPB Q8 [facility] PRN Reason: Protocol Last Admin: 12/04/16 05:04 Dose: 200 mls/hr Insulin Human Regular (Humulin R Med) 0 units SC ACHS [facility] PRN Reason: Protocol Last Admin: 12/04/16 12:25 Dose: 5 units Losartan Potassium (Cozaar) 100 mg PO DAILY [facility] PRN Reason: Protocol Last Admin: 12/04/16 10:44 Dose: 100 mg Methimazole (Tapazole) 10 mg PO 0800 [place] PRN Reason: Protocol Last Admin: 12/04/16 09:00 Dose: 10 mg Mupirocin (Bactroban Ointment) 1 gm TOP DAILY [facility] PRN Reason: Protocol Last Admin: 12/04/16 10:44 Dose: 1 applic Oxycodone/Acetaminophen (Percocet 5/325 Mg Tab) 1 tab PO Q4H PRN; Protocol PRN Reason: Pain, moderate (4-7) Stop: 12/05/16 10:07 Last Admin: 12/03/16 14:33 Dose: 1 tab Promethazine HCl (Phenergan Syrup) 6.25 mg PO Q4H PRN; Protocol PRN Reason: Cough Last Admin: 12/04/16 09:14 Dose: 6.25 mg Vancomycin HCl (Vancocin 25 Mg/Ml (Oral Use)) 250 mg PO QID [facility] Last Admin: 12/04/16 10:45 Dose: 250 mg - Labs Labs: 12/02/16 09:55 11/28/16 13:40 - Constitutional Appears: Non-toxic, No Acute Distress - Head Exam Head Exam: NORMAL INSPECTION - ENT Exam ENT Exam: Mucous Membranes Moist - Neck Exam Neck Exam: absent: Meningismus - Respiratory Exam Respiratory Exam: Decreased Breath Sounds - Cardiovascular Exam Cardiovascular Exam: +S1, +S2 - GI/Abdominal Exam GI & Abdominal Exam: Soft. absent: Tenderness Assessment and Plan - Assessment and Plan (Free Text) Plan: Assessment Sepsis due to infected right foot ulcers and abscess, with no evidence of osteomyelitis on MRI; S/P I and D and debridement in the OR; cx are growing MSSA R/O c.diff. associated diarrhea history of Left 2nd metatarsal osteomyelitis in a patient with an infected adjacent ulcer S/P amputation - grew Staph lugdunensis S/P amputation of 2nd left toe previously severe peripheral arterial disease DM with neuropathy history of osteomyelitis Chronic lymphocytic leukemia TIA history of Klebsiella UTI Plan continue Cefazolin and should complete 7-10 days of therapy (unless OR pathology shows osteomyelitis but no evidence on MRI) follow up stool for c.diff. and patient has been started on PO vancomycin will continue to monitor clinically
--- NOTE | 2016-12-04 17:29 | CP.PCM.PN ---
Subjective - Date & Time of Evaluation Date of Evaluation: 12/04/16 Time of Evaluation: 16:26 - Subjective Subjective: Podiatry Progress Note - Dr. Kevin 71 year old female patient seen at bedside with attending, Dr. Kevin, POD#11 right foot incision and drainage of severe abscess (DOS 11/23/16). Patient is seen out of bed and in chair, AAOx3 and NAD. Patient is accompanied by family member at bedside. Patient denies any acute events overnight. Patient denies any pain to her right foot at this visit. Patient denies N/V/F/D/C/SOB/calf pain. No other pedal complaints at this time. Objective - Vital Signs/Intake and Output Vital Signs (last 24 hours): Temp Pulse Resp BP Pulse Ox 98.4 F 77 18 149/79 97 12/04/16 10:00 12/04/16 10:00 12/04/16 10:00 12/04/16 10:00 12/04/16 06:00 - Medications Medications: Current Medications Alprazolam (Xanax) 0.25 mg PO BID PRN; Protocol PRN Reason: Anxiety Last Admin: 12/04/16 09:15 Dose: 0.25 mg Aspirin (Ecotrin) 81 mg PO 0800 [facility] PRN Reason: Protocol Last Admin: 12/04/16 09:00 Dose: 81 mg Atorvastatin Calcium (Lipitor) 10 mg PO DIN [place] PRN Reason: Protocol Last Admin: 12/03/16 17:38 Dose: 10 mg Cefazolin Sodium 2 gm/ Sodium (Chloride) 100 mls @ 200 mls/hr IVPB Q8 [facility] PRN Reason: Protocol Last Admin: 12/04/16 14:58 Dose: 200 mls/hr Insulin Human Regular (Humulin R Med) 0 units SC ACHS [facility] PRN Reason: Protocol Last Admin: 12/04/16 12:25 Dose: 5 units Losartan Potassium (Cozaar) 100 mg PO DAILY [facility] PRN Reason: Protocol Last Admin: 12/04/16 10:44 Dose: 100 mg Methimazole (Tapazole) 10 mg PO 0800 [facility] PRN Reason: Protocol Last Admin: 12/04/16 09:00 Dose: 10 mg Mupirocin (Bactroban Ointment) 1 gm TOP DAILY [facility] PRN Reason: Protocol Last Admin: 12/04/16 10:44 Dose: 1 applic Oxycodone/Acetaminophen (Percocet 5/325 Mg Tab) 1 tab PO Q4H PRN; Protocol PRN Reason: Pain, moderate (4-7) Stop: 12/05/16 10:07 Last Admin: 12/03/16 14:33 Dose: 1 tab Promethazine HCl (Phenergan Syrup) 6.25 mg PO Q4H PRN; Protocol PRN Reason: Cough Last Admin: 12/04/16 09:14 Dose: 6.25 mg Vancomycin HCl (Vancocin 25 Mg/Ml (Oral Use)) 250 mg PO QID [facility] Last Admin: 12/04/16 14:59 Dose: 250 mg - Labs Labs: 12/02/16 09:55 11/28/16 13:40 - Constitutional Appears: Well, Non-toxic, No Acute Distress - Extremities Exam Additional comments: Vasc: lightly palpable pulses b/l. TG cool to warm b/l. CFT delayed. No edema noted. Neuro: Gross sensation diminished bilaterally Derm: Open fissure plantar sub met 1 noted to have serous drainage, no tracking noted at this visit; no periwound maceration noted. No purulence, fluctuance, malodor noted. Deroofed blister noted to dorsomedial foot and dorsum of hallux has epithelialized. Ulceration noted on plantar aspect of left 2nd met head with mild serous drainage but no purulence, fluctuance, malodor, or clinical signs of infection noted. Ortho: No tenderness to palpation sub met 1 of right foot. - Neurological Exam Neurological Exam: Alert, Awake, Oriented x3 - Psychiatric Exam Psychiatric exam: Normal Affect, Normal Mood Assessment and Plan - Assessment and Plan (Free Text) Assessment: 71 year old DM female POD#11 right foot incision and drainage of severe right foot abscess + superficial ulceration on the right hallux and plantar medial arch secondary to blister formation Plan: Patient seen and evaluated at bedside with attending, Dr. Kevin Chart, vitals, labs reviewed = afebrile Packing pulled from deep recesses within plantar incision to allow wound contracture to occur. Right foot dressed with DSD, loose CYNDEE, and forefoot offloading shoe applied. Left ulceration dressed with Maxsorb and DSD Patient to continue physical therapy. Continue wearing forefoot offloading shoe to right foot and surgical shoe to left foot Podiatry will continue to follow patient while in house
[2016-12-04 20:02] VITALS: BP 164/73; PULSE 81; RESP 14; TEMP 98.3
[2016-12-04] MEDS: Oxycodone/Acetaminophen 5/325 mg Tab PO PRN (22:30)
--- NOTE | 2016-12-05 08:34 | DS ---
HISTORY OF PRESENT ILLNESS: The patient has no complaints of any chest pain. No shortness of breath or headaches. PHYSICAL EXAMINATION: VITAL SIGNS: Temperature is 98.4, pulse of 84, blood pressure is 158/67, and respirations 18. GENERAL: The patient is lying in bed, flat, comfortable. HEENT: No oral lesion. Anicteric sclerae. Moist mucosa. NECK: No JVD, adenopathy, or thyromegaly. CARDIOVASCULAR: S1 and S2, regular. No murmurs, rubs, or gallops. LUNGS: Clear to auscultation bilaterally. No wheeze, rales, or rhonchi. ABDOMEN: Bowel sounds are positive, soft, nontender and nondistended. EXTREMITIES: Right foot is covered with dressing. ASSESSMENT: 1. Hypertension. 2. Right foot cellulitis/ulcer. 3. Peripheral arterial disease. 4. Diabetic neuropathy. 5. Chronic lymphocytic leukemia. 6. Status post incision and drainage of right foot secondary to abscess. 7. Hyperthyroidism. PLAN: The patient is being followed by podiatry, I appreciate their input. Podiatry is doing dressing changes. The patient's blood pressure is under control. She is on cefazolin for antibiotics. She is going to continue with aspirin. She is on Percocet for pain. She is on Lipitor for dyslipidemia. She is on methimazole for her hyperthyroidism. She is on lisinopril for her hypertension. I will discontinue her lisinopril as she is on CYNDEE inhibitor and ARB. Condition is stable. Activities increase as tolerated. Follow with Dr. Marrufo in one to two weeks. Rosendo Marrufo MD
[2016-12-05] MEDS: Vancomycin 25 MG/ML PO SCH (09:33)
--- NOTE | 2016-12-05 12:40 | CP.PCM.PN ---
<Anup Mir - Last Filed: 12/05/16 13:03> Subjective - Date & Time of Evaluation Date of Evaluation: 12/05/16 Time of Evaluation: 10:36 - Subjective Subjective: Podiatry Progress Note - Dr. Tamayo 71 year old female patient seen at bedside POD#12 right foot incision and drainage of severe abscess (DOS 11/23/16). Patient seen out of bed and in chair, AAOx3 and NAD. Patient denies any acute overnight events. Patient denies any pain to her right foot at this visit. Patient states she will be discharged today, and is aware that she is to follow up with Dr. Kevin next Sunday, , in the wound care clinic as an outpatient. Patient denies N/V/F/D/C/SOB/ calf pain. No other pedal complaints at this time. Objective - Vital Signs/Intake and Output Vital Signs (last 24 hours): Temp Pulse Resp BP Pulse Ox 98.3 F 81 14 164/73 H 97 12/04/16 20:02 12/04/16 20:02 12/04/16 20:02 12/04/16 20:02 12/04/16 06:00 - Medications Medications: Current Medications Alprazolam (Xanax) 0.25 mg PO BID PRN; Protocol PRN Reason: Anxiety Last Admin: 12/05/16 11:30 Dose: 0.25 mg Aspirin (Ecotrin) 81 mg PO 0800 [facility] PRN Reason: Protocol Last Admin: 12/05/16 09:30 Dose: 81 mg Atorvastatin Calcium (Lipitor) 10 mg PO DIN [facility] PRN Reason: Protocol Last Admin: 12/04/16 18:00 Dose: 10 mg Cefazolin Sodium 2 gm/ Sodium (Chloride) 100 mls @ 200 mls/hr IVPB Q8 [facility] PRN Reason: Protocol Last Admin: 12/04/16 22:30 Dose: 200 mls/hr Insulin Human Regular (Humulin R Med) 0 units SC ACHS [facility] PRN Reason: Protocol Last Admin: 12/04/16 22:31 Dose: 8 units Losartan Potassium (Cozaar) 100 mg PO DAILY [facility] PRN Reason: Protocol Last Admin: 12/05/16 09:30 Dose: 100 mg Methimazole (Tapazole) 10 mg PO 0800 [place] PRN Reason: Protocol Last Admin: 12/05/16 09:31 Dose: 10 mg Mupirocin (Bactroban Ointment) 1 gm TOP DAILY [facility] PRN Reason: Protocol Last Admin: 12/04/16 10:44 Dose: 1 applic Promethazine HCl (Phenergan Syrup) 6.25 mg PO Q4H PRN; Protocol PRN Reason: Cough Last Admin: 12/04/16 09:14 Dose: 6.25 mg Vancomycin HCl (Vancocin 25 Mg/Ml (Oral Use)) 250 mg PO QID [facility] Last Admin: 12/05/16 09:33 Dose: 250 mg - Labs Labs: 12/02/16 09:55 11/28/16 13:40 - Constitutional Appears: Well, Non-toxic, No Acute Distress - Extremities Exam Additional comments: Vasc: lightly palpable pulses b/l. TG warm to warm b/l. CFT delayed. No edema noted. Neuro: Gross sensation diminished bilaterally Derm: Open fissure plantar sub met 1 noted to have minimal serous drainage at this visit with no tracking noted; no periwound maceration noted. No purulence, fluctuance, malodor noted. Deroofed blister noted to dorsomedial foot and dorsum of hallux has epithelialized. Ulceration noted on plantar aspect of left 2nd met head with mild serous drainage but no purulence, fluctuance, malodor, or clinical signs of infection noted. Ortho: No tenderness to palpation sub met 1 of right foot. - Neurological Exam Neurological Exam: Alert, Awake, Oriented x3 - Psychiatric Exam Psychiatric exam: Normal Affect, Normal Mood Assessment and Plan - Assessment and Plan (Free Text) Assessment: 71 year old DM female POD#12 right foot incision and drainage of severe right foot abscess + superficial ulceration on the right hallux and plantar medial arch secondary to blister formation Plan: Patient seen and evaluated at bedside Discussed with attending, Dr. Tamayo Chart, vitals, labs reviewed = afebrile Right foot cleansed with saline. Bactroban applied to plantar wound and dressed with DSD, loose CYNDEE, and forefoot offloading shoe applied Left ulceration dressed with Maxsorb and DSD Continue wearing forefoot offloading shoe to right foot and surgical shoe to left foot Stable from podiatry standpoint Patient is to follow up with Dr. Kevin in wound care clinic on 12/11/16 <Royal Tamayo - Last Filed: 12/06/16 11:34> Objective - Vital Signs/Intake and Output Vital Signs (last 24 hours): Temp Pulse Resp BP Pulse Ox 98.3 F 81 14 164/73 H 97 12/04/16 20:02 12/04/16 20:02 12/04/16 20:02 12/04/16 20:02 12/04/16 06:00 - Labs Labs: 12/02/16 09:55 11/28/16 13:40 Attending/Attestation - Attestation I have personally seen and examined this patient.: Yes I have fully participated in the care of the patient.: Yes I have reviewed all pertinent clinical information, including history, physical exam and plan: Yes
--- NOTE | 2016-12-05 14:44 | CP.PCM.PN ---
Subjective - Date & Time of Evaluation Date of Evaluation: 12/05/16 Time of Evaluation: 11:45 - Subjective Subjective: Comfortable, much improved pain in the right foot, no fevers overnight, no nausea, no diarrhea. Objective - Vital Signs/Intake and Output Vital Signs (last 24 hours): Temp Pulse Resp BP Pulse Ox 98.3 F 81 14 164/73 H 97 12/04/16 20:02 12/04/16 20:02 12/04/16 20:02 12/04/16 20:02 12/04/16 06:00 - Medications Medications: Current Medications Alprazolam (Xanax) 0.25 mg PO BID PRN; Protocol PRN Reason: Anxiety Last Admin: 12/04/16 09:15 Dose: 0.25 mg Aspirin (Ecotrin) 81 mg PO 0800 [facility] PRN Reason: Protocol Last Admin: 12/04/16 09:00 Dose: 81 mg Atorvastatin Calcium (Lipitor) 10 mg PO DIN [facility] PRN Reason: Protocol Last Admin: 12/04/16 18:00 Dose: 10 mg Cefazolin Sodium 2 gm/ Sodium (Chloride) 100 mls @ 200 mls/hr IVPB Q8 [facility] PRN Reason: Protocol Last Admin: 12/04/16 22:30 Dose: 200 mls/hr Insulin Human Regular (Humulin R Med) 0 units SC ACHS [facility] PRN Reason: Protocol Last Admin: 12/04/16 22:31 Dose: 8 units Losartan Potassium (Cozaar) 100 mg PO DAILY [facility] PRN Reason: Protocol Last Admin: 12/04/16 10:44 Dose: 100 mg Methimazole (Tapazole) 10 mg PO 0800 [facility] PRN Reason: Protocol Last Admin: 12/04/16 09:00 Dose: 10 mg Mupirocin (Bactroban Ointment) 1 gm TOP DAILY [facility] PRN Reason: Protocol Last Admin: 12/04/16 10:44 Dose: 1 applic Oxycodone/Acetaminophen (Percocet 5/325 Mg Tab) 1 tab PO Q4H PRN; Protocol PRN Reason: Pain, moderate (4-7) Stop: 12/05/16 10:07 Last Admin: 12/04/16 22:30 Dose: 1 tab Promethazine HCl (Phenergan Syrup) 6.25 mg PO Q4H PRN; Protocol PRN Reason: Cough Last Admin: 12/04/16 09:14 Dose: 6.25 mg Vancomycin HCl (Vancocin 25 Mg/Ml (Oral Use)) 250 mg PO QID [facility] Last Admin: 12/04/16 22:38 Dose: 250 mg - Labs Labs: 12/02/16 09:55 11/28/16 13:40 - Constitutional Appears: Non-toxic, No Acute Distress - Head Exam Head Exam: NORMAL INSPECTION - ENT Exam ENT Exam: Mucous Membranes Moist - Neck Exam Neck Exam: absent: Meningismus - Respiratory Exam Respiratory Exam: Decreased Breath Sounds - Cardiovascular Exam Cardiovascular Exam: +S1, +S2 - GI/Abdominal Exam GI & Abdominal Exam: Soft. absent: Tenderness - Extremities Exam Additional comments: right foot with dressings in place Assessment and Plan - Assessment and Plan (Free Text) Assessment: Assessment Sepsis due to infected right foot ulcers and abscess, with no evidence of osteomyelitis on MRI; S/P I and D and debridement in the OR; cx are growing MSSA ; clinically improved and S/P antibiotic treatment R/O c.diff. associated diarrhea history of Left 2nd metatarsal osteomyelitis in a patient with an infected adjacent ulcer S/P amputation - grew Staph lugdunensis S/P amputation of 2nd left toe previously severe peripheral arterial disease DM with neuropathy history of osteomyelitis Chronic lymphocytic leukemia TIA history of Klebsiella UTI Plan completed more than 10 days of Cefazolin patient to follow up with Podiatry as outpatient
== END 2016-12-05 13:54 | disposition home health service (06) | DRG 872 ==
LOC: TRCU 14:51
PROVIDERS: ADMIT Internal Medicine Nephrology; ATTEND Internal Medicine Nephrology
PROC: F07Z9FZ Gait Training/Functional Ambulation Treatment using Assistive, Adaptive, Supportive or Protective Equipment (ICD-10-PCS; principal; 2016-11-27)
PROC: F08Z4FZ Home Management Treatment using Assistive, Adaptive, Supportive or Protective Equipment (ICD-10-PCS; 2016-11-29)
DX: A41.9 Sepsis, unspecified organism (principal); E11.621 Type 2 diabetes mellitus with foot ulcer; L97.519 Non-pressure chronic ulcer of other part of right foot with unspecified severity; L03.115 Cellulitis of right lower limb; L02.611 Cutaneous abscess of right foot; Z79.2 Long term (current) use of antibiotics; C91.10 Chronic lymphocytic leukemia of B-cell type not having achieved remission; E11.40 Type 2 diabetes mellitus with diabetic neuropathy, unspecified; E05.90 Thyrotoxicosis, unspecified without thyrotoxic crisis or storm; I10 Essential (primary) hypertension; I73.9 Peripheral vascular disease, unspecified; D64.9 Anemia, unspecified; Z86.73 Personal history of transient ischemic attack (TIA), and cerebral infarction without residual deficits; Z89.422 Acquired absence of other left toe(s)

== ENCOUNTER 2016-12-25 08:03 | Day surgery (SDC) | payer MEDICARE, BC ==
[2016-12-14 11:33] VITALS: BMI 26.6
[2016-12-25] MEDS ORDERED: cefTRIAXone (Rocephin) 1 gm Inj ONE (09:52)
[2016-12-25] MEDS ORDERED: Iohexol 240 (50 ml) ONE (09:52)
[2016-12-25] MEDS ORDERED: Albuterol HFA 90 mcg/actuation (8 g) ONE (10:10)
[2016-12-25] MEDS ORDERED: Propofol 10 mg/ml Inj (20 ML) ONE (10:11)
[2016-12-25] MEDS ORDERED: Midazolam 2 MG/2 ML VIAL ONE (10:12)
[2016-12-25] MEDS ORDERED: HYDROmorphone 0.5 mg/0.5 ml ISec IVP PRN (11:01)
[2016-12-25] MEDS ORDERED: Lactated Ringer's 1,000 ML IV SCH (11:15)
[2016-12-25 12:24] VITALS: RESP 18
--- NOTE | 2016-12-25 13:13 | RAD ---
PROCEDURE: Retrograde pyelogram HISTORY: CYSTO COMPARISON: TECHNIQUE: Fluoroscopy was provided in the operating room. 40.4 seconds of fluoro time were used. 11 images submitted FINDINGS: There are no filling defects seen in the renal collecting systems or ureters. No obstruction. IMPRESSION: As above
[2016-12-25 14:34] VITALS: TEMP 98; O2SAT 98
[2016-12-25 14:59] VITALS: BP 129/69; PULSE 108
--- NOTE | 2016-12-25 17:16 | OP ---
PROCEDURE DATE: 12/25/2016 PREOPERATIVE DIAGNOSES: Microhematuria and dysuria. 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 PROCEDURES: Cystoscopy, urethral dilation with sounds, bilateral retrograde pyelograms, bladder biopsies and fulguration. ATTENDING SURGEON: Sheldon Perea MD ANESTHESIA: General. SPECIMENS: Bladder biopsies were sent to pathology. DRAINS: There were none. COMPLICATIONS: There were none. OPERATIVE FINDINGS: After informed consent was obtained, the patient was taken to the OR and placed on the operating table. Anesthesia was administered. The patient was then placed in the dorsal lithotomy position and prepped and draped in the usual sterile fashion. First, a 21-Latvian cystoscope was going to be passed; however, the urethra appeared somewhat tight. Urethral sounds were then obtained and the urethra was then dilated from 14-Latvian to 26-Latvian without difficulty. After the urethral dilation, the 21-Latvian scope was able to be passed into the bladder and a full survey inspection was performed. There were no stones, papillary tumors or foreign bodies noted. 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 There was few of the areas which were more erythematous than the others, located on the posterior wall and inferior-posterior wall. At this point, retrograde pyelograms were performed. A cone-tip catheter was passed through the cystoscope and first guided into the left ureteral orifice. Contrast was then instilled into the system during real-time fluoroscopy. The left retrograde pyelogram appeared grossly within normal limits. There were some mobile filling defects which appeared consistent with air bubbles. There was no hydronephrosis and the system was noted to drain promptly. At this point, the cone-tip catheter was guided into the right ureteral orifice and a right retrograde pyelogram was performed. The right retrograde pyelogram also appeared grossly within normal limits. The films were submitted to radiology for interpretation. At this point, the cone-tip catheter was removed and a cold cup biopsy forceps was passed. Biopsies of the 2 raised erythematous lesions were taken to rule out carcinoma in situ. After the biopsies were taken and sent to pathology, a Bugbee electrode was passed and the biopsy sites were then cauterized. A final inspection was then made, there was complete hemostasis from the biopsy sites. There was no other active bleeding noted in the bladder. There were multiple remaining lesions; however, telesales representative biopsies had been taken of the tumor-suspicious areas. At this point, the procedure was completed. The bladder was drained. The cystoscope was removed. The patient tolerated the procedure well. She was taken to the recovery room awake and in stable condition. Sheldon Perea MD
== END 2016-12-25 15:20 | disposition home or self-care (01) ==
LOC: SDS 08:03
PROVIDERS: ATTEND Urology
DX: N30.81 Other cystitis with hematuria (principal); N35.9 Urethral stricture, unspecified; R39.198 Other difficulties with micturition; I10 Essential (primary) hypertension; E11.9 Type 2 diabetes mellitus without complications; E05.90 Thyrotoxicosis, unspecified without thyrotoxic crisis or storm; J45.909 Unspecified asthma, uncomplicated
CPT/HCPCS: 52281; 74420; 82948; 88305; C1758; J0360; J0696; J1170; J2250; J2704; J3010; J7120 ×2; Q9966

== ENCOUNTER 2017-01-06 20:06 | Emergency (ER) | payer MEDICARE, BC ==
[2017-01-06 20:07] VITALS: BMI 26.6
[2017-01-06 20:24] VITALS: RESP 18; TEMP 97.7
--- NOTE | 2017-01-06 20:56 | ED PDOC ---
Arrival/HPI - General Chief Complaint: Female Genitourinary Time Seen by Provider: 01/06/17 20:25 Historian: Patient - History of Present Illness Narrative History of Present Illness (Text): 01/06/17 20:55 71 year old female, whose past medical history includes diabetes, chronic hematuria, recent cystitis cystica urethral stenosis, presents to the emergency department complaining of urinary hesitancy, urinary frequency, dysuria, and hematuria. Patient states she recently undergone an cystoscopy of micro hematuria that she was having along with some discomfort with urination. She states that she's been fine for 2 weeks ever since until this evening. Patient noted blood in her urine. She also states she is urinating small amounts at a time. Patient denies any fever, chills, chest pain, shortness of breath, nausea , vomiting, diarrhea, back pain, neck pain, headache, dizziness, or any other complaints. Time/Duration: Other (this evening ) Symptom Onset: Gradual Symptom Course: Unchanged Activities at Onset: Light Context: Home Past Medical History - Provider Review Nursing Documentation Reviewed: Yes - Infectious Disease Hx of Infectious Diseases: None - Tetanus Immunization Tetanus Immunization: Unknown - Reproductive Menopause: Yes - Cardiac Hx Pacemaker: No - Pulmonary Hx Respiratory Disorders: Yes Hx Asthma: Yes - Neurological Hx Paralysis: No - HEENT Hx HEENT Disorder: Yes Hx Cataracts: Yes (SX) Other/Comment: TONSILLECTOMY - Renal Hx Renal Failure: Yes - Endocrine/Metabolic Hx Diabetes Mellitus Type 2: Yes - Hematological/Oncological Hx Blood Transfusions: Yes Hx Blood Transfusion Reaction: No - Integumentary Hx Dermatological Disorder: No - Musculoskeletal/Rheumatological Hx Musculoskeletal Disorders: Yes (HX OSTEO) - Gastrointestinal Hx Gastrointestinal Disorders: No - Genitourinary/Gynecological Hx Reproductive Disorders: No - Psychiatric Hx Emotional Abuse: No Hx Physical Abuse: No Hx Substance Use: No - Surgical History Hx Hysterectomy: Yes Hx Tonsillectomy: Yes Other/Comment: bilateral cataracts removed, picc line x 2,. i and d of non healing wound to ball of left foot - Anesthesia Hx Anesthesia Reactions: No Hx Malignant Hyperthermia: No - Suicidal Assessment Feels Threatened In Home Enviroment: No Family/Social History - Physician Review Nursing Documentation Reviewed: Yes Family/Social History: No Known Family HX Smoking Status: Former Smoker Hx Alcohol Use: No Hx Substance Use: No Hx Substance Use Treatment: No Allergies/Home Meds Allergies/Adverse Reactions: Allergies No Known Allergies Allergy (Verified 12/05/16 08:35) Home Medications: Home Meds Medication Instructions Recorded Confirmed Alprazolam [Xanax] 0.25 mg PO BID PRN 09/12/11 01/06/17 Aspirin [Ecotrin] 81 mg PO DAILY 03/27/16 01/06/17 Atorvastatin [Lipitor] 10 mg PO DAILY 10/05/16 01/06/17 Insulin Glargine, Recombina 20 units SC HS 12/25/16 01/06/17 [Lantus] Insulin Lispro Mix 75/25 [HumaLOG 30 units SC ACBL 12/25/16 01/06/17 Mix 75/25] Review of Systems - Physician Review All systems were reviewed & negative as marked: Yes - Review of Systems Constitutional: absent: Fevers, Other (Chills) Respiratory: absent: SOB Cardiovascular: absent: Chest Pain Gastrointestinal: absent: Abdominal Pain, Diarrhea, Nausea, Vomiting Genitourinary Female: Dysuria, Frequency, Hematuria, Other (Urinary hestiancy ) Musculoskeletal: absent: Back Pain, Neck Pain Neurological: absent: Headache, Dizziness Physical Exam Vital Signs Reviewed: Yes Vital Signs Temp Pulse Resp BP Pulse Ox 01/06/17 20:18 97.7 F 92 H 18 165/79 H 98 Temperature: Afebrile Blood Pressure: Hypertensive Pulse: Regular Respiratory Rate: Normal Appearance: Positive for: Well-Appearing, Non-Toxic, Comfortable Pain Distress: None Mental Status: Positive for: Alert and Oriented X 3 - Systems Exam Head: Present: Atraumatic, Normocephalic Pupils: Present: PERRL Extroacular Muscles: Present: EOMI Conjunctiva: Present: Normal Mouth: Present: Moist Mucous Membranes Neck: Present: Normal Range of Motion Respiratory/Chest: Present: Clear to Auscultation, Good Air Exchange. No: Respiratory Distress, Accessory Muscle Use Cardiovascular: Present: Regular Rate and Rhythm, Normal S1, S2. No: Murmurs Abdomen: Present: Normal Bowel Sounds. No: Tenderness, Distention, Peritoneal Signs, Rebound, Guarding Back: Present: Normal Inspection Upper Extremity: Present: Normal Inspection. No: Cyanosis, Edema Lower Extremity: Present: Normal Inspection. No: Edema Neurological: Present: GCS=15, CN II-XII Intact, Speech Normal Skin: Present: Warm, Dry, Normal Color. No: Rashes Psychiatric: Present: Alert, Oriented x 3, Normal Insight, Normal Concentration Medical Decision Making ED Course and Treatment: 01/06/17 20:55 Impression: 71 year old female presents complaining of urinary hesitancy, urinary frequency , dysuria, and hematuria that began this evening. Plan: -- Labs -- Urinalysis -- Reassess and disposition Prior Visits: Notes and results from previous visits were reviewed on 11/21/16 patient came in complaining of foot cellulitis with pain for that past 2 says. Patient was admitted Progress Notes: 01/06/17 21:20 Case discussed with pt's urologist, Dr. Treadwell, states pt hematuria appears consistent with probable sloughing scab from earlier biopsy. Recommends prophylactic antibiotics and encourage PO liquids. Instructed pt to follow up in his office this week. - Lab Interpretations Lab Results: 01/06/17 21:00 01/06/17 21:00 Lab Results 01/06/17 21:00: WBC 10.6 D, RBC 3.90, Hgb 10.4 L, Hct 32.4 L, MCV 83.1, MCH 26.7, MCHC 32.1, RDW 15.8 H, Plt Count 221, MPV 9.7 01/06/17 21:00: Sodium 141, Potassium 3.8, Chloride 104, Carbon Dioxide 27, Anion Gap 14, BUN 17, Creatinine 0.7, Est GFR ( Amer) > 60, Est GFR (Non- Af Amer) > 60, Random Glucose 199 H, Calcium 9.1, Total Bilirubin 0.8, AST 48 H D, ALT 27, Alkaline Phosphatase 175 H, Total Protein 8.0, Albumin 4.2, Globulin 3.9, Albumin/Globulin Ratio 1.1 01/06/17 21:00: Urine Color Red, Urine Appearance Turbid, Urine pH 6.0, Ur Specific [place] 1.025, Urine Protein >=300 H, Urine Glucose (UA) 100 H, Urine Ketones Trace H, Urine Blood Large H, Urine Nitrate Negative, Urine Bilirubin Negative, Urine Urobilinogen 0.2, Ur Leukocyte Esterase Negative, Urine RBC Tntc , Urine WBC 1 - 3, Ur Epithelial Cells 1 - 3, Urine Bacteria Small I have reviewed the lab results: Yes - Medication Orders Current Medication Orders: Cephalexin Monohydrate (Keflex) 500 mg PO ONCE STA PRN Reason: Protocol Stop: 01/06/17 22:20 - Scribe Statement The provider has reviewed the documentation as recorded by the Scribe Nhi Gay All medical record entries made by the Scribe were at my direction and personally dictated by me. I have reviewed the chart and agree that the record accurately reflects my personal performance of the history, physical exam, medical decision making, and the department course for this patient. I have also personally directed, reviewed, and agree with the discharge instructions and disposition. Disposition/Present on Arrival - Present on Arrival Any Indicators Present on Arrival: No History of DVT/PE: No History of Uncontrolled Diabetes: No Urinary Catheter: No History of Decub. Ulcer: No History Surgical Site Infection Following: None - Disposition Have Diagnosis and Disposition been Completed?: Yes Diagnosis: Hematuria Disposition: HOME/ ROUTINE Disposition Time: 22:21 Patient Plan: Discharge Condition: GOOD Discharge Instructions (ExitCare): Acute Hematuria (ED) Additional Instructions: Drink plenty of liquids/take meds as prescribed/follow up with /Brit/Eben this week Prescriptions: Cephalexin [cephalexin] 500 mg PO BID #14 cap Referrals: Vijaya Zapata, [Primary Care Provider] - Follow up with primary Forms: [employer] ([place]ovenian)
[2017-01-06 21:22] LABS: HEMATOCRIT 32.4 % (36.0-48.0); MEAN CELL VOLUME 83.1 fl (80.0-105.0); MEAN CORPUSCULAR HEMOGLOBIN 26.7 pg (25.0-35.0); MEAN CORPUSCULAR HGB CONC 32.1 g/dl (31.0-37.0); MEAN PLATELET VOLUME 9.7 fl (7.0-11.0); RED CELL DISTRIBUTION WIDTH 15.8 % (11.5-14.5); WHITE BLOOD COUNT 10.6 10^3/ul (4.5-11.0)
[2017-01-06 21:38] LABS: URINE BILIRUBIN NEGATIVE (NEGATIVE); URINE BLOOD LARGE (NEGATIVE); URINE GLUCOSE (UA) 100 mg/dL (NEGATIVE); URINE KETONE TRACE mg/dL (NEGATIVE); URINE LEUKOCYTE ESTERASE NEGATIVE Leu/uL (NEGATIVE); URINE PROTEIN >=300 mg/dL (<30 mg/dL); URINE UROBILINOGEN 0.2 E.U./dL (<1 E.U./dL)
[2017-01-06 21:40] LABS: URINE COLOR RED (YELLOW)
[2017-01-06 21:41] LABS: URINE APPEARANCE TURBID (CLEAR); URINE BACTERIA SMALL (NEG); URINE RBC TNTC /hpf (0-2)
[2017-01-06 21:46] LABS: ALB/GLOB RATIO 1.1 (1.1-1.8); ALKALINE PHOSPHATASE 175 U/L (38-126); ALT/SGPT 27 U/L (7-56); AST/SGOT 48 U/L (14-36); BILIRUBIN,TOTAL 0.8 mg/dL (0.2-1.3); BLOOD UREA NITROGEN 17 mg/dL (7-21); CALCIUM 9.1 mg/dL (8.4-10.5); CARBON DIOXIDE 27 mmol/L (21-33); CHLORIDE 104 mmol/L (98-107); GFR AFRICAN-AMERICAN > 60; GLUCOSE,RANDOM 199 mg/dL (70-110); POTASSIUM 3.8 mmol/L (3.6-5.0); SODIUM 141 mmol/L (132-148)
[2017-01-06 22:24] VITALS: BP 168/66; PULSE 96; O2SAT 100
== END 2017-01-06 22:24 | disposition home or self-care (01) ==
LOC: ED 20:06
DX: R31.9 Hematuria, unspecified (principal)